=== PATIENT | male | born 1955 | race Caucasian/White ===

== ENCOUNTER → 2016-10-03 | Outpatient (CLI) | payer OTHER ==
[2016-10-03 13:09] LABS: Basophils % (A) 0 %; CH 32.5; CHCM 35.1; Eosinophils # (A) 0.3 k/uL (0-0.7); Eosinophils % (A) 4 %; HCT 48.1 % (39.0-53.0); HDW 2.58; HGB 16.4 gm/dL (13.0-17.5); Luc # (Auto) 0.13; Luc % (Auto) 2; Lymphocytes % (A) 22 %; MCH 31.7 pg (25.0-35.0); MCHC 34.1 g/dL (31.0-37.0); Mean Platelet Volume 9.8; Monocytes # (A) 0.7 k/uL (0-1.0); Monocytes % (A) 7 %; Neutrophils # (A) 5.7 k/uL (1.3-7.7); Neutrophils % (A) 65 %; RBC 5.17 m/uL (4.30-5.90); RDW 13.4 % (11.5-15.5); WBC 8.9 k/uL (3.8-10.6); WBC (Perox) 8.49
[2016-10-03 13:25] LABS: ALT 30 U/L (21-72); AST 27 U/L (17-59); Alkaline Phosphatase 137 U/L (38-126); Anion Gap 11 mmol/L; Bilirubin, Delta 0.5 mg/dL (0.0-0.2); Blood Urea Nitrogen 12 mg/dL (9-20); Calcium 9.6 mg/dL (8.4-10.2); Carbon Dioxide 29 mmol/L (22-30); Chloride 104 mmol/L (98-107); Glucose 98 mg/dL (74-99); Non-African American GFR(MDRD) >60 (>60 ml/min/1.73 sqM); Potassium 4.2 mmol/L (3.5-5.1); Sodium 144 mmol/L (137-145); Total Bilirubin 0.8 mg/dL (0.2-1.3); Total Protein 7.3 g/dL (6.3-8.2)
[2016-10-03 13:26] LABS: INR 1.2 (<1.1); Partial Thromboplastin Time 26.3 sec (22.0-30.0); Prothrombin Time 11.5 sec (9.0-12.0)
== END | disposition home or self-care (01) ==
LOC: LABWHC1 12:20
PROVIDERS: ATTEND Physician Assistant
DX: K70.30 Alcoholic cirrhosis of liver without ascites (principal); I10 Essential (primary) hypertension
CPT/HCPCS: 36415; 80053; 82105; 82248; 85025; 85610; 85730

== ENCOUNTER → 2016-12-29 | Outpatient (CLI) | payer OTHER ==
--- NOTE | 2016-12-29 15:19 | MR ---
MR cervical spine and lumbar spine without contrast HISTORY: Neck pain, back pain Multiplanar multisequence imaging obtained through the cervical and lumbar spine Correlation to cervical spine MRI 29 July 2015, lumbar spine MRI July 2014 Cervical spine MRI: Multilevel facet arthropathy, spondylosis, loss of disc height and signal, endpla te degenerative marrow signal change is again noted as on previous exam. Cervical cord signal, cervic al medullary junction are stable and unremarkable. C3-4 shows some slight interval increase in foraminal encroachment on the right as compared to prior exam. Posterior disc bulge is stable, no significant foraminal encroachment. C4-5: Right posterior paracentral disc herniation is again noted, there is anterolateral mass effect on the thecal sac as on prior exam. There is likely contact the anterior cervical cord. Foraminal enc roachment is present right greater than left. On mild central canal stenosis. C5-6: Bilateral foraminal encroachment is present. Moderate central canal stenosis due to posterior e xtension of endplate disc complex, right posterior paracentral extension of endplate disc complex con tacts the cervical cord anteriorly. C6-7: Posterior extension of endplate disc complex causes anterior mass effect on the thecal sac. Jamie ateral foraminal encroachment as on prior exam. C7-T1, C2-3 are stable and essentially unremarkable. IMPRESSION: Multilevel foraminal encroachment, degenerative disc disease, facet arthropathy. Lumbar spine MRI: Exam shows a similar appearance. Grade 3-4 anterolisthesis L5-S1, there is associat ed loss of disc height and signal, reactive marrow signal change. Bilateral foraminal encroachment pr esent and significant at L5-S1. No significant central canal stenosis. Loss of disc signal at L4-5, L 2-3 is again noted. No sizable disc herniation. T11-12 shows a left posterior paracentral disc protru jeffrey causing minimal anterolateral mass effect on the thecal sac as on prior exam. Lumbar vertebral b odies show stable height and marrow signal. IMPRESSION: Stable exam. Spondylolysis, spondylolisthesis L5-S1, extensive severe foraminal encroachm ent bilaterally at L5-S1. Mild degenerative disc disease is stable.
== END | disposition home or self-care (01) ==
LOC: RADMRIMAIN 10:51
PROVIDERS: ATTEND Physician Assistant
DX: M50.21 Other cervical disc displacement, high cervical region (principal); M50.30 Other cervical disc degeneration, unspecified cervical region; M51.36 Other intervertebral disc degeneration, lumbar region; M43.17 Spondylolisthesis, lumbosacral region; M48.02 Spinal stenosis, cervical region; M46.92 Unspecified inflammatory spondylopathy, cervical region; M47.812 Spondylosis without myelopathy or radiculopathy, cervical region; M47.817 Spondylosis without myelopathy or radiculopathy, lumbosacral region
CPT/HCPCS: 72141; 72148

== ENCOUNTER → 2017-02-27 | Outpatient (CLI) | payer OTHER ==
[2017-02-27 09:29] LABS: Basophils % (A) 1 %; CH 32.8; CHCM 34.9; Eosinophils # (A) 0.4 k/uL (0-0.7); Eosinophils % (A) 6 %; HCT 48.1 % (39.0-53.0); HDW 2.54; HGB 16.3 gm/dL (13.0-17.5); Luc # (Auto) 0.19; Luc % (Auto) 3; Lymphocytes # (A) 2.3 k/uL (1.0-4.8); Lymphocytes % (A) 36 %; MCHC 33.9 g/dL (31.0-37.0); MCV 94.4 fL (80.0-100.0); Mean Platelet Volume 8.9; Monocytes # (A) 0.4 k/uL (0-1.0); Monocytes % (A) 7 %; Neutrophils # (A) 3.1 k/uL (1.3-7.7); Neutrophils % (A) 49 %; RDW 13.9 % (11.5-15.5); WBC 6.4 k/uL (3.8-10.6); WBC (Perox) 6.18
[2017-02-27 09:37] LABS: INR 1.2 (<1.1); Partial Thromboplastin Time 25.7 sec (22.0-30.0); Prothrombin Time 12.4 sec (9.0-12.0)
[2017-02-27 09:54] LABS: ALT 38 U/L (21-72); AST 34 U/L (17-59); Alkaline Phosphatase 95 U/L (38-126); Anion Gap 11 mmol/L; Bilirubin, Delta 0.3 mg/dL (0.0-0.2); Blood Urea Nitrogen 12 mg/dL (9-20); Calcium 9.6 mg/dL (8.4-10.2); Carbon Dioxide 26 mmol/L (22-30); Chloride 108 mmol/L (98-107); Cholesterol 146 mg/dL (<200); Glucose 86 mg/dL (74-99); HDL Cholesterol 55 mg/dL (40-60); Non-African American GFR(MDRD) >60 (>60 ml/min/1.73 sqM); Potassium 3.9 mmol/L (3.5-5.1); Sodium 145 mmol/L (137-145); Total Bilirubin 0.8 mg/dL (0.2-1.3); Total Protein 6.6 g/dL (6.3-8.2); Triglycerides 86 mg/dL (<150)
[2017-02-27 10:21] LABS: Prostate Specific Antigen 3.11 ng/mL (0.00-4.00)
== END | disposition home or self-care (01) ==
LOC: LABWHC1 09:01
PROVIDERS: ATTEND Physician Assistant
DX: Z00.00 Encounter for general adult medical examination without abnormal findings (principal); K70.30 Alcoholic cirrhosis of liver without ascites
CPT/HCPCS: 36415; 80053; 80061; 82105; 82248; 84153; 85025; 85610; 85730

== ENCOUNTER → 2017-05-12 | Outpatient (CLI) | payer OTHER ==
--- NOTE | 2017-05-12 11:08 | US ---
EXAMINATION TYPE: US liver DATE OF EXAM: 05/12/2017 COMPARISON: US 2016 CLINICAL HISTORY: K70.30 Alcoholic Cirrhosis. EXAM MEASUREMENTS: Liver Length: 10.2 cm Gallbladder Wall: 0.2 cm CBD: 0.3 cm Right Kidney: 10.2 x 6.0 x 4.4 cm Pancreas: limitedly seen as obscured by bowel gas Liver: heterogeneous appearance with nodular border to left lobe especially; enlarged main Portal Ve in at 16.3mm (nl = 13.0mm or <) with hepatopetal flow documented. Gallbladder: wnl, fold at fundus Evidence for sonographic Mckeon's sign: No CBD: wnl Right Kidney: No hydronephrosis or masses seen IMPRESSION: 1. Findings of the liver which can be compatible with cirrhosis in the proper clinical setting. 2. Portal vein with normal hepatopetal flow.
== END | disposition home or self-care (01) ==
LOC: RADUSWWP 09:27
DX: K70.30 Alcoholic cirrhosis of liver without ascites (principal)
CPT/HCPCS: 93976

== ENCOUNTER 2017-06-06 15:47 | Emergency (ER) | payer OTHER ==
[2017-06-06 15:59] VITALS: RESP 18
[2017-06-06] MEDS ORDERED: SODIUM CHLORIDE 0.9% 1,000 ML IV ONE (15:59)
[2017-06-06] MEDS ORDERED: SODIUM CHLORIDE 0.9% 1,000 ML IV SCH (16:00)
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
[2017-06-06 16:27] LABS: Aty Lym Flag Slight; Basophils # (A) 0.1 k/uL (0-0.2); Basophils % (A) 1 %; CH 33.7; CHCM 35.2; Eosinophils # (A) 0.5 k/uL (0-0.7); Eosinophils % (A) 7 %; HCT 43.5 % (39.0-53.0); HDW 2.59; HGB 14.7 gm/dL (13.0-17.5); Luc # (Auto) 0.35; Luc % (Auto) 6; Lymphocytes # (A) 2.6 k/uL (1.0-4.8); Lymphocytes % (A) 40 %; MCH 32.5 pg (25.0-35.0); MCHC 33.7 g/dL (31.0-37.0); MCV 96.3 fL (80.0-100.0); Mean Platelet Volume 8.8; Monocytes # (A) 0.5 k/uL (0-1.0); Monocytes % (A) 7 %; Neutrophils # (A) 2.6 k/uL (1.3-7.7); Neutrophils % (A) 40 %; RBC 4.52 m/uL (4.30-5.90); RDW 14.9 % (11.5-15.5); WBC 6.5 k/uL (3.8-10.6); WBC (Perox) 6.64
[2017-06-06 16:34] LABS: INR 1.2 (<1.2); Partial Thromboplastin Time 24.8 sec (22.0-30.0); Prothrombin Time 11.5 sec (9.0-12.0)
--- NOTE | 2017-06-06 16:35 | XR ---
EXAMINATION TYPE: XR chest 1V portable DATE OF EXAM: 06/06/2017 COMPARISON: 10/08/2010 HISTORY: Pain and trauma TECHNIQUE: Single frontal view of the chest is obtained. FINDINGS: Heart and mediastinum are normal. Lungs are clear. Diaphragm is normal. There are chest le ads. There is no sign of a pneumothorax. IMPRESSION: Normal chest. No change.
--- NOTE | 2017-06-06 16:39 | CT ---
EXAMINATION TYPE: CT brain kayleigh jaimes DATE OF EXAM: 06/06/2017 COMPARISON: NONE HISTORY: Pain. Injury. CT DLP: mGycm Automated exposure control for dose reduction was used. TECHNIQUE: CT scan of the head and cervical spine are performed without contrast. FINDINGS: Ventricles and sulci appear normal. There is no mass effect nor midline shift. There is n o sign of intracranial hemorrhage. There is mild white matter hypodensity in the parietal lobes bilat erally. The calvarium is intact. There is straightening of the cervical spine. There is degenerative disc space narrowing at C5-6 C6-7 with moderate spurring of the endplates. There is calcification of the posterior longitudinal ligame nt at C4 C5 C6. Facet joints are intact. The skull base is intact. I see no focal bone destruction. IMPRESSION: There is evidence of chronic small vessel ischemia. No acute intracranial abnormality. Moderate spondylosis in the lower cervical spine. No fracture.
[2017-06-06 16:43] LABS: ALT 36 U/L (21-72); AST 45 U/L (17-59); Alkaline Phosphatase 101 U/L (38-126); Anion Gap 13 mmol/L; Blood Urea Nitrogen 11 mg/dL (9-20); Calcium 9.2 mg/dL (8.4-10.2); Carbon Dioxide 18 mmol/L (22-30); Chloride 116 mmol/L (98-107); Glucose 78 mg/dL (74-99); Non-African American GFR(MDRD) >60 (>60 ml/min/1.73 sqM); Potassium 3.7 mmol/L (3.5-5.1); Sodium 147 mmol/L (137-145); Total Bilirubin 0.8 mg/dL (0.2-1.3); Total Protein 6.1 g/dL (6.3-8.2)
[2017-06-06 16:46] LABS: Creatine Kinase 201 U/L (55-170)
[2017-06-06 16:49] LABS: Alcohol 273 mg/dL
[2017-06-06] MEDS ORDERED: TOPICAL SKIN ADHESIVE 1 EACH AMP TOPICAL ONE (16:55)
[2017-06-06 16:58] LABS: Large Platelets Present; Manual Review Performed; RBC Morphology Normal; Reactive Lymphocytes Present
[2017-06-06 16:59] LABS: Creatine Kinase MB 1.3 ng/mL (0.0-2.4); Troponin I <0.012 ng/mL (0.000-0.034)
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
[2017-06-06 17:54] VITALS: BP 124/73; PULSE 74; TEMP 98
== END 2017-06-06 18:02 | disposition home or self-care (01) ==
LOC: EC 15:47
DX: S09.90XA Unspecified injury of head, initial encounter (principal); S01.81XA Laceration without foreign body of other part of head, initial encounter; S00.211A Abrasion of right eyelid and periocular area, initial encounter; F10.129 Alcohol abuse with intoxication, unspecified; V19.9XXA Pedal cyclist (driver) (passenger) injured in unspecified traffic accident, initial encounter; Y93.55 Activity, bike riding; M19.90 Unspecified osteoarthritis, unspecified site; F32.9 Major depressive disorder, single episode, unspecified; F17.200 Nicotine dependence, unspecified, uncomplicated; Z79.899 Other long term (current) drug therapy
CPT/HCPCS: 12013; 36415; 70450; 71010; 72125; 72170; 80053; 80320; 82550; 82553; 84484; 85025; 85610; 85730; 86850; 86900; 86901; 96360; 96361; 99285

== ENCOUNTER → 2017-07-04 | Outpatient (CLI) | payer OTHER ==
[2017-07-04 13:28] LABS: CH 32.9; CHCM 34.5; HCT 48.5 % (39.0-53.0); HDW 2.51; MCH 31.7 pg (25.0-35.0); MCV 95.9 fL (80.0-100.0); Mean Platelet Volume 8.3; RBC 5.06 m/uL (4.30-5.90); RDW 12.7 % (11.5-15.5); WBC 6.1 k/uL (3.8-10.6)
[2017-07-04 13:36] LABS: INR 1.2 (<1.2); Partial Thromboplastin Time 25.3 sec (22.0-30.0); Prothrombin Time 12.1 sec (9.0-12.0)
[2017-07-04 13:44] LABS: Bilirubin, Delta 0.3 mg/dL (0.0-0.2); Total Bilirubin 0.8 mg/dL (0.2-1.3)
== END | disposition home or self-care (01) ==
LOC: LABWHC1 12:59
PROVIDERS: ATTEND Physician Assistant
DX: K70.30 Alcoholic cirrhosis of liver without ascites (principal)
CPT/HCPCS: 36415; 80076; 82105; 85027; 85610; 85730

== ENCOUNTER → 2018-01-08 | Outpatient (CLI) | payer OTHER ==
[2018-01-08 12:50] LABS: Basophils % (A) 0 %; Eosinophils # (A) 0.2 k/uL (0-0.7); Eosinophils % (A) 3 %; HCT 46.4 % (39.0-53.0); HGB 15.6 gm/dL (13.0-17.5); Lymphocytes % (A) 21 %; MCH 30.4 pg (25.0-35.0); MCHC 33.5 g/dL (31.0-37.0); MCV 90.5 fL (80.0-100.0); Mean Platelet Volume 9.4; Monocytes # (A) 0.7 k/uL (0-1.0); Monocytes % (A) 8 %; Neutrophils # (A) 6.3 k/uL (1.3-7.7); Neutrophils % (A) 67 %; Platelet Count 131 k/uL (150-450); RBC 5.13 m/uL (4.30-5.90); WBC 9.4 k/uL (3.8-10.6)
[2018-01-08 12:52] LABS: INR 1.2 (<1.2); Partial Thromboplastin Time 23.7 sec (22.0-30.0); Prothrombin Time 11.4 sec (9.0-12.0)
[2018-01-08 13:37] LABS: ALT 36 U/L (21-72); AST 34 U/L (17-59); Albumin 3.7 g/dL (3.5-5.0); Alkaline Phosphatase 124 U/L (38-126); Anion Gap 10 mmol/L; Bilirubin, Delta 0.6 mg/dL (0.0-0.2); Bilirubin,Unconjugated 0.2 mg/dL (0.0-1.1); Blood Urea Nitrogen 14 mg/dL (9-20); Calcium 9.8 mg/dL (8.4-10.2); Carbon Dioxide 29 mmol/L (22-30); Chloride 103 mmol/L (98-107); Glucose 94 mg/dL (74-99); Potassium 4.2 mmol/L (3.5-5.1); Sodium 142 mmol/L (137-145); Total Bilirubin 0.8 mg/dL (0.2-1.3); Total Protein 6.2 g/dL (6.3-8.2)
[2018-01-08 18:46] LABS: Alpha Fetoprotein, Tumor Mkr 2.3 ng/mL (0.0-7.9); Vitamin D 25 Hydroxy 31.3 ng/mL (30.0-100.0)
== END | disposition home or self-care (01) ==
LOC: LABWHC1 12:20
PROVIDERS: ATTEND Internal Medicine Gastroenterology
DX: K70.30 Alcoholic cirrhosis of liver without ascites (principal); E78.5 Hyperlipidemia, unspecified
CPT/HCPCS: 36415; 80053; 82105; 82248; 82306; 85025; 85610; 85730

== ENCOUNTER → 2018-01-30 | Outpatient (CLI) | payer OTHER ==
[2018-01-30 12:25] LABS: Basophils % (A) 0 %; Eosinophils # (A) 0.3 k/uL (0-0.7); Eosinophils % (A) 4 %; HCT 43.5 % (39.0-53.0); HGB 15.3 gm/dL (13.0-17.5); Lymphocytes # (A) 1.6 k/uL (1.0-4.8); Lymphocytes % (A) 26 %; MCH 32.8 pg (25.0-35.0); MCHC 35.2 g/dL (31.0-37.0); MCV 93.2 fL (80.0-100.0); Mean Platelet Volume 9.2; Monocytes # (A) 0.4 k/uL (0-1.0); Monocytes % (A) 7 %; Neutrophils # (A) 3.5 k/uL (1.3-7.7); Neutrophils % (A) 60 %; Platelet Count 114 k/uL (150-450); RBC 4.67 m/uL (4.30-5.90); RDW 13.6 % (11.5-15.5); WBC 5.9 k/uL (3.8-10.6)
[2018-01-30 12:41] LABS: ALT 39 U/L (21-72); AST 49 U/L (17-59); Albumin 3.7 g/dL (3.5-5.0); Alkaline Phosphatase 98 U/L (38-126); Anion Gap 10 mmol/L; Blood Urea Nitrogen 11 mg/dL (9-20); Calcium 9.5 mg/dL (8.4-10.2); Carbon Dioxide 28 mmol/L (22-30); Chloride 105 mmol/L (98-107); Cholesterol 155 mg/dL (<200); Glucose 93 mg/dL (74-99); HDL Cholesterol 72 mg/dL (40-60); LDL Cholesterol,Calculated 64 mg/dL (0-99); Potassium 4.2 mmol/L (3.5-5.1); Sodium 143 mmol/L (137-145); Total Bilirubin 1.4 mg/dL (0.2-1.3); Total Protein 6.1 g/dL (6.3-8.2); Triglycerides 93 mg/dL (<150)
[2018-01-30 13:09] LABS: Prostate Specific Antigen 4.37 ng/mL (0.00-4.00)
== END | disposition home or self-care (01) ==
LOC: LABWHC1 11:34
PROVIDERS: ATTEND Family Medicine
DX: Z00.00 Encounter for general adult medical examination without abnormal findings (principal)
CPT/HCPCS: 36415; 80053; 80061; 82306; 84153; 85025

== ENCOUNTER → 2018-02-01 | Outpatient (CLI) | payer OTHER | END | disposition home or self-care (01) | LOC: LABWHC1 09:53 | PROVIDERS: ATTEND Family Medicine | DX: R89.9 Unspecified abnormal finding in specimens from other organs, systems and tissues (principal) | CPT/HCPCS: 36415; 84153; 84154 ==

== ENCOUNTER → 2018-02-06 | Outpatient (CLI) | payer OTHER ==
--- NOTE | 2018-02-06 22:22 | MR ---
EXAMINATION TYPE: MR lumbar spine wo con DATE OF EXAM: 02/06/2018 COMPARISON: MRI lumbar spine December 29, 2016 HISTORY: Back pain 30 years per patient. Lumbago per order. TECHNIQUE: Multiplanar, multisequence imaging of the lumbar spine is performed without IV contrast. FINDINGS: Sagittal images of the lumbar spine redemonstrate significant grade 3 spondylolisthesis or anterolisthesis L5 on S1 without stable. There is mild to moderate height loss involving posterior in ferior L5 vertebra similar to prior. There is redemonstration of disc desiccation L2-L3, L4-L5, and L 5-S1 levels similar to prior. Fairly advanced disc space narrowing L5-S1 level is redemonstrated. No new or large posterior disc herniations and sagittal images are seen. The conus medullaris remains no rmal in position and signal ending superior L1 level. The bone marrow signal intensity remains heter ogeneous with multiple scattered small hemangiomas redemonstrated. Axial images show at T12-L1 and L1-L2 levels remain within normal limits. Axial images at L2-L3 level redemonstrate mild broad disc bulge mildly effacing the anterior thecal s ac, bilateral neural foramina are patent. No significant change from prior. Axial images at L3-L4 level remain within normal limits. Axial images at L4-L5 level shows broad disc bulge with central disc protrusion component. Increased signal posteriorly suggesting annular tear remains present. Spinal canal is preserved. Bilateral neur al foramina are patent. Axial images at L5-S1 level redemonstrated bilateral pars defect and spondylolisthesis with pseudodis c herniation and increased signal posteriorly and anteriorly suggesting annular tear. Spinal canal is preserved. There is advanced bilateral neural foraminal narrowing with suspected encroachment on bot h L5 nerves redemonstrated. No suspicious retroperitoneal findings are seen. IMPRESSION: Multilevel degenerative changes of lumbar spine as detailed above. Stable persistent sign ificant spondylolisthesis L5-S1 level causing advanced bilateral neural foraminal narrowing and likel y encroachment on both L5 nerves.
== END | disposition home or self-care (01) ==
LOC: RADMRIMAIN 13:20
PROVIDERS: ATTEND Psychiatry & Neurology Neurology
DX: M43.17 Spondylolisthesis, lumbosacral region (principal); M47.816 Spondylosis without myelopathy or radiculopathy, lumbar region; M99.73 Connective tissue and disc stenosis of intervertebral foramina of lumbar region
CPT/HCPCS: 72148

== ENCOUNTER 2018-04-06 09:43 | Day surgery (SDC) | payer OTHER ==
[2018-04-03 15:37] VITALS: BMI 23.5
[~2018-04-06 09:43] MED LIST: LACTATED RINGERS 1,000 ML IV SCH; LIDOCAINE 1% 20 ML VIAL (10MG/ML) FOR IV START INTRADERMA PRN; MIDAZOLAM 2 MG/2 ML VIAL IV PRN
[2018-04-06 10:57] VITALS: TEMP 98.6
[2018-04-06] MEDS ORDERED: LIDOCAINE 1% INJ 10MG/ML (20 ML MDV) ONE (11:21)
[2018-04-06] MEDS ORDERED: PROPOFOL 10 MG/ML 20 ML VIAL IV ONE (11:21)
--- NOTE | 2018-04-06 11:46 | P.PCN ---
Date of Procedure: 04/06/18 Procedure(s) Performed: Brief history: Patient is a pleasant 62-year-old white male, scheduled for an elective upper endoscopy as well as colonoscopy as a part of evaluation of long-standing history of GERD and screening for colon cancer. Procedure performed: Esophagogastroduodenoscopy with biopsy Colonoscopy Preoperative diagnosis: Long-standing history of GERD Screening for colon cancer Anesthesia: MAC Procedure: After informed consent was obtained from the patient was brought into the endoscopy unit and IV sedation was administered by anesthesia under continuous monitoring. Initially upper endoscopy was done. The Olympus GF 160 video endoscope was inserted inserted into the mouth and esophagus intubated without any difficulty and was gradually advanced into the stomach and duodenum and carefully examined. The bulb and second part of the duodenum appeared normal. The scope was then withdrawn into the stomach adequately insufflated with air and upon careful examination the antrum had mild gastritis and biopsies were done from this area. The body, cardia and fundus appeared normal. The scope was then withdrawn into the esophagus. The GE junction was located at 40 cm to the incisors. It appeared regular with no erythema erosions or ulcerations. Rest of the esophagus appeared normal. the proximal esophagus at 20 cm from the incisors there was a 5 mm polyp that was removed. Patient tolerated the procedure well. At this time the patient continued to remain sedation. Initial digital rectal examination was normal. Olympus CF 160 video colonoscope was then inserted into the rectum and gradually advanced to the cecum without any difficulty. Careful examination was performed as the scope was gradually being withdrawn. The prep was excellent. The cecum, ascending colon, transverse colon, descending colon, sigmoid colon and rectum appeared normal. Retroflexion was performed in the rectum and no lesions were noted. Patient tolerated the procedure well. Impression: 1. Upper endoscopy revealed 5 mm proximal esophageal polyp status post biopsy and mild gastritis 2. Colonoscopy was within normal limits with no evidence of of colorectal lasia Recommendations: Findings of this examination were discussed with the patient as well as his family. He was advised to follow with the biopsy results. He can have a repeat screening colonoscopy in 10 years. He will continue with Prilosec 20 mg daily and follow up with the biopsy results.
[2018-04-06 11:49] VITALS: RESP 16
[2018-04-06 12:11] VITALS: BP 129/77; PULSE 71
== END 2018-04-06 12:25 | disposition home or self-care (01) ==
LOC: ORWHC2ENDO 09:43
PROVIDERS: ATTEND Internal Medicine Gastroenterology
DX: Z12.11 Encounter for screening for malignant neoplasm of colon (principal); K29.50 Unspecified chronic gastritis without bleeding; D13.0 Benign neoplasm of esophagus; K21.9 Gastro-esophageal reflux disease without esophagitis; F32.9 Major depressive disorder, single episode, unspecified; F41.9 Anxiety disorder, unspecified; Z87.891 Personal history of nicotine dependence; Z79.899 Other long term (current) drug therapy
CPT/HCPCS: 88305; 43239; J2001; J2704; G0121; 45378

== ENCOUNTER → 2018-06-06 | Outpatient (CLI) | payer OTHER ==
[2018-06-06 12:14] LABS: INR 1.3 (<1.2); Partial Thromboplastin Time 25.4 sec (22.0-30.0); Prothrombin Time 12.2 sec (9.0-12.0)
[2018-06-06 12:29] LABS: Albumin 3.5 g/dL (3.5-5.0); Bilirubin, Delta 0.9 mg/dL (0.0-0.2); Total Bilirubin 1.9 mg/dL (0.2-1.3); Total Protein 6.1 g/dL (6.3-8.2)
[2018-06-06 12:35] LABS: HCT 47.3 % (39.0-53.0); HGB 15.7 gm/dL (13.0-17.5); MCH 32.4 pg (25.0-35.0); MCHC 33.2 g/dL (31.0-37.0); MCV 97.6 fL (80.0-100.0); Mean Platelet Volume 9.1; Platelet Count 100 k/uL (150-450); RBC 4.85 m/uL (4.30-5.90); RDW 13.8 % (11.5-15.5)
== END | disposition home or self-care (01) ==
LOC: LABWHC1 11:16
PROVIDERS: ATTEND Physician Assistant
DX: K70.30 Alcoholic cirrhosis of liver without ascites (principal)
CPT/HCPCS: 36415; 80076; 82105; 85027; 85610; 85730

== ENCOUNTER → 2018-07-13 | Outpatient (CLI) | payer OTHER ==
[2018-07-13 11:11] LABS: Basophils % (A) 0 %; Eosinophils # (A) 0.2 k/uL (0-0.7); Eosinophils % (A) 3 %; HCT 47.6 % (39.0-53.0); HGB 15.7 gm/dL (13.0-17.5); Lymphocytes # (A) 1.9 k/uL (1.0-4.8); Lymphocytes % (A) 30 %; MCV 96.8 fL (80.0-100.0); Mean Platelet Volume 9.3; Monocytes # (A) 0.6 k/uL (0-1.0); Monocytes % (A) 9 %; Neutrophils # (A) 3.6 k/uL (1.3-7.7); Neutrophils % (A) 56 %; Platelet Count 107 k/uL (150-450); RBC 4.91 m/uL (4.30-5.90); RDW 13.6 % (11.5-15.5); WBC 6.5 k/uL (3.8-10.6)
[2018-07-13 11:24] LABS: INR 1.2 (<1.2); Prothrombin Time 11.6 sec (9.0-12.0)
[2018-07-13 12:05] LABS: Albumin 3.1 g/dL (3.5-5.0); Anion Gap 6 mmol/L; Bilirubin,Unconjugated 0.6 mg/dL (0.0-1.1); Blood Urea Nitrogen 15 mg/dL (9-20); Calcium 8.9 mg/dL (8.4-10.2); Carbon Dioxide 29 mmol/L (22-30); Chloride 104 mmol/L (98-107); Glucose 81 mg/dL (74-99); Potassium 3.6 mmol/L (3.5-5.1); Sodium 139 mmol/L (137-145); Total Protein 5.9 g/dL (6.3-8.2)
[2018-07-13 12:06] LABS: ALT 47 U/L (21-72); AST 93 U/L (17-59); Alkaline Phosphatase 167 U/L (38-126); Bilirubin, Delta 0.8 mg/dL (0.0-0.2); Total Bilirubin 1.4 mg/dL (0.2-1.3)
--- NOTE | 2018-07-13 16:53 | US ---
EXAMINATION TYPE: US liver DATE OF EXAM: 07/13/2018 COMPARISON: NONE CLINICAL HISTORY: K70.30 Alcoholic cirrhosis of liver w/o ascites. Alcoholic cirrhosis of the liver w ithout ascites EXAM MEASUREMENTS: Liver Length: 11.9 cm Gallbladder Wall: 0.3 cm CBD: 0.3 cm Right Kidney: 9.1 x 4.9 x 5.6 cm Difficult and limited study due to overlying bowel gas Pancreas: obscured by overlying midline bowel gas Liver: heterogeneous with nodular borders, enlarged portal vein at 1.7cm with hepatopedal flow seen Gallbladder: wnl Evidence for sonographic Mckeon's sign: no CBD: visualized portions wnl Right Kidney: wnl IMPRESSION: 1. Findings compatible with cirrhosis. Note is made of hepatopedal flow of the portal vein.
== END | disposition home or self-care (01) ==
LOC: RADUSWWP 09:41
PROVIDERS: ATTEND Internal Medicine Gastroenterology
DX: K70.30 Alcoholic cirrhosis of liver without ascites (principal); E78.5 Hyperlipidemia, unspecified; R97.20 Elevated prostate specific antigen [PSA]
CPT/HCPCS: 36415; 76705; 80053; 82105; 82248; 84153; 84154; 85025; 85610; 85730

== ENCOUNTER → 2019-01-07 | Outpatient (CLI) | payer OTHER ==
[2019-01-07 12:19] LABS: Basophils % (A) 0 %; Eosinophils # (A) 0.1 k/uL (0-0.7); Eosinophils % (A) 2 %; HCT 46.1 % (39.0-53.0); HGB 15.3 gm/dL (13.0-17.5); Lymphocytes # (A) 1.5 k/uL (1.0-4.8); Lymphocytes % (A) 33 %; MCH 32.1 pg (25.0-35.0); MCHC 33.3 g/dL (31.0-37.0); MCV 96.4 fL (80.0-100.0); Mean Platelet Volume 10.3; Monocytes # (A) 0.3 k/uL (0-1.0); Monocytes % (A) 8 %; Neutrophils # (A) 2.5 k/uL (1.3-7.7); Neutrophils % (A) 54 %; RBC 4.78 m/uL (4.30-5.90); RDW 13.8 % (11.5-15.5); WBC 4.6 k/uL (3.8-10.6)
[2019-01-07 12:23] LABS: INR 1.5 (<1.2); Prothrombin Time 14.8 sec (9.0-12.0)
[2019-01-07 12:56] LABS: Large Platelets Present; Platelet Count 76 k/uL (150-450)
[2019-01-07 16:50] LABS: Albumin 3.2 g/dL (3.80-4.90); Albumin/Globulin Ratio 1.68 (1.60-3.17); Bilirubin,Unconjugated 1.1 mg/dL; Calcium 8.6 mg/dL (8.7-10.3); Globulin 1.9 g/dL (1.6-3.3); Potassium 3.9 mmol/L (3.5-5.5); Total Bilirubin 3.1 mg/dL (0.2-1.2); Total Protein 5.1 g/dL (6.2-8.2)
== END | disposition home or self-care (01) ==
LOC: LABWHC1 11:01
PROVIDERS: ATTEND Family Medicine
DX: K70.30 Alcoholic cirrhosis of liver without ascites (principal); E78.5 Hyperlipidemia, unspecified; R97.20 Elevated prostate specific antigen [PSA]
CPT/HCPCS: 36415; 80053; 82105; 82248; 84153; 84154; 85025; 85610

== ENCOUNTER 2019-03-17 16:18 | Inpatient (IN) | payer OTHER ==
[2019-03-17] MEDS ORDERED: VANCOMYCIN IV PER PHARMACY 1 EACH MISC MISCELLANE PRN (16:33)
[2019-03-17] MEDS ORDERED: ACETAMINOPHEN TAB 500 MG TAB PO STA (16:33)
[2019-03-17] MEDS ORDERED: IBUPROFEN 600 MG TAB PO STA (16:33)
[2019-03-17] MEDS ORDERED: VANCOMYCIN 1,500 MG in SODIUM CHLORIDE 0.9% 250 ML IVPB ONE (16:45)
[2019-03-17 17:26] LABS: ALT 42 U/L (21-72); AST 70 U/L (17-59); African American GFR (CKD) >90 (>60 ml/min/1.73 sqM); Albumin 2.6 g/dL (3.5-5.0); Alcohol <10 mg/dL; Alkaline Phosphatase 239 U/L (38-126); Anion Gap 7 mmol/L; Blood Urea Nitrogen 13 mg/dL (9-20); Calcium 8.3 mg/dL (8.4-10.2); Carbon Dioxide 27 mmol/L (22-30); Chloride 102 mmol/L (98-107); Glucose 133 mg/dL (74-99); Lipase 206 U/L (23-300); Magnesium 1.5 mg/dL (1.6-2.3); Phosphorus 2.3 mg/dL (2.5-4.5); Potassium 3.4 mmol/L (3.5-5.1); Sodium 136 mmol/L (137-145); Total Protein 5.2 g/dL (6.3-8.2)
[2019-03-17 17:27] LABS: Anisocytosis Slight; Basophils % (A) 0 %; Eosinophils # (A) 0.1 k/uL (0-0.7); Eosinophils % (A) 1 %; HCT 41.1 % (39.0-53.0); HGB 13.9 gm/dL (13.0-17.5); Lymphocytes # (A) 0.9 k/uL (1.0-4.8); Lymphocytes % (A) 9 %; MCH 33.3 pg (25.0-35.0); MCHC 33.8 g/dL (31.0-37.0); MCV 98.6 fL (80.0-100.0); Macrocytosis Slight; Mean Platelet Volume 10.1; Monocytes # (A) 0.5 k/uL (0-1.0); Monocytes % (A) 5 %; Neutrophils # (A) 8.5 k/uL (1.3-7.7); Neutrophils % (A) 84 %; Platelet Count 63 k/uL (150-450); RBC 4.17 m/uL (4.30-5.90); RDW 16.3 % (11.5-15.5); WBC 10.2 k/uL (3.8-10.6)
[2019-03-17] MEDS ORDERED: LORazepam 2 MG/ML INJ IV PRN ×3 (17:42)
[2019-03-17] MEDS ORDERED: THIAMINE 100 MG/ML 2 ML VIAL IM STA (17:42)
[2019-03-17] MEDS ORDERED: TEMAZEPAM 15 MG CAP PO PRN (17:48)
[2019-03-17] MEDS ORDERED: hydrALAZINE HCL 20 MG/ML 1 ML VIAL IVP PRN (17:48)
[2019-03-17] MEDS ORDERED: cloNIDine HCL 0.1 MG TAB PO PRN (17:48)
[2019-03-17] MEDS ORDERED: HYDROmorphone 0.5 MG/0.5 ML SYRINGE IVP PRN (17:48)
--- NOTE | 2019-03-17 18:16 | XR ---
EXAMINATION TYPE: XR chest 2V DATE OF EXAM: 03/17/2019 COMPARISON: 06/06/2017 HISTORY: Cough. Leg swelling TECHNIQUE: Frontal and lateral views of the chest are obtained. FINDINGS: Heart and mediastinum are normal. Lungs are clear. Diaphragm is normal. Bony thorax appear s normal. There is no heart failure. There are chest leads. IMPRESSION: No active cardiopulmonary disease. Normal heart. No change.
[2019-03-17] MEDS ORDERED: DEXTROSE 5%-0.45% NACL 1,000 ML IV SCH (18:30)
--- NOTE | 2019-03-17 18:34 | ED ---
Extremity Problem HPI - General Chief complaint: Extremity Problem,Nontraumatic Stated complaint: legs swelling and wheeping Time Seen by Provider: 03/17/19 16:33 Source: patient, RN notes reviewed, old records reviewed Mode of arrival: ambulatory Limitations: no limitations - History of Present Illness Initial comments: This is a 63-year-old male the ER for evaluation. This patient resents today for evaluation regards to bilateral Shorty cellulitis and wheezing. Fever. Not feeling well. Patient has history of alcohol is history of lower extremity cellulitis venous stasis and PD. Patient is recent travel history or sick contacts. No other cough congestion nausea vomiting or diarrhea MD Complaint: extremity pain, extremity swelling, joint swelling -: days(s) Location: bilateral lower extremity History of Same: No -: Yes arthralgia Radiation: none Severity scale (1-10): 3 Quality: crushing Consistency: constant Improves with: nothing Worsens with: nothing Associated Symptoms: fever, myalgias, arthralgias - Related Data Home Medications Medication Instructions Recorded Confirmed Folic Acid 1 mg PO DAILY 10/14/15 03/17/19 Omeprazole [PriLOSEC] 20 mg PO BID 10/14/15 03/17/19 Potassium Chloride [Klor-Con 20] 20 meq PO BID 10/14/15 03/17/19 Simvastatin [Zocor] 10 mg PO HS 10/14/15 03/17/19 Spironolactone-Hctz 25-25Mg 1 tab PO DAILY 06/06/17 03/17/19 [Aldactazide 25-25Mg] Pregabalin [Lyrica] 150 mg PO BID 03/17/19 03/17/19 Allergies Allergy/AdvReac Type Severity Reaction Status Date / Time No Known Allergies Allergy Verified 03/17/19 17:13 Review of Systems ROS Statement: Those systems with pertinent positive or pertinent negative responses have been documented in the HPI. ROS Other: All systems not noted in ROS Statement are negative. Past Medical History Past Medical History: Cancer, Hyperlipidemia, Osteoarthritis (OA) Additional Past Medical History / Comment(s): LIVER DISEASE, " in 2004 esophagus was bleeding and ulcers in stomach" receiving steroid injections for back pain. Prostate cancer History of Any Multi-Drug Resistant Organisms: None Reported Additional Past Surgical History / Comment(s): CATARACT SURGERY-BILATERAL, DENTAL Past Anesthesia/Blood Transfusion Reactions: No Reported Reaction Past Psychological History: Depression Smoking Status: Current every day smoker Past Alcohol Use History: None Reported, Daily Past Drug Use History: Marijuana - Past Family History Sister(s) Family Medical History: No Reported History Additional Family Medical History / Comment(s): THROAT Brother(s) Family Medical History: Cancer Additional Family Medical History / Comment(s): throat cancer General Exam Limitations: no limitations General appearance: alert, in no apparent distress Head exam: Present: atraumatic, normocephalic, normal inspection Eye exam: Present: normal appearance, PERRL, EOMI. Absent: scleral icterus, conjunctival injection, periorbital swelling ENT exam: Present: normal exam, mucous membranes moist Neck exam: Present: normal inspection. Absent: tenderness, meningismus, lymphadenopathy Respiratory exam: Present: normal lung sounds bilaterally. Absent: respiratory distress, wheezes, rales, rhonchi, stridor Cardiovascular Exam: Present: normal rhythm, tachycardia, normal heart sounds. Absent: systolic murmur, diastolic murmur, rubs, gallop, clicks GI/Abdominal exam: Present: soft, normal bowel sounds. Absent: distended, tenderness, guarding, rebound, rigid Extremities exam: Present: tenderness, normal capillary refill, other (Bilateral short lower extremity edema and cellulitis significant drainage and right lower extremity swelling, left lower extremity worse than right). Absent: pedal edema, joint swelling, calf tenderness Back exam: Present: normal inspection Neurological exam: Present: alert, oriented X3, CN II-XII intact Psychiatric exam: Present: normal affect, normal mood Skin exam: Present: warm, dry, intact, normal color. Absent: rash Course Vital Signs 03/17/19 16:28 Temperature 102.9 F H Pulse Rate 116 H Respiratory 22 Rate Blood Pressure 138/86 O2 Sat by Pulse 96 Oximetry - Reevaluation(s) Reevaluation #1: 03/17/19 18:32 Medical record is reviewed Reevaluation #2: 03/17/19 18:33 Having left lower extremity pain, fever improved Medical Decision Making - Medical Decision Making 63 male the ER for evaluation, patient will be admitted for bilateral cellulitis worse on the left lower extremity significantly with breathing and fever. Patient placed on IV antibiotics - Lab Data Result diagrams: 03/17/19 16:50 03/17/19 16:50 Lab Results 03/17/19 03/17/19 03/17/19 Range/Units 16:50 16:50 16:50 WBC 10.2 (3.8-10.6) k/uL RBC 4.17 L (4.30-5.90) m/uL Hgb 13.9 (13.0-17.5) gm/dL Hct 41.1 (39.0-53.0) % MCV 98.6 (80.0-100.0) fL MCH 33.3 (25.0-35.0) pg MCHC 33.8 (31.0-37.0) g/dL RDW 16.3 H (11.5-15.5) % Plt Count 63 L (150-450) k/uL Neutrophils % 84 % Lymphocytes % 9 % Monocytes % 5 % Eosinophils % 1 % Basophils % 0 % Neutrophils # 8.5 H (1.3-7.7) k/uL Lymphocytes # 0.9 L (1.0-4.8) k/uL Monocytes # 0.5 (0-1.0) k/uL Eosinophils # 0.1 (0-0.7) k/uL Basophils # 0.0 (0-0.2) k/uL Anisocytosis Slight Macrocytosis Slight Sodium 136 L (137-145) mmol/L Potassium 3.4 L (3.5-5.1) mmol/L Chloride 102 (98-107) mmol/L Carbon Dioxide 27 (22-30) mmol/L Anion Gap 7 mmol/L BUN 13 (9-20) mg/dL Creatinine 0.81 (0.66-1.25) mg/dL Est GFR (CKD-EPI)AfAm >90 (>60 ml/min/1.73 sqM) Est GFR (CKD-EPI)NonAf >90 (>60 ml/min/1.73 sqM) Glucose 133 H (74-99) mg/dL Plasma Lactic Acid Albino 3.3 H* (0.7-2.0) mmol/L Calcium 8.3 L (8.4-10.2) mg/dL Phosphorus 2.3 L (2.5-4.5) mg/dL Magnesium 1.5 L (1.6-2.3) mg/dL Total Bilirubin 4.0 H (0.2-1.3) mg/dL AST 70 H (17-59) U/L ALT 42 (21-72) U/L Alkaline Phosphatase 239 H (38-126) U/L Total Protein 5.2 L (6.3-8.2) g/dL Albumin 2.6 L (3.5-5.0) g/dL Lipase 206 (23-300) U/L Serum Alcohol <10 mg/dL - Radiology Data Radiology results: report reviewed (Chest x-rays negative for acute disease), image reviewed Disposition Clinical Impression: Fever, Sepsis, Cellulitis, Lymphangitis, Venous stasis, Alcohol withdrawal Disposition: ADMITTED IP TO THIS HOSP Condition: Fair Is patient prescribed a controlled substance at d/c from ED?: No Referrals: Vincent Nails MD [Primary Care Provider] - 1-2 days
[2019-03-17 18:50] LABS: Appearance,Urine Clear (Clear); Bilirubin,Urine 1+ (Negative); Blood,Urine Negative (Negative); Color,Urine Dark Yellow; Glucose,Urine (UA) Negative (Negative); Ketones,Urine Negative (Negative); Leukocyte Esterase,Urine Negative (Negative); Nitrite,Urine Negative (Negative); Protein,Urine Trace (Negative)
[2019-03-17] MEDS: SODIUM CHLORIDE 0.9% 1,000 ML IV SCH (19:29)
[2019-03-17] MEDS ORDERED: ACETAMINOPHEN TAB 325 MG TAB PO PRN (20:30)
[2019-03-17] MEDS ORDERED: NON-FORMULARY DRUG (Omeprazole [Prilosec] 20 MG) PO SCH (21:00)
[2019-03-17] MEDS: THIAMINE 100 MG TAB PO SCH ×2 (22:03→23:31)
[2019-03-17] MEDS: HEPARIN SODIUM,PORCINE 5,000 UNIT/ML 1 ML VIAL SQ SCH (22:03)
[2019-03-17] MEDS: POTASSIUM CHLORIDE ER 20 MEQ TAB.ER PO SCH (22:04)
[2019-03-17] MEDS: ATORVASTATIN 10 MG TAB PO SCH (22:04)
[2019-03-17] MEDS: PREGABALIN 75 MG CAP PO SCH (22:04)
--- NOTE | 2019-03-17 22:17 | HP ---
HISTORY AND PHYSICAL CHIEF COMPLAINT: Pain and swelling and erythema of the left leg. HISTORY OF PRESENT ILLNESS: This 63-year-old gentleman with a past medical history of multiple medical problems including hypertension, hyperlipidemia, history of liver disease, history of esophageal varices and bleeding ulcers in 2004, history of depression, history of nicotine dependence being followed by Dr. Nails in the outpatient setting had significant history of EtOH and smoking also. The patient was having significant erythema and swelling of the left leg. The patient came to [facility] and was admitted to the hospital for further evaluation and treatment. Possible acute cellulitis with sepsis suspected at this time. The lactic acid elevated to 3.3. There is no history of fever, rigors or chills. No history of headache, loss of consciousness or seizures. The patient being followed by Dr. Nails in the outpatient setting. PAST MEDICAL HISTORY: Hyperlipidemia, DJD, history of liver disease, history of esophageal ulceration, depression, nicotine dependence. MEDICATIONS: Prior to admission, home medications are: 1. Zocor 10 mg q.h.s. 2. Lyrica 150 mg p.o. b.i.d. 3. Klor-Con 20 mEq p.o. b.i.d. 4. Folic acid 1 mg daily. 5. Aldactazide 25/125 p.o. daily. 6. Prilosec 20 mg p.o. b.i.d. ALLERGIES: None. FAMILY HISTORY: History of throat cancer in the family. SOCIAL HISTORY: Previous history of smoking, history of THC. History of alcohol. REVIEW OF SYSTEMS: ENT: No diminished vision. No diminished hearing. CARDIOVASCULAR: No angina or palpitations. RESPIRATORY: As mentioned earlier. GI no nausea or vomiting. : No dysuria. NERVOUS SYSTEM: No numbness or weakness. ALLERGY/IMMUNOLOGY: No asthma or hayfever. MUSCULOSKELETAL as mentioned earlier. HEMATOLOGY/ONCOLOGY: No history of anemia. ENDOCRINE: No history of diabetes or hypothyroidism. CONSTITUTIONAL: As mentioned earlier. DERMATOLOGY: As mentioned earlier. RHEUMATOLOGY negative. PSYCHIATRY as mentioned. PHYSICAL EXAMINATION: Patient is alert and oriented times three. Pulse 116. Blood pressure 130/80, respirations 22, temperature is 102.9, pulse ox 98% on room air. HEENT: Conjunctivae normal. NECK: No jugular venous distention. CARDIOVASCULAR: S1, S2 muffled. RESPIRATORY: Breath sounds diminished in the bases. Bilateral scattered rhonchi and crackles. ABDOMEN: Soft, nontender. No mass palpable. LEGS: Bilateral leg swelling, left more than the right. Multiple excoriations, redness also present. Left leg is significantly swollen, erythema and tender to touch. Pulses diminished. NERVOUS SYSTEM: Higher functions as mentioned earlier. Moves all 4 limbs. No focal motor or sensory deficits. LYMPHATICS: No lymph nodes palpable in the neck, axillae or groin. SKIN no ulcer, no rashes and no bleeding. JOINTS: No active deforming arthropathy. LABS: WBC 10.2, hemoglobin is 13.9, platelets 63 and potassium 3.4. Otherwise, lactic acid 3.3, phosphorus 8.3, bilirubin is 4, AST 17, alkaline phosphatase 213. ASSESSMENT: 1. Acute severe cellulitis of the left leg with sepsis, possible sepsis present on admission. 2. Acute alcohol intoxication and as well as early delirium tremens. 3. Elevated plasma lactic acid secondary to sepsis. 4. Hyponatremia. 5. Hypokalemia. 6. Hypomagnesemia. 7. History of EtOH. 8. History of nicotine dependence. 9. History of hyperlipidemia. 10.History of degenerative joint disease. 11.History esophageal ulcer, bleeding ulcer. 12.History of prostate cancer. 13.History of depression. 14.History of continued ongoing nicotine dependence. 15.History of THC. RECOMMENDATIONS AND DISCUSSION: In this 63-year-old gentleman who presented with multiple complex medical issues, we will monitor the patient closely, continue the current medications, management and symptomatic. We will initiate broad-spectrum IV antibiotics. Otherwise, I would also recommend the patient is started on Rocephin, vancomycin. Continue to monitor. Otherwise Infectious Disease evaluation. Blood cultures. Guarded prognosis because of multiple complex medical issues. Further recommendations to follow. A copy of this dictation being forwarded to Dr. Nails who is the primary physician. Please see orders for details. MMODL / IJN: [id number] /
[2019-03-17 22:23] VITALS: BMI 25.3
[2019-03-17] MEDS: ALPRAZolam 0.25 MG TAB PO PRN (22:35)
[2019-03-18] MEDS: SODIUM CHLORIDE 0.9% 1,000 ML IV SCH ×2 (05:19→08:41)
[2019-03-18] MEDS: FOLIC ACID 1 MG TAB PO SCH (08:41)
[2019-03-18] MEDS: THIAMINE 100 MG TAB PO SCH ×2 (08:41→15:52)
[2019-03-18] MEDS: NICOTINE 14MG/24HR PATCH TRANSDERM SCH (08:41)
[2019-03-18] MEDS: PREGABALIN 75 MG CAP PO SCH ×2 (08:41→21:11)
[2019-03-18] MEDS: PANTOPRAZOLE 40 MG TABLET PO SCH (08:41)
[2019-03-18] MEDS: HEPARIN SODIUM,PORCINE 5,000 UNIT/ML 1 ML VIAL SQ SCH (08:41)
[2019-03-18] MEDS: POTASSIUM CHLORIDE ER 20 MEQ TAB.ER PO SCH ×2 (08:41→21:11)
[2019-03-18] MEDS ORDERED: ENOXAPARIN 40 MG/0.4 ML SYRINGE SQ SCH (09:00)
[2019-03-18] MEDS ORDERED: VANCOMYCIN 1,250 MG in SODIUM CHLORIDE 0.9% 250 ML IVPB SCH (09:00)
[2019-03-18] MEDS ORDERED: SPIRONOLACTONE-HCTZ 25-25MG 1 EACH TAB PO SCH (09:00)
[2019-03-18] MEDS: HYDROcodone/APAP 5-325MG 1 EACH TAB PO PRN ×2 (09:12→15:52)
[2019-03-18 09:36] LABS: Basophils % (A) 0 %; Eosinophils # (A) 0.2 k/uL (0-0.7); Eosinophils % (A) 2 %; HCT 40.6 % (39.0-53.0); HGB 13.2 gm/dL (13.0-17.5); Lymphocytes # (A) 1.5 k/uL (1.0-4.8); Lymphocytes % (A) 18 %; MCHC 32.6 g/dL (31.0-37.0); MCV 101.4 fL (80.0-100.0); Macrocytosis Slight; Mean Platelet Volume 10.2; Monocytes # (A) 0.4 k/uL (0-1.0); Monocytes % (A) 5 %; Neutrophils # (A) 5.9 k/uL (1.3-7.7); Neutrophils % (A) 73 %; RDW 15.4 % (11.5-15.5); WBC 8.1 k/uL (3.8-10.6)
[2019-03-18 09:37] LABS: ALT 44 U/L (21-72); AST 47 U/L (17-59); African American GFR (CKD) >90 (>60 ml/min/1.73 sqM); Alkaline Phosphatase 148 U/L (38-126); Anion Gap 2 mmol/L; Blood Urea Nitrogen 12 mg/dL (9-20); Calcium 7.7 mg/dL (8.4-10.2); Carbon Dioxide 31 mmol/L (22-30); Chloride 107 mmol/L (98-107); Glucose 73 mg/dL (74-99); Potassium 3.3 mmol/L (3.5-5.1); Sodium 140 mmol/L (137-145); Total Bilirubin 3.6 mg/dL (0.2-1.3); Total Protein 4.5 g/dL (6.3-8.2)
[2019-03-18 09:40] LABS: Platelet Count 63 k/uL (150-450)
[2019-03-18] MEDS ORDERED: Potassium Replacement Protocol 1 EACH MISC MISCELLANE PRN (11:11)
[2019-03-18] MEDS ORDERED: POTASSIUM CHLORIDE ER 20 MEQ TAB.ER PO STA (11:52)
[2019-03-18] MEDS: ceFAZolin IN SWFI 2 GM/20 ML SYRINGE IVP SCH ×2 (15:51→23:35)
[2019-03-18] MEDS ORDERED: ceFAZolin 2 GM in SODIUM CHLORIDE 0.9% 100 ML IVPB SCH (16:00)
--- NOTE | 2019-03-18 16:10 | US ---
EXAMINATION TYPE: US venous doppler duplex LE LT DATE OF EXAM: 03/18/2019 12:51 PM COMPARISON: NONE CLINICAL HISTORY: 63-year-old male rule out DVT . History of cellulitis, no hx of blood cots. Patien t thinks he is on blood thinners. Redness and painful. SIDE PERFORMED: Left TECHNIQUE: The lower extremity deep venous system is examined utilizing real time linear array sonog shona with graded compression, doppler sonography and color-flow sonography. FINDINGS: VESSELS IMAGED: External Iliac Vein (EIV) Common Femoral Vein Deep Femoral Vein Greater Saphenous Vein * Femoral Vein Popliteal Vein Small Saphenous Vein * Proximal Calf Veins (* superficial vessels) Left Leg: Negative for DVT IMPRESSION: No evidence for DVT within the left lower extremity imaged from the groin to the upper calf.
[2019-03-18] MEDS: IPRATROPIUM-ALBUTEROL 3 ML NEB INHALATION SCH ×3 (16:48→21:05)
--- NOTE | 2019-03-18 20:43 | P.PN ---
Progress Note - Text Progress Note Date: 03/18/19 Presenting complaint: Redness of both the legs anteriorly Interval history: This patient history of alcoholism and smoking, with history of hypertension hyperlipidemia liver disease esophageal varices and bleeding ulcers in 2004. Admitted with cellulitis affecting both the lower extremities predominantly anteriorly. 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 Patient also has a cat and a dog at home. Often gets scratched with that. Also swelling of the left lower extremity with some slight oozing of serous liquid. Today-sitting up. Redness of the leg persist. No fever no chills. Some shortness of breath and wheezing. Minimal cough. Appetite is okay. Patient stopped drinking in 2004 Review of systems: Was done for constitutional, cardiovascular, GI, pulmonary. relevant finding as above Current medications are reviewed that include: IV Ancef On examination: VITAL SIGNS: 98.8, 87, 16, 145/74, 94% room air GENERAL APPEARANCE: Average build. Lying in bed, not in distress. , Flushed HEENT: Normal external appearance of nose and ear. Oral cavity normal EYES: Pupils equal. Conjunctiva normal. NECK: JVD not raised. Mass not palpable. RESPIRATORY: Respiratory effort increased, diminished breath sounds prolonged expiration some wheezing. CARDIOVASCULAR: First and second sounds normal. Lower external recent swelling more so on the left leg ABDOMEN: Some distention, Soft. Liver and spleen not palpable. No tenderness. No mass palpable. PSYCHIATRY: Alert and oriented x3. Mood and affect normal. DERMATOLOGICAL: Redness with some scratch fleming predominantly anteriorly in both lower extremity Investigations: White count 8.1, hemoglobin 13.2, platelets 63 Potassium 3.3 creatinine 0.74 albumin 2.0. Assessment: -Bilateral lower extremity cellulitis due to local trauma with plans and possibly nails of his animals -Alcoholic cirrhosis causing Secondary Portal hypertension -Chronic thrombocytopenia secondary to liver disease -COPD in a current smoker -Fluid overload due to alcoholic cirrhosis Plan: We'll order an ultrasound to rule out DVT in the left lower extremity. Start the patient Aldactone 100 mg a day. Start fluid restriction. Continue with IV Ancef. We'll also had Silvadene cream with Kerlix and Yaya wrap. We'll also put the patient on fluid restriction. Care was discussed the patient and . Add bronchodilators. add nicotine patch
[2019-03-18] MEDS: ALPRAZolam 0.25 MG TAB PO PRN (21:11)
[2019-03-18] MEDS: ATORVASTATIN 10 MG TAB PO SCH (21:11)
--- NOTE | 2019-03-18 22:18 | P.CONS ---
History of Present Illness - Reason for Consult Consult date: 03/18/19 Left lower extremity cellulitis Requesting physician: Paco Goodrich - Chief Complaint Left leg swelling and redness 1 week - History of Present Illness Patient is a 63 year male presenting to the ER at [facility] yesterday with chief complaints of left leg swelling and redness the patient has been going on for about a week patient denies any history of any trauma patient did have diffuse swelling and redness to the left leg and did have some dull aching pain to the left leg intensity about 5-6 out of 10 and no radiation patient currently with no open wounds or any blisters and no drainage patient on presentation hospital did have a fever of 102F, patient white count was not elevated patient has been diagnosis cellulitis he was started on Siddhartha ephin and vancomycin and admitted to the hospital infectious disease was consulted for further recommendation regarding antibiotic therapy, patient did have lower extremity Doppler obtain today has been negative for DVT Review of Systems Positive points has been mentioned in HPI rest of the systems negative Past Medical History Past Medical History: Cancer, Hyperlipidemia, Osteoarthritis (OA) Additional Past Medical History / Comment(s): LIVER DISEASE, " in 2004 esophagus was bleeding and ulcers in stomach" receiving steroid injections for back pain. Prostate cancer History of Any Multi-Drug Resistant Organisms: None Reported Additional Past Surgical History / Comment(s): CATARACT SURGERY-BILATERAL, DENTAL Past Anesthesia/Blood Transfusion Reactions: No Reported Reaction Past Psychological History: Depression Smoking Status: Former smoker Past Alcohol Use History: None Reported, Daily Additional Past Alcohol Use History / Comment(s): SMOKES 2 CIGARS A DAY QUIT CIG 2013 STARTED SMOKING AGE 15 PACK A DAY QUIT DRINKING IN 2004 Past Drug Use History: Marijuana Additional Drug Use History / Comment(s): marijuana "once in a while" - Past Family History Sister(s) Family Medical History: Cancer Additional Family Medical History / Comment(s): skin cancer Brother(s) Family Medical History: Cancer Additional Family Medical History / Comment(s): throat cancer Medications and Allergies Home Medications Medication Instructions Recorded Confirmed Type Folic Acid 1 mg PO DAILY 10/14/15 03/17/19 History Omeprazole [PriLOSEC] 20 mg PO BID 10/14/15 03/17/19 History Potassium Chloride [Klor-Con 20] 20 meq PO BID 10/14/15 03/17/19 History Simvastatin [Zocor] 10 mg PO HS 10/14/15 03/17/19 History Spironolactone-Hctz 25-25Mg 1 tab PO DAILY 06/06/17 03/17/19 History [Aldactazide 25-25Mg] Pregabalin [Lyrica] 150 mg PO BID 03/17/19 03/17/19 History Allergies Allergy/AdvReac Type Severity Reaction Status Date / Time No Known Allergies Allergy Verified 03/17/19 17:13 Physical Exam Vitals: Vital Signs Temp Pulse Pulse Resp BP BP Pulse Ox 03/18/19 08:00 17 03/18/19 07:45 98.0 F 68 17 115/77 97 03/18/19 02:08 97.6 F 62 20 112/76 97 03/17/19 19:45 99.1 F 93 20 122/79 97 03/17/19 18:49 100.8 F H 99 16 121/80 97 03/17/19 18:40 100 18 116/80 96 03/17/19 18:00 92 18 116/76 98 03/17/19 16:28 102.9 F H 116 H 22 138/86 96 Intake and Output 03/17/19 03/18/19 03/18/19 22:59 06:59 14:59 Intake Total 1020 100 Balance 1020 100 Intake: Amount of Fluid Infused ( 500 ml) Intake, IV Titration 40 Amount Dextrose 5%-0.45% NaCl 1, 40 000 ml @ 20 mls/hr IV . Q24H [facility] Rx#:[id number] Oral 480 100 Other: Voiding Method Urinal # Voids 1 200 Weight 73.391 kg GENERAL DESCRIPTION: Middle-aged male lying in bed, no distress. No tachypnea or accessory muscle of respiration use. HEENT: Shows Pallor , no scleral icterus. Oral mucous membrane is dry. No pharyngeal erythema or thrush NECK: Trachea central, no thyromegaly. LUNGS: Unlabored breathing. Clear to auscultation anteriorly. No wheeze or crackle. HEART: S1, S2, regular rate and rhythm. No loud murmur ABDOMEN: Soft, no tenderness , guarding or rigidity, no organomegaly EXTREMITIES: Left leg with diffuse swelling redness slightly warm to touch no blister with evidence of athlete's foot to the left foot. SKIN: No rash, no masses palpable. NEUROLOGICAL: The patient is awake, alert, oriented x3, mood and affect normal Results CBC & Chem 7: 03/18/19 08:39 03/18/19 18:56 Labs: Abnormal Lab Results - Last 24 Hours (Table) 03/17/19 03/17/19 03/17/19 Range/Units 16:50 16:50 16:50 RBC 4.17 L (4.30-5.90) m/uL MCV (80.0-100.0) fL RDW 16.3 H (11.5-15.5) % Plt Count 63 L (150-450) k/uL Neutrophils # 8.5 H (1.3-7.7) k/uL Lymphocytes # 0.9 L (1.0-4.8) k/uL Sodium 136 L (137-145) mmol/L Potassium 3.4 L (3.5-5.1) mmol/L Carbon Dioxide (22-30) mmol/L Glucose 133 H (74-99) mg/dL Plasma Lactic Acid Albino 3.3 H* (0.7-2.0) mmol/L Calcium 8.3 L (8.4-10.2) mg/dL Phosphorus 2.3 L (2.5-4.5) mg/dL Magnesium 1.5 L (1.6-2.3) mg/dL Total Bilirubin 4.0 H (0.2-1.3) mg/dL AST 70 H (17-59) U/L Alkaline Phosphatase 239 H (38-126) U/L Total Protein 5.2 L (6.3-8.2) g/dL Albumin 2.6 L (3.5-5.0) g/dL Urine Protein (Negative) Urine Bilirubin (Negative) 03/17/19 03/18/19 03/18/19 Range/Units 18:30 08:39 08:39 RBC 4.00 L (4.30-5.90) m/uL MCV 101.4 H (80.0-100.0) fL RDW (11.5-15.5) % Plt Count 63 L (150-450) k/uL Neutrophils # (1.3-7.7) k/uL Lymphocytes # (1.0-4.8) k/uL Sodium (137-145) mmol/L Potassium 3.3 L (3.5-5.1) mmol/L Carbon Dioxide 31 H (22-30) mmol/L Glucose 73 L (74-99) mg/dL Plasma Lactic Acid Albino (0.7-2.0) mmol/L Calcium 7.7 L (8.4-10.2) mg/dL Phosphorus (2.5-4.5) mg/dL Magnesium (1.6-2.3) mg/dL Total Bilirubin 3.6 H (0.2-1.3) mg/dL AST (17-59) U/L Alkaline Phosphatase 148 H (38-126) U/L Total Protein 4.5 L (6.3-8.2) g/dL Albumin 2.0 L (3.5-5.0) g/dL Urine Protein Trace H (Negative) Urine Bilirubin 1+ H (Negative) Microbiology - Last 24 Hours (Table) 03/17/19 18:30 Urine Culture - Preliminary Urine,Voided Assessment and Plan Assessment: 1-patient admitted hospital with a fever and left leg swelling and redness likely left lower extremity cellulitis with diffuse swelling redness likely streptococcal disease this patient who did have evidence of athlete's foot clinically doubt MRSA or gram-negative infection 2-athlete's foot left side likely responsible for this episode of cellulitis (1) Cellulitis Current Visit: Yes Status: Acute Code(s): L03.90 - CELLULITIS, UNSPECIFIED SNOMED Code(s): 256852350 Plan: 1-discontinue the vancomycin and Rocephin 2-start the patient cefazolin 2 g every 8 hours 3-CHIDI wraps from just above the toe to below the knee 4-nystatin cream in between the toes twice a day we will follow up on clinical condition and cultures to further adjust medication if needed Thank you for this consultation will follow this patient along with you Time with Patient: Greater than 30
[2019-03-18] MEDS: NYSTATIN 100,000UNIT/GM CREAM 30 GM TUBE TOPICAL SCH (23:17)
[2019-03-19] MEDS: ceFAZolin IN SWFI 2 GM/20 ML SYRINGE IVP SCH ×3 (07:22→23:21)
[2019-03-19] MEDS: THIAMINE 100 MG TAB PO SCH ×2 (07:22→16:57)
[2019-03-19] MEDS: PANTOPRAZOLE 40 MG TABLET PO SCH (07:22)
[2019-03-19] MEDS: POTASSIUM CHLORIDE ER 20 MEQ TAB.ER PO SCH ×2 (08:21→21:34)
[2019-03-19] MEDS: FOLIC ACID 1 MG TAB PO SCH (08:21)
[2019-03-19] MEDS: SPIRONOLACTONE 25 MG TAB PO SCH (08:21)
[2019-03-19] MEDS: PREGABALIN 75 MG CAP PO SCH ×2 (08:21→21:34)
[2019-03-19] MEDS: NICOTINE 14MG/24HR PATCH TRANSDERM SCH (08:22)
[2019-03-19] MEDS: NYSTATIN 100,000UNIT/GM CREAM 30 GM TUBE TOPICAL SCH ×2 (08:22→20:59)
[2019-03-19] MEDS: HYDROcodone/APAP 5-325MG 1 EACH TAB PO PRN ×2 (08:27→23:23)
[2019-03-19 09:12] LABS: Anisocytosis Slight; Basophils % (A) 0 %; Eosinophils # (A) 0.2 k/uL (0-0.7); Eosinophils % (A) 2 %; HCT 41.5 % (39.0-53.0); HGB 13.2 gm/dL (13.0-17.5); Lymphocytes # (A) 1.7 k/uL (1.0-4.8); Lymphocytes % (A) 22 %; MCHC 31.7 g/dL (31.0-37.0); Macrocytosis Slight; Mean Platelet Volume 10.5; Monocytes # (A) 0.5 k/uL (0-1.0); Monocytes % (A) 6 %; Neutrophils # (A) 5.2 k/uL (1.3-7.7); Neutrophils % (A) 67 %; RBC 4.11 m/uL (4.30-5.90); RDW 16.2 % (11.5-15.5); WBC 7.7 k/uL (3.8-10.6)
[2019-03-19 09:13] LABS: Platelet Count 69 k/uL (150-450)
[2019-03-19] MEDS: IPRATROPIUM-ALBUTEROL 3 ML NEB INHALATION SCH ×4 (09:16→19:58)
[2019-03-19 09:25] LABS: ALT 34 U/L (21-72); AST 42 U/L (17-59); African American GFR (CKD) >90 (>60 ml/min/1.73 sqM); Albumin 2.2 g/dL (3.5-5.0); Alkaline Phosphatase 224 U/L (38-126); Anion Gap 7 mmol/L; Blood Urea Nitrogen 13 mg/dL (9-20); Calcium 7.8 mg/dL (8.4-10.2); Carbon Dioxide 23 mmol/L (22-30); Chloride 107 mmol/L (98-107); Glucose 90 mg/dL (74-99); Magnesium 1.8 mg/dL (1.6-2.3); Potassium 3.7 mmol/L (3.5-5.1); Sodium 137 mmol/L (137-145); Total Bilirubin 2.7 mg/dL (0.2-1.3); Total Protein 4.8 g/dL (6.3-8.2)
[2019-03-19] MEDS: ALPRAZolam 0.25 MG TAB PO PRN ×2 (15:52→23:23)
[2019-03-19] MEDS: ATORVASTATIN 10 MG TAB PO SCH (21:34)
--- NOTE | 2019-03-19 23:54 | PN ---
PROGRESS NOTE DATE OF SERVICE: 03/19/2019 REASON FOR FOLLOWUP: 1. Left lower extremity cellulitis. 2. Athlete's foot. INTERVAL HISTORY: The patient is currently afebrile. The patient has been breathing comfortably. The left leg swelling persists. Redness has slightly decreased. Denies any worsening pain in the left leg area. No chest pain, shortness of breath or cough. PHYSICAL EXAMINATION: Blood pressure 121/73 with a pulse of 100, temperature 98.9. He is 98% on room air. General description is a middle-aged male lying in bed in no distress. RESPIRATORY SYSTEM: Unlabored breathing. Clear to auscultation anteriorly. HEART: S1, S2. Regular rate and rhythm. ABDOMEN: Soft. No tenderness. Left leg is currently dressed up. Swelling has slightly decreased. No open wound or any drainage. LABS: Hemoglobin is 13.2, white count 7.7. BUN of 13, creatinine 0.80. Blood and urine cultures have been negative so far. DIAGNOSTIC IMPRESSION AND PLAN: 1. Patient with acute left lower extremity cellulitis in this patient who did have underlying diffuse swelling, likely streptococcal disease. Patient is currently covered with cefazolin; to continue for another 24 hours and hopefully finish therapy with oral Keflex. Continue with the Yaya wrap to keep the swelling down. 2. Athlete's foot. Nystatin cream in between the toes twice a day for about a week. MMODL / IJN: [id number] /
--- NOTE | 2019-03-20 01:29 | P.PN ---
Progress Note - Text Progress Note Date: 03/19/19 Presenting complaint: Redness of both the legs anteriorly Interval history: This patient history of alcoholism and smoking, with history of hypertension hyperlipidemia liver disease esophageal varices and bleeding ulcers in 2004. Admitted with cellulitis affecting both the lower extremities predominantly anteriorly. 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 Patient also has a cat and a dog at home. Often gets scratched with that. Also swelling of the left lower extremity with some slight oozing of serous liquid. Today-DVT of the left leg was ruled out. Swelling going down. Redness going down. Feels a bit better. Review of systems: Was done for constitutional, cardiovascular, GI, pulmonary. relevant finding as above Current medications are reviewed that include: IV Ancef, Silvadene cream with Yaya wrap On examination: VITAL SIGNS: 99.1, 112, 14, 124.84, 97% room air GENERAL APPEARANCE: Sitting up in bed, more perky today HEENT: Normal external appearance of nose and ear. Oral cavity normal EYES: Pupils equal. Conjunctiva normal. NECK: JVD not raised. Mass not palpable. RESPIRATORY: Respiratory effort increased, diminished breath sounds prolonged expiration some wheezing. CARDIOVASCULAR: First and second sounds normal. Lower external recent swelling more so on the left leg ABDOMEN: Some distention, Soft. Liver and spleen not palpable. No tenderness. No mass palpable. PSYCHIATRY: Alert and oriented x3. Mood and affect normal. DERMATOLOGICAL: Port lower extremities Investigations: White count 7.7 hemoglobin 13.2 creatinine 0.8 Doppler ultrasound negative for DVT Assessment: -Bilateral lower extremity cellulitis due to local trauma with plans and possibly nails of his animals -Alcoholic cirrhosis causing Secondary Portal hypertension -Chronic thrombocytopenia secondary to liver disease -COPD in a current smoker -Fluid overload due to alcoholic cirrhosis -Hypoalbuminemia secondary to cirrhosis -Hyper bilirubinemia, secondary to cirrhosis Plan: Continue current medication treatment plan. Care was discussed with the patient. Continue with IV antibiotics. Overall feeling better.
[2019-03-20] MEDS: HYDROcodone/APAP 5-325MG 1 EACH TAB PO PRN ×2 (07:25→12:47)
[2019-03-20] MEDS: PREGABALIN 75 MG CAP PO SCH (07:25)
[2019-03-20] MEDS: POTASSIUM CHLORIDE ER 20 MEQ TAB.ER PO SCH (07:26)
[2019-03-20] MEDS: FOLIC ACID 1 MG TAB PO SCH (07:26)
[2019-03-20] MEDS: NICOTINE 14MG/24HR PATCH TRANSDERM SCH (07:26)
[2019-03-20] MEDS: THIAMINE 100 MG TAB PO SCH (07:26)
[2019-03-20] MEDS: PANTOPRAZOLE 40 MG TABLET PO SCH (07:26)
[2019-03-20] MEDS: SPIRONOLACTONE 25 MG TAB PO SCH (07:26)
[2019-03-20] MEDS: NYSTATIN 100,000UNIT/GM CREAM 30 GM TUBE TOPICAL SCH (07:30)
[2019-03-20] MEDS ORDERED: FUROSEMIDE 10 MG/ML 4 ML VIAL IV SCH (09:00)
[2019-03-20] MEDS: IPRATROPIUM-ALBUTEROL 3 ML NEB INHALATION SCH ×3 (09:04→16:29)
[2019-03-20 09:12] LABS: Anisocytosis Slight; Basophils % (A) 1 %; Eosinophils # (A) 0.2 k/uL (0-0.7); Eosinophils % (A) 4 %; HGB 12.3 gm/dL (13.0-17.5); Lymphocytes # (A) 1.6 k/uL (1.0-4.8); Lymphocytes % (A) 28 %; MCH 32.9 pg (25.0-35.0); MCHC 32.5 g/dL (31.0-37.0); MCV 101.2 fL (80.0-100.0); Macrocytosis Slight; Mean Platelet Volume 10.1; Monocytes # (A) 0.4 k/uL (0-1.0); Monocytes % (A) 7 %; Neutrophils # (A) 3.2 k/uL (1.3-7.7); Neutrophils % (A) 58 %; RBC 3.76 m/uL (4.30-5.90); WBC 5.5 k/uL (3.8-10.6)
[2019-03-20 09:16] LABS: Platelet Count 75 k/uL (150-450)
[2019-03-20 09:20] LABS: ALT 26 U/L (21-72); AST 38 U/L (17-59); African American GFR (CKD) >90 (>60 ml/min/1.73 sqM); Alkaline Phosphatase 187 U/L (38-126); Anion Gap 3 mmol/L; Blood Urea Nitrogen 12 mg/dL (9-20); Calcium 7.9 mg/dL (8.4-10.2); Carbon Dioxide 25 mmol/L (22-30); Chloride 109 mmol/L (98-107); Glucose 87 mg/dL (74-99); Potassium 3.9 mmol/L (3.5-5.1); Sodium 137 mmol/L (137-145); Total Bilirubin 2.4 mg/dL (0.2-1.3); Total Protein 4.4 g/dL (6.3-8.2)
[2019-03-20] MEDS: ALPRAZolam 0.25 MG TAB PO PRN (09:45)
[2019-03-20] MEDS: ceFAZolin IN SWFI 2 GM/20 ML SYRINGE IVP SCH (10:56)
[2019-03-20 14:52] VITALS: BP 127/75; PULSE 104; RESP 16; TEMP 98.2
--- NOTE | 2019-03-20 17:47 | PN ---
PROGRESS NOTE DATE OF SERVICE: 03/20/2019. REASON FOR FOLLOWUP: Left lower extremity cellulitis. INTERVAL HISTORY: The patient is currently afebrile. Patient has been breathing comfortably. Denies having any chest pain or any cough, no abdominal pain. Left leg swelling and redness has improved. PHYSICAL EXAMINATION: Blood pressure 127/83 with a pulse of 73, temperature 98.4. He is 98% on room air. General description is a middle-aged male lying in bed in no distress. Respiratory system: Unlabored breathing. Clear to auscultation anteriorly. Heart S1, S2. Regular rate and rhythm. Abdomen soft, no tenderness. Left leg swelling and redness has improved. LABS: Hemoglobin 12.2, white count 5.5, BUN of 12, creatinine 0.75. Blood and urine culture has been negative. DIAGNOSTIC IMPRESSION AND PLAN: Patient with left lower extremity cellulitis. The patient did have diffuse swelling redness. The patient seemed to have shown overall clinical improvement. Plan at this time is to be switched to oral Keflex 500 mg daily for a week with close outpatient followup. MMODL / IJN: [id number] /
--- NOTE | 2019-03-20 23:46 | P.DS ---
Providers Date of admission: 03/17/19 18:30 Expected date of discharge: 03/20/19 Attending physician: Elieser Garza Consults: 03/17/19 17:49 Consult Physician Routine Consulting Provider: Reyes Stafford Consult Reason/Comments: cellulitis Do you want consulting provider notified?: Yes Primary care physician: Vincent Nails Hospital Course: Hospital course: This patient history of alcoholism and smoking, with history of hypertension hyperlipidemia liver disease esophageal varices and bleeding ulcers in 2004. Admitted with cellulitis affecting both the lower extremities predominantly anteriorly. just tell me that patient does work in the [employer] and is always has his legs against the same. Patient also has a cat and a dog at home. Often gets scratched with that. Also swelling of the left lower extremity with some slight oozing of serous liquid. Treated for lower extremity cellulitis. Diuretics increased for fluid overload from cirrhosis. Feeling much better. Redness swelling greatly improved. Also used Kerlix Yaya wrap and Silvadene cream. On examination: VITAL SIGNS: r 98.8, 100, 15, 119/70 99% room air GENERAL APPEARANCE: Sitting of comfortable HEENT: Normal external appearance of nose and ear. Oral cavity normal EYES: Pupils equal. Conjunctiva normal. NECK: JVD not raised. Mass not palpable. RESPIRATORY: Respiratory effort increased, diminished breath sounds prolonged expiration some wheezing. CARDIOVASCULAR: First and second sounds normal. Lower external recent swelling more so on the left leg ABDOMEN: Some distention, Soft. Liver and spleen not palpable. No tenderness. No mass palpable. PSYCHIATRY: Alert and oriented x3. Mood and affect normal. DERMATOLOGICAL: Redness of the lower extremity much improved Investigations: White count 5.5 hemoglobin 12.3 potassium 3.9 creatinine 0.75 Bilirubin 2.4 albumin 2 Doppler ultrasound negative for DVT Assessment: -Bilateral lower extremity acute cellulitis due to local trauma with plans and possibly nails of his animals, improved -Alcoholic cirrhosis causing Secondary Portal hypertension -Chronic thrombocytopenia secondary to liver disease -COPD in a current smoker -Fluid overload due to alcoholic cirrhosis -Hypoalbuminemia secondary to cirrhosis -Hyper bilirubinemia, secondary to cirrhosis Disposition: Home Patient Condition at Discharge: Stable Plan - Discharge Summary Discharge Rx Participant: Yes New Discharge Prescriptions: New Spironolactone [Aldactone] 100 mg PO DAILY #30 tab Ipratropium-Albuterol Nebulize [Duoneb 0.5 mg-3 mg/3 ml Soln] 3 ml INHALATION TID #90 ampul.neb Nicotine 14Mg/24Hr Patch [Habitrol] 1 patch TRANSDERM DAILY #14 patch Cephalexin [Keflex] 500 mg PO Q6HR #20 cap Budesonide [Pulmicort Flexhaler] 2 puff INHALATION BID #1 inhaler SILVER sulfADIAZINE CREAM [Silvadene Cream] 1 applic TOPICAL BID applic Continue Simvastatin [Zocor] 10 mg PO HS Folic Acid 1 mg PO DAILY Omeprazole [PriLOSEC] 20 mg PO BID Pregabalin [Lyrica] 150 mg PO BID Discontinued Potassium Chloride [Klor-Con 20] 20 meq PO BID Spironolactone-Hctz 25-25Mg [Aldactazide 25-25Mg] 1 tab PO DAILY Discharge Medication List Folic Acid 1 mg PO DAILY 10/14/15 [History] Omeprazole [PriLOSEC] 20 mg PO BID 10/14/15 [History] Simvastatin [Zocor] 10 mg PO HS 10/14/15 [History] Pregabalin [Lyrica] 150 mg PO BID 03/17/19 [History] Budesonide [Pulmicort Flexhaler] 2 puff INHALATION BID #1 inhaler 03/20/19 [Rx] Cephalexin [Keflex] 500 mg PO Q6HR #20 cap 03/20/19 [Rx] Ipratropium-Albuterol Nebulize [Duoneb 0.5 mg-3 mg/3 ml Soln] 3 ml INHALATION TID #90 ampul.neb 03/20/19 [Rx] Nicotine 14Mg/24Hr Patch [Habitrol] 1 patch TRANSDERM DAILY #14 patch 03/20/19 [Rx] SILVER sulfADIAZINE CREAM [Silvadene Cream] 1 applic TOPICAL BID applic 03/20/19 [Rx] Spironolactone [Aldactone] 100 mg PO DAILY #30 tab 03/20/19 [Rx] Follow up Appointment(s)/Referral(s): Vincent Nails MD [Primary Care Provider] - 04/04/19 8:20 am Reyes Stafford MD [STAFF PHYSICIAN] - 03/26/19 3:30 pm Patient Instructions/Handouts: Cellulitis (GEN), Fever in Adults (GEN), Sepsis (GEN), Alcohol Intoxication (DC) Activity/Diet/Wound Care/Special Instructions: Take tylenol for pain as needed Discharge Disposition: HOME SELF-CARE
--- NOTE | 2019-03-21 10:59 | CDI ---
Documentation Clarification Form Date: 03/21/2019 10:42:35 AM From: Muna Chavez Phone: If you have a question about this query, please contact Alesha Gaitan [employer]chand[employer] Flow Team Member at [phone] between 8am and 5pm Admit Date: 03/17/2019 6:30:00 PM Patient Name: David Bingham Visit Number: [id number] Discharge Date: 03/20/2019 4:42:00 PM ATTENTION: The Clinical Documentation Specialists (CDI) and [facility] Coding Staff appreciate your assistance in clarifying documentation. Please respond to the clarification below the line at the bottom and electronically sign. The CDI & [facility] Coding staff will review the response and follow-up if needed. Please note: Queries are made part of the Legal Health Record. If you have any questions, please contact the author of this message via ITS. Dr. Elieser Garza The patient presented with the following cellulitis bilateral legs. ER and H and P document sepsis POA and lactic acidosis due to sepsis. Diagnosis not carried through chart please clarify if patient had sepsis or was it ruled out. History/Risk Factors: cellulitis, alcoholic Clinical Indicators: Fever, lactic acidosis, tachycardia with infection process WBC 10.2 Lactic acid: 3.3 Blood cultures: No growth Vitals signs on admission: 102.9 F, 116 bpm, 138/86, 96% Treatment: Broad spectrum antibiot Antibiotics: Rocephin and Vancomycin In your professional opinion, please clarify if these findings signify one of the following conditions, whether the condition is POA, and cause, if known: Condition Sepsis ruled out SIRS, without underlying infectious process Sepsis Severe Sepsis Septic Shock Other, please specify Unable to determine SIRS Criteria (2 or more of the following may indicate SIRS): -Temperature < 96.8F (36C) or > 101.0F (38.3C) -Heart Rate > 90 bpm -Respiratory Rate > 20 breaths/min or PaCO2 < 32 mmHg -White Blood Cell Count > 12,000 or < 4,000 cells/mm3 or > 10% bands -Lactate >2.0 mmol/L (>4.0 is equivalent to septic shock) Acute Bilateral lower extremity cellulitis, causing sepsis, POA MTDD
== END 2019-03-20 16:42 | disposition home or self-care (01) | DRG 872 ==
LOC: EC 16:18 → 4SSUR 18:30
PROVIDERS: ADMIT Hospitalist; ATTEND Hospitalist
DX: A41.9 Sepsis, unspecified organism (principal); L03.115 Cellulitis of right lower limb; E87.1 Hypo-osmolality and hyponatremia; F10.231 Alcohol dependence with withdrawal delirium; K76.6 Portal hypertension; L03.116 Cellulitis of left lower limb; B35.3 Tinea pedis; D69.59 Other secondary thrombocytopenia; E78.5 Hyperlipidemia, unspecified; E83.42 Hypomagnesemia; E87.6 Hypokalemia; E87.70 Fluid overload, unspecified; F17.210 Nicotine dependence, cigarettes, uncomplicated; I10 Essential (primary) hypertension; I87.8 Other specified disorders of veins; J44.9 Chronic obstructive pulmonary disease, unspecified; K70.30 Alcoholic cirrhosis of liver without ascites; Z79.899 Other long term (current) drug therapy; Z80.8 Family history of malignant neoplasm of other organs or systems; Z85.46 Personal history of malignant neoplasm of prostate; Z87.11 Personal history of peptic ulcer disease; M19.90 Unspecified osteoarthritis, unspecified site; S80.812S Abrasion, left lower leg, sequela; S80.811S Abrasion, right lower leg, sequela; W26.8XXS Contact with other sharp object(s), not elsewhere classified, sequela
CPT/HCPCS: 36415; 71046; 80053; 80320; 81003; 83605; 83690; 83735; 84100; 84132; 85025; 87040; 87086; 93005; 94640; 96365; 96366; 96368; 99285

== ENCOUNTER 2019-04-21 12:30 | Emergency (ER) | payer OTHER ==
--- NOTE | 2019-04-21 13:12 | ED ---
General Adult HPI - General Stated complaint: Urogenital Time Seen by Provider: 04/21/19 12:35 Source: patient, RN notes reviewed Mode of arrival: ambulatory Limitations: no limitations - History of Present Illness Initial comments: 63-year-old male presents emergency Department chief complaint of Hanna catheter complication. Patient states that he ate had prostate surgery on Monday by Dr. Balderas in which she had a prostatectomy. Patient states his Hanna catheter came out Monday and states that he urinated twice. Patient states that he had a lot of pressure today and he did have some leakage. Patient denies any complaints at this time other has mild soreness of his abdomen which has been ongoing since surgery no fevers or chills. Patient states follow-up appointment as on Monday he did not contact his urologist. - Related Data Home Medications Medication Instructions Recorded Confirmed Folic Acid 1 mg PO DAILY 10/14/15 03/17/19 Omeprazole [PriLOSEC] 20 mg PO BID 10/14/15 03/17/19 Simvastatin [Zocor] 10 mg PO HS 10/14/15 03/17/19 Pregabalin [Lyrica] 150 mg PO BID 03/17/19 03/17/19 Previous Rx's Medication Instructions Recorded Budesonide [Pulmicort Flexhaler] 2 puff INHALATION BID #1 inhaler 03/20/19 Cephalexin [Keflex] 500 mg PO Q6HR #20 cap 03/20/19 Ipratropium-Albuterol Nebulize 3 ml INHALATION TID #90 ampul.neb 03/20/19 [Duoneb 0.5 mg-3 mg/3 ml Soln] Nicotine 14Mg/24Hr Patch [Habitrol] 1 patch TRANSDERM DAILY #14 patch 03/20/19 SILVER sulfADIAZINE CREAM 1 applic TOPICAL BID applic 03/20/19 [Silvadene Cream] Spironolactone [Aldactone] 100 mg PO DAILY #30 tab 03/20/19 Allergies Allergy/AdvReac Type Severity Reaction Status Date / Time No Known Allergies Allergy Verified 04/21/19 12:36 Review of Systems ROS Statement: Those systems with pertinent positive or pertinent negative responses have been documented in the HPI. ROS Other: All systems not noted in ROS Statement are negative. Past Medical History Past Medical History: Cancer, Hyperlipidemia, Osteoarthritis (OA) Additional Past Medical History / Comment(s): LIVER DISEASE, " in 2004 esophagus was bleeding and ulcers in stomach" Prostate cancer, alcoholism History of Any Multi-Drug Resistant Organisms: None Reported Past Surgical History: Prostate Surgery Additional Past Surgical History / Comment(s): CATARACT SURGERY-BILATERAL, DENTAL, prostatectomy Past Anesthesia/Blood Transfusion Reactions: No Reported Reaction Past Psychological History: Depression Smoking Status: Former smoker Past Alcohol Use History: None Reported Past Drug Use History: Marijuana - Past Family History Sister(s) Family Medical History: Cancer Additional Family Medical History / Comment(s): skin cancer Brother(s) Family Medical History: Cancer Additional Family Medical History / Comment(s): throat cancer General Exam Limitations: no limitations General appearance: alert, in no apparent distress Head exam: Present: atraumatic, normocephalic, normal inspection Neck exam: Present: normal inspection, full ROM. Absent: tenderness, meningismus, lymphadenopathy Respiratory exam: Present: normal lung sounds bilaterally. Absent: respiratory distress, wheezes, rales, rhonchi, stridor Cardiovascular Exam: Present: regular rate, normal rhythm, normal heart sounds. Absent: systolic murmur, diastolic murmur, rubs, gallop, clicks GI/Abdominal exam: Present: soft, tenderness (Mild lower abdominal tenderness), normal bowel sounds, other (Patient's abdomen is diffusely ecchymotic). Absent: distended, guarding, rebound, rigid Back exam: Absent: CVA tenderness (R), CVA tenderness (L) Skin exam: Present: warm, dry, intact, normal color. Absent: rash Course Vital Signs 04/21/19 04/21/19 12:32 13:27 Temperature 98.8 F Pulse Rate 106 H 80 Respiratory 18 13 Rate Blood Pressure 119/76 O2 Sat by Pulse 98 98 Oximetry Medical Decision Making - Medical Decision Making 63-year-old male presented for 40 2, patient. Patient's catheter fell out yesterday. Patients urologist was Dr. Balderas. I did contact on-call urology for that group which was Dr. Betancur who recommended the patient have a catheter placed with guidewire scope. I did contact our urologist who does not feel comfortable doing this on another surgeon's patient. Patient will be transferred to [place] [id number] [address] Disposition Clinical Impression: Complication of Hanna catheter, S/P prostatectomy Disposition: OTHER INSTITUTION NOT DEFINED Condition: Stable Referrals: Vincent Nails MD [Primary Care Provider] - 1-2 days - Out of Hospital Transfer - Req. Specs Out of Hospital Transfer - Requested Specifics: Other Emergency Center ([facility]
[2019-04-21 13:28] VITALS: RESP 13
[2019-04-21 14:20] VITALS: BP 136/89; PULSE 74; TEMP 98.4
== END 2019-04-21 14:35 | disposition other institution (70) ==
LOC: EC 12:30
DX: T83.028A Displacement of other urinary catheter, initial encounter (principal); T83.038A Leakage of other urinary catheter, initial encounter; E78.5 Hyperlipidemia, unspecified; Z79.899 Other long term (current) drug therapy; Z87.891 Personal history of nicotine dependence; Z98.41 Cataract extraction status, right eye; Z98.42 Cataract extraction status, left eye; Z87.11 Personal history of peptic ulcer disease; Z90.79 Acquired absence of other genital organ(s); Z85.46 Personal history of malignant neoplasm of prostate
CPT/HCPCS: 51798; 99284

== ENCOUNTER → 2019-06-21 | Outpatient (CLI) | payer OTHER ==
[2019-06-21 13:27] LABS: INR 1.1 (<1.2); Prothrombin Time 11.6 sec (9.0-12.0)
[2019-06-21 13:28] LABS: Basophils # (A) 0.1 k/uL (0-0.2); Basophils % (A) 1 %; Eosinophils # (A) 0.2 k/uL (0-0.7); Eosinophils % (A) 3 %; HCT 42.7 % (39.0-53.0); Lymphocytes # (A) 1.8 k/uL (1.0-4.8); Lymphocytes % (A) 31 %; MCH 30.2 pg (25.0-35.0); MCHC 32.7 g/dL (31.0-37.0); MCV 92.2 fL (80.0-100.0); Mean Platelet Volume 8.9; Monocytes # (A) 0.5 k/uL (0-1.0); Monocytes % (A) 9 %; Neutrophils # (A) 3.2 k/uL (1.3-7.7); Neutrophils % (A) 55 %; Platelet Count 129 k/uL (150-450); RBC 4.63 m/uL (4.30-5.90); RDW 13.7 % (11.5-15.5); WBC 5.8 k/uL (3.8-10.6)
[2019-06-21 21:15] LABS: African American GFR (CKD) 111.7 (60.0-200.0); Albumin 3.9 g/dL (3.80-4.90); Albumin/Globulin Ratio 1.86 (1.60-3.17); Anion Gap 7.2 mmol/L (4.00-12.00); BUN/Creat Ratio 22.5 Ratio (12.00-20.00); Bilirubin, Conjugated 0.4 mg/dL (0.20-0.40); Bilirubin,Unconjugated 0.4 mg/dL; Calcium 9.2 mg/dL (8.7-10.3); Carbon Dioxide 25.8 mmol/L (21.6-31.8); Globulin 2.1 g/dL (1.6-3.3); Potassium 4.5 mmol/L (3.5-5.5); Total Bilirubin 0.8 mg/dL (0.3-1.2)
== END ==
LOC: LABWHC1 12:28
PROVIDERS: ATTEND Family Medicine
DX: K70.30 Alcoholic cirrhosis of liver without ascites (principal); B18.2 Chronic viral hepatitis C
CPT/HCPCS: 36415; 80053; 82105; 82248; 85025; 85610

== ENCOUNTER → 2019-07-25 | Outpatient (CLI) | payer OTHER ==
[2019-07-25 13:57] LABS: HCT 40.7 % (39.0-53.0); HGB 13.6 gm/dL (13.0-17.5); MCH 29.1 pg (25.0-35.0); MCHC 33.3 g/dL (31.0-37.0); MCV 87.3 fL (80.0-100.0); Mean Platelet Volume 8.4; Platelet Count 134 k/uL (150-450); RBC 4.66 m/uL (4.30-5.90); RDW 14.4 % (11.5-15.5); WBC 6.8 k/uL (3.8-10.6)
[2019-07-25 14:11] LABS: Prothrombin Time 11.1 sec (9.0-12.0)
[2019-07-25 20:14] LABS: Albumin/Globulin Ratio 1.9 (1.60-3.17); Bilirubin, Conjugated 0.2 mg/dL (0.20-0.40); Bilirubin,Unconjugated 0.4 mg/dL; Globulin 2.1 g/dL (1.6-3.3); Total Bilirubin 0.6 mg/dL (0.3-1.2); Total Protein 6.1 g/dL (6.2-8.2)
== END | disposition home or self-care (01) ==
LOC: LABWHC1 11:35
PROVIDERS: ATTEND Urology
DX: C61 Malignant neoplasm of prostate (principal); K70.30 Alcoholic cirrhosis of liver without ascites
CPT/HCPCS: 36415; 80076; 82105; 84153; 85027; 85610

== ENCOUNTER → 2019-08-12 | Outpatient (CLI) | payer OTHER ==
--- NOTE | 2019-08-12 11:26 | US ---
EXAMINATION TYPE: US abdomen limited DATE OF EXAM: 08/12/2019 COMPARISON: Ultrasound liver July 13, 2018 CLINICAL HISTORY: K70.30 Alcoholic cirrhosis of liver w/o ascites. EXAM MEASUREMENTS: Liver Length: 11.8 cm Gallbladder Wall: 0.2 cm CBD: 0.4 cm Right Kidney: 9.8 x 4.3 x 5.5 cm Pancreas: mostly obscured by bowel gas Liver: course echotexture, hepatopedal flow Gallbladder: wnl Evidence for sonographic Mckeon's sign: no CBD: wnl Right Kidney: wnl Suboptimal evaluation of pancreas on images saved. Visualized liver remains heterogeneously hyperecho ic without intrahepatic ductal dilatation. Satisfactory monophasic blood flow is hepatopedal in main portal vein. Phasic hepatopedal blood flow in hepatic arteries is present. Evaluation for focal darcy s suboptimal due to the heterogeneity. Common bile duct, gallbladder, and right kidney appear within normal limits. IMPRESSION: Persistent heterogeneous hyperechoic appearance of liver felt on basis of underlying hepa tocellular disease. No new ascites or significant change from most recent study.
== END | disposition home or self-care (01) ==
LOC: RADUSWWP 08:57
PROVIDERS: ATTEND Internal Medicine Gastroenterology
DX: K70.30 Alcoholic cirrhosis of liver without ascites (principal)
CPT/HCPCS: 76705

== ENCOUNTER → 2019-09-24 | Outpatient (CLI) | payer OTHER ==
[2019-09-24 11:13] LABS: Basophils # (A) 0.1 k/uL (0-0.2); Basophils % (A) 2 %; Eosinophils # (A) 0.1 k/uL (0-0.7); Eosinophils % (A) 2 %; HCT 41.4 % (39.0-53.0); Lymphocytes % (A) 21 %; MCHC 31.3 g/dL (31.0-37.0); MCV 86.1 fL (80.0-100.0); Mean Platelet Volume 9.4; Monocytes # (A) 0.4 k/uL (0-1.0); Monocytes % (A) 9 %; Neutrophils # (A) 2.9 k/uL (1.3-7.7); Neutrophils % (A) 63 %; Platelet Count 110 k/uL (150-450); RBC 4.81 m/uL (4.30-5.90); RDW 15.9 % (11.5-15.5); WBC 4.7 k/uL (3.8-10.6)
[2019-09-24 15:48] LABS: Albumin 4.3 g/dL (3.80-4.90); Albumin/Globulin Ratio 2.15 (1.60-3.17); Anion Gap 9.5 mmol/L (4.00-12.00); BUN/Creat Ratio 17.5 Ratio (12.00-20.00); Calcium 9.1 mg/dL (8.7-10.3); Carbon Dioxide 25.5 mmol/L (21.6-31.8); Chol/HDL Ratio 2.32; LDL Cholesterol,Calculated 83.4 mg/dL (0.0-131.0); Non-African American GFR(CKD) 95.7 (60.0-200.0); Potassium 4.2 mmol/L (3.5-5.5); Total Bilirubin 0.9 mg/dL (0.2-1.2); Total Protein 6.3 g/dL (6.2-8.2); VLDL Calculation 10.6 mg/dL (5.00-40.00)
== END | disposition home or self-care (01) ==
LOC: LABWHC1 10:36
PROVIDERS: ATTEND Family Medicine
DX: J44.9 Chronic obstructive pulmonary disease, unspecified (principal)
CPT/HCPCS: 36415; 80053; 80061; 82306; 85025

== ENCOUNTER 2020-05-04 08:20 | Day surgery (SDC) | payer OTHER ==
[2020-04-30 10:27] VITALS: BMI 24.7
[2020-05-04 08:45] VITALS: TEMP 97.1
[2020-05-04] MEDS ORDERED: LACTATED RINGERS 1,000 ML IV ONE (08:48)
[2020-05-04] MEDS ORDERED: PROPOFOL 10 MG/ML 20 ML VIAL IV ONE (09:31)
--- NOTE | 2020-05-04 09:47 | P.PCN ---
Date of Procedure: 05/04/20 Description of Procedure: BRIEF HISTORY: Patient is a 64-year-old female presenting for outpatient EGD for evaluation of esophageal varices. The patient has a history of cirrhosis secondary to hepatitis C virus and alcoholic, he is been abstinent from alcohol since 2004 and was treated with interferon and ribavirin therapy in 2007 with positive SVR. PROCEDURE PERFORMED: Esophagogastroduodenoscopy with biopsy. PREOPERATIVE DIAGNOSIS: Cirrhosis, esophageal varices. ESTIMATED BLOOD LOSS: Minimal. IV sedation per anesthesia. PROCEDURE: After informed consent was obtained, the patient was brought into the endoscopy unit. IV sedation was administered by Anesthesia under continuous monitoring. Initially the Olympus GIF-190 video endoscope was inserted into the mouth. Esophagus intubated without any difficulty. It was gradually advanced into the stomach and duodenum and carefully examined. The bulb and the second part of the duodenum appeared normal, with biopsies taken. The scope at this time was withdrawn to the stomach, adequately insufflated with air, and upon careful exam ination, mucosa of the antrum, body, cardia and the fundus appeared normal, except for some mild scattered erythema suggestive of mild gastritis with biopsies of the antrum and body taken. The scope was then withdrawn into the esophagus. The GE junction was located at 39 cm from the incisors. The esophagus appeared normal. There were no erosions or ulcerations seen and the patient tolerated the procedure well. IMPRESSION: 1. Mild gastritis, antrum body biopsy. 2. Biopsies of the duodenum. 3. No esophageal varices noted on EGD. RECOMMENDATIONS: The findings of this examination were discussed with the patient. Would recommend restarting medications and diet today. Await pathology from biopsies. Follow up in gastroenterology clinic as scheduled. Recommendation is for repeat EGD in 2 years for variceal screening.
[2020-05-04 10:04] VITALS: BP 117/78; PULSE 65; RESP 20
== END 2020-05-04 10:15 | disposition home or self-care (01) ==
LOC: ORWHC2ENDO 08:20
PROVIDERS: ATTEND Internal Medicine
DX: K29.50 Unspecified chronic gastritis without bleeding (principal); K74.60 Unspecified cirrhosis of liver; Z86.19 Personal history of other infectious and parasitic diseases; I10 Essential (primary) hypertension; E78.5 Hyperlipidemia, unspecified; F32.9 Major depressive disorder, single episode, unspecified; K21.9 Gastro-esophageal reflux disease without esophagitis; F17.210 Nicotine dependence, cigarettes, uncomplicated; Z79.899 Other long term (current) drug therapy; Z85.46 Personal history of malignant neoplasm of prostate; Z98.890 Other specified postprocedural states; Z90.79 Acquired absence of other genital organ(s)
CPT/HCPCS: 88305; 43239; J2704

== ENCOUNTER → 2020-05-20 | Outpatient (CLI) | payer OTHER ==
[2020-05-20 11:36] LABS: Anisocytosis Slight; HCT 43.5 % (39.0-53.0); HGB 14.2 gm/dL (13.0-17.5); MCH 29.1 pg (25.0-35.0); MCHC 32.5 g/dL (31.0-37.0); MCV 89.4 fL (80.0-100.0); Mean Platelet Volume 10.1; Platelet Count 129 k/uL (150-450); RBC 4.87 m/uL (4.30-5.90); WBC 7.6 k/uL (3.8-10.6)
[2020-05-20 17:09] LABS: Prothrombin Time 10.7 sec (9.9-11.9)
[2020-05-20 18:03] LABS: ALT 25 U/L (10-49); AST 28 U/L (14-35); Albumin/Globulin Ratio 1.91 (1.60-3.17); Alkaline Phosphatase 119 U/L (41-126); Globulin 2.2 g/dL (1.6-3.3); Total Bilirubin 0.7 mg/dL (0.3-1.2); Total Protein 6.4 g/dL (6.2-8.2)
[2020-05-20 18:53] LABS: Prostate Specific Antigen <0.1 ng/mL (0.0-4.5)
== END | disposition home or self-care (01) ==
LOC: LABWHC1 10:06
PROVIDERS: ATTEND Physician Assistant
DX: K70.30 Alcoholic cirrhosis of liver without ascites (principal); C61 Malignant neoplasm of prostate
CPT/HCPCS: 36415; 80076; 82105; 84153; 85027; 85610

== ENCOUNTER 2020-06-18 09:25 | Inpatient (IN) | payer OTHER ==
[2020-06-18] MEDS ORDERED: SODIUM CHLORIDE 0.9% 1,000 ML IV ONE (10:04)
[2020-06-18] MEDS ORDERED: LORazepam 2 MG/ML INJ IV STA (10:05)
[2020-06-18] MEDS ORDERED: HYDROmorphone 0.5 MG/0.5 ML SYRINGE IVP STA (10:05)
--- NOTE | 2020-06-18 10:07 | ED ---
General Adult HPI - General Chief complaint: Fall Stated complaint: Fall Time Seen by Provider: 06/18/20 09:30 Source: patient, family, RN notes reviewed, old records reviewed Mode of arrival: wheelchair Limitations: physical limitation - History of Present Illness Initial comments: This is a 64-year-old male who presents emergency Department complaining of falling yesterday. Patient states she stepped on a step lost his balance and fell onto a table. Patient states left upper abdomen and left lower chest is extremely painful. Patient states he was no colic but he only now drinks occasionally. Patient denies any head injury patient denies any neck pain. Patient denies any extremity injury. Patient denies any back pain. Patient's only complaint is left upper abdomen and left lower chest. Patient denies being short of breath patient states the pain is excruciating when he tries to move in any direction or takes a deep breath. - Related Data Home Medications Medication Instructions Recorded Confirmed Omeprazole [PriLOSEC] 20 mg PO BID 10/14/15 06/18/20 Simvastatin [Zocor] 10 mg PO HS 10/14/15 06/18/20 Pregabalin [Lyrica] 150 mg PO BID 03/17/19 06/18/20 Lisinopril [Prinivil] 10 mg PO DAILY 04/30/20 06/18/20 Multivit-Min/FA/Lycopen/Lutein 1 tab PO DAILY 04/30/20 06/18/20 [Centrum Silver Men Tablet] Nicotine 21Mg/24Hr Patch [Habitrol] 1 patch TRANSDERM DAILY 04/30/20 06/18/20 Potassium Chloride [Klor-Con 20] 20 meq PO BID 04/30/20 06/18/20 Spironolactone 100 mg PO DAILY 06/18/20 06/18/20 Allergies Allergy/AdvReac Type Severity Reaction Status Date / Time No Known Allergies Allergy Verified 06/18/20 11:04 Review of Systems ROS Statement: Those systems with pertinent positive or pertinent negative responses have been documented in the HPI. ROS Other: All systems not noted in ROS Statement are negative. Past Medical History Past Medical History: Cancer, COPD, GERD/Reflux, Hyperlipidemia, Hypertension, Osteoarthritis (OA) Additional Past Medical History / Comment(s): LIVER DISEASE, " in 2004 esophagus was bleeding and ulcers in stomach" Prostate cancer, alcoholism History of Any Multi-Drug Resistant Organisms: None Reported Past Surgical History: Prostate Surgery Additional Past Surgical History / Comment(s): CATARACT SURGERY-BILATERAL, DENTAL, prostatectomy, COLONOSCOPY/EGD, BACK INJECTIONS Past Anesthesia/Blood Transfusion Reactions: No Reported Reaction Past Psychological History: Depression Smoking Status: Current every day smoker Past Alcohol Use History: None Reported Past Drug Use History: None Reported - Past Family History Sister(s) Family Medical History: Cancer Additional Family Medical History / Comment(s): skin cancer Brother(s) Family Medical History: Cancer Additional Family Medical History / Comment(s): throat cancer General Exam - General Exam Comments Initial Comments: GENERAL: Patient is well-developed and well-nourished. Patient is nontoxic and well-hydr ated and is in moderate distress. ENT: Neck is soft and supple. No significant lymphadenopathy is noted. Oropharynx is clear. Moist mucous membranes. Neck has full range of motion without eliciting any pain. EYES: The sclera were anicteric and conjunctiva were pink and moist. Extraocular mov ements were intact and pupils were equal round and reactive to light. Eyelids were unremarkable. PULMONARY: Unlabored respirations. Good breath sounds bilaterally. No audible rales rhonchi or wheezing was noted. CARDIOVASCULAR: Patient's left lateral rib cage is tender to palpation ABDOMEN: Patient has significant left upper quadrant tenderness SKIN: Skin is clear with no lesions or rashes and otherwise unremarkable. NEUROLOGIC: Patient is alert and oriented x3. Cranial nerves II through XII are grossly intact. Motor and sensory are also intact. Normal speech, volume and content. Symmetrical smile. Patient is very tremulous consistent with withdrawal MUSCULOSKELETAL: Normal extremities with adequate strength and full range of motion. LYMPHATICS: No significant lymphadenopathy is noted PSYCHIATRIC: Normal psychiatric evaluation. Limitations: physical limitation Course Vital Signs 06/18/20 09:27 Temperature 98.3 F Pulse Rate 114 H Respiratory 26 H Rate Blood Pressure 163/89 O2 Sat by Pulse 95 Oximetry Medical Decision Making - Medical Decision Making EKG shows sinus tachycardia at 101 bpm [place] interval is 132 QRS is 80 QT interval 336 QTC is 435. Patient's EKG shows no ST segment elevation or depression. CT of the chest abdomen pelvis shows 10-15% pneumothorax on the left with 3 ribs fractured 910 and 11. Patient is still expressing quite a bit of pain. I spoke with Dr. Crisostomo she agrees to admit the patient I spoke with Marilee the nurse practitioner for cardiothoracic surgery and she recommended to put the patient on the floor and she they will monitor and determine if they needed for a Thoravent or chest tube or if the patient could be sent home at a later date. - Lab Data Result diagrams: 06/18/20 10:23 06/18/20 10:23 Lab Results 06/18/20 06/18/20 06/18/20 Range/Units 10: 10: 10: WBC 7.8 (3.8-10.6) k/uL RBC 4.47 (4.30-5.90) m/uL Hgb 14.1 (13.0-17.5) gm/dL Hct 41.2 (39.0-53.0) % MCV 92.2 (80.0-100.0) fL MCH 31.5 (25.0-35.0) pg MCHC 34.2 (31.0-37.0) g/dL RDW 17.2 H (11.5-15.5) % Plt Count 132 L (150-450) k/uL Neutrophils % 70 % Lymphocytes % 17 % Monocytes % 9 % Eosinophils % 1 % Basophils % 1 % Neutrophils # 5.4 (1.3-7.7) k/uL Lymphocytes # 1.3 (1.0-4.8) k/uL Monocytes # 0.7 (0-1.0) k/uL Eosinophils # 0.1 (0-0.7) k/uL Basophils # 0.1 (0-0.2) k/uL Anisocytosis Slight PT 10.7 (9.0-12.0) sec INR 1.0 (<1.2) APTT 24.0 (22.0-30.0) sec Sodium 139 (137-145) mmol/L Potassium 4.2 (3.5-5.1) mmol/L Chloride 108 H (98-107) mmol/L Carbon Dioxide 19 L (22-30) mmol/L Anion Gap 12 mmol/L BUN 19 (9-20) mg/dL Creatinine 1.21 (0.66-1.25) mg/dL Est GFR (CKD-EPI)AfAm 74 (>60 ml/min/1.73 sqM) Est GFR (CKD-EPI)NonAf 64 (>60 ml/min/1.73 sqM) Glucose 106 H (74-99) mg/dL Calcium 9.8 (8.4-10.2) mg/dL Magnesium 1.5 L (1.6-2.3) mg/dL Total Bilirubin 1.1 (0.2-1.3) mg/dL AST 40 (17-59) U/L ALT 23 (4-49) U/L Alkaline Phosphatase 130 H (38-126) U/L Total Protein 7.1 (6.3-8.2) g/dL Albumin 4.2 (3.5-5.0) g/dL Serum Alcohol 34 mg/dL Critical Care Time Critical Care Time: Yes Total Critical Care Time: 35 Disposition Clinical Impression: Alcohol abuse, Rib fractures, Pneumothorax Disposition: ADMITTED IP TO THIS HOSP Referrals: None,Stated [REFERRING] - 1-2 days Time of Disposition: 11:44
[2020-06-18 10:31] LABS: Anisocytosis Slight; Basophils # (A) 0.1 k/uL (0-0.2); Basophils % (A) 1 %; Eosinophils # (A) 0.1 k/uL (0-0.7); Eosinophils % (A) 1 %; HCT 41.2 % (39.0-53.0); HGB 14.1 gm/dL (13.0-17.5); Lymphocytes # (A) 1.3 k/uL (1.0-4.8); Lymphocytes % (A) 17 %; MCH 31.5 pg (25.0-35.0); MCHC 34.2 g/dL (31.0-37.0); MCV 92.2 fL (80.0-100.0); Mean Platelet Volume 8.4; Monocytes # (A) 0.7 k/uL (0-1.0); Monocytes % (A) 9 %; Neutrophils # (A) 5.4 k/uL (1.3-7.7); Neutrophils % (A) 70 %; Platelet Count 132 k/uL (150-450); RBC 4.47 m/uL (4.30-5.90); RDW 17.2 % (11.5-15.5); WBC 7.8 k/uL (3.8-10.6)
[2020-06-18 10:43] LABS: Albumin 4.2 g/dL (3.5-5.0); Calcium 9.8 mg/dL (8.4-10.2); Magnesium 1.5 mg/dL (1.6-2.3); Potassium 4.2 mmol/L (3.5-5.1); Total Bilirubin 1.1 mg/dL (0.2-1.3); Total Protein 7.1 g/dL (6.3-8.2)
[2020-06-18 10:46] LABS: Prothrombin Time 10.7 sec (9.0-12.0)
--- NOTE | 2020-06-18 11:27 | CT ---
EXAMINATION TYPE: CT ChestAbdPelvis w con DATE OF EXAM: 06/18/2020 COMPARISON: CT chest abdomen and pelvis June 18, 2012 HISTORY: Fall yesterday with left sided pain CT DLP: 884.7 mGycm. Automated Exposure Control for Dose Reduction was Utilized. CONTRAST: CT scan of the thorax, abdomen and pelvis is performed with IV Contrast, patient injected with 100 mL of Isovue 300. FINDINGS: LUNGS: Small left-sided pneumothorax anteriorly estimated 10-15%. No mediastinal shift. Dependent atelectasi s. No suspicious focal consolidation. MEDIASTINUM: There are no greater than 1 cm hilar or mediastinal lymph nodes. No cardiomegaly or pe ricardial effusion is seen. Coronary artery calcification is present. OTHER: Bilateral gynecomastia is redemonstrated. LIVER/GB: Underlying cirrhosis with small heterogeneous hypodense liver that has lobulated peripheral nodular contour. PANCREAS: No significant abnormality is seen. SPLEEN: Multiple large calcifications throughout the spleen. Finding consistent with old granulomatou s disease. ADRENALS: No significant abnormality is seen. KIDNEYS: Symmetric cortical medullary uptake and excretion without hydronephrosis bilaterally. Mild d istended bladder extending anterior right pelvis. BOWEL: Normal-appearing appendix is incidentally seen ascending from cecum. No suspicious small or la rge bowel dilatation. GENITAL ORGANS: No gross abnormality seen. LYMPH NODES: No greater than 1cm abdominal or pelvic lymph nodes are appreciated. OSSEOUS STRUCTURES: Underlying scoliotic curvature and/or positioning. Bilateral pars defects with gr chin 2 anterolisthesis L5 on S1. Severe disc space narrowing at this level. Acute minimally displaced fracture posterior left 11th rib axial image 60, 10th rib posterolateral le vani axial image 53, and ninth lateral rib axial image 55. OTHER: Moderate mixed plaque distal abdominal aorta extends into the iliac branch vessels. IMPRESSION: 1. Small left-sided pneumothorax estimated 10-15%. Acute minimally displaced fractures involving left ninth through 11th ribs. 2. No acute posttraumatic finding in the abdomen or pelvis. 3. Underlying cirrhosis noted. Critical results of pneumothorax communicated to ordering ER physician via telephone at time of dicta tion.
[2020-06-18] MEDS ORDERED: MAGNESIUM SULFATE-D5W PMX 1 GM in DEXTROSE/WATER 1 100ML.BAG IVPB ONE (11:31)
--- NOTE | 2020-06-18 11:40 | P.PN ---
Progress Note - Text Progress Note Date: 06/18/20 Notified byr ER regarding patient status post fall with multiple left-sided rib fractures and alcohol intoxication. Requested to evaluate CT chest. Findings consistent with anterior pneumothorax present on my assessment of CT chest. Recommend admission. Also recommend thoracic consultation for evaluation for thoravent.
[2020-06-18] MEDS ORDERED: LORazepam 2 MG/ML INJ IV PRN (11:44)
[2020-06-18] MEDS ORDERED: THIAMINE 100 MG/ML 2 ML VIAL IM STA (11:44)
[2020-06-18] MEDS ORDERED: NALOXONE 0.4 MG/ML 1 ML VIAL IV PRN (11:50)
[2020-06-18] MEDS: HYDROmorphone 0.5 MG/0.5 ML SYRINGE IVP PRN ×3 (12:38→22:27)
[2020-06-18] MEDS: LORazepam 2 MG/ML INJ IV PRN ×3 (12:40→20:42)
--- NOTE | 2020-06-18 13:55 | P.GSCN ---
History of Present Illness Consult date: 06/18/20 Reason for Consult: Small left-sided traumatic pneumothorax Requesting physician: Yusuf Verdin History of present illness: This is a 64-year-old gentleman who follows in an outpatient basis with Dr. Nails. He has a previous medical history of hypertension, hyperlipidemia, liver disease with esophageal and stomach ulcers, prostate cancer status post resection, COPD, previous cigarette dependence although he states he quit 3 years ago but does smoke 3 cigars daily, daily EtOH use, and occasional marijuana use. Apparently while drinking yesterday he had lost his balance and had fallen striking his left chest. He chose not to seek medical attention at that time, however during the night his pain and shortness of breath continued to worsen and he presented to [facility] emergency room today for kenia luation. CT of the chest, abdomen, and pelvis was completed demonstrating small left-sided anterior pneumothorax estimated at about 10-15% along with minimally displaced ninth through 11th rib fractures, no acute trauma in the abdomen or pelvis, and underlying cirrhosis. WBC 7.8, hemoglobin 14.1, creatinine 1.21, magnesium 1.5, serum alcohol 34. EKG demonstrated sinus tachycardia with rate 101 bpm. Vital signs stable, oxygenating in the mid 90s on room air. The case was discussed with trauma surgery who recommended consultation to Dr. Horner for possible chest tube placement. Review of Systems Review of systems was completed and was negative except as noted - Cardiovascular Reports as per HPI, Reports chest pain - Respiratory Reports as per HPI, Reports dyspnea, Reports pain Past Medical History Past Medical History: Cancer, COPD, GERD/Reflux, Hyperlipidemia, Hypertension, Osteoarthritis (OA), Prostate Disorder Additional Past Medical History / Comment(s): LIVER DISEASE, " in 2004 esophagus was bleeding and ulcers in stomach" Prostate cancer, alcoholism History of Any Multi-Drug Resistant Organisms: None Reported Past Surgical History: Prostate Surgery Additional Past Surgical History / Comment(s): CATARACT SURGERY-BILATERAL, DENTAL, prostatectomy, COLONOSCOPY/EGD, BACK INJECTIONS Past Anesthesia/Blood Transfusion Reactions: No Reported Reaction Past Psychological History: Depression Smoking Status: Current every day smoker Past Alcohol Use History: Daily Additional Past Alcohol Use History / Comment(s): Patient reportedly purchases half a pint every other day, drinks daily Past Drug Use History: Marijuana - Past Family History Sister(s) Family Medical History: Cancer Additional Family Medical History / Comment(s): skin cancer Brother(s) Family Medical History: Cancer Additional Family Medical History / Comment(s): throat cancer Mother Family Medical History: COPD Additional Family Medical History / Comment(s): of COPD Father Additional Family Medical History / Comment(s): of alcoholism Medications and Allergies Home Medications Medication Instructions Recorded Confirmed Type Omeprazole [PriLOSEC] 20 mg PO BID 10/14/15 06/18/20 History Simvastatin [Zocor] 10 mg PO HS 10/14/15 06/18/20 History Pregabalin [Lyrica] 150 mg PO BID 03/17/19 06/18/20 History Lisinopril [Prinivil] 10 mg PO DAILY 04/30/20 06/18/20 History Multivit-Min/FA/Lycopen/Lutein 1 tab PO DAILY 04/30/20 06/18/20 History [Centrum Silver Men Tablet] Nicotine 21Mg/24Hr Patch [Habitrol] 1 patch TRANSDERM DAILY 04/30/20 06/18/20 History Potassium Chloride [Klor-Con 20] 20 meq PO BID 04/30/20 06/18/20 History Spironolactone 100 mg PO DAILY 06/18/20 06/18/20 History Allergies Allergy/AdvReac Type Severity Reaction Status Date / Time No Known Allergies Allergy Verified 06/18/20 11:04 Surgical - Exam Vital Signs Temp Pulse Resp BP Pulse Ox 98.3 F 114 H 26 H 163/89 95 06/18/20 09:27 06/18/20 09:27 06/18/20 09:27 06/18/20 09:27 06/18/20 09:27 - General well developed, well nourished, moderate distress, moderate pain - Eyes normal ocular movement - ENT no hearing loss - Neck no masses, no bruits, trachea midline - Respiratory Lungs sounds diminished bilaterally. Respirations even, nonlabored. Currently on room air with oxygen saturation 96%. No clubbing or cyanosis present. - Cardiovascular S1, S2 present. Regular rate and rhythm, sinus rhythm on telemetry. Palpable peripheral pulses bilaterally. No edema present. No calf pain or tenderness noted. - Abdomen Abdomen: soft, non tender, bowel sounds - Genitourinary Deferred - Rectum Deferred - Integumentary no rash, no growths - Neurologic Patient is a bit shaky normal sensation - Musculoskeletal normal posture - Psychiatric oriented to time, oriented to person, oriented to place Results - Labs 06/18/20 10:23 06/18/20 10: Abnormal Lab Results - Last 24 Hours (Table) 06/18/20 06/18/20 Range/Units 10: 10: RDW 17.2 H (11.5-15.5) % Plt Count 132 L (150-450) k/uL Chloride 108 H (98-107) mmol/L Carbon Dioxide 19 L (22-30) mmol/L Glucose 106 H (74-99) mg/dL Magnesium 1.5 L (1.6-2.3) mg/dL Alkaline Phosphatase 130 H (38-126) U/L Diabetes panel 06/18/20 Range/Units 10: Sodium 139 (137-145) mmol/L Potassium 4.2 (3.5-5.1) mmol/L Chloride 108 H (98-107) mmol/L Carbon Dioxide 19 L (22-30) mmol/L BUN 19 (9-20) mg/dL Creatinine 1.21 (0.66-1.25) mg/dL Glucose 106 H (74-99) mg/dL Calcium 9.8 (8.4-10.2) mg/dL AST 40 (17-59) U/L ALT 23 (4-49) U/L Alkaline Phosphatase 130 H (38-126) U/L Total Protein 7.1 (6.3-8.2) g/dL Albumin 4.2 (3.5-5.0) g/dL Calcium panel 06/18/20 Range/Units 10:23 Calcium 9.8 (8.4-10.2) mg/dL Albumin 4.2 (3.5-5.0) g/dL Pituitary panel 06/18/20 Range/Units 10:23 Sodium 139 (137-145) mmol/L Potassium 4.2 (3.5-5.1) mmol/L Chloride 108 H (98-107) mmol/L Carbon Dioxide 19 L (22-30) mmol/L BUN 19 (9-20) mg/dL Creatinine 1.21 (0.66-1.25) mg/dL Glucose 106 H (74-99) mg/dL Calcium 9.8 (8.4-10.2) mg/dL Adrenal panel 06/18/20 Range/Units 10:23 Sodium 139 (137-145) mmol/L Potassium 4.2 (3.5-5.1) mmol/L Chloride 108 H (98-107) mmol/L Carbon Dioxide 19 L (22-30) mmol/L BUN 19 (9-20) mg/dL Creatinine 1.21 (0.66-1.25) mg/dL Glucose 106 H (74-99) mg/dL Calcium 9.8 (8.4-10.2) mg/dL Total Bilirubin 1.1 (0.2-1.3) mg/dL AST 40 (17-59) U/L ALT 23 (4-49) U/L Alkaline Phosphatase 130 H (38-126) U/L Total Protein 7.1 (6.3-8.2) g/dL Albumin 4.2 (3.5-5.0) g/dL - Imaging CT scan - abdomen: report reviewed, image reviewed CT scan - chest: report reviewed, image reviewed CT scan - pelvis: report reviewed, image reviewed EKG: image reviewed Assessment and Plan Assessment: 1. Left-sided small traumatic pneumothorax 2. Left-sided rib fractures, status post fall from standing 3. Hypertension 4. Hyperlipidemia 5. Liver disease with esophageal and stomach ulcers 6. History of prostate cancer status post resection 7. COPD 8. Previous cigarette dependence, current cigar use 9. Daily EtOH use 10. Occasional marijuana use Plan: The patient was seen and examined in the emergency room. Chart/diagnostics were reviewed with Dr. Horner. The patient is in no respiratory distress, he is oxygenating well on room air, there is no mediastinal shift and no tracheal deviation. Our recommendation is for close monitoring, no chest tube necessary at this time. We will review chest x-ray in the morning. If patient develops significant respiratory distress or pneumothorax becomes significantly worse we'll consider thoravent versus thoracostomy tube placement. Smoking and alcohol cessation encouraged. Pain control per current medication regimen. Increase activity, ambulate as tolerated. Medical management of other comorbidities per primary care service. More recommendations to follow based on patient's progress Thank you for this consult. We look forward to working with you in the care of your patient. Time with Patient: Greater than 30
[2020-06-18] MEDS: SODIUM CHLORIDE 0.9% 1,000 ML IV SCH ×2 (13:58→17:53)
--- NOTE | 2020-06-18 15:13 | P.CNPUL ---
History of Present Illness Consult date: 06/18/20 Reason for consult: pneumothorax History of present illness: 64-year-old female patient known history of COPD, daily alcohol drinker with possibly a component of alcoholism and occasional marijuana user. The patient was drinking alcohol and he fell while drinking and he landed on his left chest and he sustained a 10-15% pneumothorax on the left with a minimally displaced ninth 10th and 11th rib. No acute abnormalities within the abdomen and pelvis. White cell count is at 7.8 with hemoglobin of 14.1. The patient was still alcohol toxic and his Zocor level was 34 at time of his admission. He was admitted for observation. His pulse ox remains above 92% on room air oxygen. He was provided incentive spirometer. No immediate intervention was done based on the small size of this pneumothorax. He has chronic liver disease secondary alcoholism and addition to history of peptic ulcer disease, prostate cancer, COPD, hypertension and hyperlipidemia. No signs of any delirium tremens. Review of Systems Constitutional: Denies chills, Denies fever Eyes: denies as per HPI, denies blurred vision, denies bulging eye, denies decreased vision, denies diplopia, denies discharge, denies dry eye, denies irritation, denies itching, denies pain, denies photophobia, denies loss of peripheral vision, denies loss of vision, denies tunnel vision/blind spots Ears: deny: decreased hearing, ear discharge, earache, tinnitus Ears, nose, mouth and throat: Denies headache, Denies sore throat Cardiovascular: Reports chest pain, Reports dyspnea on exertion Respiratory: Reports dyspnea Gastrointestinal: Reports as per HPI Genitourinary: Reports as per HPI Musculoskeletal: Reports as per HPI Musculoskeletal: absent: ankle pain, ankle stiffness, ankle swelling Integumentary: Reports as per HPI Neurological: Reports as per HPI Psychiatric: Reports as per HPI Endocrine: Reports as per HPI Hematologic/Lymphatic: Reports as per HPI Allergic/Immunologic: Reports as per HPI Past Medical History Past Medical History: Cancer, COPD, GERD/Reflux, Hyperlipidemia, Hypertension, Osteoarthritis (OA), Prostate Disorder Additional Past Medical History / Comment(s): LIVER DISEASE, " in 2004 esophagus was bleeding and ulcers in stomach" Prostate cancer, alcoholism History of Any Multi-Drug Resistant Organisms: None Reported Past Surgical History: Prostate Surgery Additional Past Surgical History / Comment(s): CATARACT SURGERY-BILATERAL, DENTAL, prostatectomy, COLONOSCOPY/EGD, BACK INJECTIONS Past Anesthesia/Blood Transfusion Reactions: No Reported Reaction Past Psychological History: Depression Smoking Status: Current every day smoker Past Alcohol Use History: Daily Additional Past Alcohol Use History / Comment(s): Patient reportedly purchases half a pint every other day, drinks daily Past Drug Use History: Marijuana - Past Family History Sister(s) Family Medical History: Cancer Additional Family Medical History / Comment(s): skin cancer Brother(s) Family Medical History: Cancer Additional Family Medical History / Comment(s): throat cancer Mother Family Medical History: COPD Additional Family Medical History / Comment(s): of COPD Father Additional Family Medical History / Comment(s): of alcoholism Medications and Allergies Home Medications Medication Instructions Recorded Confirmed Type Omeprazole [PriLOSEC] 20 mg PO BID 10/14/15 06/18/20 History Simvastatin [Zocor] 10 mg PO HS 10/14/15 06/18/20 History Pregabalin [Lyrica] 150 mg PO BID 03/17/19 06/18/20 History Lisinopril [Prinivil] 10 mg PO DAILY 04/30/20 06/18/20 History Multivit-Min/FA/Lycopen/Lutein 1 tab PO DAILY 04/30/20 06/18/20 History [Centrum Silver Men Tablet] Nicotine 21Mg/24Hr Patch [Habitrol] 1 patch TRANSDERM DAILY 04/30/20 06/18/20 History Potassium Chloride [Klor-Con 20] 20 meq PO BID 04/30/20 06/18/20 History Spironolactone 100 mg PO DAILY 06/18/20 06/18/20 History Allergies Allergy/AdvReac Type Severity Reaction Status Date / Time No Known Allergies Allergy Verified 06/18/20 11:04 Physical Exam Vitals: Vital Signs Temp Pulse Resp BP Pulse Ox 06/18/20 13:23 95 18 152/99 92 L 06/18/20 09:27 98.3 F 114 H 26 H 163/89 95 Intake and Output 06/18/20 06/18/20 06/18/20 06:59 14:59 22:59 Other: Weight 72.575 kg - General well developed, well nourished, moderate distress, moderate pain - Eyes normal ocular movement - ENT no hearing loss - Neck no masses, no bruits, trachea midline - Respiratory Lungs sounds diminished bilaterally. Respirations even, nonlabored. Currently on room air with oxygen saturation 96%. No clubbing or cyanosis present. - Cardiovascular S1, S2 present. Regular rate and rhythm, sinus rhythm on telemetry. Palpable peripheral pulses bilaterally. No edema present. No calf pain or tenderness noted. - Abdomen Abdomen: soft, non tender, bowel sounds - Genitourinary Deferred - Rectum Deferred - Integumentary no rash, no growths - Neurologic Patient is a bit shaky normal sensation - Musculoskeletal normal posture Results - Laboratory Findings CBC and BMP: 06/18/20 10:23 06/18/20 10:23 PT/INR, D-dimer PT 10.7 sec (9.0-12.0) 06/18/20 10: INR 1.0 (<1.2) 06/18/20 10:23 Abnormal lab findings: Abnormal Labs 06/18/20 06/18/20 10:23 10:23 RDW 17.2 H Plt Count 132 L Chloride 108 H Carbon Dioxide 19 L Glucose 106 H Magnesium 1.5 L Alkaline Phosphatase 130 H - Diagnostic Findings CT scan - chest: image reviewed Assessment and Plan Plan: 1 acute traumatic left-sided pneumothorax in the order of 10-15% 2 left-sided chest wall pain secondary to nondisplaced fractures of the night 10th and 11th ribs, traumatic in nature 3 shortness of breath secondary to above 4 alcoholism 5 acute alcohol intoxication 5 history of chronic liver disease, likely alcoholic 6 COPD 7 prostate cancer with a previous 8 hypertension 9 hyperlipidemia 10 occasional marijuana use Plan Obtain a baseline chest x-ray and repeat a chest x-ray tomorrow for comparison. We'll consider a thoracentesis insertion for any change in her condition, being his symptoms or any worsening in the left-sided pneumothorax. For now the patient is stable. No evidence of any tension. Supplement the patient with oxygen. Provide adequate pain control. Provide the patient incentive spirometer. Watch for any signs of delirium tremens. We'll continue to follow. Case was discussed with thoracic surgery.
--- NOTE | 2020-06-18 16:39 | XR ---
EXAMINATION TYPE: XR chest 1V portable DATE OF EXAM: 06/18/2020 CLINICAL HISTORY: Difficulty breathing and pneumothorax progress study. TECHNIQUE: Single AP portable upright view of the chest is obtained. COMPARISON: Chest x-ray from March 17, 2019. CT thorax earlier today. FINDINGS: Low lung volumes redemonstrated. Small anterior left-sided pneumothorax on CT less well-se en on x-ray, question if this is truly upright. Worsening left basilar atelectasis. Cardiac silhouett e size now mildly enlarged. Background chronic parenchymal change. Multiple calcifications left upper quadrant and the spleen redemonstrated. Persistent displaced left lateral ninth and 10th rib fractur es. IMPRESSION: Small left-sided pneumothorax on CT less well seen on plain films. Background chronic par enchymal change in low lung volumes with worsening left basilar acute atelectasis. Acute displaced la teral fractures left ninth and 10th ribs redemonstrated.
[2020-06-18] MEDS: THIAMINE 100 MG TAB PO SCH (17:30)
[2020-06-18] MEDS: diazePAM 5 MG TAB PO SCH (20:27)
[2020-06-18] MEDS: ENOXAPARIN 40 MG/0.4 ML SYRINGE SQ SCH (20:27)
[2020-06-18] MEDS: MAGNESIUM OXIDE 400 MG TAB PO SCH (20:28)
[2020-06-18] MEDS: guaiFENesin 600 MG TABLET.ER PO SCH (20:28)
[2020-06-18] MEDS: ATORVASTATIN 10 MG TAB PO SCH (20:28)
[2020-06-18] MEDS: POTASSIUM CHLORIDE ER 20 MEQ TAB.ER PO SCH (20:40)
[2020-06-18] MEDS: PREGABALIN 75 MG CAP PO SCH (20:41)
[2020-06-18] MEDS: NICOTINE 21MG/24HR PATCH TRANSDERM SCH (20:41)
[2020-06-18] MEDS: IPRATROPIUM-ALBUTEROL 3 ML NEB INHALATION SCH (21:12)
[2020-06-18] MEDS ORDERED: lisinopriL 10 MG TAB PO STA (22:19)
--- NOTE | 2020-06-18 22:37 | P.CONS ---
History of Present Illness - Reason for Consult Consult date: 06/18/20 medical management Requesting physician: Vianca Meyers - Chief Complaint fall - History of Present Illness Consultation: This is a 64-year-old patient of . Patient was chronic stable medical conditions include GERD, hypertension, hyperlipidemia, osteoarthritis, peptic ulcer disease, prostate cancer. Patient long-standing smoker and drinks at least a quart of snaps every day. 2 days ago patient took a fall hitting the left rib cage against a table. After he missed a step. He's been hurting. Some shortness of breath. Never passed out. Did not have any head injury. Patient is also short of breath and wheezing. Chronic cough. Patient also got tremors. Anxious Review of systems: GEN.: Tired EYES: None HEENT: None NECK: None RESPIRATORY: Wheezing and cough CARDIOVASCULAR: None GASTROINTESTINAL: None GENITOURINARY: None MUSCULOSKELETAL: Left chest wall pain] LYMPHATICS: None HEMATOLOGICAL: None PSYCHIATRY: Anxious NEUROLOGICAL: Tremors Past medical history to include: COPD, GERD, hypertension, hyperlipidemia, osteoarthritis, peptic ulcer disease, prostate cancer alcoholism Social history: Lives alone. Takes at least a quart of snaps every day. Smokes a pack of cigarette a day for many years. Does have a cane and a wheelchair. Smokes about 2 joints of marijuana daily. Physical examination: VITAL SIGNS: 98.3, 114, 26, 153/89, 95% room air GENERAL: BMI 25.1, laying in bed anxious. Spider nevi, dupuytrens contracture, pulmonary edema EYES: Pupils equal. Conjunctiva normal. HEENT: External appearance of nose and ears normal, oral cavity grossly normal. NECK: JVD not raised; masses not palpable. HEART: First and second heart sounds are normal; no edema. LUNGS: Respiratory rate increased, decreased breath sounds wheezing. ABDOMEN: Soft, nontender, liver spleen not palpable, no masses palpable. CHEST wall: Left lateral chest wall tenderness, bilateral gynecomastia PSYCH: Alert and oriented x3; mood and affect anxiousl. NEUROLOGICAL: Cranial nerves grossly intact; no facial asymmetry, power and sensation grossly intact. tremors present LYMPHATICS: No lymph nodes palpable in the axilla and neck INVESTIGATIONS, reviewed in the clinical context: White count 7.8 hemoglobin 14.1 platelets 132 potassium 4.2 creatinine 1.21 AST 40 ALT 23 albumin 4.2 Serum alcohol 34 Computed tomography scan of the chest abdomen pelvis with contrast-small left- sided pneumothorax 10-15%, cirrhosis multiple large calcification throughout the spleen, fracture of the left 11th, 10th and ninth rib EKG tracing personally reviewed by me-normal sinus rhythm Chest x-ray film personally reviewed by me-portable, hyperinflation, left small pneumothorax reported Assessment: -Mechanical fall after the patient missed her last stair leading to him falling on the left chest wall. -Left 10th, ninth, 11th rib fracture -Small left-sided pneumothorax 10-15% with no mediastinal shift. -Acute COPD exacerbation in a current smoker -Alcohol-induced cirrhosis -Granulomatous spleen -Alcohol withdrawal syndrome -Chronic nicotine dependence cigarette smoker -GERD -Hyperlipidemia -Essential hypertension -Primary osteoarthritis -Peptic ulcer disease Plan: Patient is put on DuoNeb, in his steroids. Nicotine patch. Home medications be reviewed. Add Valium for the alcohol withdrawal syndrome. Patient also the CIWA scale. Care was discussed with the patient questions answered. Fall precautions. Thank you Dr. Holm Past Medical History Past Medical History: Cancer, COPD, GERD/Reflux, Hyperlipidemia, Hypertension, Osteoarthritis (OA), Prostate Disorder Additional Past Medical History / Comment(s): LIVER DISEASE, " in 2004 esophagus was bleeding and ulcers in stomach" Prostate cancer, alcoholism History of Any Multi-Drug Resistant Organisms: None Reported Past Surgical History: Prostate Surgery Additional Past Surgical History / Comment(s): CATARACT SURGERY-BILATERAL, DENTA L, prostatectomy, COLONOSCOPY/EGD, BACK INJECTIONS Past Anesthesia/Blood Transfusion Reactions: No Reported Reaction Past Psychological History: Depression Smoking Status: Current every day smoker Past Alcohol Use History: Daily Additional Past Alcohol Use History / Comment(s): Patient reportedly purchases half a pint every other day, drinks daily Past Drug Use History: Marijuana - Past Family History Sister(s) Family Medical History: Cancer Additional Family Medical History / Comment(s): skin cancer Brother(s) Family Medical History: Cancer Additional Family Medical History / Comment(s): throat cancer Mother Family Medical History: COPD Additional Family Medical History / Comment(s): of COPD Father Additional Family Medical History / Comment(s): of alcoholism Medications and Allergies Home Medications Medication Instructions Recorded Confirmed Type Omeprazole [PriLOSEC] 20 mg PO BID 10/14/15 06/18/20 History Simvastatin [Zocor] 10 mg PO HS 10/14/15 06/18/20 History Pregabalin [Lyrica] 150 mg PO BID 03/17/19 06/18/20 History Lisinopril [Prinivil] 10 mg PO DAILY 04/30/20 06/18/20 History Multivit-Min/FA/Lycopen/Lutein 1 tab PO DAILY 04/30/20 06/18/20 History [Centrum Silver Men Tablet] Nicotine 21Mg/24Hr Patch [Habitrol] 1 patch TRANSDERM DAILY 04/30/20 06/18/20 History Potassium Chloride [Klor-Con 20] 20 meq PO BID 04/30/20 06/18/20 History Spironolactone 100 mg PO DAILY 06/18/20 06/18/20 History Allergies Allergy/AdvReac Type Severity Reaction Status Date / Time No Known Allergies Allergy Verified 06/18/20 11:04 Physical Exam Vitals: Vital Signs Temp Pulse Pulse Resp BP BP Pulse Ox 06/18/20 21:23 88 06/18/20 21:13 90 95 06/18/20 19:58 98.7 F 94 20 181/106 94 L 06/18/20 16:00 98.6 F 92 16 159/92 96 06/18/20 14:25 98.7 F 90 20 142/91 92 L 06/18/20 13:23 95 18 152/99 92 L 06/18/20 09:27 98.3 F 114 H 26 H 163/89 95 Intake and Output 06/18/20 06/18/20 06/18/20 06:59 14:59 22:59 Intake Total 0 Balance 0 Intake: Oral 0 Other: Voiding Method Incontinent Weight 72.575 kg Results CBC & Chem 7: 06/18/20 10:23 06/18/20 10:23 Labs: Abnormal Lab Results - Last 24 Hours (Table) 06/18/20 06/18/20 Range/Units 10:23 10:23 RDW 17.2 H (11.5-15.5) % Plt Count 132 L (150-450) k/uL Chloride 108 H (98-107) mmol/L Carbon Dioxide 19 L (22-30) mmol/L Glucose 106 H (74-99) mg/dL Magnesium 1.5 L (1.6-2.3) mg/dL Alkaline Phosphatase 130 H (38-126) U/L
[2020-06-19] MEDS: LORazepam 2 MG/ML INJ IV PRN ×5 (01:33→22:54)
[2020-06-19] MEDS: HYDROmorphone 0.5 MG/0.5 ML SYRINGE IVP PRN ×2 (03:52→10:07)
[2020-06-19] MEDS: guaiFENesin 600 MG TABLET.ER PO SCH ×3 (05:12→20:00)
[2020-06-19] MEDS: diazePAM 5 MG TAB PO SCH ×4 (05:12→21:51)
[2020-06-19] MEDS: THIAMINE 100 MG TAB PO SCH ×2 (06:42→16:21)
[2020-06-19] MEDS: PANTOPRAZOLE 40 MG TABLET PO SCH (06:42)
--- NOTE | 2020-06-19 07:20 | XR ---
EXAMINATION TYPE: XR chest 2V DATE OF EXAM: 06/19/2020 COMPARISON: Chest x-ray and CT from yesterday. HISTORY: Pneumothorax. TECHNIQUE: Frontal and lateral views of the chest are obtained. FINDINGS: There is small left apical pneumothorax on current chest x-ray estimated 10% similar in si ze to recent CT was not well seen on most recent x-ray. Worsening left basilar opacity noted. Right l kevin remains clear. The cardiac silhouette size is upper limits of normal. Lower lateral left acute r ib fractures less well seen on current study. IMPRESSION: Better visualization of small left apical pneumothorax estimated 10%. Worsening left bas ilar acute infiltrate and/or atelectasis noted.
[2020-06-19 07:40] LABS: Anisocytosis Slight; Basophils % (A) 1 %; Eosinophils # (A) 0.1 k/uL (0-0.7); Eosinophils % (A) 1 %; HGB 13.6 gm/dL (13.0-17.5); Lymphocytes # (A) 1.7 k/uL (1.0-4.8); Lymphocytes % (A) 22 %; MCH 30.8 pg (25.0-35.0); MCHC 33.2 g/dL (31.0-37.0); MCV 92.7 fL (80.0-100.0); Mean Platelet Volume 8.7; Monocytes # (A) 0.6 k/uL (0-1.0); Monocytes % (A) 7 %; Neutrophils % (A) 66 %; RBC 4.42 m/uL (4.30-5.90); RDW 16.8 % (11.5-15.5); WBC 7.6 k/uL (3.8-10.6)
[2020-06-19 07:52] LABS: Platelet Count 94 k/uL (150-450)
[2020-06-19] MEDS: IPRATROPIUM-ALBUTEROL 3 ML NEB INHALATION SCH ×4 (08:10→19:27)
--- NOTE | 2020-06-19 08:22 | P.GSHP ---
History of Present Illness H&P Date: 06/18/20 Patient seen and evaluated. Patient developed multiple left-sided rib fractures. He reports pain is tolerable. Patient has pneumothorax pain monitored by cardiothoracic. He denies any shortness of breath. Hospitalization for pneumothorax including alcoholism advised. Medicine consultation obtained for alcoholism protocol. Hypertension medications resumed. Tobacco patch held including multivitamins. Past Medical History Past Medical History: Cancer, COPD, GERD/Reflux, Hyperlipidemia, Hypertension, Osteoarthritis (OA), Prostate Disorder Additional Past Medical History / Comment(s): LIVER DISEASE, " in 2004 esophagus was bleeding and ulcers in stomach" Prostate cancer, alcoholism History of Any Multi-Drug Resistant Organisms: None Reported Past Surgical History: Prostate Surgery Additional Past Surgical History / Comment(s): CATARACT SURGERY-BILATERAL, DENTAL, prostatectomy, COLONOSCOPY/EGD, BACK INJECTIONS Past Anesthesia/Blood Transfusion Reactions: No Reported Reaction Past Psychological History: Depression Smoking Status: Current every day smoker Past Alcohol Use History: Daily Additional Past Alcohol Use History / Comment(s): Patient reportedly purchases half a pint every other day, drinks daily Past Drug Use History: Marijuana - Past Family History Sister(s) Family Medical History: Cancer Additional Family Medical History / Comment(s): skin cancer Brother(s) Family Medical History: Cancer Additional Family Medical History / Comment(s): throat cancer Mother Family Medical History: COPD Additional Family Medical History / Comment(s): of COPD Father Additional Family Medical History / Comment(s): of alcoholism Medications and Allergies Home Medications Medication Instructions Recorded Confirmed Type Omeprazole [PriLOSEC] 20 mg PO BID 10/14/15 06/18/20 History Simvastatin [Zocor] 10 mg PO HS 10/14/15 06/18/20 History Pregabalin [Lyrica] 150 mg PO BID 03/17/19 06/18/20 History Lisinopril [Prinivil] 10 mg PO DAILY 04/30/20 06/18/20 History Multivit-Min/FA/Lycopen/Lutein 1 tab PO DAILY 04/30/20 06/18/20 History [Centrum Silver Men Tablet] Nicotine 21Mg/24Hr Patch [Habitrol] 1 patch TRANSDERM DAILY 04/30/20 06/18/20 History Potassium Chloride [Klor-Con 20] 20 meq PO BID 04/30/20 06/18/20 History Spironolactone 100 mg PO DAILY 06/18/20 06/18/20 History Allergies Allergy/AdvReac Type Severity Reaction Status Date / Time No Known Allergies Allergy Verified 06/18/20 11:04 Surgical - Exam Vital Signs Temp Pulse Resp BP Pulse Ox 98.3 F 114 H 26 H 163/89 95 06/18/20 09:27 06/18/20 09:27 06/18/20 09:27 06/18/20 09:27 06/18/20 09:27 Results - Labs 06/19/20 07:20 06/18/20 10:23 Abnormal Lab Results - Last 24 Hours (Table) 06/18/20 06/18/20 06/19/20 Range/Units 10: 10: 07: RDW 17.2 H 16.8 H (11.5-15.5) % Plt Count 132 L 94 L (150-450) k/uL Chloride 108 H (98-107) mmol/L Carbon Dioxide 19 L (22-30) mmol/L Glucose 106 H (74-99) mg/dL Magnesium 1.5 L (1.6-2.3) mg/dL Alkaline Phosphatase 130 H (38-126) U/L Diabetes panel 06/18/20 Range/Units 10:23 Sodium 139 (137-145) mmol/L Potassium 4.2 (3.5-5.1) mmol/L Chloride 108 H (98-107) mmol/L Carbon Dioxide 19 L (22-30) mmol/L BUN 19 (9-20) mg/dL Creatinine 1.21 (0.66-1.25) mg/dL Glucose 106 H (74-99) mg/dL Calcium 9.8 (8.4-10.2) mg/dL AST 40 (17-59) U/L ALT 23 (4-49) U/L Alkaline Phosphatase 130 H (38-126) U/L Total Protein 7.1 (6.3-8.2) g/dL Albumin 4.2 (3.5-5.0) g/dL Calcium panel 06/18/20 Range/Units 10:23 Calcium 9.8 (8.4-10.2) mg/dL Albumin 4.2 (3.5-5.0) g/dL Pituitary panel 06/18/20 Range/Units 10:23 Sodium 139 (137-145) mmol/L Potassium 4.2 (3.5-5.1) mmol/L Chloride 108 H (98-107) mmol/L Carbon Dioxide 19 L (22-30) mmol/L BUN 19 (9-20) mg/dL Creatinine 1.21 (0.66-1.25) mg/dL Glucose 106 H (74-99) mg/dL Calcium 9.8 (8.4-10.2) mg/dL Adrenal panel 06/18/20 Range/Units 10:23 Sodium 139 (137-145) mmol/L Potassium 4.2 (3.5-5.1) mmol/L Chloride 108 H (98-107) mmol/L Carbon Dioxide 19 L (22-30) mmol/L BUN 19 (9-20) mg/dL Creatinine 1.21 (0.66-1.25) mg/dL Glucose 106 H (74-99) mg/dL Calcium 9.8 (8.4-10.2) mg/dL Total Bilirubin 1.1 (0.2-1.3) mg/dL AST 40 (17-59) U/L ALT 23 (4-49) U/L Alkaline Phosphatase 130 H (38-126) U/L Total Protein 7.1 (6.3-8.2) g/dL Albumin 4.2 (3.5-5.0) g/dL
--- NOTE | 2020-06-19 09:58 | P.PN ---
Subjective Progress Note Date: 06/19/20 Principal diagnosis: Acute traumatic left-sided pneumothorax, 10-15%, status post fall from standing. Past medical history significant for hypertension, hyperlipidemia, liver dise ase with esophageal and stomach ulcers, prostate cancer status post resection, COPD, previous cigarette dependence although he states he quit 3 years ago but does smoke 3 cigars daily, daily EtOH use, and occasional marijuana use. The patient was seen in follow-up today 06/19/2020 at his bedside on the cardiac stepdown unit. Currently he is laying in bed eating his breakfast, he is awake, alert and oriented 3 and is in no acute distress. He denies any complaints of shortness of breath although is complaining of some pain to his left chest with taking a deep breath and using his incentive spirometry. Oxygen saturations are 95% on 2 L nasal cannula and he is achieving 1000 mL on his incentive spirometry. A repeat chest x-ray was completed this morning which demonstrates a small left apical pneumothorax estimated around 10%, with no evidence of tension. Objective - Vital Signs Vital signs: Vital Signs Temp 98.4 F 06/19/20 07:57 Pulse 92 06/19/20 08:19 Resp 18 06/19/20 07:57 BP 135/90 06/19/20 07:57 Pulse Ox 95 06/19/20 07:57 Intake & Output 06/18/20 06/19/20 06/19/20 18:59 06:59 18:59 Intake Total 0 900 300 Balance 0 900 300 Weight 72.575 kg 74.5 kg Intake: Oral 0 900 300 Other: Voiding Method Incontinent Incontinent # Voids 1 - Constitutional General appearance: Present: average body habitus, cooperative, no acute distress - EENT Eyes: Present: PERRLA, normal appearance. Absent: scleral icterus - Neck Details: Neck is supple, no JVD, no lymphadenopathy. - Respiratory Details: Lung sounds essentially clear to his bilateral upper lobes, diminished to his bilateral bases left greater than right. Respirations are symmetrical and nonlabored. Oxygen saturation is 95% on 2 L nasal cannula. Achieving 1000 mL on his incentive spirometry. - Cardiovascular Details: Regular rhythm and rate. S1 and S2 present, negative for S3, gallop or murmur. No edema present. - Gastrointestinal Gastrointestinal Comment(s): Abdomen is soft, nontender and nondistended. Active bowel sounds present in all 4 abdominal quadrants. No guarding or rigidity. Tolerating oral intake. - Genitourinary Genitourinary Comment(s): Continues to void. - Integumentary Integumentary Comment(s): Skin is warm and dry. No clubbing or cyanosis is present. No rash or abnormal pigmentation is present. - Neurologic Neurologic: Present: CNII-XII intact - Musculoskeletal Musculoskeletal: Present: strength equal bilaterally - Psychiatric Psychiatric: Present: A&O x's 3, appropriate affect, intact judgment & insight - Allied health notes Allied health notes reviewed: nursing - Labs CBC & Chem 7: 06/19/20 07:20 06/18/20 10:23 Labs: Abnormal Lab Results - Last 24 Hours (Table) 06/18/20 06/18/20 06/19/20 Range/Units 10:23 10: 07:20 RDW 17.2 H 16.8 H (11.5-15.5) % Plt Count 132 L 94 L (150-450) k/uL Chloride 108 H (98-107) mmol/L Carbon Dioxide 19 L (22-30) mmol/L Glucose 106 H (74-99) mg/dL Magnesium 1.5 L (1.6-2.3) mg/dL Alkaline Phosphatase 130 H (38-126) U/L - Imaging and Cardiology Chest x-ray: report reviewed, image reviewed Assessment and Plan Assessment: 1. Left-sided small traumatic pneumothorax 2. Left-sided rib fractures, status post fall from standing 3. Hypertension 4. Hyperlipidemia 5. Liver disease with esophageal and stomach ulcers 6. History of prostate cancer status post resection 7. COPD 8. Previous cigarette dependence, current cigar use 9. Daily EtOH use 10. Occasional marijuana use Plan: 1. Continue to monitor daily chest x-rays. If the patient develops significant respiratory distress or pneumothorax becomes significantly worse a Thoravent placement would be considered versus thoracostomy tube placement. 2. Continue to encourage use of his incentive spirometry 10 times every hour while awake. 3. Pain control per current when necessary orders. 4. Medical management and other comorbidities per primary care service. 5. GI and DVT prophylaxis. 6. More recommendations to follow based on patient's clinical course. Time with Patient: Greater than 30
[2020-06-19] MEDS: PREGABALIN 75 MG CAP PO SCH ×2 (10:05→20:00)
[2020-06-19] MEDS: SPIRONOLACTONE 25 MG TAB PO SCH (10:05)
[2020-06-19] MEDS: POTASSIUM CHLORIDE ER 20 MEQ TAB.ER PO SCH ×2 (10:05→20:00)
[2020-06-19] MEDS: MAGNESIUM OXIDE 400 MG TAB PO SCH ×2 (10:05→20:00)
[2020-06-19] MEDS: NICOTINE 21MG/24HR PATCH TRANSDERM SCH (10:06)
[2020-06-19] MEDS: lisinopriL 10 MG TAB PO SCH (10:07)
[2020-06-19] MEDS ORDERED: ONDANSETRON 4 MG/2 ML VIAL IVP PRN (10:23)
[2020-06-19] MEDS ORDERED: MULTIVITAMINS, THERA 1 EACH TAB PO SCH (10:30)
--- NOTE | 2020-06-19 11:28 | P.PN ---
Subjective Progress Note Date: 06/19/20 CHIEF COMPLAINT: Acute traumatic left-sided pneumothorax HISTORY OF PRESENT ILLNESS: Patient is status post fall with an acute left-sided pneumothorax with left rib fractures. Patient evaluated by cardiovascular surgery and no chest to recommended at this time. There continue to monitoring patient daily. Chest x-ray from today shows small left apical pneumothorax 10% and worsening left basilar acute infiltrate and/or atelectasis noted. Patient is complaining of left rib cage pain. He reports the Dilaudid is not lasting long enough. Upon my examination patient is reporting his pain 10 out of 10. health aide had just finished cleaning him up. But further discussion with nursing staff they are reporting patient's pain is not controlled. Consult has been placed for anesthesia service for pain management and possible block. Patient is afebrile. White count 7.6. He is on 2 L nasal cannula satting at 95%. PHYSICAL EXAM: VITAL SIGNS: Reviewed GENERAL: Well-developed in no acute distress. HEENT: No sclera icterus. Extraocular movements grossly intact. Moist buccal mucosa. Head is atraumatic, normocephalic. Hears conversational speech. No nasal drainage. NECK: Supple without lymphadenopathy. CHEST: Non-labored respirations and equal bilateral excursions. CARDIOVASCULAR: Palpable 2+ radial pulses. ABDOMEN: Soft. Nondistended. Nontender. MUSCULOSKELETAL: No clubbing or cyanosis. NEUROLOGIC: No focal or lateralizing signs. Cranial nerves II through XII grossly intact. Patient does have some tremors noted in both hands bilaterally PSYCH: Appropriate affect. Alert and oriented to person, place and time. SKIN: Well perfused. Good skin turgor. ASSESSMENT: 1. Fall with left-sided rib fractures 2. Left-sided small traumatic pneumothorax 3. Alcohol abuse and withdrawal 4. Hypertension 5. Alcohol induced liver cirrhosis 6. History of peptic ulcer disease 7. History of COPD PLAN: -We will consult anesthesia for possible block and pain management -Continue [facility] protocol for alcohol withdrawal -Encouraged patient to use incentive spirometer -Cardiothoracic team following patient's pneumothorax and appreciate their recommendations -Medicine recommendations noted and appreciated Physician Hospital Laboratory Technician note has been reviewed by physician. Signing provider agrees with the documented findings, assessment, and plan of care. Objective - Vital Signs Vital signs: Vital Signs Temp 98.4 F 06/19/20 07:57 Pulse 96 06/19/20 09:15 Resp 18 06/19/20 09:15 BP 135/90 06/19/20 07:57 Pulse Ox 95 06/19/20 07:57 Intake & Output 06/18/20 06/19/20 06/19/20 18:59 06:59 18:59 Intake Total 0 900 300 Balance 0 900 300 Weight 72.575 kg 74.5 kg Intake: Oral 0 900 300 Other: Voiding Method Incontinent Incontinent Incontinent # Voids 1 - Labs CBC & Chem 7: 06/19/20 07:20 06/18/20 10:23 Labs: Abnormal Lab Results - Last 24 Hours (Table) 06/19/20 Range/Units 07:20 RDW 16.8 H (11.5-15.5) % Plt Count 94 L (150-450) k/uL
--- NOTE | 2020-06-19 12:21 | P.PN ---
Subjective Progress Note Date: 06/19/20 Principal diagnosis: Acute traumatic left-sided pneumothorax, left-sided chest wall pain 64-year-old female patient known history of COPD, daily alcohol drinker with possibly a component of alcoholism and occasional marijuana user. The patient was drinking alcohol and he fell while drinking and he landed on his left chest and he sustained a 10-15% pneumothorax on the left with a minimally displaced ninth 10th and 11th rib. No acute abnormalities within the abdomen and pelvis. White cell count is at 7.8 with hemoglobin of 14.1. The patient was still alcohol toxic and his Zocor level was 34 at time of his admission. He was admitted for observation. His pulse ox remains above 92% on room air oxygen. He was provided incentive spirometer. No immediate intervention was done based on the small size of this pneumothorax. He has chronic liver disease secondary alcoholism and addition to history of peptic ulcer disease, prostate cancer, COPD, hypertension and hyperlipidemia. Mild tremors noted On 06/19/2020 patient seen in follow-up on selective care unit, he is resting comfortably in bed, his chest x-ray today shows stable left-sided pneumothorax, no worsening dyspnea, patient is on 2 L of oxygen with pulse ox of 93%, afebrile, hemodynamically stable, his incentive spirometer effort is 500 mL today, no tremors noted today, patient is on Valium, he continues on CIWA protocol. Breathing is nonlabored. Vital signs have been stable overnight Objective - Vital Signs Vital signs: Vital Signs Temp 98.9 F 06/19/20 12:05 Pulse 107 H 06/19/20 12:05 Resp 20 06/19/20 12:05 BP 146/90 06/19/20 12:05 Pulse Ox 93 L 06/19/20 12:05 Intake & Output 06/18/20 06/19/20 06/19/20 18:59 06:59 18:59 Intake Total 0 900 950 Balance 0 900 950 Weight 72.575 kg 74.5 kg Intake: Intake, IV Titration 650 Amount Sodium Chloride 0.9% 1, 650 000 ml @ 130 mls/hr IV . Q7H42M [facility] Rx#:[id number] Oral 0 900 300 Other: Voiding Method Incontinent Incontinent Incontinent # Voids 1 1 - Exam GENERAL EXAM: Alert, very pleasant, 64-year-old white male on 2 L of oxygen with pulse ox of 93% comfortable in no apparent distress. HEAD: Normocephalic/atraumatic. EYES: Normal reaction of pupils, equal size. Conjunctiva pink, sclera white. NOSE: Clear with pink turbinates. THROAT: No erythema or exudates. NECK: No masses, no JVD, no thyroid enlargement, no adenopathy. CHEST: No chest wall deformity. Symmetrical expansion. LUNGS: Equal air entry with no crackles, wheeze, rhonchi or dullness. CVS: Regular rate and rhythm, normal S1 and S2, no gallops, no murmurs, no rubs ABDOMEN: Soft, nontender. No hepatosplenomegaly, normal bowel sounds, no guarding or rigidity. EXTREMITIES: No clubbing, no edema, no cyanosis, 2+ pulses and upper and lower extremities. MUSCULOSKELETAL: Muscle strength and tone normal. SPINE: No scoliosis or deformity SKIN: No rashes CENTRAL NERVOUS SYSTEM: Alert and oriented -3. No focal deficits, tone is normal in all 4 extremities. PSYCHIATRIC: Alert and oriented -3. Appropriate affect. Intact judgment and insight. - Labs CBC & Chem 7: 06/19/20 07:20 06/18/20 10:23 Labs: Abnormal Lab Results - Last 24 Hours (Table) 06/19/20 Range/Units 07:20 RDW 16.8 H (11.5-15.5) % Plt Count 94 L (150-450) k/uL Assessment and Plan Plan: Assessment: 1 acute traumatic left-sided pneumothorax in the order of 10-15% 2 left-sided chest wall pain secondary to nondisplaced fractures of the night 10th and 11th ribs, traumatic in nature 3 shortness of breath secondary to above 4 alcoholism 5 acute alcohol intoxication 5 history of chronic liver disease, likely alcoholic 6 COPD 7 prostate cancer with a previous 8 hypertension 9 hyperlipidemia 10 occasional marijuana use 11 mild delirium tremens, on CIWA scale Plan: Today's chest x-ray has been reviewed, shows a stable left-sided pneumothorax, no worsening dyspnea, encourage deep breathing and coughing, continue monitoring for acute alcohol withdrawal symptoms, and is comfortable, maintain adequate pain control. We'll continue to follow I performed a history & physical examination of the patient and discussed their management with my nurse practitioner, Jennifer Durham. I reviewed the nurse practitioner's note and agree with the documented findings and plan of care. Lung sounds are positive for diffuse wheezes throughout the lung blackman. The findings and the impression was discussed with the patient. I attest to the documentation by the nurse practitioner. And the statement Time with Patient: Less than 30
[2020-06-19 12:33] LABS: African American GFR (CKD) >90 (>60 ml/min/1.73 sqM); Anion Gap 8 mmol/L; Blood Urea Nitrogen 20 mg/dL (9-20); Calcium 9.2 mg/dL (8.4-10.2); Carbon Dioxide 24 mmol/L (22-30); Chloride 105 mmol/L (98-107); Glucose 86 mg/dL (74-99); Magnesium 1.8 mg/dL (1.6-2.3); Non-African American GFR(CKD) 89 (>60 ml/min/1.73 sqM); Potassium 4.2 mmol/L (3.5-5.1); Sodium 137 mmol/L (137-145)
[2020-06-19] MEDS: HYDROcodone/APAP 5-325MG 1 EACH TAB PO PRN ×3 (13:31→22:54)
--- NOTE | 2020-06-19 17:51 | P.PN ---
Progress Note - Text Progress Note Date: 06/19/20 - Chief Complaint fall Consultation: This is a 64-year-old patient of . Patient was chronic stable medical conditions include GERD, hypertension, hyperlipidemia, osteoarthritis, peptic ulcer disease, prostate cancer. Patient long-standing smoker and drinks at least a quart of snaps every day. 2 days ago patient took a fall hitting the left rib cage against a table. After he missed a step. He's been hurting. Some shortness of breath. Never passed out. Did not have any head injury. Patient is also short of breath and wheezing. Chronic cough. Patient also got tremors. Anxious Admitted with fracture to the left 10th ninth and 11th rib fracture, 10-15 left- sided pneumothorax, acute COPD exacerbation, alcohol withdrawal syndrome-patient started on bronchodilators, Valium for withdrawal, CIWA scale. Today-sitting up in bed. More calm down. Oral intake improving. Review of systems: Was done for constitutional, cardiovascular, GI, pulmonary. relevant finding as above Active Medications Hydrocodone Bitart/Acetaminophen (Hydrocodone/Apap 5-325mg 1 Each Tab) 1 each PO Q4HR PRN PRN Reason: Pain Last Admin: 06/19/20 17:26 Dose: 1 each Documented by: Albuterol/Ipratropium (Ipratropium-Albuterol 3 Ml Neb) 3 ml INHALATION RT-QID [facility] Last Admin: 06/19/20 15:49 Dose: 3 ml Documented by: Atorvastatin Calcium (Atorvastatin 10 Mg Tab) 10 mg PO [facility] Last Admin: 06/18/20 20:28 Dose: 10 mg Documented by: Diazepam (Diazepam 5 Mg Tab) 2.5 mg PO TID [facility] Last Admin: 06/19/20 16:21 Dose: 2.5 mg Documented by: Enoxaparin Sodium (Enoxaparin 40 Mg/0.4 Ml Syringe) 40 mg SQ [facility] Last Admin: 06/18/20 20:27 Dose: 40 mg Documented by: Guaifenesin (Guaifenesin 600 Mg Tablet.Er) 600 mg PO Q8H [facility] Last Admin: 06/19/20 12:02 Dose: 600 mg Documented by: Hydromorphone HCl (Hydromorphone 0.5 Mg/0.5 Ml Syringe) 0.5 mg IVP Q4HR PRN PRN Reason: Pain Last Admin: 06/19/20 10:07 Dose: 0.5 mg Documented by: Lisinopril (Lisinopril 10 Mg Tab) 10 mg PO DAILY [facility] Last Admin: 06/19/20 10:07 Dose: 10 mg Documented by: Lorazepam (Lorazepam 2 Mg/Ml Inj) 1 mg IV Q2HR PRN PRN Reason: CIWA 8 or 9 Last Admin: 06/19/20 17:27 Dose: 1 mg Documented by: Lorazepam (Lorazepam 2 Mg/Ml Inj) 1 mg IV Q1HR PRN PRN Reason: CIWA 10 to 15 Lorazepam (Lorazepam 2 Mg/Ml Inj) 2 mg IV Q10M PRN PRN Reason: CIWA 16 or higher Stop: 06/20/20 11:44 Magnesium Oxide (Magnesium Oxide 400 Mg Tab) 400 mg PO BID [facility] Last Admin: 06/19/20 10:05 Dose: 400 mg Documented by: Naloxone HCl (Naloxone 0.4 Mg/Ml 1 Ml Vial) 0.2 mg IV Q2M PRN PRN Reason: Opioid Reversal Nicotine (Nicotine 21mg/24hr Patch) 1 patch TRANSDERM DAILY [facility] Last Admin: 06/19/20 10:06 Dose: 1 patch Documented by: Ondansetron HCl (Ondansetron 4 Mg/2 Ml Vial) 4 mg IVP Q6HR PRN PRN Reason: Nausea And Vomiting Pantoprazole Sodium (Pantoprazole 40 Mg Tablet) 40 mg PO AC-BRKFST [facility] Last Admin: 06/19/20 06:42 Dose: 40 mg Documented by: Potassium Chloride (Potassium Chloride Er 20 Meq Tab.Er) 20 meq PO BID [facility] Last Admin: 06/19/20 10:05 Dose: 20 meq Documented by: Pregabalin (Pregabalin 75 Mg Cap) 150 mg PO BID [facility] Last Admin: 06/19/20 10:05 Dose: 150 mg Documented by: Spironolactone (Spironolactone 25 Mg Tab) 100 mg PO DAILY [facility] Last Admin: 06/19/20 10:05 Dose: 100 mg Documented by: Thiamine HCl (Thiamine 100 Mg Tab) 100 mg PO BID-W/MEALS [facility] Last Admin: 06/19/20 16:21 Dose: 100 mg Documented by: Physical examination: VITAL SIGNS: 98.9, 107, 20, 146/90, 93% on 2 L GENERAL: Sitting up in bed, more comfortable today tired (Spider nevi, dupuytrens contracture,webster erythema) EYES: Pupils equal. Conjunctiva normal. NECK: JVD not raised; masses not palpable. HEART: First and second heart sounds are normal; no edema. LUNGS: Respiratory rate increased, decreased breath sounds decreased wheezing. ABDOMEN: Soft, nontender, liver spleen not palpable, no masses palpable. CHEST wall: Left lateral chest wall tenderness, bilateral gynecomastia PSYCH: Alert and oriented x3; mood and affect less anxious. NEUROLOGICAL: Much improved tremors INVESTIGATIONS, reviewed in the clinical context: White count 7.6 hemoglobin 13.6 platelets 94 potassium 4.2 creatinine 0.9 to Admission testing White count 7.8 hemoglobin 14.1 platelets 132 potassium 4.2 creatinine 1.21 AST 40 ALT 23 albumin 4.2 Serum alcohol 34 Computed tomography scan of the chest abdomen pelvis with contrast-small left-si ded pneumothorax 10-15%, cirrhosis multiple large calcification throughout the spleen, fracture of the left 11th, 10th and ninth rib EKG tracing personally reviewed by me-normal sinus rhythm Chest x-ray film personally reviewed by me-portable, hyperinflation, left small pneumothorax reported Assessment: -Mechanical fall after the patient missed her last stair leading to him falling on the left chest wall. -Left 10th, ninth, 11th rib fracture -Small left-sided pneumothorax 10-15% with no mediastinal shift. -Acute COPD exacerbation in a current smoker -Alcohol-induced cirrhosis -Granulomatous spleen -Alcohol withdrawal syndrome-improving on Valium and CIWA scale -Chronic nicotine dependence cigarette smoker -GERD -Hyperlipidemia -Essential hypertension -Primary osteoarthritis -Peptic ulcer disease Plan: Continue DuoNeb, inhaled steroids. Nicotine patch.-Decrease Valium to 2.5 mg every 8 for the alcohol withdrawal syndrome. Continue CIWA scale. Thank you Dr. Holm
[2020-06-19] MEDS: BUDESONIDE 1 MG/2 ML NEBU INHALATION SCH (19:27)
[2020-06-19] MEDS: ATORVASTATIN 10 MG TAB PO SCH (20:00)
[2020-06-19] MEDS: ENOXAPARIN 40 MG/0.4 ML SYRINGE SQ SCH (20:00)
[2020-06-20] MEDS: LORazepam 2 MG/ML INJ IV PRN ×5 (00:09→21:06)
[2020-06-20] MEDS: guaiFENesin 600 MG TABLET.ER PO SCH ×3 (06:22→20:43)
[2020-06-20] MEDS: HYDROcodone/APAP 5-325MG 1 EACH TAB PO PRN (06:54)
[2020-06-20] MEDS: PANTOPRAZOLE 40 MG TABLET PO SCH (06:54)
[2020-06-20] MEDS: THIAMINE 100 MG TAB PO SCH ×2 (06:54→16:56)
--- NOTE | 2020-06-20 07:52 | XR ---
EXAMINATION TYPE: XR chest 1V portable DATE OF EXAM: 06/20/2020 COMPARISON: 06/19/2012 HISTORY: Pneumothorax TECHNIQUE: Single frontal view of the chest is obtained. FINDINGS: There is left lower lobe infiltrate and small effusion. Left-sided pneumothorax as well as well-seen on today's exam but felt to be present medially along the left upper lobe. Limited inspira tion. Heart size prominent but stable. Coarsened interstitium. IMPRESSION: 1. Stable left lower lobe infiltrate and small effusion. Apical pneumothorax on the left is less well -seen on today's exam but believed to be present and reduced in size. 2. Coarsened interstitium stable may be related to reduced inspiration rather than interstitial pneum onitis or venous congestion, correlate clinically
[2020-06-20] MEDS: IPRATROPIUM-ALBUTEROL 3 ML NEB INHALATION SCH ×4 (08:02→19:35)
[2020-06-20] MEDS: BUDESONIDE 1 MG/2 ML NEBU INHALATION SCH ×2 (08:02→19:35)
[2020-06-20] MEDS: NICOTINE 21MG/24HR PATCH TRANSDERM SCH (09:39)
[2020-06-20] MEDS: lisinopriL 10 MG TAB PO SCH (09:39)
[2020-06-20] MEDS: POTASSIUM CHLORIDE ER 20 MEQ TAB.ER PO SCH ×2 (09:39→20:43)
[2020-06-20] MEDS: MAGNESIUM OXIDE 400 MG TAB PO SCH ×2 (09:39→20:43)
[2020-06-20] MEDS: SPIRONOLACTONE 25 MG TAB PO SCH (09:39)
[2020-06-20] MEDS: PREGABALIN 75 MG CAP PO SCH ×2 (09:39→20:43)
[2020-06-20] MEDS: diazePAM 5 MG TAB PO SCH ×3 (09:39→21:05)
--- NOTE | 2020-06-20 10:49 | P.PN ---
Subjective Progress Note Date: 06/20/20 Principal diagnosis: Acute traumatic left-sided pneumothorax, 10-15%, status post fall from standing. Past medical history significant for hypertension, hyperlipidemia, liver dise ase with esophageal and stomach ulcers, prostate cancer status post resection, COPD, previous cigarette dependence although he states he quit 3 years ago but does smoke 3 cigars daily, daily EtOH use, and occasional marijuana use. The patient was seen in follow-up today 06/20/2020 at his bedside on the cardiac stepdown unit. Currently he is laying in bed, he is awake, restless with episodes of agitation. The patient's bedside nurse reports that he has had episodes of confusion throughout the night. He remains on the CIWA protocol. Oxygen saturation are 96% on room air and he is unable to follow instructions on his incentive spirometry at this time. A repeat chest x-ray was completed this morning, with no sizable pneumothorax demonstrated. Objective - Vital Signs Vital signs: Vital Signs Temp 97.9 F 06/20/20 04:00 Pulse 94 06/20/20 08:15 Resp 16 06/20/20 04:00 BP 147/82 06/20/20 04:00 Pulse Ox 96 06/20/20 04:00 Intake & Output 06/19/20 06/20/20 06/20/20 18:59 06:59 18:59 Intake Total 1190 444 0 Output Total 350 Balance 1190 94 0 Weight 74 kg Intake: Intake, IV Titration 650 Amount Sodium Chloride 0.9% 1, 650 000 ml @ 130 mls/hr IV . Q7H42M [facility] Rx#:[id number] Oral 540 444 0 Output: Urine 350 Other: Voiding Method Incontinent Incontinent # Voids 1 2 - Constitutional Constitutional Comment(s): Restless and agitated with episodes of confusion. General appearance: Present: disheveled, no acute distress - EENT Eyes: Present: normal appearance. Absent: scleral icterus - Neck Details: Neck is supple, no JVD, no lymphadenopathy. - Respiratory Details: Lung sounds essentially clear throughout, diminished to his bilateral bases. Respirations are symmetrical and nonlabored. Oxygen saturation are 96% on room air. - Cardiovascular Details: Regular rhythm and rate. S1 and S2 present, negative for S3, gallop or murmur. No edema present. Remote telemetry showing normal sinus rhythm heart rate 79. - Gastrointestinal Gastrointestinal Comment(s): Abdomen is soft, nontender and nondistended. Active bowel sounds present in all 4 abdominal quadrants. No guarding or rigidity. No organomegaly appreciated. - Genitourinary Genitourinary Comment(s): Incontinent of urine. - Integumentary Integumentary Comment(s): Skin is warm and dry. No clubbing or cyanosis is present. - Neurologic Neurologic: Present: CNII-XII intact - Musculoskeletal Musculoskeletal Comment(s): Patient is a bit shaky. Musculoskeletal: Present: generalized weakness, strength equal bilaterally - Psychiatric Psychiatric Comment(s): Episodes of confusion. Impulsive. - Allied health notes Allied health notes reviewed: nursing - Labs CBC & Chem 7: 06/19/20 07:20 06/19/20 12:08 - Imaging and Cardiology Chest x-ray: report reviewed, image reviewed Assessment and Plan Assessment: 1. Left-sided small traumatic pneumothorax 2. Left-sided rib fractures, status post fall from standing 3. Hypertension 4. Hyperlipidemia 5. Liver disease with esophageal and stomach ulcers 6. History of prostate cancer status post resection 7. COPD 8. Previous cigarette dependence, current cigar use 9. Daily EtOH use, with acute alcohol intoxication 10. Mild delirium tremors, on CIWA protocol 11. Occasional marijuana use Plan: 1. Continue to encourage use of his incentive spirometry 10 times every hour while awake. 3. Pain control per current when necessary orders. 4. Medical management and other comorbidities per primary care service. 5. GI and DVT prophylaxis. 6. No evidence of sizable pneumothorax on today's chest x-ray, we will continue to follow the patient on an as-needed basis. Please call cardiothoracic surgery if any further questions. Time with Patient: Greater than 30
--- NOTE | 2020-06-20 12:37 | P.PN ---
Subjective Progress Note Date: 06/20/20 On 06/20/2020, the patient is doing well from the pulmonary standpoint. Chest x-ray shows no evidence of any pneumothorax. He does have some volume loss on the left and the patient needs to work on his incentive spirometer. Note that he has a nondisplaced ninth and 10th and 11th rib fracture on the left side and the patient was having skeletal chest wall pain. Noted he is an alcoholic and the patient was being also treated for delirium tremens based on the [facility] protocol. The patient is receiving Valium for now. Overnight he was admitted restless and anxious and he was given Ativan and Valium. This morning he seems to be less jittery yet sleepy and is able to follow commands and answer some questions. No hallucinations. He apparently had his breakfast this morning. In terms of his blood work, the patient has normal electrolytes. White cell count has not been repeated today. No fever. No aspiration. No falls. Objective - Vital Signs Vital signs: Vital Signs Temp 97.8 F 06/20/20 08:00 Pulse 97 06/20/20 11:02 Resp 14 06/20/20 08:00 BP 136/90 06/20/20 08:00 Pulse Ox 90 L 06/20/20 08:00 Intake & Output 06/19/20 06/20/20 06/20/20 18:59 06:59 18:59 Intake Total 1190 444 0 Output Total 350 Balance 1190 94 0 Weight 74 kg Intake: Intake, IV Titration 650 Amount Sodium Chloride 0.9% 1, 650 000 ml @ 130 mls/hr IV . Q7H42M [facility] Rx#:[id number] Oral 540 444 0 Output: Urine 350 Other: Voiding Method Incontinent Incontinent Incontinent # Voids 1 2 - Exam GENERAL EXAM: Alert, very pleasant, 64-year-old white male on 2 L of oxygen with pulse ox of 93% comfortable in no apparent distress. HEAD: Normocephalic/atraumatic. EYES: Normal reaction of pupils, equal size. Conjunctiva pink, sclera white. NOSE: Clear with pink turbinates. THROAT: No erythema or exudates. NECK: No masses, no JVD, no thyroid enlargement, no adenopathy. CHEST: No chest wall deformity. Symmetrical expansion. LUNGS: Equal air entry with no crackles, wheeze, rhonchi or dullness. CVS: Regular rate and rhythm, normal S1 and S2, no gallops, no murmurs, no rubs ABDOMEN: Soft, nontender. No hepatosplenomegaly, normal bowel sounds, no guarding or rigidity. EXTREMITIES: No clubbing, no edema, no cyanosis, 2+ pulses and upper and lower extremities. MUSCULOSKELETAL: Muscle strength and tone normal. SPINE: No scoliosis or deformity SKIN: No rashes CENTRAL NERVOUS SYSTEM: Alert and oriented -3. No focal deficits, tone is normal in all 4 extremities. PSYCHIATRIC: Alert and oriented -3. Appropriate affect. Intact judgment and insight. - Labs CBC & Chem 7: 06/19/20 07:20 06/19/20 12:08 Assessment and Plan Plan: 1 acute traumatic left-sided pneumothorax in the order of 10-15%, repeat chest x-ray from today shows no clear indication for any residual pneumothorax on the left. The patient is somewhat rotated and the patient has volume loss in the left lung base. 2 left-sided chest wall pain secondary to nondisplaced fractures of the night 10th and 11th ribs, traumatic in nature 3 shortness of breath secondary to above 4 alcoholism 5 acute alcohol intoxication 5 history of chronic liver disease, likely alcoholic 6 COPD 7 prostate cancer with a previous 8 hypertension 9 hyperlipidemia 10 occasional marijuana use 11 mild delirium tremens, on CIWA scale Plan Respiratory status is stable Encouraged use of incentive spirometer Chest x-ray from today was noted The active issue for now is his delirium tremens and the patient is receiving benzodiazepines per CIWA protocol continue bronchodilators electrolytes are within normal limits we'll continue to follow
--- NOTE | 2020-06-20 15:13 | P.PN ---
Subjective Progress Note Date: 06/20/20 CHIEF COMPLAINT: Status post fall with pneumothorax HISTORY OF PRESENT ILLNESS: The patient is a 64-year-old male admitted following a fall resulting in multiple left-sided rib fractures. Patient blood alcohol levels were consistent with recent alcohol use. Patient is undergoing withdrawals. No reports of dyspnea on exertion. Patient is in bed. He has been lethargic. Discussion with nursing also confirms patient's been sleeping throughout the day. No reports of increased chest pain. Cardiothoracic input appreciated where no plans for chest tube needed. ROS: No reports of nausea and vomiting. No fevers or chills. No new chest pain. No productive sputum PHYSICAL EXAM: VITAL SIGNS: Reviewed CONSTITUTIONAL: Well developed and in no acute distress. EYES: Conjuctivae without sclera icterus. Extraocular movements grossly intact. HEAD, EARS, NOSE, THROAT: Moist buccal mucosa. Head is atraumatic, normocephalic. Hears conversational speech. No nasal drainage. NECK: Supple. No thyroidomegaly. RESPIRATORY: Non-labored respirations and equal bilateral excursions. CARDIOVASCULAR: Palpable 2+ radial pulses. Regular rate. Regular rhythm. ABDOMEN: Soft. No peritonitis. MUSCULOSKELETAL: No gross deformity of the lower extremities noted. No clubbing. No cyanosis. SKIN: Good skin turgor. Well perfused. NEUROLOGIC: Cranial nerves II through XII grossly intact. No focal or lateralizing signs. PSYCH: Appropriate affect. Alert and oriented to person, place and time. CLINICAL LABS: White blood cell count normal, 7.6. Platelets less than 100. Coags within normal limits. ASSESSMENT: 1. Status post fall 2. Left pneumothorax 3. Multiple left-sided rib fractures 4. Alcoholism in active alcohol withdrawal PLAN: 1. Awaiting final recommendations from pulmonary team. 2. Once cleared by consultants, discharge with follow up with primary care provider advised. 3. Incentive spirometry education 4. Physical therapy evaluation Objective - Vital Signs Vital signs: Vital Signs Temp 97.8 F 06/20/20 08:00 Pulse 97 06/20/20 12:00 Resp 12 06/20/20 12:00 BP 121/71 06/20/20 12:00 Pulse Ox 93 L 06/20/20 12:00 Intake & Output 06/19/20 06/20/20 06/20/20 18:59 06:59 18:59 Intake Total 1190 444 120 Output Total 350 Balance 1190 94 120 Weight 74 kg Intake: Intake, IV Titration 650 Amount Sodium Chloride 0.9% 1, 650 000 ml @ 130 mls/hr IV . Q7H42M [facility] Rx#:[id number] Oral 540 444 120 Output: Urine 350 Other: Voiding Method Incontinent Incontinent Incontinent # Voids 1 2 1 - Labs CBC & Chem 7: 06/19/20 07:20 06/19/20 12:08 Assessment and Plan (1) Traumatic fracture of ribs of left side with pneumothorax Current Visit: Yes Status: Acute Code(s): S22.42XA - MULTIPLE FRACTURES OF RIBS, LEFT SIDE, INIT FOR CLOS FX; S27.0XXA - TRAUMATIC PNEUMOTHORAX, INITIAL ENCOUNTER SNOMED Code(s): 2068097 (2) Alcohol abuse Current Visit: Yes Status: Acute Code(s): F10.10 - ALCOHOL ABUSE, UNCOMPLICATED SNOMED Code(s): 20444383 (3) Pneumothorax Current Visit: Yes Status: Acute Code(s): J93.9 - PNEUMOTHORAX, UNSPECIFIED SNOMED Code(s): 65826462
--- NOTE | 2020-06-20 15:30 | P.PN ---
Subjective history of present complaint, from records This is a 64-year-old patient of . Patient was chronic stable medical conditions include GERD, hypertension, hyperlipidemia, osteoarthritis, peptic ulcer disease, prostate cancer. Patient long-standing smoker and drinks at least a quart of snaps every day. 2 days ago patient took a fall hitting the left rib cage against a table. After he missed a step. He's been hurting. Some shortness of breath. Never passed out. Did not have any head injury. Patient is also short of breath and wheezing. Chronic cough. Patient also got tremors. Anxious Admitted with fracture to the left 10th ninth and 11th rib fracture, 10-15 left- sided pneumothorax, acute COPD exacerbation, alcohol withdrawal syndrome-patient started on bronchodilators, Valium for withdrawal, CIWA scale. Today-sitting up in bed. More calm down. Oral intake improving. 06/20/20 Patient is awake and alert, he was lying comfortable in bed, is slightly anxious and still have a tremor. Is a little tachypneic and with some little chest pain, he still have left lower chest wall tenderness His saturation 90s on room air. Surgery team recommended nerve block for the patient Patient also with liver cirrhosis and he is aware. Vitals are stable. Labs are stable. Chest x-ray shows stable left lower lobe infiltrate and small effusion, less apical pneumothorax. patient is followed closely by several consultants including pulmonary, cardiothoracic surgery and Gen. surgery. his CIWA score is 5-14 today and distal on Ativan as needed Objective - Vital Signs Vital signs: Vital Signs Temp 97.8 F 06/20/20 08:00 Pulse 92 06/20/20 15:19 Resp 12 06/20/20 12:00 BP 121/71 06/20/20 12:00 Pulse Ox 93 L 06/20/20 12:00 Intake & Output 06/19/20 06/20/20 06/20/20 18:59 06:59 18:59 Intake Total 1190 444 120 Output Total 350 Balance 1190 94 120 Weight 74 kg Intake: Intake, IV Titration 650 Amount Sodium Chloride 0.9% 1, 650 000 ml @ 130 mls/hr IV . Q7H42M [facility] Rx#:[id number] Oral 540 444 120 Output: Urine 350 Other: Voiding Method Incontinent Incontinent Incontinent # Voids 1 2 1 - Exam -GENERAL: The patient is alert and oriented x3, little anxious with little tremor. Well developed, well nourished. HEENT: Pupils are round and equally reacting to light. EOMI. No scleral icterus. No conjunctival pallor. Normocephalic, atraumatic. No pharyngeal erythema. No thyromegaly. CARDIOVASCULAR: S1 and S2 present. No murmurs, rubs, or gallops. PULMONARY: Chest is clear to auscultation, no wheezing or crackles. ABDOMEN: Soft, nontender, nondistended, normoactive bowel sounds. No palpable organomegaly. MUSCULOSKELETAL: No joint swelling or deformity. EXTREMITIES: No cyanosis, clubbing, or pedal edema. NEUROLOGICAL: Gross neurological examination did not reveal any focal deficits. SKIN: No rashes. no petechiae. - Labs CBC & Chem 7: 06/19/20 07:20 06/19/20 12:08 Assessment and Plan Assessment: -Mechanical fall after the patient missed her last stair leading to him falling on the left chest wall. -Left 10th, ninth, 11th rib fracture -Small left-sided pneumothorax 10-15% with no mediastinal shift. -Acute COPD exacerbation in a current smoker -Alcohol-induced cirrhosis -Granulomatous spleen -Alcohol withdrawal syndrome-improving on Valium and CIWA scale -Chronic nicotine dependence cigarette smoker -GERD -Hyperlipidemia -Essential hypertension -Primary osteoarthritis -Peptic ulcer disease Plan: continue with pain management which is looks well controlled, continue with Ativan as part of his CIWA protocol, continue with same Patient is aware about his diagnosis of cirrhosis and instructed to follow up as an outpatient, also he was counseled to quit drinking alcohol Follow-up recommendation by several consult is occluding pulmonary, cardiothoracic surgery and Gen. surgery Labs and medication were reviewed.. Continue same treatment. Continue with symptomatic treatment. Resume home medication. Monitor lytes and vitals. DVT and GI prophylaxis. Further recommendationsas per clinical course of the patient DVT prophylaxis: Subcutaneous Lovenox GI Prophylaxis: Pepcid PT/OT: Pending
[2020-06-20] MEDS: ATORVASTATIN 10 MG TAB PO SCH (20:43)
[2020-06-20] MEDS: ENOXAPARIN 40 MG/0.4 ML SYRINGE SQ SCH (20:43)
[2020-06-21] MEDS: LORazepam 2 MG/ML INJ IV PRN (00:34)
[2020-06-21] MEDS: HYDROcodone/APAP 5-325MG 1 EACH TAB PO PRN ×5 (05:42→20:56)
[2020-06-21] MEDS: guaiFENesin 600 MG TABLET.ER PO SCH ×3 (05:43→20:57)
[2020-06-21] MEDS: PANTOPRAZOLE 40 MG TABLET PO SCH (06:43)
[2020-06-21] MEDS: THIAMINE 100 MG TAB PO SCH ×2 (06:43→17:08)
[2020-06-21 07:03] LABS: Anisocytosis Slight; Basophils % (A) 0 %; Eosinophils # (A) 0.1 k/uL (0-0.7); Eosinophils % (A) 2 %; HCT 39.1 % (39.0-53.0); HGB 13.4 gm/dL (13.0-17.5); Lymphocytes # (A) 1.9 k/uL (1.0-4.8); Lymphocytes % (A) 31 %; MCH 31.6 pg (25.0-35.0); MCHC 34.4 g/dL (31.0-37.0); MCV 91.9 fL (80.0-100.0); Mean Platelet Volume 8.6; Monocytes # (A) 0.5 k/uL (0-1.0); Monocytes % (A) 9 %; Neutrophils # (A) 3.3 k/uL (1.3-7.7); Neutrophils % (A) 54 %; Platelet Count 101 k/uL (150-450); RBC 4.26 m/uL (4.30-5.90); RDW 16.7 % (11.5-15.5)
--- NOTE | 2020-06-21 07:14 | XR ---
EXAMINATION TYPE: XR chest 1V portable DATE OF EXAM: 06/21/2020 HISTORY: Follow-up pneumothorax COMPARISON: 06/20/2020 TECHNIQUE: Single view of the chest is submitted. FINDINGS: Demonstrated are scattered senescent parenchymal change. Persistent but improving left lower lobe infiltrate and/or atelectasis. Previously described tiny lef t apical pneumothorax is not redemonstrated on today's study. The heart is stable. Hilar and mediastinal structures are within normal limits. Degenerative changes are seen of the dorsal spine. IMPRESSION: 1. Persistent but improving left lower lobe infiltrate and/or atelectasis. Previously described tiny left apical pneumothorax is not redemonstrated on today's study.
[2020-06-21 07:16] LABS: African American GFR (CKD) >90 (>60 ml/min/1.73 sqM); Anion Gap 6 mmol/L; Blood Urea Nitrogen 9 mg/dL (9-20); Carbon Dioxide 25 mmol/L (22-30); Chloride 103 mmol/L (98-107); Glucose 93 mg/dL (74-99); Magnesium 1.9 mg/dL (1.6-2.3); Non-African American GFR(CKD) >90 (>60 ml/min/1.73 sqM); Potassium 4.3 mmol/L (3.5-5.1); Sodium 134 mmol/L (137-145)
[2020-06-21] MEDS: IPRATROPIUM-ALBUTEROL 3 ML NEB INHALATION SCH ×4 (07:58→20:27)
[2020-06-21] MEDS: BUDESONIDE 1 MG/2 ML NEBU INHALATION SCH ×2 (07:58→20:27)
[2020-06-21] MEDS: diazePAM 5 MG TAB PO SCH ×3 (08:56→20:57)
[2020-06-21] MEDS: lisinopriL 10 MG TAB PO SCH (08:56)
[2020-06-21] MEDS: SPIRONOLACTONE 25 MG TAB PO SCH (08:57)
[2020-06-21] MEDS: MAGNESIUM OXIDE 400 MG TAB PO SCH ×2 (08:57→20:57)
[2020-06-21] MEDS: PREGABALIN 75 MG CAP PO SCH ×2 (08:57→20:57)
[2020-06-21] MEDS: POTASSIUM CHLORIDE ER 20 MEQ TAB.ER PO SCH ×2 (08:58→20:56)
[2020-06-21] MEDS: NICOTINE 21MG/24HR PATCH TRANSDERM SCH (08:58)
--- NOTE | 2020-06-21 12:01 | P.PN ---
Subjective Progress Note Date: 06/21/20 06/21/2020, the patient's active issue remains the delirium tremens. This morning is calm and comfortable. No agitation. No respiratory distress. Chest wall was sore because of his previous trauma and fracture of the left-sided ribs. Meanwhile, the chest x-ray shows no evidence of any pneumothorax. He has no fever. No chills. No aspiration. He is using incentive spirometer. Is calm and comfortable on today's evaluation. As for the pain control, the patient receiving [place] 5 mg addition to Dilaudid 0.5 mg every 4 hours on a when necessary basis. Blood work shows a white cell count of 6 and the rest of the blood work and electrolytes are all within normal limits. Objective - Vital Signs Vital signs: Vital Signs Temp 97.9 F 06/21/20 08:00 Pulse 95 06/21/20 10:56 Resp 19 06/21/20 08:00 BP 144/87 06/21/20 08:00 Pulse Ox 95 06/21/20 08:00 Intake & Output 06/20/20 06/21/20 06/21/20 18:59 06:59 18:59 Intake Total 120 120 Output Total 280 Balance 120 -280 120 Weight 74.6 kg Intake: Oral 120 120 Output: Urine 280 Other: Voiding Method Incontinent Incontinent Incontinent # Voids 1 2 1 # Bowel Movements 0 - Exam GENERAL EXAM: Alert, very pleasant, 64-year-old white male on 2 L of oxygen with pulse ox of 93% comfortable in no apparent distress. HEAD: Normocephalic/atraumatic. EYES: Normal reaction of pupils, equal size. Conjunctiva pink, sclera white. NOSE: Clear with pink turbinates. THROAT: No erythema or exudates. NECK: No masses, no JVD, no thyroid enlargement, no adenopathy. CHEST: No chest wall deformity. Symmetrical expansion. LUNGS: Equal air entry with no crackles, wheeze, rhonchi or dullness. CVS: Regular rate and rhythm, normal S1 and S2, no gallops, no murmurs, no rubs ABDOMEN: Soft, nontender. No hepatosplenomegaly, normal bowel sounds, no gua rding or rigidity. EXTREMITIES: No clubbing, no edema, no cyanosis, 2+ pulses and upper and lower extremities. MUSCULOSKELETAL: Muscle strength and tone normal. SPINE: No scoliosis or deformity SKIN: No rashes CENTRAL NERVOUS SYSTEM: Alert and oriented -3. No focal deficits, tone is normal in all 4 extremities. PSYCHIATRIC: Alert and oriented -3. Appropriate affect. Intact judgment and insight. - Labs CBC & Chem 7: 06/21/20 06:27 06/21/20 06:27 Labs: Abnormal Lab Results - Last 24 Hours (Table) 06/21/20 06/21/20 Range/Units 06:27 06:27 RBC 4.26 L (4.30-5.90) m/uL RDW 16.7 H (11.5-15.5) % Plt Count 101 L (150-450) k/uL Sodium 134 L (137-145) mmol/L Assessment and Plan Plan: 1 acute traumatic left-sided pneumothorax in the order of 10-15%, repeat chest x-ray from today shows no clear indication for any residual pneumothorax on the left. The patient continues to have some soreness and his chest related to the previous nondisplaced rib fractures. 2 left-sided chest wall pain secondary to nondisplaced fractures of the night 10th and 11th ribs, traumatic in nature 3 shortness of breath secondary to above, recovered 4 alcoholism, with delirium tremens 5 acute alcohol intoxication 5 history of chronic liver disease, likely alcoholic 6 COPD 7 prostate cancer with a previous 8 hypertension 9 hyperlipidemia 10 occasional marijuana use 11 mild delirium tremens, on CIWA scale, improving Plan Respiratory status is stable Encouraged use of incentive spirometer Chest x-ray from today was noted and there is no evidence of any pneumothorax. The patient is currently on room air oxygen. The active issue for now is his delirium tremens and the patient is receiving benzodiazepines per CIWA protocol continue bronchodilators electrolytes are within normal limits we'll continue to follow
--- NOTE | 2020-06-21 12:12 | P.PN ---
Subjective history of present complaint, from records This is a 64-year-old patient of . Patient was chronic stable medical conditions include GERD, hypertension, hyperlipidemia, osteoarthritis, peptic ulcer disease, prostate cancer. Patient long-standing smoker and drinks at least a quart of snaps every day. 2 days ago patient took a fall hitting the left rib cage against a table. After he missed a step. He's been hurting. Some shortness of breath. Never passed out. Did not have any head injury. Patient is also short of breath and wheezing. Chronic cough. Patient also got tremors. Anxious Admitted with fracture to the left 10th ninth and 11th rib fracture, 10-15 left- sided pneumothorax, acute COPD exacerbation, alcohol withdrawal syndrome-patient started on bronchodilators, Valium for withdrawal, CIWA scale. Today-sitting up in bed. More calm down. Oral intake improving. 06/20/20 Patient is awake and alert, he was lying comfortable in bed, is slightly anxious and still have a tremor. Is a little tachypneic and with some little chest pain, he still have left lower chest wall tenderness His saturation 90s on room air. Surgery team recommended nerve block for the patient Patient also with liver cirrhosis and he is aware. Vitals are stable. Labs are stable. Chest x-ray shows stable left lower lobe infiltrate and small effusion, less apical pneumothorax. patient is followed closely by several consultants including pulmonary, cardiothoracic surgery and Gen. surgery. his CIWA score is 5-14 today and distal on Ativan as needed 06/21/2020 Patient is awake and alert, his with no confusion and he is oriented to time place and person, he denies hallucination or delusions. He has some tremor and looks anxious a little bit, however her looks better compared to yesterday. His CIWA score this morning is 5 which looks improving. Still complaining of from chest pain from his repair fracture which is expected, his pain mainly on the left lower chest anteriorly and laterally and posteriorlyprevious surgery team recommended nerve block but this could not be done. We will order lidocaine patch x 2. Patient fell yesterday but no new complaint. vitals and labs are stable. Chest x-ray showed persistent but improving left lower lobe infiltrate. No more left apical pneumothorax Objective - Vital Signs Vital signs: Vital Signs Temp 97.9 F 06/21/20 08:00 Pulse 95 06/21/20 10:56 Resp 19 06/21/20 08:00 BP 144/87 06/21/20 08:00 Pulse Ox 95 06/21/20 08:00 Intake & Output 06/20/20 06/21/20 06/21/20 18:59 06:59 18:59 Intake Total 120 120 Output Total 280 Balance 120 -280 120 Weight 74.6 kg Intake: Oral 120 120 Output: Urine 280 Other: Voiding Method Incontinent Incontinent Incontinent # Voids 1 2 1 # Bowel Movements 0 - Exam -GENERAL: The patient is alert and oriented x3, little anxious with little tremor. Well developed, well nourished. HEENT: Pupils are round and equally reacting to light. EOMI. No scleral icterus. No conjunctival pallor. Normocephalic, atraumatic. No pharyngeal erythema. No thyromegaly. CARDIOVASCULAR: S1 and S2 present. No murmurs, rubs, or gallops. PULMONARY: Chest is clear to auscultation, no wheezing or crackles. ABDOMEN: Soft, nontender, nondistended, normoactive bowel sounds. No palpable organomegaly. MUSCULOSKELETAL: No joint swelling or deformity. EXTREMITIES: No cyanosis, clubbing, or pedal edema. NEUROLOGICAL: Gross neurological examination did not reveal any focal deficits. SKIN: No rashes. no petechiae. - Labs CBC & Chem 7: 06/21/20 06:27 06/21/20 06:27 Labs: Abnormal Lab Results - Last 24 Hours (Table) 06/21/20 06/21/20 Range/Units 06:27 06:27 RBC 4.26 L (4.30-5.90) m/uL RDW 16.7 H (11.5-15.5) % Plt Count 101 L (150-450) k/uL Sodium 134 L (137-145) mmol/L Assessment and Plan Assessment: -Mechanical fall after the patient missed her last stair leading to him falling on the left chest wall. -Left 10th, ninth, 11th rib fracture -Small left-sided pneumothorax 10-15% with no mediastinal shift. -Acute COPD exacerbation in a current smoker -Alcohol-induced cirrhosis -Granulomatous spleen -Alcohol withdrawal syndrome-improving on Valium and CIWA scale -Chronic nicotine dependence cigarette smoker -GERD -Hyperlipidemia -Essential hypertension -Primary osteoarthritis -Peptic ulcer disease Plan: continue with pain management which is looks well controlled, continue with Ativan as part of his CIWA protocol, continue with same Patient is aware about his diagnosis of cirrhosis and instructed to follow up as an outpatient, also he was counseled to quit drinking alcohol Follow-up recommendation by several consult is occluding pulmonary, cardiothoracic surgery and Gen. surgery Labs and medication were reviewed.. Continue same treatment. Continue with symptomatic treatment. Resume home medication. Monitor lytes and vitals. DVT and GI prophylaxis. Further recommendationsas per clinical course of the patient DVT prophylaxis: Subcutaneous Lovenox GI Prophylaxis: Pepcid PT/OT: Pending
[2020-06-21] MEDS: LIDOCAINE 5% PATCH TOPICAL SCH (13:16)
--- NOTE | 2020-06-21 17:29 | P.PN ---
Subjective Progress Note Date: 06/21/20 CHIEF COMPLAINT: Status post fall with pneumothorax HISTORY OF PRESENT ILLNESS: The patient is a 64-year-old male admitted following a fall resulting in multiple left-sided rib fractures and pneumothorax. Since admission, patient has delirium tremens from alcohol abuse disorder. Today, he is alert. He is awake. He is sitting up in a chair. He is using his incentive spirometer. Per description of his nurse, patient had fallen yesterday. Patient does live with family member. Per request of family, rehab evaluation is being sought. His pain is controlled otherwise. He denies any dyspnea. ROS: No reports of nausea and vomiting. No fevers or chills. PHYSICAL EXAM: VITAL SIGNS: Reviewed CONSTITUTIONAL: Well developed and in no acute distress. EYES: Conjuctivae without sclera icterus. Extraocular movements grossly intact. HEAD, EARS, NOSE, THROAT: Moist buccal mucosa. Head is atraumatic, normocephalic. Hears conversational speech. No nasal drainage. NECK: Supple. No thyroidomegaly. RESPIRATORY: Non-labored respirations and equal bilateral excursions. CARDIOVASCULAR: Palpable 2+ radial pulses. ABDOMEN: Soft. No peritonitis. MUSCULOSKELETAL: No gross deformity of the lower extremities noted. No clubbing. No cyanosis. SKIN: Good skin turgor. Well perfused. NEUROLOGIC: Cranial nerves II through XII grossly intact. No focal or lateralizing signs. PSYCH: Appropriate affect. Alert and oriented to person, place and time. CLINICAL LABS: White blood cell count normal, 6.0. Platelets up from 94 to 101. STUDIES: Chest x-ray report demonstrates resolving left pneumothorax ASSESSMENT: 1. Status post fall 2. Left pneumothorax 3. Multiple left-sided rib fractures 4. Alcoholism in active alcohol withdrawal PLAN: 1. Continue with incentive spirometer 2. Per review of cardiothoracic and pulmonary team, no need for thoracostomy tube. Pneumothorax resolving 3. Evaluation for rehab Objective - Vital Signs Vital signs: Vital Signs Temp 98.2 F 06/21/20 16:00 Pulse 96 06/21/20 16:22 Resp 24 06/21/20 16:00 BP 155/100 06/21/20 16:00 Pulse Ox 99 06/21/20 16:00 Intake & Output 06/20/20 06/21/20 06/21/20 18:59 06:59 18:59 Intake Total 120 240 Output Total 280 100 Balance 120 -280 140 Weight 74.6 kg Intake: Oral 120 240 Output: Urine 280 100 Other: Voiding Method Incontinent Incontinent Toilet Urinal # Voids 1 2 1 # Bowel Movements 0 1 - Labs CBC & Chem 7: 06/21/20 06:27 06/21/20 06:27 Labs: Abnormal Lab Results - Last 24 Hours (Table) 06/21/20 06/21/20 Range/Units 06:27 06:27 RBC 4.26 L (4.30-5.90) m/uL RDW 16.7 H (11.5-15.5) % Plt Count 101 L (150-450) k/uL Sodium 134 L (137-145) mmol/L Assessment and Plan (1) Traumatic fracture of ribs of left side with pneumothorax Current Visit: Yes Status: Acute Code(s): S22.42XA - MULTIPLE FRACTURES OF RIBS, LEFT SIDE, INIT FOR CLOS FX; S27.0XXA - TRAUMATIC PNEUMOTHORAX, INITIAL ENCOUNTER SNOMED Code(s): 6889505 (2) Alcohol abuse Current Visit: Yes Status: Acute Code(s): F10.10 - ALCOHOL ABUSE, UNCO MPLICATED SNOMED Code(s): 21237710 (3) Pneumothorax Current Visit: Yes Status: Acute Code(s): J93.9 - PNEUMOTHORAX, UNSPECIFIED SNOMED Code(s): 61854995 (4) Delirium tremens Current Visit: Yes Status: Acute Code(s): F10.231 - ALCOHOL DEPENDENCE WITH WITHDRAWAL DELIRIUM SNOMED Code(s): 3205663
[2020-06-21] MEDS: ATORVASTATIN 10 MG TAB PO SCH (20:56)
[2020-06-21] MEDS: ENOXAPARIN 40 MG/0.4 ML SYRINGE SQ SCH (20:56)
--- NOTE | 2020-06-21 22:34 | P.ANPRN ---
Procedure Note - Anesthesia - Nerve Block Performed Left Other (see comment) Single Date of Procedure: 06/21/20 Procedure Start Time: 20:00 Procedure Stop Time: 20:15 Indication: Analgesia Specifically requested for management of pain by : Vianca Meyers Sedation Type: Awake Preparation: Sterile Prep Position: Right Lateral Needle Gauge: Other (see comment) Ultrasound used to visualize needle placement: No Ultrasound used to observe medication spread: No Injectate: Other (see comment) (Left 9th, 10th, 11th Intercostal nerve blocks performed for control of pain from rib fractures. Aseptic, atraumatic technique utilized. Injections performed with 25g, 1" needle used. Injectate volume was 6cc at each level, 3cc 2% lidocaine & 3cc 0.5% bupivicaine.) Blood Aspirated: No Pain Paresthesia on Injection Noted: No Resistance on Injection: Normal Image Stored and Saved: No Events: Uneventful and Well Tolerated
[2020-06-22] MEDS: HYDROmorphone 0.5 MG/0.5 ML SYRINGE IVP PRN (05:54)
[2020-06-22] MEDS: THIAMINE 100 MG TAB PO SCH ×2 (05:54→17:57)
[2020-06-22] MEDS: guaiFENesin 600 MG TABLET.ER PO SCH ×3 (05:54→22:26)
[2020-06-22] MEDS: PANTOPRAZOLE 40 MG TABLET PO SCH (05:54)
[2020-06-22] MEDS: diazePAM 5 MG TAB PO SCH (08:29)
[2020-06-22] MEDS: SPIRONOLACTONE 25 MG TAB PO SCH (08:29)
[2020-06-22] MEDS: MAGNESIUM OXIDE 400 MG TAB PO SCH ×2 (08:29→22:26)
[2020-06-22] MEDS: POTASSIUM CHLORIDE ER 20 MEQ TAB.ER PO SCH ×2 (08:30→22:26)
[2020-06-22] MEDS: HYDROcodone/APAP 5-325MG 1 EACH TAB PO PRN ×3 (08:30→17:57)
[2020-06-22] MEDS: lisinopriL 10 MG TAB PO SCH (08:30)
[2020-06-22] MEDS: NICOTINE 21MG/24HR PATCH TRANSDERM SCH (08:31)
[2020-06-22] MEDS: PREGABALIN 75 MG CAP PO SCH ×2 (08:31→22:25)
[2020-06-22] MEDS: BUDESONIDE 1 MG/2 ML NEBU INHALATION SCH ×2 (09:24→19:58)
[2020-06-22] MEDS: IPRATROPIUM-ALBUTEROL 3 ML NEB INHALATION SCH ×4 (09:24→19:58)
[2020-06-22] MEDS: LIDOCAINE 5% PATCH TOPICAL SCH (09:32)
--- NOTE | 2020-06-22 11:24 | P.DS ---
<Sanaz Domingo - Last Filed: 06/22/20 11:22> Providers Expected date of discharge: 06/22/20 Hospital Course: Discharge diagnosis 1. Status post fall 2. Left pneumothorax 3. Multiple left-sided rib fractures 4. Alcoholism in active alcohol withdrawal Hospital course The patient is a 64-year-old male admitted following a fall resulting in multiple left-sided rib fractures and pneumothorax. Since admission, patient has delirium tremens from alcohol abuse disorder. Patient has had repeat chest x-rays showing resolved pneumothorax. Patient did not require chest tube placement. He's been seen by anesthesia service and has had nerve block for his rib fractures. Pain is controlled. He is tolerating diet. He's been up and ambulating with physical therapy. Physical therapy is recommending patient be discharged to a rehab facility. Patient has been cleared by consulting physic ians for discharge. Patient is stable for discharge. Physician Screener And Blender note has been reviewed by physician. Signing provider agrees with the documented findings, assessment, and plan of care. Patient Condition at Discharge: Stable Plan - Discharge Summary Discharge Rx Participant: No New Discharge Prescriptions: New Hydrocodone/Acetaminophen [[place] 5-325] 1 tab PO Q4HR PRN 3 Days #18 tab PRN Reason: Pain Thiamine [Vitamin B-1] 100 mg PO BID-W/MEALS tab Ipratropium-Albuterol Nebulize [Duoneb 0.5 mg-3 mg/3 ml Soln] 3 ml INHALATION RT-QID ml Lidocaine 5% Patch [Lidoderm 5% Patch] 2 patch TOPICAL DAILY PRN patch PRN Reason: Pain guaiFENesin [Mucinex] 600 mg PO Q8H PRN tablet.er PRN Reason: Cough diazePAM [Valium] 1 mg PO DIRECTED 5 Days #5 tab Continue Simvastatin [Zocor] 10 mg PO HS Omeprazole [PriLOSEC] 20 mg PO BID Pregabalin [Lyrica] 150 mg PO BID Potassium Chloride [Klor-Con 20] 20 meq PO BID Nicotine 21Mg/24Hr Patch [Habitrol] 1 patch TRANSDERM DAILY Multivit-Min/FA/Lycopen/Lutein [Centrum Silver Men Tablet] 1 tab PO DAILY Lisinopril [Prinivil] 10 mg PO DAILY Spironolactone 100 mg PO DAILY Discharge Medication List Omeprazole [PriLOSEC] 20 mg PO BID 10/14/15 [History] Simvastatin [Zocor] 10 mg PO HS 10/14/15 [History] Pregabalin [Lyrica] 150 mg PO BID 03/17/19 [History] Lisinopril [Prinivil] 10 mg PO DAILY 04/30/20 [History] Multivit-Min/FA/Lycopen/Lutein [Centrum Silver Men Tablet] 1 tab PO DAILY 04/30/20 [History] Nicotine 21Mg/24Hr Patch [Habitrol] 1 patch TRANSDERM DAILY 04/30/20 [History] Potassium Chloride [Klor-Con 20] 20 meq PO BID 04/30/20 [History] Spironolactone 100 mg PO DAILY 06/18/20 [History] Hydrocodone/Acetaminophen [[place] 5-325] 1 tab PO Q4HR PRN 3 Days #18 tab 06/22/20 [Rx] Ipratropium-Albuterol Nebulize [Duoneb 0.5 mg-3 mg/3 ml Soln] 3 ml INHALATION RT-QID ml 06/22/20 [Rx] Lidocaine 5% Patch [Lidoderm 5% Patch] 2 patch TOPICAL DAILY PRN patch 06/22/20 [Rx] Thiamine [Vitamin B-1] 100 mg PO BID-W/MEALS tab 06/22/20 [Rx] diazePAM [Valium] 1 mg PO DIRECTED 5 Days #5 tab 06/22/20 [Rx] guaiFENesin [Mucinex] 600 mg PO Q8H PRN tablet.er 06/22/20 [Rx] Follow up Appointment(s)/Referral(s): Vincent Nails MD [Primary Care Provider] - 1 Week Jacqueline Uriostegui MD [STAFF PHYSICIAN] - 07/08/20 1:15 pm (Electronics Inspector, for your liver cirrhosis. With [employer].) Holly Starkey MD [STAFF PHYSICIAN] - 2 Weeks Patient Instructions/Handouts: Traumatic Pneumothorax (DC), Rib Fracture (DC), Abuse of Alcohol (DC) Activity/Diet/Wound Care/Special Instructions: Medicine to address med rec for discharge Diet: Regular Activity: as tolerated Discharge Disposition: TRANSFER TO SNF/ECF <Vianca Meyers - Last Filed: 06/22/20 19:10> Providers Date of admission: 06/18/20 11:46 Attending physician: Vianca Meyers Consults: 06/18/20 11:46 Consult Physician Urgent Consulting Provider: Holly Starkey Consult Reason/Comments: Rib fractures Do you want consulting provider notified?: Yes Consult Physician Urgent Consulting Provider: Mekhi Faulkner Consult Reason/Comments: Pneumothorax Do you want consulting provider notified?: Already Contacted 06/18/20 19:07 Consult Physician Routine Consulting Provider: Elieser Garza Consult Reason/Comments: medical management Do you want consulting provider notified?: Yes 06/19/20 10:55 Consult Physician Routine Consulting Provider: Anesthesia,Services Consult Reason/Comments: rib block for pain control Do you want consulting provider notified?: Yes Primary care physician: Vincent Nails - Discharge Diagnosis(es) (1) Traumatic fracture of ribs of left side with pneumothorax Current Visit: Yes Status: Acute (2) Alcohol abuse Current Visit: Yes Status: Acute (3) Pneumothorax Current Visit: Yes Status: Acute (4) Delirium tremens Current Visit: Yes Status: Acute Hospital Course: Patient seen and evaluated with above. Agreeable with discharge to rehab. Continue with incentive spirometer for pulmonary toilet. Alcohol abstinence advised.
--- NOTE | 2020-06-22 13:06 | P.PN ---
Subjective history of present complaint, from records This is a 64-year-old patient of . Patient was chronic stable medical conditions include GERD, hypertension, hyperlipidemia, osteoarthritis, peptic ulcer disease, prostate cancer. Patient long-standing smoker and drinks at least a quart of snaps every day. 2 days ago patient took a fall hitting the left rib cage against a table. After he missed a step. He's been hurting. Some shortness of breath. Never passed out. Did not have any head injury. Patient is also short of breath and wheezing. Chronic cough. Patient also got tremors. Anxious Admitted with fracture to the left 10th ninth and 11th rib fracture, 10-15 left- sided pneumothorax, acute COPD exacerbation, alcohol withdrawal syndrome-patient started on bronchodilators, Valium for withdrawal, CIWA scale. Today-sitting up in bed. More calm down. Oral intake improving. 06/20/20 Patient is awake and alert, he was lying comfortable in bed, is slightly anxious and still have a tremor. Is a little tachypneic and with some little chest pain, he still have left lower chest wall tenderness His saturation 90s on room air. Surgery team recommended nerve block for the patient Patient also with liver cirrhosis and he is aware. Vitals are stable. Labs are stable. Chest x-ray shows stable left lower lobe infiltrate and small effusion, less apical pneumothorax. patient is followed closely by several consultants including pulmonary, cardiothoracic surgery and Gen. surgery. his CIWA score is 5-14 today and distal on Ativan as needed 06/21/2020 Patient is awake and alert, his with no confusion and he is oriented to time place and person, he denies hallucination or delusions. He has some tremor and looks anxious a little bit, however her looks better compared to yesterday. His CIWA score this morning is 5 which looks improving. Still complaining of from chest pain from his repair fracture which is expected, his pain mainly on the left lower chest anteriorly and laterally and posteriorlyprevious surgery team recommended nerve block but this could not be done. We will order lidocaine patch x 2. Patient fell yesterday but no new complaint. vitals and labs are stable. Chest x-ray showed persistent but improving left lower lobe infiltrate. No more left apical pneumothorax 06/22/2020 Patient is awake and alert today, his chest pain and tenderness is controlled today, he status post never block yesterday by the anesthesia team. Also he states lidocaine patch help a little bit. His CIWA score is low at 4-5, he got Ativan once daily the last 2 days. We will lower his volume 1 mg 4 times a day and can be tapered off upon discharge Continue with bowel regimen as needed. Labs and vitals are reviewed and looks stable. He is currently on aspirin and Plavix DVT prophylaxis and pain management as per surgery primary team Surgical team are planning for discharge the patient today. Patient is to clean stable for discharge once his been cleared by all consultants and primary team Objective - Vital Signs Vital signs: Vital Signs Temp 99.0 F 06/22/20 08:15 Pulse 95 06/22/20 09:35 Resp 22 06/22/20 08:15 BP 140/83 06/22/20 08:15 Pulse Ox 93 L 06/22/20 08:15 Intake & Output 06/21/20 06/22/20 06/22/20 18:59 06:59 18:59 Intake Total 360 240 Output Total 100 480 Balance 260 -480 240 Weight 71.8 kg Intake: Oral 360 240 Output: Urine 100 480 Other: Voiding Method Toilet Toilet Urinal Urinal # Voids 1 2 # Bowel Movements 1 - Exam -GENERAL: The patient is alert and oriented x3, little anxious with little tremor. Well developed, well nourished. HEENT: Pupils are round and equally reacting to light. EOMI. No scleral icterus. No conjunctival pallor. Normocephalic, atraumatic. No pharyngeal erythema. No thyromegaly. CARDIOVASCULAR: S1 and S2 present. No murmurs, rubs, or gallops. PULMONARY: Chest is clear to auscultation, no wheezing or crackles. ABDOMEN: Soft, nontender, nondistended, normoactive bowel sounds. No palpable organomegaly. MUSCULOSKELETAL: No joint swelling or deformity. EXTREMITIES: No cyanosis, clubbing, or pedal edema. NEUROLOGICAL: Gross neurological examination did not reveal any focal deficits. SKIN: No rashes. no petechiae. - Labs CBC & Chem 7: 06/21/20 06:27 06/21/20 06:27 Assessment and Plan Assessment: -Mechanical fall after the patient missed her last stair leading to him falling on the left chest wall. -Left 10th, ninth, 11th rib fracture -Alcohol withdrawal and DVT, improving significantly upon discharge. Continue with benzodiazepine taper upon discharge -Small left-sided pneumothorax 10-15% with no mediastinal shift. Improved -Acute COPD exacerbation in a current smoker. Improved -Alcohol-induced cirrhosis -Granulomatous spleen -Alcohol withdrawal syndrome-improving on Valium and CIWA scale -Chronic nicotine dependence cigarette smoker -GERD -Hyperlipidemia -Essential hypertension -Primary osteoarthritis -Peptic ulcer disease Plan: continue with pain management which is looks well controlled, continue with Ativan as part of his CIWA protocol, continue with same Patient is aware about his diagnosis of cirrhosis and instructed to follow up as an outpatient, also he was counseled to quit drinking alcohol Follow-up recommendation by several consult is occluding pulmonary, cardiothoracic surgery and Gen. surgery Labs and medication were reviewed.. Continue same treatment. Continue with symptomatic treatment. Resume home medication. Monitor lytes and vitals. DVT and GI prophylaxis. Further recommendationsas per clinical course of the patient DVT prophylaxis: Subcutaneous Lovenox GI Prophylaxis: Pepcid PT/OT: Rehab Patient is medically clear for discharge once he got cleared for discharge by all other consultants thank you for consulting us
--- NOTE | 2020-06-22 14:29 | P.PN ---
Subjective Progress Note Date: 06/22/20 Principal diagnosis: Acute traumatic left-sided pneumothorax, left-sided chest wall pain 64-year-old female patient known history of COPD, daily alcohol drinker with possibly a component of alcoholism and occasional marijuana user. The patient was drinking alcohol and he fell while drinking and he landed on his left chest and he sustained a 10-15% pneumothorax on the left with a minimally displaced ninth 10th and 11th rib. No acute abnormalities within the abdomen and pelvis. White cell count is at 7.8 with hemoglobin of 14.1. The patient was still alcohol toxic and his Zocor level was 34 at time of his admission. He was admitted for observation. His pulse ox remains above 92% on room air oxygen. He was provided incentive spirometer. No immediate intervention was done based on the small size of this pneumothorax. He has chronic liver disease secondary alcoholism and addition to history of peptic ulcer disease, prostate cancer, COPD, hypertension and hyperlipidemia. Mild tremors noted On 06/19/2020 patient seen in follow-up on selective care unit, he is resting comfortably in bed, his chest x-ray today shows stable left-sided pneumothorax, no worsening dyspnea, patient is on 2 L of oxygen with pulse ox of 93%, afebrile, hemodynamically stable, his incentive spirometer effort is 500 mL today, no tremors noted today, patient is on Valium, he continues on CIWA protocol. Breathing is nonlabored. Vital signs have been stable overnight On 06/22/2020 patient seen in follow-up on selective care unit, he is awake and alert, sitting up in bed, in no acute distress, he still has left sided chest discomfort with moving and deep breathing. Room air pulse ox is 93%, hemodynamically stable, no fever or chills. Lung sounds are clear without dementia at the bases, no rhonchi or wheezing, he remains on IV steroids, he is on CIWA protocol, he is on Dilaudid for pain control, she was seen by anesthesia services and was given intercostal nerve block. He is working on incentive spirometer, yesterday chest x-ray shows improving left lower lobe infiltrate and/or atelectasis, and previously described tiny left apical pneumothorax was not seen on yesterday's chest x-ray. Objective - Vital Signs Vital signs: Vital Signs Temp 99.0 F 06/22/20 08:15 Pulse 95 06/22/20 09:35 Resp 22 06/22/20 08:15 BP 140/83 06/22/20 08:15 Pulse Ox 93 L 06/22/20 08:15 Intake & Output 06/21/20 06/22/20 06/22/20 18:59 06:59 18:59 Intake Total 360 480 Output Total 100 480 300 Balance 260 -480 180 Weight 71.8 kg Intake: Oral 360 480 Output: Urine 100 480 300 Other: Voiding Method Toilet Toilet Urinal Urinal # Voids 1 2 # Bowel Movements 1 - Exam GENERAL EXAM: Alert, very pleasant, 64-year-old white male on room air with a ox of 93% comfortable in no apparent distress. HEAD: Normocephalic/atraumatic. EYES: Normal reaction of pupils, equal size. Conjunctiva pink, sclera white. NOSE: Clear with pink turbinates. THROAT: No erythema or exudates. NECK: No masses, no JVD, no thyroid enlargement, no adenopathy. CHEST: No chest wall deformity. Symmetrical expansion. LUNGS: Equal air entry with no crackles, wheeze, rhonchi or dullness. CVS: Regular rate and rhythm, normal S1 and S2, no gallops, no murmurs, no rubs ABDOMEN: Soft, nontender. No hepatosplenomegaly, normal bowel sounds, no guarding or rigidity. EXTREMITIES: No clubbing, no edema, no cyanosis, 2+ pulses and upper and lower extremities. MUSCULOSKELETAL: Muscle strength and tone normal. SPINE: No scoliosis or deformity SKIN: No rashes CENTRAL NERVOUS SYSTEM: Alert and oriented -3. No focal deficits, tone is normal in all 4 extremities. PSYCHIATRIC: Alert and oriented -3. Appropriate affect. Intact judgment and insight. - Labs CBC & Chem 7: 06/21/20 06:27 06/21/20 06:27 Assessment and Plan Plan: Assessment: 1 acute traumatic left-sided pneumothorax in the order of 10-15% 2 left-sided chest wall pain secondary to nondisplaced fractures of the night 10th and 11th ribs, traumatic in nature 3 shortness of breath secondary to above 4 alcoholism 5 acute alcohol intoxication 5 history of chronic liver disease, likely alcoholic 6 COPD 7 prostate cancer with a previous 8 hypertension 9 hyperlipidemia 10 occasional marijuana use 11 mild delirium tremens, on CIWA scale Plan: Patient is doing well, clinically stable, no signs of active delirium tremens. Pain is reasonably controlled, continue encouraging deep breathing and coughing, no persistent left-sided pneumothorax on the last chest x-ray from yesterday, maintaining stable O2 saturations on room air, from pulmonary perspective he could be considered for discharge home I performed a history & physical examination of the patient and discussed their management with my nurse practitioner, Jennifer Durham. I reviewed the nurse pra ctitioner's note and agree with the documented findings and plan of care. Lung sounds are positive for diminished breath sounds at the bases. The findings and the impression was discussed with the patient. I attest to the documentation by the nurse practitioner. And the statement Time with Patient: Less than 30
[2020-06-22] MEDS ORDERED: diazePAM 2 MG TAB PO SCH (16:00)
[2020-06-22] MEDS: diazePAM 2 MG TAB PO SCH ×2 (17:55→22:25)
--- NOTE | 2020-06-22 19:09 | P.PN ---
Subjective Progress Note Date: 06/22/20 CHIEF COMPLAINT: Status post fall with pneumothorax HISTORY OF PRESENT ILLNESS: The patient is a 64-year-old male admitted following a fall resulting in multiple left-sided rib fractures and pneumothorax. He has history of alcohol withdrawal symptoms and has been treated as such. Pulmonary team including cardiothoracic team has been following the patient for his pneumothorax including rib fractures. He is wide awake and alert. He is currently working with physical therapy. His tremors has improved. He is tolerating diet. ROS: No reports of nausea and vomiting. No fevers or chills. PHYSICAL EXAM: VITAL SIGNS: Reviewed CONSTITUTIONAL: Well developed and in no acute distress. EYES: Conjuctivae without sclera icterus. Extraocular movements grossly intact. HEAD, EARS, NOSE, THROAT: Moist buccal mucosa. Head is atraumatic, normocephalic. Hears conversational speech. No nasal drainage. NECK: Supple. No thyroidomegaly. RESPIRATORY: Non-labored respirations and equal bilateral excursions. CARDIOVASCULAR: Palpable 2+ radial pulses. ABDOMEN: Soft. No peritonitis. MUSCULOSKELETAL: No gross deformity of the lower extremities noted. No clubbing. No cyanosis. SKIN: Good skin turgor. Well perfused. NEUROLOGIC: Cranial nerves II through XII grossly intact. No focal or later alizing signs. Tremors has improved. PSYCH: Appropriate affect. Alert and oriented to person, place and time. CLINICAL LABS: No new labs. STUDIES: No new studies. ASSESSMENT: 1. Status post fall 2. Left pneumothorax 3. Multiple left-sided rib fractures 4. Alcoholism with alcohol withdrawal PLAN: 1. Patient is clear by cardiothoracic without any further need for intervention for pneumothorax that has resolved. 2. Patient was clear from a pulmonary standpoint for potential discharge. 3. Patient stable for discharge once rehab transfer is obtained Objective - Vital Signs Vital signs: Vital Signs Temp 98.3 F 06/22/20 16:15 Pulse 96 06/22/20 16:23 Resp 20 06/22/20 16:15 BP 141/89 06/22/20 16:15 Pulse Ox 94 L 06/22/20 16:15 Intake & Output 06/22/20 06/22/20 06/23/20 06:59 18:59 06:59 Intake Total 720 Output Total 480 300 Balance -480 420 Weight 71.8 kg Intake: Oral 720 Output: Urine 480 300 Other: Voiding Method Toilet Urinal # Voids 2 - Labs CBC & Chem 7: 06/21/20 06:27 06/21/20 06:27 Assessment and Plan (1) Traumatic fracture of ribs of left side with pneumothorax Current Visit: Yes Status: Acute Code(s): S22.42XA - MULTIPLE FRACTURES OF RIBS, LEFT SIDE, INIT FOR CLOS FX; S27.0XXA - TRAUMATIC PNEUMOTHORAX, INITIAL ENCOUNTER SNOMED Code(s): 8916868 (2) Alcohol abuse Current Visit: Yes Status: Acute Code(s): F10.10 - ALCOHOL ABUSE, UNCOMPLICATED SNOMED Code(s): 12916213 (3) Pneumothorax Current Visit: Yes Status: Acute Code(s): J93.9 - PNEUMOTHORAX, UNSPECIFIED SNOMED Code(s): 29086895 (4) Delirium tremens Current Visit: Yes Status: Acute Code(s): F10.231 - ALCOHOL DEPENDENCE WITH WITHDRAWAL DELIRIUM SNOMED Code(s): 9719486
[2020-06-22] MEDS: ATORVASTATIN 10 MG TAB PO SCH (22:26)
[2020-06-22] MEDS: ENOXAPARIN 40 MG/0.4 ML SYRINGE SQ SCH (22:26)
[2020-06-23] MEDS: guaiFENesin 600 MG TABLET.ER PO SCH ×2 (05:57→13:18)
[2020-06-23] MEDS: PANTOPRAZOLE 40 MG TABLET PO SCH (05:57)
[2020-06-23] MEDS: THIAMINE 100 MG TAB PO SCH (05:57)
[2020-06-23] MEDS: BUDESONIDE 1 MG/2 ML NEBU INHALATION SCH (08:52)
[2020-06-23] MEDS: IPRATROPIUM-ALBUTEROL 3 ML NEB INHALATION SCH ×3 (08:52→15:02)
[2020-06-23 09:18] VITALS: BP 147/93; RESP 22; TEMP 97.9
[2020-06-23] MEDS: SPIRONOLACTONE 25 MG TAB PO SCH (09:34)
[2020-06-23] MEDS: lisinopriL 10 MG TAB PO SCH (09:34)
[2020-06-23] MEDS: PREGABALIN 75 MG CAP PO SCH (09:34)
[2020-06-23] MEDS: diazePAM 2 MG TAB PO SCH ×2 (09:35→13:18)
[2020-06-23] MEDS: HYDROcodone/APAP 5-325MG 1 EACH TAB PO PRN ×2 (09:35→13:18)
[2020-06-23] MEDS: MAGNESIUM OXIDE 400 MG TAB PO SCH (09:35)
[2020-06-23] MEDS: POTASSIUM CHLORIDE ER 20 MEQ TAB.ER PO SCH (09:35)
[2020-06-23] MEDS: NICOTINE 21MG/24HR PATCH TRANSDERM SCH (09:35)
[2020-06-23] MEDS: LIDOCAINE 5% PATCH TOPICAL SCH (09:38)
--- NOTE | 2020-06-23 12:57 | P.PN ---
<Sanaz Domingo - Last Filed: 06/23/20 12:55> Subjective Progress Note Date: 06/23/20 CHIEF COMPLAINT: Acute traumatic left-sided pneumothorax HISTORY OF PRESENT ILLNESS: Patient is status post fall with an acute left-sided pneumothorax with left rib fractures. Patient's pneumothorax has resolved. He did not require chest tube. Patient was stable for discharge yesterday. We are awaiting insurance authorization before patient can be discharged to [facility]. PHYSICAL EXAM: VITAL SIGNS: Reviewed GENERAL: Well-developed in no acute distress. HEENT: No sclera icterus. Extraocular movements grossly intact. Moist buccal mucosa. Head is atraumatic, normocephalic. Hears conversational speech. No nasal drainage. NECK: Supple without lymphadenopathy. CHEST: Non-labored respirations and equal bilateral excursions. CARDIOVASCULAR: Palpable 2+ radial pulses. ABDOMEN: Soft. Nondistended. Nontender. MUSCULOSKELETAL: No clubbing or cyanosis. NEUROLOGIC: No focal or lateralizing signs. Cranial nerves II through XII grossly intact. Patient does have some tremors noted in both hands bilaterally PSYCH: Appropriate affect. Alert and oriented to person, place and time. SKIN: Well perfused. Good skin turgor. ASSESSMENT: 1. Fall with left-sided rib fractures 2. Left-sided small traumatic pneumothorax 3. Alcohol abuse and withdrawal 4. Hypertension 5. Alcohol induced liver cirrhosis 6. History of peptic ulcer disease 7. History of COPD PLAN: -Awaiting insurance authorization for placement at [facility] -Continue [facility] protocol for alcohol withdrawal -Encouraged patient to use incentive spirometer Physician Belly Roller note has been reviewed by physician. Signing provider agrees with the documented findings, assessment, and plan of care. Objective - Vital Signs Vital signs: Vital Signs Temp 97.9 F 06/23/20 08:00 Pulse 98 06/23/20 12:09 Resp 22 06/23/20 08:00 BP 147/93 06/23/20 08:00 Pulse Ox 97 06/23/20 08:00 Intake & Output 06/22/20 06/23/20 06/23/20 18:59 06:59 18:59 Intake Total 720 200 Output Total 300 680 600 Balance 420 -680 -400 Weight 71.9 kg Intake: Oral 720 200 Output: Urine 300 680 600 Other: Voiding Method Toilet Toilet Urinal Urinal # Voids 2 - Labs CBC & Chem 7: 06/21/20 06:27 06/21/20 06:27 <Luigi,Karen N - Last Filed: 06/23/20 18:27> Subjective As above. Please see additional documentation. CHIEF COMPLAINT: Status post fall with pneumothorax HISTORY OF PRESENT ILLNESS: The patient is a 64-year-old male admitted following a fall resulting in multiple left-sided rib fractures and pneumothorax. ROS: No reports of nausea and vomiting. No fevers or chills. PHYSICAL EXAM: VITAL SIGNS: Reviewed CONSTITUTIONAL: Well developed and in no acute distress. EYES: Conjuctivae without sclera icterus. Extraocular movements grossly intact. HEAD, EARS, NOSE, THROAT: Moist buccal mucosa. Head is atraumatic, normocephalic. Hears conversational speech. No nasal drainage. NECK: Supple. No thyroidomegaly. RESPIRATORY: Non-labored respirations and equal bilateral excursions. CARDIOVASCULAR: Palpable 2+ radial pulses. ABDOMEN: Soft. No peritonitis. MUSCULOSKELETAL: No gross deformity of the lower extremities noted. No clubbing. No cyanosis. SKIN: Good skin turgor. Well perfused. NEUROLOGIC: Cranial nerves II through XII grossly intact. No focal or lateralizing signs. Tremors has improved. PSYCH: Appropriate affect. Alert and oriented to person, place and time. CLINICAL LABS: No new labs. STUDIES: No new studies. ASSESSMENT: 1. Status post fall 2. Left pneumothorax 3. Multiple left-sided rib fractures 4. Alcoholism with alcohol withdrawal PLAN: 1. Patient's alcohol withdrawal has improved and now stable for discharge. Objective - Vital Signs Vital signs: Vital Signs Temp 97.9 F 06/23/20 08:00 Pulse 98 06/23/20 15:14 Resp 22 06/23/20 08:00 BP 147/93 06/23/20 08:00 Pulse Ox 97 06/23/20 08:00 Intake & Output 06/22/20 06/23/20 06/23/20 18:59 06:59 18:59 Intake Total 720 440 Output Total 300 680 800 Balance 644 -782 -529 Weight 71.9 kg Intake: Oral 720 440 Output: Urine 300 680 800 Other: Voiding Method Toilet Toilet Urinal Urinal # Voids 2 - Labs CBC & Chem 7: 06/21/20 06:27 06/21/20 06:27 Assessment and Plan (1) Traumatic fracture of ribs of left side with pneumothorax Status: Acute Code(s): S22.42XA - MULTIPLE FRACTURES OF RIBS, LEFT SIDE, INIT FOR CLOS FX; S27.0XXA - TRAUMATIC PNEUMOTHORAX, INITIAL ENCOUNTER SNOMED Code(s): 4627459 (2) Alcohol abuse Status: Acute Code(s): F10.10 - ALCOHOL ABUSE, UNCOMPLICATED SNOMED Code(s): 11848256 (3) Pneumothorax Status: Acute Code(s): J93.9 - PNEUMOTHORAX, UNSPECIFIED SNOMED Code(s): 60155136 (4) Delirium tremens Status: Acute Code(s): F10.231 - ALCOHOL DEPENDENCE WITH WITHDRAWAL DELIRIUM SNOMED Code(s): 7026273
[2020-06-23 15:20] VITALS: PULSE 98
== END 2020-06-23 16:35 | DRG 200 ==
LOC: EC 09:25 → 3SCARD 11:46
PROVIDERS: ADMIT Surgery Plastic and Reconstructive Surgery; ATTEND Surgery Plastic and Reconstructive Surgery
DX: S27.0XXA Traumatic pneumothorax, initial encounter (principal); S22.42XA Multiple fractures of ribs, left side, initial encounter for closed fracture; F10.231 Alcohol dependence with withdrawal delirium; K22.10 Ulcer of esophagus without bleeding; J44.1 Chronic obstructive pulmonary disease with (acute) exacerbation; W01.198A Fall on same level from slipping, tripping and stumbling with subsequent striking against other object, initial encounter; I10 Essential (primary) hypertension; K21.9 Gastro-esophageal reflux disease without esophagitis; F32.9 Major depressive disorder, single episode, unspecified; F17.210 Nicotine dependence, cigarettes, uncomplicated; F12.90 Cannabis use, unspecified, uncomplicated; K25.9 Gastric ulcer, unspecified as acute or chronic, without hemorrhage or perforation; K70.30 Alcoholic cirrhosis of liver without ascites; M19.91 Primary osteoarthritis, unspecified site; E78.5 Hyperlipidemia, unspecified; Z98.42 Cataract extraction status, left eye; Z79.899 Other long term (current) drug therapy; Z98.41 Cataract extraction status, right eye; Z98.890 Other specified postprocedural states; Z80.8 Family history of malignant neoplasm of other organs or systems; Z82.5 Family history of asthma and other chronic lower respiratory diseases; Z85.46 Personal history of malignant neoplasm of prostate; Z87.11 Personal history of peptic ulcer disease
CPT/HCPCS: 36415; 71045; 71046; 71260; 74177; 80048; 80053; 80320; 83605; 83735; 85025; 85610; 85730; 93005; 94640; 96361; 96365; 96372; 96375; 99291

== ENCOUNTER → 2020-10-26 | Outpatient (CLI) | payer OTHER ==
--- NOTE | 2020-10-26 16:05 | CT ---
EXAMINATION TYPE: CT cervical spine wo con DATE OF EXAM: 10/26/2020 COMPARISON: 06/06/2017 HISTORY: Neck pain and headaches x10 years. CT DLP: 358.6 mGycm CONTRAST: Normal CT of the cervical spine is performed in the axial plane at 2 mm thick sections. Reconstructed image s in the coronal, and sagittal plane are reviewed on the computer. No acute fractures are evident. Vertebral body alignment is normal. Previous subtle kyphosis has resolved. Disc space narrowing is present posteriorly. There is some diffuse disc space narrowing present C4-5 C5-6 C6-7. Anterior vertebral body spurring is present C4-C7. Vertebral body heights are preserved. No spinal canal stenosis is evident There is some right foraminal narrowing due to facet hypertrophy and uncovertebral joint hypertrophy at C3-4. Right uncovertebral joint hypertrophy is seen at C4 has moderate foraminal narrowing. Some p osterior longitudinal ligament calcification is present at this level. Endplate changes and uncoverte bral joint hypertrophy has mild anterior thecal sac flattening and moderate bilateral foraminal narro wing at the C5-6 level. Some endplate changes are also noted at C6-7. Milder uncovertebral joint hype rtrophy is present with moderate foraminal narrowing bilaterally. IMPRESSIONS: 1. Degenerative disc changes predominantly C5-6 C6-7. 2. Uncovertebral joint hypertrophy contributing to foraminal narrowing appears greatest at C5-6 and o n the right at C4
--- NOTE | 2020-10-26 16:11 | CT ---
EXAMINATION TYPE: CT lumbar spine wo con DATE OF EXAM: 10/26/2020 COMPARISON: None HISTORY: Chronic low back pain radiating down bilateral legs. CT DLP: 522.1 mGycm CONTRAST: None TECHNIQUE: CT of the lumbar spine is performed on a spiral scan at 3 mm thick sections. Reconstructed images are performed in the coronal and sagittal planes. FINDINGS: T10-T11: No focal disc herniation or significant disc bulge is evident. No spinal canal stenosis or n eural foraminal stenosis is present. T11-T12: There is mild disc bulging with anterior thecal sac flattening. No spinal canal stenosis or neural foraminal stenosis is present. T12-L1: No focal disc herniation or significant disc bulge is evident. No spinal canal stenosis or neural foraminal stenosis is present. L1-L2: Mild disc bulge has mild anterior thecal sac compression. No AP spinal canal stenosis or neura l foraminal stenosis is present. L2-L3: Mild disc bulging is anterior thecal sac flattening. No AP spinal canal stenosis is present. M ild bilateral foraminal narrowing is present L3-L4: No focal disc herniation or significant disc bulge is evident. No spinal canal stenosis or n eural foraminal stenosis is present L4-L5: There is a central broad-based disc bulge which has some epidural space impression. No spinal canal stenosis or significant thecal sac compression is evident. L5-S1: Spondylolysis is present with a grade 2 spondylolisthesis. There is loss of disc height at the L5-S1 level. Residual disc and calcification is present. No AP spinal canal stenosis is present. Vertebral alignment otherwise appears normal. IMPRESSION: 1. Grade 2 spondylolisthesis of L5 anterior on S1. Spondylolysis of L5 is present. 2. Disc bulging which appears greatest at L2-3 has mild anterior thecal sac flattening. Additional di sc bulges are without significant thecal sac compression.
== END | disposition home or self-care (01) ==
LOC: RADCTMAIN 15:28
PROVIDERS: ATTEND Orthopaedic Surgery
DX: M48.02 Spinal stenosis, cervical region (principal); M51.26 Other intervertebral disc displacement, lumbar region; M43.16 Spondylolisthesis, lumbar region; M47.812 Spondylosis without myelopathy or radiculopathy, cervical region; M47.816 Spondylosis without myelopathy or radiculopathy, lumbar region; G95.29 Other cord compression
CPT/HCPCS: 72125; 72131

== ENCOUNTER → 2020-11-17 | Outpatient (CLI) | payer OTHER ==
[2020-11-17 10:01] LABS: INR 1.1 (<1.2); Prothrombin Time 11.7 sec (9.0-12.0)
[2020-11-17 10:16] LABS: ALT 14 U/L (4-49); AST 26 U/L (17-59); African American GFR (CKD) >90 (>60 ml/min/1.73 sqM); Albumin 3.9 g/dL (3.5-5.0); Alkaline Phosphatase 73 U/L (38-126); Anion Gap 7 mmol/L; Basophils % (A) 0 %; Blood Urea Nitrogen 17 mg/dL (9-20); Calcium 9.6 mg/dL (8.4-10.2); Carbon Dioxide 26 mmol/L (22-30); Chloride 106 mmol/L (98-107); Cholesterol 144 mg/dL (<200); Eosinophils # (A) 0.2 k/uL (0-0.7); Eosinophils % (A) 5 %; Glucose 92 mg/dL (74-99); HCT 41.8 % (39.0-53.0); HDL Cholesterol 43 mg/dL (40-60); HGB 14.2 gm/dL (13.0-17.5); LDL Cholesterol,Calculated 80 mg/dL (0-99); Lymphocytes # (A) 1.3 k/uL (1.0-4.8); Lymphocytes % (A) 30 %; MCH 30.1 pg (25.0-35.0); MCHC 33.9 g/dL (31.0-37.0); MCV 88.9 fL (80.0-100.0); Mean Platelet Volume 10.2; Monocytes # (A) 0.4 k/uL (0-1.0); Monocytes % (A) 9 %; Neutrophils # (A) 2.4 k/uL (1.3-7.7); Neutrophils % (A) 53 %; Non-African American GFR(CKD) 78 (>60 ml/min/1.73 sqM); Platelet Count 104 k/uL (150-450); Potassium 4.6 mmol/L (3.5-5.1); RDW 13.9 % (11.5-15.5); Sodium 139 mmol/L (137-145); Total Bilirubin 0.8 mg/dL (0.2-1.3); Total Protein 6.4 g/dL (6.3-8.2); Triglycerides 103 mg/dL (<150); WBC 4.4 k/uL (3.8-10.6)
[2020-11-17 15:26] LABS: Prostate Specific Antigen <0.1 ng/mL (0.0-4.5)
== END ==
LOC: LABT 09:05
PROVIDERS: ATTEND Physician Assistant
DX: K70.30 Alcoholic cirrhosis of liver without ascites (principal)
CPT/HCPCS: 80053; 80061; 82105; 82306; 84153; 85025; 85610

== ENCOUNTER → 2021-01-27 | Outpatient (CLI) | payer OTHER ==
--- NOTE | 2021-01-27 16:02 | CT ---
EXAMINATION TYPE: CT angio head neck DATE OF EXAM: 01/27/2021 COMPARISON: None HISTORY: 65-year-old male with neck pain and headache. TECHNIQUE: Contiguous axial scanning of the head and neck performed with IV Contrast, patient injecte d with 65ml mL of Isovue 370. Coronal/sagittal MIP reconstructions performed. 3-D reconstructions gen erated on a dedicated independent workstation. CT DLP: 410 mGycm Automated exposure control for dose reduction was used. FINDINGS: NECK: Some dependent atelectasis in the visualized lower lungs. Conventional arch vessel branching anatomy. The vertebral arteries are codominant and patent throughout the course. The right common and internal carotid arteries are widely patent. Tortuous mid right ICA. Mild to mod erate atherosclerotic calcifications proximal right ECA. Left common and internal carotid arteries are widely patent. Tortuous upper left ICA. Assessment was performed using NASCET criteria. Moderate spondylotic change mid to lower cervical spine. Degenerative grade 1 anterolisthesis C3-C4 a nd C4-C5. Reversal of the normal cervical lordosis. HEAD: Smooth narrowing of the distal V4 segment right vertebral artery. The basilar artery and remainder of the posterior circulation are patent. Internal carotid arteries and remainder of the anterior circulation is patent. Suggestion of a 3 mm saccular aneurysm at the A2/A3 junction, referred to sagittal series 13 image 12 and axial image 20, projecting anteriorly. Otherwise, no other aneurysmal change is seen. Dural venous sinuses are patent. IMPRESSION: 1. NECK: WIDELY PATENT COMMON CAROTID, INTERNAL CAROTID, AND VERTEBRAL ARTERIES OF THE NECK. 2. 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 SUGGESTION OF A 3 MM SACCULAR ANEURYSM AT THE A2/A3 JUNCTION OF THE ANTERIOR CEREB RAL ARTERY. CONSIDER MRA CON[employer]ERATED SALISH OF YIN TO CONFIRM.
== END | disposition home or self-care (01) ==
LOC: RADCTMAIN 13:48
PROVIDERS: ATTEND Orthopaedic Surgery
DX: M54.2 Cervicalgia (principal); R51.9 Headache, unspecified
CPT/HCPCS: 70496; 70498; Q9967

== ENCOUNTER → 2021-02-03 | Outpatient (CLI) | payer OTHER ==
[2021-02-03 10:02] LABS: HCT 39.6 % (39.0-53.0); HGB 13.5 gm/dL (13.0-17.5); MCH 30.7 pg (25.0-35.0); MCHC 34.1 g/dL (31.0-37.0); Platelet Count 101 k/uL (150-450); RDW 14.5 % (11.5-15.5)
--- NOTE | 2021-02-03 10:06 | US ---
EXAMINATION TYPE: US liver DATE OF EXAM: 02/03/2021 COMPARISON: 08/12/2019 CT chest abdomen and pelvis 06/18/2020 CLINICAL HISTORY: K70.30 Alcoholic cirrhosis of the liver. Not symptomatic, known cirrhosis EXAM MEASUREMENTS: Liver Length: 14.8 cm Gallbladder Wall: 0.1 cm CBD: 0.4 cm Right Kidney: 9.7 x 4.2 x 5.2 cm Pancreas: wnl Liver: slightly nodular contour seen . This could be further evaluated with a CT or MRI using liver protocol IV contrast. No discrete hepatic masses seen on the sonographic study. Gallbladder: wnl Evidence for sonographic Mckeon's sign: no CBD: wnl Right Kidney: wnl IMPRESSION: 1. The contour surface of the liver appears slightly nodular. This could be further evaluated with a CT or MRI using liver protocol (multiphase including arterial) with IV contrast. Underlying mass is n ot seen however a small underlying mass is not excluded on the sonographic study. 2. No gallstones.
[2021-02-03 10:16] LABS: Albumin 4.1 g/dL (3.5-5.0); Bilirubin,Unconjugated 0.7 mg/dL (0.0-1.1); Total Bilirubin 0.7 mg/dL (0.2-1.3); Total Protein 6.5 g/dL (6.3-8.2)
[2021-02-03 10:42] LABS: INR 1.1 (<1.2); Prothrombin Time 11.9 sec (9.0-12.0)
== END | disposition home or self-care (01) ==
LOC: RADUSWWP 08:59
PROVIDERS: ATTEND Internal Medicine Gastroenterology
DX: K70.30 Alcoholic cirrhosis of liver without ascites (principal)
CPT/HCPCS: 76705; 80076; 82105; 85027; 85610

== ENCOUNTER → 2021-03-05 | Outpatient (CLI) | payer OTHER | END | disposition home or self-care (01) | LOC: LABPAT 10:35 | PROVIDERS: ATTEND Orthopaedic Surgery | DX: Z01.812 Encounter for preprocedural laboratory examination (principal); M48.02 Spinal stenosis, cervical region; M47.812 Spondylosis without myelopathy or radiculopathy, cervical region | CPT/HCPCS: 86850; 86900; 86901; 87070 ==

== ENCOUNTER → 2021-03-10 | Outpatient (CLI) | payer OTHER ==
[2021-03-10 14:22] LABS: Basophils % (A) 1 %; Eosinophils # (A) 0.3 k/uL (0-0.7); Eosinophils % (A) 4 %; HCT 41.6 % (39.0-53.0); HGB 14.3 gm/dL (13.0-17.5); Lymphocytes # (A) 2.5 k/uL (1.0-4.8); Lymphocytes % (A) 43 %; MCH 30.5 pg (25.0-35.0); MCHC 34.5 g/dL (31.0-37.0); MCV 88.4 fL (80.0-100.0); Mean Platelet Volume 9.6; Monocytes # (A) 0.5 k/uL (0-1.0); Monocytes % (A) 9 %; Neutrophils # (A) 2.3 k/uL (1.3-7.7); Neutrophils % (A) 39 %; Platelet Count 116 k/uL (150-450); RBC 4.71 m/uL (4.30-5.90); RDW 14.5 % (11.5-15.5); WBC 5.8 k/uL (3.8-10.6)
[2021-03-10 14:33] LABS: Calcium 10.1 mg/dL (8.4-10.2); INR 1.1 (<1.2); Potassium 4.5 mmol/L (3.5-5.1); Prothrombin Time 11.2 sec (9.0-12.0)
== END | disposition home or self-care (01) ==
LOC: LABPAT 13:44
PROVIDERS: ATTEND Orthopaedic Surgery
DX: Z01.812 Encounter for preprocedural laboratory examination (principal); M48.02 Spinal stenosis, cervical region; M47.812 Spondylosis without myelopathy or radiculopathy, cervical region
CPT/HCPCS: 36415; 80048; 85025; 85610

== ENCOUNTER → 2021-08-18 | Outpatient (CLI) | payer OTHER ==
[2021-08-18 13:15] LABS: INR 1.1 (<1.2); Partial Thromboplastin Time 25.8 sec (22.0-30.0); Prothrombin Time 11.5 sec (9.0-12.0)
[2021-08-18 18:46] LABS: Basophils # (A) 0.06 X 10*3/uL (0.00-0.10); Basophils % (A) 0.9 %; Eosinophils # (A) 0.16 X 10*3/uL (0.04-0.35); Eosinophils % (A) 2.5 %; HCT 36.2 % (39.6-50.0); HGB 12.1 g/dL (13.0-17.0); Lymphocytes # (A) 2.34 X 10*3/uL (0.90-5.00); MCH 32.3 pg (27.0-32.0); MCHC 33.4 g/dL (32.0-37.0); MCV 96.5 fL (80.0-97.0); Monocytes # (A) 0.77 X 10*3/uL (0.20-1.00); Monocytes % (A) 12.2 %; Neutrophils # (A) 2.97 X 10*3/uL (1.80-7.70); Neutrophils % (A) 47.1 %; Platelet Count 134 X 10*3/uL (140-440); RBC 3.75 X 10*6/uL (4.40-5.60); RDW 12.7 % (11.5-14.5); WBC 6.32 X 10*3/uL (4.50-10.00)
[2021-08-18 20:24] LABS: African American GFR (CKD) 48.7 (60.0-200.0); Albumin/Globulin Ratio 1.82 (1.60-3.17); Anion Gap 12.7 mmol/L (10.00-18.00); BUN/Creat Ratio 14.47 Ratio (12.00-20.00); Blood Urea Nitrogen 24.6 mg/dL (9.0-27.0); Calcium 9.2 mg/dL (8.7-10.3); Carbon Dioxide 22.3 mmol/L (20.0-27.5); Globulin 2.2 g/dL (1.6-3.3); Potassium 4.5 mmol/L (3.5-5.5); Total Bilirubin 0.5 mg/dL (0.30-1.20); Total Protein 6.2 g/dL (6.2-8.2)
== END | disposition home or self-care (01) ==
LOC: LABWHC1 11:43
PROVIDERS: ATTEND Family Medicine
DX: E78.5 Hyperlipidemia, unspecified (principal)
CPT/HCPCS: 36415; 80053; 85025; 85610; 85730

== ENCOUNTER → 2021-08-23 | Outpatient (CLI) | payer OTHER ==
[2021-08-24 06:04] LABS: African American GFR (CKD) 35.6 (60.0-200.0); Albumin 4.2 g/dL (3.8-4.9); Albumin/Globulin Ratio 1.91 (1.60-3.17); Anion Gap 18.2 mmol/L (10.00-18.00); BUN/Creat Ratio 10.45 Ratio (12.00-20.00); Calcium 9.7 mg/dL (8.7-10.3); Carbon Dioxide 17.8 mmol/L (20.0-27.5); Globulin 2.2 g/dL (1.6-3.3); Non-African American GFR(CKD) 30.7 (60.0-200.0); Potassium 4.9 mmol/L (3.5-5.5); Total Bilirubin 0.4 mg/dL (0.30-1.20); Total Protein 6.4 g/dL (6.2-8.2)
== END | disposition home or self-care (01) ==
LOC: LABWHC1 11:51
PROVIDERS: ATTEND Family Medicine
DX: R94.4 Abnormal results of kidney function studies (principal)
CPT/HCPCS: 36415; 80053

== ENCOUNTER 2021-08-24 17:53 | Emergency (ER) | payer OTHER ==
[2021-08-24 20:03] VITALS: RESP 18; TEMP 98
[2021-08-24 20:57] LABS: Basophils % (A) 1 %; Eosinophils # (A) 0.4 k/uL (0-0.7); Eosinophils % (A) 7 %; HCT 37.7 % (39.0-53.0); HGB 12.6 gm/dL (13.0-17.5); Lymphocytes # (A) 2.4 k/uL (1.0-4.8); Lymphocytes % (A) 40 %; MCH 33.2 pg (25.0-35.0); MCHC 33.4 g/dL (31.0-37.0); MCV 99.4 fL (80.0-100.0); Mean Platelet Volume 9.6; Monocytes # (A) 0.5 k/uL (0-1.0); Monocytes % (A) 7 %; Neutrophils # (A) 2.6 k/uL (1.3-7.7); Neutrophils % (A) 42 %; Platelet Count 122 k/uL (150-450); RDW 13.3 % (11.5-15.5); WBC 6.1 k/uL (3.8-10.6)
[2021-08-24 21:05] LABS: Calcium 9.4 mg/dL (8.4-10.2); Magnesium 2.1 mg/dL (1.6-2.3); Potassium 4.6 mmol/L (3.5-5.1); Total Bilirubin 0.5 mg/dL (0.2-1.3); Total Protein 6.8 g/dL (6.3-8.2)
--- NOTE | 2021-08-24 21:09 | ED ---
General Adult HPI - General Source: patient Mode of arrival: ambulatory Limitations: no limitations <Sukhdeep Yost - Last Filed: 08/24/21 22:10> <Annamarie Mims - Last Filed: 08/25/21 16:42> - General Chief complaint: Recheck/Abnormal Lab/Rx Stated complaint: Abnormal labs-Sent by Dr. Nails Time Seen by Provider: 08/24/21 20:29 - History of Present Illness Initial comments: 65-year-old male presents to the emergency room for a chief complaint of abnormal labs. Patient thinks it is his kidney function. Patient states that he got his labs drawn for surgery in the next week or so and his kidney function was diminished. States that they had his labs are repeated and then he got a call from his doctor's to your symptoms that is the problem. Patient is unsure of why his kidney function is low. He states he does not drink water, only arti devyn and hasn't been eating as much lately. He denies any abdominal pain.Patient has no other complaints at this time including shortness of breath, chest pain, abdominal pain, nausea or vomiting, headache, or visual changes. (Sukhdeep Yost) - Related Data Home Medications Medication Instructions Recorded Confirmed Omeprazole [PriLOSEC] 20 mg PO BID 10/14/15 03/10/21 Simvastatin [Zocor] 10 mg PO HS 10/14/15 03/10/21 Pregabalin [Lyrica] 150 mg PO BID 03/17/19 03/10/21 Lisinopril [Prinivil] 10 mg PO DAILY 04/30/20 03/10/21 Multivit-Min/FA/Lycopen/Lutein 1 tab PO DAILY 04/30/20 03/10/21 [Centrum Silver Men Tablet] Potassium Chloride [Klor-Con 20] 20 meq PO BID 04/30/20 03/10/21 Spironolactone 100 mg PO DAILY 06/18/20 03/10/21 Acetaminophen/Diphenhydramine 1 tab PO HS PRN 03/10/21 03/10/21 [Tylenol PM 500-25mg] Albuterol Sulfate [Proventil Hfa] 1 puff INHALATION Q4-6H PRN 03/10/21 03/10/21 HYDROcodone/APAP 5-325MG [[place] 1 tab PO BID PRN 03/10/21 03/10/21 5-325] Ipratropium-Albuterol Nebulize 3 ml INHALATION RT-QID PRN 03/10/21 03/10/21 [Duoneb 0.5 mg-3 mg/3 ml Soln] Allergies Allergy/AdvReac Type Severity Reaction Status Date / Time No Known Allergies Allergy Verified 08/24/21 20:03 Review of Systems ROS Other: All systems not noted in ROS Statement are negative. <Sukhdeep Yost P - Last Filed: 08/24/21 22:10> ROS Other: All systems not noted in ROS Statement are negative. <Annamarie Mims - Last Filed: 08/25/21 16:42> ROS Statement: Those systems with pertinent positive or pertinent negative responses have been documented in the HPI. Past Medical History Past Medical History: Cancer, COPD, GERD/Reflux, GI Bleed, Hyperlipidemia, Hypertension, Liver Disease, Osteoarthritis (OA), Prostate Disorder Additional Past Medical History / Comment(s): " in 2004 esophagus was bleeding and ulcers in stomach", Prostate cancer, cirrhosis, History of Any Multi-Drug Resistant Organisms: None Reported Past Surgical History: Prostate Surgery Additional Past Surgical History / Comment(s): CATARACT SURGERY-BILATERAL, prostatectomy, COLONOSCOPY/EGD, BACK INJECTIONS, laser eye surgery for glaucoma Past Anesthesia/Blood Transfusion Reactions: No Reported Reaction Past Psychological History: No Psychological Hx Reported Smoking Status: Former smoker Past Alcohol Use History: Occasional Past Drug Use History: Marijuana - Past Family History Sister(s) Family Medical History: Cancer Brother(s) Family Medical History: Cancer Additional Family Medical History / Comment(s): throat cancer Mother Family Medical History: COPD Additional Family Medical History / Comment(s): of COPD Father Additional Family Medical History / Comment(s): of alcoholism <Sukhdeep Yost P - Last Filed: 08/24/21 22:10> General Exam Limitations: no limitations General appearance: alert, in no apparent distress Head exam: Present: atraumatic Eye exam: Present: normal appearance, PERRL, EOMI. Absent: scleral icterus, conjunctival injection ENT exam: Present: mucous membranes dry Neck exam: Present: normal inspection, full ROM. Absent: tenderness Respiratory exam: Present: normal lung sounds bilaterally. Absent: respiratory distress, wheezes Cardiovascular Exam: Present: regular rate, normal rhythm, normal heart sounds GI/Abdominal exam: Present: soft, normal bowel sounds. Absent: distended, tenderness Neurological exam: Present: alert <Sukhdeep Yost - Last Filed: 08/24/21 22:10> Course Vital Signs 08/24/21 08/24/21 19:58 21:50 Temperature 98.0 F Pulse Rate 68 72 Respiratory 18 18 Rate Blood Pressure 106/70 110/82 O2 Sat by Pulse 95 97 Oximetry Medical Decision Making - Lab Data Result diagrams: 08/24/21 20:50 08/24/21 20:50 <Sukhdeep Yost - Last Filed: 08/24/21 22:10> - Lab Data Result diagrams: 08/24/21 20:50 08/24/21 20:50 <Annamarie Mims - Last Filed: 08/25/21 16:42> - Medical Decision Making vitals stable. CBC is unremarkable. CMP actually shows improvement in renal function with a creatinine of 1.55. Urinalysis is negative. Ultrasound of the kidneys and bladder showed no evidence of obstructive uropathy at this time given improvement in renal function. I suspect patients EKG I was related to dehydration. States he only drinks soda and does appear very dry clinically on physical exam. Patient was given a liter of fluids. patient can actually be discharged home to follow up with primary care. He has an appointment tomorrow. He will return here for any worsening symptoms. (Sukhdeep Yost) I was available for consultation in the emergency department. The history and physical exam were done by the midlevel provider. I was consulted for this patients care. I reviewed the case with the midlevel provider and based on their presentation of the patient, I agree with the assessment, medical decision making and plan of care as documented. Chart was dictated using LIFT12 dictation software. Attempts were made to correct any dictation errors however some typographical errors may persist. (Annamarie Mims) - Lab Data Lab Results 08/24/21 08/24/21 08/24/21 Range/Units 20:50 20:50 21:14 WBC 6.1 (3.8-10.6) k/uL RBC 3.80 L (4.30-5.90) m/uL Hgb 12.6 L (13.0-17.5) gm/dL Hct 37.7 L (39.0-53.0) % MCV 99.4 (80.0-100.0) fL MCH 33.2 (25.0-35.0) pg MCHC 33.4 (31.0-37.0) g/dL RDW 13.3 (11.5-15.5) % Plt Count 122 L (150-450) k/uL MPV 9.6 Neutrophils % 42 % Lymphocytes % 40 % Monocytes % 7 % Eosinophils % 7 % Basophils % 1 % Neutrophils # 2.6 (1.3-7.7) k/uL Lymphocytes # 2.4 (1.0-4.8) k/uL Monocytes # 0.5 (0-1.0) k/uL Eosinophils # 0.4 (0-0.7) k/uL Basophils # 0.0 (0-0.2) k/uL Sodium 138 (137-145) mmol/L Potassium 4.6 (3.5-5.1) mmol/L Chloride 109 H (98-107) mmol/L Carbon Dioxide 18 L (22-30) mmol/L Anion Gap 11 mmol/L BUN 21 H (9-20) mg/dL Creatinine 1.55 H (0.66-1.25) mg/dL Est GFR (CKD-EPI)AfAm 54 (>60 ml/min/1.73 sqM) Est GFR (CKD-EPI)NonAf 47 (>60 ml/min/1.73 sqM) Glucose 82 (74-99) mg/dL Calcium 9.4 (8.4-10.2) mg/dL Magnesium 2.1 (1.6-2.3) mg/dL Total Bilirubin 0.5 (0.2-1.3) mg/dL AST 30 (17-59) U/L ALT 11 (4-49) U/L Alkaline Phosphatase 74 (38-126) U/L Total Protein 6.8 (6.3-8.2) g/dL Albumin 4.0 (3.5-5.0) g/dL Urine Color Yellow Urine Appearance Clear (Clear) Urine pH 5.5 (5.0-8.0) Ur Specific [place] 1.014 (1.001-1.035) Urine Protein Negative (Negative) Urine Glucose (UA) Negative (Negative) Urine Ketones Negative (Negative) Urine Blood Negative (Negative) Urine Nitrite Negative (Negative) Urine Bilirubin Negative (Negative) Urine Urobilinogen <2.0 (<2.0) mg/dL Ur Leukocyte Esterase Negative (Negative) Urine Osmolality (50-1400) mosm/kg Ur Random Sodium (40-220) mmol/L 08/24/21 08/24/21 Range/Units 21:14 21:14 WBC (3.8-10.6) k/uL RBC (4.30-5.90) m/uL Hgb (13.0-17.5) gm/dL Hct (39.0-53.0) % MCV (80.0-100.0) fL MCH (25.0-35.0) pg MCHC (31.0-37.0) g/dL RDW (11.5-15.5) % Plt Count (150-450) k/uL MPV Neutrophils % % Lymphocytes % % Monocytes % % Eosinophils % % Basophils % % Neutrophils # (1.3-7.7) k/uL Lymphocytes # (1.0-4.8) k/uL Monocytes # (0-1.0) k/uL Eosinophils # (0-0.7) k/uL Basophils # (0-0.2) k/uL Sodium (137-145) mmol/L Potassium (3.5-5.1) mmol/L Chloride (98-107) mmol/L Carbon Dioxide (22-30) mmol/L Anion Gap mmol/L BUN (9-20) mg/dL Creatinine (0.66-1.25) mg/dL Est GFR (CKD-EPI)AfAm (>60 ml/min/1.73 sqM) Est GFR (CKD-EPI)NonAf (>60 ml/min/1.73 sqM) Glucose (74-99) mg/dL Calcium (8.4-10.2) mg/dL Magnesium (1.6-2.3) mg/dL Total Bilirubin (0.2-1.3) mg/dL AST (17-59) U/L ALT (4-49) U/L Alkaline Phosphatase (38-126) U/L Total Protein (6.3-8.2) g/dL Albumin (3.5-5.0) g/dL Urine Color Urine Appearance (Clear) Urine pH (5.0-8.0) Ur Specific [place] (1.001-1.035) Urine Protein (Negative) Urine Glucose (UA) (Negative) Urine Ketones (Negative) Urine Blood (Negative) Urine Nitrite (Negative) Urine Bilirubin (Negative) Urine Urobilinogen (<2.0) mg/dL Ur Leukocyte Esterase (Negative) Urine Osmolality 563 (50-1400) mosm/kg Ur Random Sodium 142 (40-220) mmol/L Disposition Is patient prescribed a controlled substance at d/c from ED?: No Time of Disposition: 22:10 <Sukhdeep Yost - Last Filed: 08/24/21 22:10> <Annamarie Mims - Last Filed: 08/25/21 16:42> Clinical Impression: GERALD (acute kidney injury) Disposition: HOME SELF-CARE Condition: Good Instructions (If sedation given, give patient instructions): Dehydration (ED) Additional Instructions: Please drink plenty of fluids. Follow-up with your primary care doctor tomorrow. Return to the emergency room for any worsening symptoms. Referrals: Vincent Nails MD [Primary Care Provider] - 1-2 days
[2021-08-24 21:19] LABS: Appearance,Urine Clear (Clear); Bilirubin,Urine Negative (Negative); Blood,Urine Negative (Negative); Color,Urine Yellow; Glucose,Urine (UA) Negative (Negative); Ketones,Urine Negative (Negative); Leukocyte Esterase,Urine Negative (Negative); Nitrite,Urine Negative (Negative); PH, Urine 5.5 (5.0-8.0); Protein,Urine Negative (Negative); Specific Gravity,Urine 1.014 (1.001-1.035); Urobilinogen,Urine <2.0 mg/dL (<2.0)
[2021-08-24] MEDS ORDERED: SODIUM CHLORIDE 0.9% 1,000 ML IV STA (21:41)
[2021-08-24 21:51] VITALS: BP 110/82; PULSE 72
--- NOTE | 2021-08-24 21:51 | US ---
EXAMINATION TYPE: US kidneys/renal and bladder DATE OF EXAM: 08/24/2021 COMPARISON: CT 06/18/2020 CLINICAL HISTORY: ARF multi renal failure EXAM MEASUREMENTS: Right Kidney: 10.1 x 5.2 x 4.7 cm Left Kidney: 9.6 x 4.7 x 5.0 cm Right Kidney: No hydronephrosis or masses seen Left Kidney: No hydronephrosis or masses seen Bladder: Not fully distended, unable to properly evaluate. Bilateral Jets seen: No *Incidental finding: Multiple hyperechoic areas with posterior shadowing seen within the spleen, larg est appears to measure 0.4 x 0.9 x 0.5 cm, consistent with calcified granulomas. IMPRESSION: No evidence of obstructive uropathy.
== END 2021-08-24 22:39 | disposition home or self-care (01) ==
LOC: EC 17:53
DX: N17.9 Acute kidney failure, unspecified (principal); J44.9 Chronic obstructive pulmonary disease, unspecified; K21.9 Gastro-esophageal reflux disease without esophagitis; E78.5 Hyperlipidemia, unspecified; I10 Essential (primary) hypertension; M19.90 Unspecified osteoarthritis, unspecified site; Z87.891 Personal history of nicotine dependence; Z79.899 Other long term (current) drug therapy
CPT/HCPCS: 36415; 76770; 80053; 81003; 83735; 83935; 84300; 85025; 99284

== ENCOUNTER → 2021-08-30 | Outpatient (CLI) | payer OTHER ==
[2021-08-30 16:12] LABS: HCT 38.7 % (39.0-53.0); HGB 12.9 gm/dL (13.0-17.5); MCH 33.1 pg (25.0-35.0); MCHC 33.4 g/dL (31.0-37.0); MCV 98.9 fL (80.0-100.0); Mean Platelet Volume 10.1; RBC 3.91 m/uL (4.30-5.90); RDW 12.6 % (11.5-15.5); WBC 6.4 k/uL (3.8-10.6)
[2021-08-30 16:13] LABS: Appearance,Urine Clear (Clear); Bilirubin,Urine Negative (Negative); Blood,Urine Negative (Negative); Color,Urine Light Yellow; Glucose,Urine (UA) Negative (Negative); Ketones,Urine Negative (Negative); Leukocyte Esterase,Urine Negative (Negative); Nitrite,Urine Negative (Negative); PH, Urine 5.5 (5.0-8.0); Protein,Urine Negative (Negative); Specific Gravity,Urine 1.003 (1.001-1.035); Urobilinogen,Urine <2.0 mg/dL (<2.0)
[2021-08-30 16:27] LABS: Platelet Count 96 k/uL (150-450)
[2021-08-30 16:31] LABS: Creatinine,Urine Random 39.7 mg/dL; Protein/Creatinine Ratio,Urine 0.277
[2021-08-30 17:05] LABS: Potassium 4.7 mmol/L (3.5-5.1)
[2021-08-30 17:06] LABS: Albumin 4.1 g/dL (3.5-5.0); Calcium 9.7 mg/dL (8.4-10.2); Total Bilirubin 0.7 mg/dL (0.2-1.3)
--- NOTE | 2021-08-30 19:19 | US ---
EXAMINATION TYPE: US kidneys/renal and bladder DATE OF EXAM: 08/30/2021 COMPARISON: US dated 08/24/2021 CLINICAL HISTORY: R79.89 ABN FINDINGS OF BLOOD CHEMISTRY. Abnormal renal labs EXAM MEASUREMENTS: Right Kidney: 9.4 x 5.2 x 5.4 cm Left Kidney: 10.2 x 4.5 x 4.1 cm Right Kidney: Appeared wnl Left Kidney: No evidence of hydro, no evident mass bilaterally Bladder: wnl Bilateral Jets seen: No There is no evidence for hydronephrosis at this point in time. No nephrolithiasis is seen. No darcy s are identified. Kidneys show normal cortical medullary differentiation. The urinary bladder is anec hoic. IMPRESSION: No interval change compared to prior exam.
== END | disposition home or self-care (01) ==
LOC: RADUSWWP 15:35
PROVIDERS: ATTEND Family Medicine
DX: R79.89 Other specified abnormal findings of blood chemistry (principal)
CPT/HCPCS: 36415; 76770; 80053; 81003; 82570; 84100; 84156; 85027

== ENCOUNTER → 2021-09-06 | Outpatient (CLI) | payer OTHER | END | disposition home or self-care (01) | LOC: LABPAT 13:29 | PROVIDERS: ATTEND Orthopaedic Surgery | DX: Z01.812 Encounter for preprocedural laboratory examination (principal); Z22.322 Carrier or suspected carrier of Methicillin resistant Staphylococcus aureus; M48.02 Spinal stenosis, cervical region | CPT/HCPCS: 87070 ==

== ENCOUNTER 2021-09-14 05:46 | Inpatient (IN) | payer OTHER ==
--- NOTE | 2021-09-13 15:06 | P.HPOR ---
History of Present Illness H&P Date: 09/08/21 Chief Complaint: Neck pain, UE radiculopathy Date of :[birth year] Age: 65 year Height: 5'7" Weight: 159 lbs BP:130/85 BMI: 24.90 kg/m2 Occupation: Retired VAS: 8 CHIEF COMPLAINT: Cervical pain HISTORY: Xrays no new xrays reviewed today Trauma or injury No Work-Related No Pain description aching, sharp. Location diffuse Activity Modification yes , patient notes that he is unable to complete most of his daily activities including chores and yardwork due to the severity of his symptoms. Hand Dominance right DOI: Acute on chronic, no injury or trauma. DOS: None TREATMENTS COMPLETED: 6 weeks of PT completed? Yes How many sessions? 12 Did it help? No Physician directed home exercise completed? yes , without improvement. Medications yes List: Aleve, Tylenol, Lyrica without improvement. Alternative interventions Chiropractic?: No Brace: No Injections Yes Did they help? No SUBJECTIVE: Today the patient presents for his pre-operative appointment regarding his cervical spine. Since the time of the last appointment he notes that his symptoms have continued to persist with no improvements with conservative treatments. Overall he notes that he is ready to proceed with the scheduled procedure. All questions and concerns were addressed. Patient continues to deny any bladder or bowel issues, no perineal numbness/tingling, and ambulates without the use of any aides. HPI: Mr. Bingham last presented to the office on 07/01/2021 for a follow up evaluation of his neck pain. Since the time of the last appointment he notes that his symptoms have not improved significantly. Regarding his symptoms, he describes it as at the midline of the neck that radiates into the bilateral upper extremities. The patient was previously scheduled for a surgery but was not cleared for it. As for treatments, he notes that he has been doing home exercises but this has not improved his symptoms. Otherwise he has failed all other conservative treatments tried in the past. Patient is currently taking Lyrica without any improvements to his symptoms. Otherwise the patient presents to the office without the use of any ambulatory aides. David did note that he did quit smoking 1 week ago. Mr. Bingham was last seen on 03/10/2021 regarding sudden onset of neck pain. At that time, he was scheduled for surgery but was not cleared. Additionally, at that time he noted that his symptoms had not improved from his prior visit on 02/01/2021. These symptoms included pain with walking and difficulty laying flat, numbness that radiated down his bilateral lower extremities, radicular pain down the lateral side of the right arm and occasionally his left upper extremity, and difficulty with fine motor skills/myelopathic gait. Patient had tried Lyrica and Tylenol without improvements to his symptoms. Patient did present to the office without the use of any ambulatory aides. The patients' past social, medical, family, surgical history, as well as review of systems, have been reviewed. Please refer to the Neurosurgery History and Physical form that has been scanned in to our electronic medical record system. 14 points review of systems completed and as stated in HPI, all other systems reviewed are negative. Review of Systems All systems: negative Constitutional: Reports as per HPI Past Medical History Past Medical History: Cancer, COPD, GERD/Reflux, GI Bleed, Hyperlipidemia, Hypertension, Liver Disease, Osteoarthritis (OA), Prostate Disorder Additional Past Medical History / Comment(s): RESTLESS LEG. " in 2004 esophagus was bleeding and ulcers in stomach", Prostate cancer, cirrhosis, History of Any Multi-Drug Resistant Organisms: None Reported Past Surgical History: Prostate Surgery Additional Past Surgical History / Comment(s): CATARACT SURGERY-BILATERAL, prostatectomy, COLONOSCOPY/EGD, BACK INJECTIONS, laser eye surgery for glaucoma Past Anesthesia/Blood Transfusion Reactions: No Reported Reaction Past Psychological History: No Psychological Hx Reported Additional Psychological History / Comment(s): denies Smoking Status: Former smoker Past Alcohol Use History: None Reported Additional Past Alcohol Use History / Comment(s): quit smoking cigars 4 months ago, quit smoking cigarettes 5 yrs ago, started smoking age 15, Patient reportedly stopped drinking 3 weeks ago, states hx of alcoholism Past Drug Use History: Marijuana Additional Drug Use History / Comment(s): marijuana - Past Family History Sister(s) Family Medical History: Cancer Brother(s) Family Medical History: Cancer Additional Family Medical History / Comment(s): throat cancer Mother Family Medical History: COPD Additional Family Medical History / Comment(s): of COPD Father Additional Family Medical History / Comment(s): of alcoholism Medications and Allergies Home Medications Medication Instructions Recorded Confirmed Type Omeprazole [PriLOSEC] 20 mg PO BID 10/14/15 09/09/21 History Simvastatin [Zocor] 10 mg PO HS 10/14/15 09/09/21 History Pregabalin [Lyrica] 150 mg PO BID 03/17/19 09/09/21 History Lisinopril [Prinivil] 10 mg PO QAM 04/30/20 09/09/21 History Multivit-Min/FA/Lycopen/Lutein 1 tab PO DAILY 04/30/20 09/09/21 History [Centrum Silver Men Tablet] Potassium Chloride [Klor-Con 20] 20 meq PO BID 04/30/20 09/09/21 History Spironolactone 100 mg PO QAM 06/18/20 09/09/21 History Acetaminophen/Diphenhydramine 1 tab PO HS PRN 03/10/21 09/09/21 History [Tylenol PM 500-25mg] Albuterol Sulfate [Proventil Hfa] 1 puff INHALATION Q4-6H PRN 03/10/21 09/09/21 History Ipratropium-Albuterol Nebulize 3 ml INHALATION RT-QID PRN 03/10/21 09/09/21 History [Duoneb 0.5 mg-3 mg/3 ml Soln] Naproxen Sodium [Aleve] 220 - 440 mg PO Q6H PRN 09/09/21 09/09/21 History oxyCODONE HCL/ACETAMINOPHEN 1 tab PO Q6H PRN 09/09/21 09/09/21 History [oxyCODONE HCL/ACETAMINOPHEN 5-325] Allergies Allergy/AdvReac Type Severity Reaction Status Date / Time No Known Allergies Allergy Verified 09/09/21 09:26 Physical Examination Osteopathic Statement: *. No significant issues noted on an osteopathic structural exam other than those noted in the History and Physical/Consult. PHYSICAL EXAMINATION: General: Awake, alert, appropriate for age, in no acute distress. HEENT: No unusual neck masses around region of lateral neck triangle, thyroid, supraclavicular groove Heart: Regular rate and rhythm, normal S1, S2 and no murmur/gallop. Lungs: Clear to auscultation bilaterally with no use of accessory muscles. Extremities: Skin warm and dry without acute lesions, coloration, temperature, skin intact, no tenderness or erythema Integument: Hairy patches: Absent Dorsal skin dimples: Absent Cafe au lait spots: Absent Surgical incisions: No Palpation: Please see Pain drawing on Intake sheet for further detail. Midline spinal tenderness: No E6 Paralumbar tenderness: No E6 Parathoracic tenderness: No E6 Buttocks tenderness: No E6 Special findings: Mild Cervical ttp posterior midline and ct junction POSTURAL and MUSCULO-SKELETAL EVALUATION: Coronal Balance: NEUTRAL Recumbent testing: Patient is able to lay flat on back Sagittal Balance: Pos Shoulder Profile: LEVEL Pelvic Girdle: LEVEL Neck ROM: RESTRICTED secondary to pain Lumbar ROM: UNRESTRICTED Shoulder ROM: Symmetrical Hip ROM: Symmetrical Knee ROM: Symmetrical Hands: Normal appearance, symmetrical Feet: Normal appearance, Symmetrical VASCULAR STATUS : LEFT RIGHT Wrist Pulses INTACT INTACT Pedal Pulses (Dors. pedis & post.tibialis) INTACT INTACT Color NORMAL NORMAL Edema Absent Absent NEUROLOGIC EXAMINATION: Mental Status:Awake and alert, fully oriented, with normal attention, concentration and memory, and fluent, appropriate speech. Cranial Nerves: I: Olfactory not tested. II: Visual acuity normal, no visual field deficit noted with confrontation. III,IV: Normal pupillary reflexes & intact extraocular movements without nystagmus. V,: Intact symmetrical facial sensation. VII: Intact symmetrical facial motor movement VIII: Hearing intact. IX,X: Intact gag, swallow, & normal voice. XI: Sternocleidomastoid, trapezius function intact. XII: Tongue midline with normal movements. L'hermitte's Sign: Negative / absent Spurling'Sign: Absent bilaterally. Cubital percussion test: Absent bilaterally. Sofi-Tinel sign - Carpal region: Absent bilaterally. Straight Leg Raising: Absent bilaterally. Crossed straight leg raise: negative O8 MOTOR EXAM (0-5/5, N/T) STRENGTH RIGHT LEFT Shoulder Abd (not part of the CLIFF score) 4 5 Elbow Flexors 4 5 Elbow Extensor 5 5 Wrist Dorsiflexors 5 5 Finger Abductor 5 5 [employer] 4 4 Hip Flexor (Not part of CLIFF Motor score) 5 5 Knee Flexor 5 5 Knee Extensor 5 5 Ankle dorsiflexor 4 4 Ankle plantarflexion 4 5 Extensor hallucis 5 5 REFLEXES(0-4/2, NT) RIGHT LEFT Upper Extremities 1 3 Lower Extremities 2 2 Pathological Reflexes RIGHT LEFT Leroy's Present Absent Clonus Absent Absent Babinski Absent Absent # Indicates mechanical impairment Muscle appearance: Symmetrical, without signs of atrophy or dystrophy. Sensory system (0-4, N/T) Test type RU CLAUDIA RL LL Joint-Position 2 2 2 2 Vibration 2 2 2 2 Pain & LT sense 2 2 2 2 Dermatomal Deficit: C4-5 C4-6 None None Gait and Functional Evaluation: Ambulatory aids: Independent Romberg's test: Intact bilaterally Toe heel walk / heel-toe walk intact while maintaining satisfactory balance? No Squatting/straightening w/o assistance to a min of 60 degree knee flexion? No Single leg stance: Unable to stand on one leg due to his myelopathic symptoms. Trendelenburg sign negative bilaterally Hand and finger dexterity intact bilaterally? No Disdiadochokinesis examination negative bilaterally? yes Results RADIOGRAPHIC STUDIES: x-rays and MRI of the cervical spine are obtained and reviewed. Cervical spine x-rays demonstrate straight spondylosis from C4 to C7. Most severe at C4 5 5 6 and C6 7. He does have a mild grade 1 spondylolisthesis of C4 and C5 although this is likely stable. There are no fractures or dislocations occipital cervical and C1 2 joints appear stable. AP lateral flexion extension films of the lumbar spine are obtained and reviewed in the office today. This demonstrates a grade 3 spondylolisthesis spondylolysis of the L5-S1 region. This accentuates on flexion films and reduces on extension films however it only reduces to a grade 2-1/2. There is elongation of the pars in this area. There is spondylolysis bilaterally which is noted. There is facet arthrosis and stenosis noted. The remainder the spine appears to be in good alignment with good disc height and vertebral heights with no fractures or dislocations otherwise. AP pelvis demonstrates congruent femoral last having joints level pelvis and no fractures or dislocations CTA of the head and neck reviewed: See report for brain findings. Ct of C spine shows: large dilation of vertebral artery at C3-4 region on the right. There is some erosion into the uncovertebral joint but no evidence of erosion into the disc space. There is still kyphosis at C3-6 with spondylosis and stenosis that is moderate to severe. There is ankylosis of C6-7 noted. No fracture or dislocation. C1-2 and C01- appear WRL. C spine shows C4-7 spondylosis with starting of OPLL at these levels as well. I suspect stenosis at these levels. Pt has a tortuours and large VA b/l with large bony erosions secondary to this. There are no fractures or dislocations noted. This reflects the previous MRI imaging noted. No other fractures or dislocations noted. MRI of the lumbar spine is reviewed and demonstrates again the grade 3 spondylolisthesis spondylolysis of the L5-S1 region. There is severe central and foraminal stenosis secondary to this with L5 nerve root encroachment bilaterally. L4 5 disc desiccation is noted with an annular tear at L4 5 and mild stenosis noted. There are no other fractures or dislocations noted. There are no lesions. Assessment and Plan Assessment: 1. Severe cervical spondylosis C3-7 2. Cervical stenosis C3-7 3. C3-4 Grade 1 spondylolisthesis 4. C4-5 Grade I spondylolisthesis 5. Cervical spondylotic myelopathy Plan: 1. I explained to the patient that as his condition progresses it could cause progressive symptoms progressive deformity . At this time, based on the patients imaging and physical exam, I recommend surgery in the form or a: C3 to C6 ACDF with posterior C2 to T2 decompression fusion. I discussed the risk and benefits of this procedure at length with Mr. Bingham. The patient agreed to consider pursuing the procedure mentioned above. Spine Surgery Risk Review David Bingham is a 66 y/o white male presenting for evaluation of cervical pain with bilateral upper extremity radiculopathy with weakness. It was my pleasure to have seen and examined David Bingham. In our visit today we have had a chance to go over subjective complaints, physical examination findings and treatments including the natural course history without intervention and various interventional options. The patients imaging demonstrates MRI: grade 3 spondylolisthesis spondylolysis of the L5-S1 region. There is severe central and foraminal stenosis secondary to this with L5 nerve root encroachment bilaterally. L4 5 disc desiccation is noted with an annular tear at L4 5 and mild stenosis noted. There are no other fractures or dislocations noted. There are no lesions. CT scan: large dilation of vertebral artery at C3-4 region on the right. There is some erosion into the uncovertebral joint but no evidence of erosion into the disc space. There is still kyphosis at C3-6 with spondylosis and stenosis that is moderate to severe. There is ankylosis of C6-7 noted. No fracture or dislocation. C1-2 and C01- appear WRL.C spine shows C4-7 spondylosis with starting of OPLL at these levels as well. I suspect stenosis at these levels. Pt has a tortuours and large VA b/l with large bony erosions secondary to this. There are no fractures or dislocations noted. This reflects the previous MRI imaging noted. No other fractures or dislocations noted.Xrays: Cervical spine x-rays demonstrate straight spondylosis from C4 to C7. Most severe at C4 5 5 6 and C6 7. He does have a mild grade 1 spondylolisthesis of C4 and C5 although this is likely stable. There are no fractures or dislocations occipital cervical and C1 2 joints appear stable. On physical exam, David Bingham demonstrates bilateral upper extremity weakness and radiculopathy . I have explained to the patient that as their condition progresses it will cause further neurological deficits and eventual paralysis. Based on the patients imaging, physical exam, and the rapid progression and disabling nature of their symptoms, at this time I recommend surgery in the form or a: C3 to C6 ACDF with posterior C2 to T2 decompression fusion. I discussed the risk and benefits of this procedure at length with David Bingham. The patient and his agreed to considered pursuing the procedure abovementioned. Prior to surgery, she should follow up with her PCP (Cardio, ID, IM etc) for clearance. Questions were invited and answered, and the patient wishes to proceed as outlined below. Currently, I am recommendin.C3 to C6 ACDF with posterior C2 to T2 decompression fusion 2.Follow up with PCP for surgical clearance 3.Review of surgical risks and benefits as well as an educational packet on the proposed surgical procedure. Risks: All surgical procedures come with inherent risks, including those related to positioning, anesthesia, intraoperative findings, and postoperative complications. It is important to understand that surgery does not come with any guarantee of a successful outcome as complications and adverse events are always possible. The patient was given a handout in office today discussing the surgical procedure and risks associated with the intervention, both of which were discussed with the patient. These risks include but are not limited to the following: * Experiencing same, different or even worse symptoms in back, neck, arms, or legs compared to before surgery. Requiring further surgery or other forms of treatment presently or at some time in the future at same or other levels of the intended spine surgery. On an extreme but fortunately relatively rare basis severe complication such as blindness, stroke, heart attack, temporary and/or permanent nerve injury, paralysis, coma, or may occur, sometimes without known explanation. Surgical complications may include but are not limited to risk of infect ion, fluid accumulation in the surgical dissection site, including a seroma or hematoma, that requires additional surgery, wound drainage, bleeding, new numbness or weakness, vision changes/loss, spinal fluid leakage, non-healing and/or infected incision, headaches, difficulty or inability to swallow, hoarseness, hemopneumothorax, pneumothorax, impotence, retrograde ejaculation, vaginal dryness; injury to nerves, spinal cord, blood vessels, lymphatics or other vital organs (i.e., bowel injury, injury to the great vessels); heterotopic bone formation; complications related to the hardware such as screws, rods, cages including misplaced hardware, device failure, instrumentation at the wrong spine level, hardware fracture/breakage, or hardware loosening; vertebral failure of the spinal column above or below the newly placed hardware; retained surgical instrumentations or devices and the need for further surgery. * Medical risks of the planned spine surgery include but are not limited to generalized Infections to the whole body or local areas outside of the surgical site (sepsis), heart attack, bleeding, anaphylaxis, meningitis, seizure, epilepsy, hearing loss, burn fleming, laceration of the head or other areas of the body, bruising, hypersensitivity of the skin, bladder over distension; allergic reaction; shoulder injury related to positioning; fat, blood and air clots to other areas of the body like heart, lungs, brain; failure of internal organs such as lungs, kidneys, liver and excessive bleeding. If blood transfusions are necessary, note that transfusions may cause intolerance reactions such as anaphylaxis or other complex reactions. Despite best efforts, the results of spine surgery might not heal in terms of bone, soft tissues such as skin, fascia, ligaments, and joints. Additionally, in order to achieve best possible results, spine surgery may be carried out beyond the initially planned levels and involve decompression, fusion including insertion of hardware at levels other than the original intended area of surgical interest change some portions of the procedure in order to ensure the best possible outcomes. With spine surgery and spinal fusion, there are different off label uses of instrumentation (devices, implants and hardware) as well as biological substances (bone morphogenic proteins, demineralized bone matrix) as well as using extra bone from allograft sources (i.e. cadaver bone) or autograft (iliac crest bone, ribs, or the spine itself). The patient has been given information about these practices and their inherent risks and benefits. [facility] is an educational center that serves as a training facility for neurosurgical and orthopedic spine residents and fellows. Residents are physicians who are completing their surgical intensive training following medical school. They assist in the operating room with direct supervision of the attending surgeons. [place] are surgeons who have completed their training and eligible for board certification. They have opted for an elective year of more specialized training in their field. They assist in the operating room under the supervision of the attending surgeons. Physician assistants are medically trained surgical providers who function in the outpatient, inpatient, and operating room setting under the direct supervision of the attending surgeon. [facility] has multiple operating rooms with single and overlapping rooms running daily. They currently function under the required guidelines as produced by the [facility] Finance Committee with regards to the overlapping rooms and will continue to comply with changes to this policy as they occur. The requirements include and are complied with as follows: (1) the critical portions of the overlapping rooms will not occur at the same time, (2) the attending physician will be physically present during the critical portions of the procedure and immediately available during the entire case, and (3) a back-up attending is designated should the primary attending not be immediately available. The patient has had a chance to review all the listed information, has been given print outs detailing this information, and has had all his/her questions answered to their satisfaction. It was my pleasure to have seen and examined David Bingham. In our visit today we have had a chance to go over my understanding of our patient's current condition, the natural course history without intervention and various interventional options. Questions were invited and answered, and the patient wishes to proceed as outlined above. I have seen and examined the patient for 25 minutes and we have spent more than 50% of the time in repeat and detailed counseling about the patient's condition, its natural course history with out and as much as can be predicted with surgery and re-review of various surgical treatment options. In conclusion, David Bingham and his spouse requested we proceed with the above suggested surgery and are willing to accept risks and limitations of the suggested surgery as nature of the disease process and our best attempts at treatment for the condition. Thank you again for allowing us to be part of your patient's care. Please don't hesitate to contact me if you have any further questions. Signed and authenticated by: Doug Boykin [facility] [address] [place] [address]
[~2021-09-14 05:46] MED LIST changes: +ACETAMINOPHEN TAB 500 MG TAB PO PRN; +GABAPENTIN 300 MG CAP PO PRN; -LACTATED RINGERS 1,000 ML IV SCH; -LIDOCAINE 1% 20 ML VIAL (10MG/ML) FOR IV START INTRADERMA PRN; -MIDAZOLAM 2 MG/2 ML VIAL IV PRN; +ONDANSETRON 4 MG/2 ML VIAL IVP PRN
[2021-09-14] MEDS ORDERED: DEXAMETHASONE SOD PHOSPHATE 4 MG/ML 1 ML VIAL IV ONE (05:52)
[2021-09-14] MEDS ORDERED: ONDANSETRON 4 MG/2 ML VIAL IVP ONE (05:52)
[2021-09-14] MEDS: LACTATED RINGERS 1,000 ML IV SCH ×2 (06:42→07:35)
[2021-09-14] MEDS ORDERED: LIDOCAINE 1% (10MG/ML) FOR IV START INTRADERMA ONE (06:42)
[2021-09-14] MEDS ORDERED: TRANEXAMIC ACID 1,000 MG in SODIUM CHLORIDE 0.9% 100 ML IVPB ONE ×5 (06:50→06:57)
[2021-09-14] MEDS ORDERED: ROCURONIUM 10 MG/ML (5 ML VIAL) IV ONE (07:15)
[2021-09-14] MEDS ORDERED: MIDAZOLAM 2 MG/2 ML VIAL ONE (07:15)
[2021-09-14] MEDS ORDERED: NEOSTIGMINE 1 MG/ML 10 ML VIAL ONE (07:15)
[2021-09-14] MEDS ORDERED: KETAMINE 10 MG/ML 20 ML VIAL ONE (07:15)
[2021-09-14] MEDS ORDERED: fentaNYL (PF) 50 MCG/ML 2 ML AMP ONE (07:15)
[2021-09-14] MEDS ORDERED: TRANEXAMIC ACID 1,000 MG/10 ML VIAL ONE (07:15)
[2021-09-14] MEDS ORDERED: diphenhydrAMINE 50 MG/ML 1 ML VIAL ONE (07:15)
[2021-09-14] MEDS ORDERED: DEXAMETHASONE SOD PHOSPHATE 10 MG/ML 1 ML VIAL ONE (07:15)
[2021-09-14] MEDS ORDERED: GLYCOPYRROLATE 0.2 MG/ML 2 ML VIAL ONE (07:15)
[2021-09-14] MEDS ORDERED: ceFAZolin 1,000 MG VIAL ONE (07:15)
[2021-09-14] MEDS ORDERED: SUCCINYLCHOLINE CHLORIDE 100 MG/5 ML SYR IV ONE (07:15)
[2021-09-14] MEDS ORDERED: PROPOFOL 10 MG/ML 20 ML VIAL IV ONE (07:15)
[2021-09-14] MEDS ORDERED: ONDANSETRON 4 MG/2 ML VIAL ONE (07:15)
[2021-09-14] MEDS ORDERED: PHENYLEPHRINE-0.9% NACL SYG 1,000 MCG/10 ML SYRINGE ONE (07:15)
[2021-09-14] MEDS ORDERED: SODIUM CHLORIDE 0.9% 100 ML BAG ONE ×2 (07:15)
[2021-09-14] MEDS ORDERED: MIDAZOLAM 2 MG/2 ML VIAL IV ONE ×2 (07:17→15:50)
[2021-09-14] MEDS ORDERED: fentaNYL (PF) 50 MCG/ML 2 ML AMP IV ONE (07:17)
[2021-09-14] MEDS ORDERED: LIDOCAINE 2%-EPI 1:100,000 20 ML VIAL SQ ONE ×2 (07:35→08:29)
[2021-09-14] MEDS ORDERED: THROMBIN (BOVINE) 5,000 UNIT VIAL TOPICAL ONE ×2 (07:35→08:29)
[2021-09-14] MEDS ORDERED: GELATIN SPONGE,ABSORB (LARGE) 1 EACH SPONGE TOPICAL ONE ×2 (07:35→08:29)
[2021-09-14] MEDS ORDERED: LACTATED RINGERS 1,000 ML IV ONE ×2 (07:40→11:05)
--- NOTE | 2021-09-14 10:14 | P.ANPRN ---
Procedure Note - Anesthesia - Invasive Line Left Central Line Time Out Performed: Yes (717) Date of Procedure: 09/14/21 (718) Time of Procedure: 07:18 Location of Patient: PreOp Preparation: Sterile Prep, Sterile Dressing Arterial Line Location: Radial (l) Ultrasound Used: Yes Purpose - Visualization and Identification of Vasculature: Yes Needle Guage: 18g angiocath Image Stored and Saved: Yes Narrative: Central line placement per sterile protocol utilized. Sterile protocol. +local +CVP +angio +jwire +uneventful introduction left IJ double lumen catheter. Both lumens bled and flushed. Non-pulsitle.
[2021-09-14] MEDS ORDERED: VANCOMYCIN 1,000 MG VIAL MISCELLANE ONE (13:53)
--- NOTE | 2021-09-14 14:28 | FL ---
Fluoroscopy INDICATION: Pain FINDINGS: Fluoroscopy time: 1 minute 42 seconds. Images obtained: 12. Intraoperative fluoroscopy documenting cervical fusion. IMPRESSIONS: 1. Documentation of fluoroscopy.
--- NOTE | 2021-09-14 14:39 | XR ---
Limited cervical spine HISTORY: Cervical spondylosis 11 intraoperative images document the procedure. See dictated report from orthopedic surgery.
[2021-09-14] MEDS ORDERED: ONDANSETRON 4 MG/2 ML VIAL IVP PRN (14:48)
[2021-09-14] MEDS ORDERED: SENNOSIDES-DOCUSATE SODIUM 1 EACH TAB PO PRN (14:48)
[2021-09-14] MEDS ORDERED: bisacodyL 10 MG SUPP RECTAL PRN (14:48)
[2021-09-14 15:08] LABS: Glucose,Whole Blood 137 mg/dL (75-99)
[2021-09-14] MEDS: HYDROmorphone 0.5 MG/0.5 ML SYRINGE IVP PRN ×5 (15:40→23:33)
[2021-09-14] MEDS ORDERED: ALBUTEROL NEBULIZED 2.5 MG/3 ML INHALATION PRN (19:15)
[2021-09-14] MEDS: ACETAMINOPHEN TAB 500 MG TAB PO SCH ×2 (19:47→23:15)
[2021-09-14] MEDS: IPRATROPIUM-ALBUTEROL 3 ML NEB INHALATION SCH (19:50)
--- NOTE | 2021-09-14 21:13 | CONS ---
CONSULTATION REASON FOR CONSULTATION: Advice regarding COPD and other medical issues requested by Dr. Early. HISTORY OF PRESENT ILLNESS: This 66-year-old gentleman with past medical history of COPD, GERD, GI bleed, hypertension, hyperlipidemia, liver disease being followed by Dr. Nails in the outpatient setting, underwent decompression fusion C2-T2 by Dr. Early for severe cervical spondylosis and cervical stenosis C3-C7. There is no history of fever or rigors. No history of headache, loss of consciousness. The patient is slightly drowsy postoperatively at this time. The pulse ox is not available. PAST MEDICAL HISTORY: History of COPD, GERD, GI bleed, hypertension, hyperlipidemia, history of liver disease. MEDICATIONS: Home medications prior to admission include oxycodone, Aldactone, Zocor, Lyrica, Klor- Con, Prilosec, Aleve, Centrum Silver. Doses and other medication also reviewed. ALLERGIES: None. FAMILY HISTORY: History of throat cancer in the family. SOCIAL HISTORY: Previous history of smoking. No history of alcohol intake. REVIEW OF SYSTEMS: Could not be taken, the patient is slightly drowsy after surgery. PHYSICAL EXAMINATION: Pulse is 71. Blood pressure 123/70, respirations 16, temperature 98.2, pulse ox 99% on 2 L. HEENT: Conjunctivae normal. NECK: No JVD. CARDIOVASCULAR: S1, S2 muffled. RESPIRATION: Breath sounds diminished in the bases. A few scattered rhonchi heard. No crackles. ABDOMEN: Soft, nontender. No mass palpable. LEGS: No edema. No swelling. NERVOUS SYSTEM: Higher functions as mentioned earlier. Moves all four extremities. LYMPHATICS: No lymph nodes palpable in the neck, axillae or groin. SKIN: No ulcer, no rash and no bleeding. JOINTS: No active deforming arthropathy. Examination of the neck is status post surgery. LABS: Glucose is 137. The preop labs are hematology: Hemoglobin is 12.9, platelets are 96. Chemistry was sodium 135, creatinine is 1.49. ASSESSMENT: 1. Status post C2-T2 decompression fusion for previous cervical spondylosis and cervical stenosis. 2. Chronic obstructive pulmonary disease. 3. Thrombocytopenia. 4. Hyponatremia. 5. Increased creatinine with possibly chronic kidney disease stage 2. 6. History of chronic obstructive pulmonary disease. 7. History of gastroesophageal reflux disease. 8. History of gastrointestinal bleed. 9. Hypertension. 10.Hyperlipidemia. 11.History of chronic liver disease. 12.History of degenerative joint disease. 13.History of prostate disorder. 14.History of esophageal ulcer apparently. 15.History of prostate cancer. 16.History of cirrhosis of the liver. 17.History of cataracts. 18.History of nicotine dependence. 19.Remote history of nicotine dependence. 20.History of THC. 21.FULL CODE. RECOMMENDATIONS AND DISCUSSION: This 66-year-old gentleman who presented after surgery, at this time, I recommend to continue the current medications, management and symptomatic treatment. Resume the home medications. Recommend CBC, CMP, monitor closely. Ensure oxygenation. Otherwise, we will follow the patient closely with you. The patient may be asked to follow up with Dr. Nails closely after discharge. Thank you Dr. Early for letting us participate in the care of this patient. MICHELLEL / CHRISN: [id number] /
[2021-09-14] MEDS: ATORVASTATIN 10 MG TAB PO SCH (21:40)
[2021-09-14] MEDS: PANTOPRAZOLE 40 MG TABLET PO SCH (21:40)
[2021-09-14] MEDS: PREGABALIN 75 MG CAP PO SCH (21:40)
[2021-09-14] MEDS: POTASSIUM CHLORIDE ER 20 MEQ TAB.ER PO SCH (21:40)
[2021-09-14] MEDS: 0.9% NACL WITH KCL 20 MEQ/L 1,000 ML IV SCH (21:40)
--- NOTE | 2021-09-14 21:51 | CT ---
EXAMINATION TYPE: CT cervical spine wo con DATE OF EXAM: 09/14/2021 COMPARISON: 10/26/2020 HISTORY: c2-t1 fusion CT DLP: 466.4 mGycm Automated exposure control for dose reduction was used. Images are obtained from the level of the sella turcica to the T3 vertebral body without contrast. Normal alignment. There is multilevel posterior fusion surgery from C2 to T1 vertebra. There is some degenerative disc space narrowing at C6-7. There is anterior fusion surgery in the lower and mid cerv ical spine. There are posterior skin jairon. There is some soft tissue air related to the recent peter jose enrique. Prevertebral soft tissues are intact. Trachea is intact. There is posterior drainage catheter a t the C4 level. IMPRESSION: Multilevel fusion surgery. Extensive soft tissue air. No focal bone destruction. No pathologic fluid collection seen.
[2021-09-14] MEDS: CYCLOBENZAPRINE 10 MG TAB PO PRN (23:15)
[2021-09-15] MEDS: HYDROmorphone 0.5 MG/0.5 ML SYRINGE IVP PRN ×5 (02:45→20:55)
[2021-09-15] MEDS: ACETAMINOPHEN TAB 500 MG TAB PO SCH ×4 (05:11→23:22)
[2021-09-15] MEDS: LACTATED RINGERS 1,000 ML IV SCH (05:16)
[2021-09-15 06:53] LABS: Basophils % (A) 0 %; Eosinophils % (A) 0 %; HGB 12.1 gm/dL (13.0-17.5); Lymphocytes # (A) 0.7 k/uL (1.0-4.8); Lymphocytes % (A) 6 %; MCHC 34.5 g/dL (31.0-37.0); MCV 95.9 fL (80.0-100.0); Mean Platelet Volume 10.8; Monocytes # (A) 1.1 k/uL (0-1.0); Monocytes % (A) 9 %; Neutrophils % (A) 83 %; RBC 3.65 m/uL (4.30-5.90); RDW 12.1 % (11.5-15.5); WBC 12.1 k/uL (3.8-10.6)
[2021-09-15] MEDS: 0.9% NACL WITH KCL 20 MEQ/L 1,000 ML IV SCH ×2 (07:39→19:39)
[2021-09-15] MEDS: IPRATROPIUM-ALBUTEROL 3 ML NEB INHALATION SCH ×4 (07:45→19:57)
[2021-09-15 08:39] LABS: Platelet Count 91 k/uL (150-450)
[2021-09-15] MEDS: PANTOPRAZOLE 40 MG TABLET PO SCH ×2 (09:18→20:25)
[2021-09-15] MEDS: POTASSIUM CHLORIDE ER 20 MEQ TAB.ER PO SCH ×2 (09:18→20:25)
[2021-09-15] MEDS: SPIRONOLACTONE 25 MG TAB PO SCH (09:19)
[2021-09-15] MEDS: lisinopriL 10 MG TAB PO SCH (09:19)
[2021-09-15] MEDS: PREGABALIN 75 MG CAP PO SCH ×2 (09:19→20:25)
[2021-09-15 09:21] LABS: African American GFR (CKD) 61.1 (60.0-200.0); Albumin/Globulin Ratio 2.11 (1.60-3.17); Anion Gap 10.8 mmol/L (10.00-18.00); BUN/Creat Ratio 15.07 Ratio (12.00-20.00); Blood Urea Nitrogen 21.1 mg/dL (9.0-27.0); Calcium 9.4 mg/dL (8.7-10.3); Carbon Dioxide 19.2 mmol/L (20.0-27.5); Globulin 1.9 g/dL (1.6-3.3); Magnesium 1.8 mg/dL (1.5-2.4); Non-African American GFR(CKD) 52.7 (60.0-200.0); Potassium 4.7 mmol/L (3.5-5.5); Total Bilirubin 0.4 mg/dL (0.30-1.20); Total Protein 5.9 g/dL (6.2-8.2)
[2021-09-15] MEDS: CYCLOBENZAPRINE 10 MG TAB PO PRN (13:08)
--- NOTE | 2021-09-15 13:11 | P.PN ---
Subjective Progress Note Date: 09/15/21 Pt s/e doing well sitting up in bed. C/o pain in his neck. No pain or difficulty with swallowing. No new numbness/tingling, weakness in his arms or legs. States no other issues. HAs not been up with PT yet. Objective - Vital Signs Vital signs: Vital Signs Temp 97.8 F 09/15/21 11:13 Pulse 84 09/15/21 11:39 Resp 20 09/15/21 11:13 BP 150/87 09/15/21 11:13 Pulse Ox 95 09/15/21 11:13 Intake & Output 09/14/21 09/15/21 09/15/21 18:59 06:59 18:59 Intake Total 2450 100 Output Total 850 2630 30 Balance 1600 -2530 -30 Weight 72 kg Intake: IV 2450 Oral 100 Output: Drainage 30 30 Anterior Neck 15 30 Posterior Neck 15 Urine 600 2600 Coude 1600 Estimated Blood Loss 250 Other: Voiding Method Indwelling Catheter Indwelling Catheter - Exam Patient is alert and oriented 3 appears well-nourished well-hydrated is in no acute distress. They does not appear septic. On exam the patient has minimal tenderness to palpation of his C spine There is no edema or ballottement sign. Lower extremities with 5 out of 5 strength in all major muscle groups Upper extremities show 5/5 strength in all major muscle groups. There is FROM that is painless of the b/l UE and LE in all major joints. They are intact to light touch sensation in L2 to S1 nerve distribution as well as C5-T1 Patient has palpable dorsalis pedis was posterior tibial pulses. Compartments are soft and compressible. Patient shows a negative Homans, Leroy's, negative Babinski's negative clonus bilaterally. negative straight leg raise bilaterally. No tensioning signs. Cranial nerves II through XII are grossly intact. Overall alignment is well-maintained in the sagittal coronal planes. Incisions CDI. Drains put out 20-4 overnight. Will keep today. - EENT Eyes: Present: PERRLA - Labs CBC & Chem 7: 09/15/21 06:31 09/15/21 06:31 Labs: Abnormal Lab Results - Last 24 Hours (Table) 09/14/21 09/15/21 09/15/21 Range/Units 15:05 06:31 06:31 WBC 12.1 H (3.8-10.6) k/uL RBC 3.65 L (4.30-5.90) m/uL Hgb 12.1 L (13.0-17.5) gm/dL Hct 35.0 L (39.0-53.0) % Plt Count 91 L (150-450) k/uL Neutrophils # 10.0 H (1.3-7.7) k/uL Lymphocytes # 0.7 L (1.0-4.8) k/uL Monocytes # 1.1 H (0-1.0) k/uL Carbon Dioxide 19.2 L (20.0-27.5) mmol/L Est GFR (CKD-EPI)NonAf 52.7 L (60.0-200.0) Glucose 136 H (70-110) mg/dL POC Glucose (mg/dL) 137 H (75-99) mg/dL AST 61 H (14-35) U/L Total Protein 5.9 L (6.2-8.2) g/dL Assessment and Plan Assessment: POD1 360 cervicothoracic decompression fusion 1. Severe cervical spondylosis C3-7 2. Cervical stenosis C3-7 3. C3-4 Grade 1 spondylolisthesis 4. C4-5 Grade I spondylolisthesis 5. Cervical spondylotic myelopathy Plan: -Appreciate residential solar sales consultant and team management. -Activity: Ambulate QID, OOB all meals, up and about, limit lifting bending twisting to less than 5 lbs. Use walker or cane if needed for stability. -Daily PT/OT, increase ambulation strength and balance. -Hard cervical collar at all times okay to take breaks when in bed -Pain control: Adequate at this time -Meds: reviewed continue antibiotics -GI ppx: senna, Miralax -DC ramos when up and about, bedside commode if needed -DVT PPX: OK to restart Heparin tonight -Hygiene: Shower today. Maintain dressing clean and dry. Meticulous cleaning after BMs away from incision site -Drains: Maintain for now. Record output -Encourage IS 10x/hr -Dispo: Pending
--- NOTE | 2021-09-15 16:40 | PN ---
PROGRESS NOTE DATE OF SERVICE: 09/15/2021 This 66-year-old gentleman who was admitted with COPD and other multiple medical issues, had surgery by Dr. Early. The patient monitored closely. Patient complains of some pain. No chest pain. No palpitations. No fever. PHYSICAL EXAMINATION: Alert and oriented times three. Pulse 84, blood pressure 150/80, respiration 20, temperature 97.2, pulse ox 94% on 2 L. HEENT is conjunctivae normal. Neck: No JVD. Cardiovascular: S1, S2 muffled. Respirations: Breath sounds diminished in the bases. Abdomen: Soft. Nervous system: No focal deficits. Examination of cervical area status post surgery. LAB STUDIES: WBC 12.1, hemoglobin 12.1, sodium 130, potassium 4.7. ASSESSMENT: 1. Status post C2-T2 decompression fusion with previous cervical spondylosis and cervical stenosis. 2. Chronic obstructive pulmonary disease. 3. Thrombocytopenia. 4. hyponatremia. 5. Increased creatinine with possible chronic kidney disease stage 2. 6. History of chronic obstructive pulmonary disease. 7. Gastroesophageal reflux disease. 8. History of gastrointestinal bleed. 9. Hypertension. 10.Hyperlipidemia. 11.History of chronic liver disease. 12.History of degenerative joint disease. 13.History of prostate disorder. 14.History of esophageal ulcer, apparently. 15.History of prostate cancer. 16.History of cirrhosis of the liver. 17.History of cataracts. 18.History of nicotine dependence. 19.Remote history of nicotine dependence. 20.History of THC. 21.FULL CODE. RECOMMENDATIONS AND DISCUSSION: Recommend to continue current medications, continue to monitor, continue symptomatic treatment. Otherwise, at this time, I recommend incentive spirometry. DVT prophylaxis. Closely follow with Orthopedic surgery. Further recommendations to follow. MMODL / IJN: [id number] / VIC
[2021-09-15] MEDS: ATORVASTATIN 10 MG TAB PO SCH (20:25)
[2021-09-16] MEDS: HYDROmorphone 0.5 MG/0.5 ML SYRINGE IVP PRN ×5 (00:41→23:43)
[2021-09-16] MEDS: CYCLOBENZAPRINE 10 MG TAB PO PRN ×3 (04:01→23:03)
[2021-09-16] MEDS: 0.9% NACL WITH KCL 20 MEQ/L 1,000 ML IV SCH ×2 (04:02→21:11)
[2021-09-16] MEDS: ACETAMINOPHEN TAB 500 MG TAB PO SCH ×2 (05:23→12:38)
[2021-09-16] MEDS: LACTATED RINGERS 1,000 ML IV SCH (05:47)
[2021-09-16] MEDS: IPRATROPIUM-ALBUTEROL 3 ML NEB INHALATION SCH ×4 (08:41→21:04)
[2021-09-16] MEDS: PREGABALIN 75 MG CAP PO SCH ×2 (09:11→21:00)
[2021-09-16] MEDS: POTASSIUM CHLORIDE ER 20 MEQ TAB.ER PO SCH ×2 (09:11→21:01)
[2021-09-16] MEDS: PANTOPRAZOLE 40 MG TABLET PO SCH ×2 (09:12→21:00)
[2021-09-16] MEDS: lisinopriL 10 MG TAB PO SCH (09:12)
[2021-09-16] MEDS: SPIRONOLACTONE 25 MG TAB PO SCH (09:12)
--- NOTE | 2021-09-16 13:52 | P.PN ---
Subjective Progress Note Date: 09/16/21 Principal diagnosis: 1. Severe cervical spondylosis C3-7 2. Cervical stenosis C3-7 3. C3-4 Grade 1 spondylolisthesis 4. C4-5 Grade I spondylolisthesis 5. Cervical spondylotic myelopathy patient was seen at bedside this morning resting comfortably lying semirecumbent in bed with hard c-collar in place. Anterior cervical and posterior cervical dressings still in place with drains. Patient says he is still doing a lot of pain. He says he did get up yesterday once sat in the chair. He says he also did walk around the room a little bit. However, patient still says he is in a lot of pain. Patient says he has not had bowel movement yet, however, patient is passing gas. Patient denies chest pain, fever, stress breath, nausea, vom iting, change in vision, loss of bowel/bladder control. Objective - Vital Signs Vital signs: Vital Signs Temp 98.3 F 09/16/21 11:30 Pulse 92 09/16/21 11:54 Resp 20 09/16/21 11:30 BP 122/80 09/16/21 11:30 Pulse Ox 97 09/16/21 11:30 Intake & Output 09/15/21 09/16/21 09/16/21 18:59 06:59 18:59 Intake Total 1350 300 Output Total 1240 260 9820 Balance -380 -310 -1500 Intake: Intake, IV Titration 1350 Amount 0.9% NaCl with KCl 20 Meq 1350 /l 1,000 ml @ 75 mls/hr IV .[id number] [facility] Rx#: [id number] Oral 300 Output: Drainage 30 10 Anterior Neck 30 0 Posterior Neck 10 Urine 0373 691 0231 Coude 1100 Other: Voiding Method Indwelling Catheter Indwelling Catheter Indwelling Catheter # Voids 1 1 - Exam anterior cervical and posterior cervical drains were removed with minimal serous drainage. Anterior cervical dressing was changed and replaced with 4 x 4's and Tegaderms. Anterior cervical incision is clean, dry, intact. Negative for any fluctuance/purulence. Posterior cervical dressing was changed. Incision is clean, dry, intact. Higbee are well aligned. Negative for any fluctuance/purulence. Patient is alert and oriented 3 appears well-nourished well-hydrated is in no acute distress. They does not appear septic. On exam the patient has minimal tenderness to palpation of his C spine There is no edema or ballottement sign. Lower extremities with 5 out of 5 strength in all major muscle groups Upper extremities show 5/5 strength in all major muscle groups. There is FROM that is painless of the b/l UE and LE in all major joints. They are intact to light touch sensation in L2 to S1 nerve distribution as well as C5-T1 Patient has palpable dorsalis pedis was posterior tibial pulses. Compartments are soft and compressible. Patient shows a negative Homans, Leroy's, negative Babinski's negative clonus bilaterally. negative straight leg raise bilaterally. - Labs CBC & Chem 7: 09/15/21 06:31 09/15/21 06:31 Assessment and Plan Assessment: POD2 360 cervicothoracic decompression fusion 1. Severe cervical spondylosis C3-7 2. Cervical stenosis C3-7 3. C3-4 Grade 1 spondylolisthesis 4. C4-5 Grade I spondylolisthesis 5. Cervical spondylotic myelopathy Plan: 1. Severe cervical spondylosis C3-7; Cervical stenosis C3-7; C3-4 Grade 1 spondylolisthesis; C4-5 Grade I spondylolisthesis; Cervical spondylotic myelopathy - surgery was performed 09/14/2021 - cervicothoracic decompression/fusion. Patient stable at bedside this morning. anterior and posterior cervical drains removed. dressings changed. Plan discharge home tomorrow vs Monday with health services. 2. Appreciate medical management 3. Pain management - Discontinue tylenol 1,000 mg and OxyIR. Percocet 7.5mg/325 mg ordered 4. DVT prophylaxis - mechanical 5. GI ppx - protonix; senna 6. PT/OT - WBAT w/hard cervical collar on at all times 7. Encourage incentive spirometer use 8. Discharge planning - discharge home tomorrow vs Monday with health services. Time with Patient: Less than 30
[2021-09-16] MEDS: oxyCODONE-APAP 7.5-325MG 1 EACH TAB PO PRN ×2 (16:07→23:03)
--- NOTE | 2021-09-16 17:39 | PN ---
PROGRESS NOTE DATE OF SERVICE: 09/16/2021 This 66-year-old gentleman who was admitted after cervical surgery is being closely monitored. The patient still has some neck pain. No chest pain. No palpitations. No fever. PHYSICAL EXAMINATION: Alert and oriented x3. Pulse 83, blood pressure 126/82, temperature 98.2, pulse ox 98% on room air. HEENT: Conjunctivae normal. Oral mucosa moist. NECK: No jugular venous distention. No lymph node enlargement. CARDIOVASCULAR: S1, S2, muffled. No S3, no S4, RESPIRATORY: Diminished breath sounds at the bases. A few scattered rhonchi. No crackles. ABDOMEN: Soft, nontender. LEGS: No edema, no swelling. NERVOUS SYSTEM: No focal deficits. LABS: WBC 12.1. Other labs are noted. ASSESSMENT: 1. Status post C2-T2 decompression fusion for cervical spondylosis and cervical stenosis. 2. COPD. 3. Thrombocytopenia. 4. Hyponatremia. 5. Increased creatinine with possible chronic kidney disease, stage 2. 6. History of chronic obstructive pulmonary disease. 7. Gastroesophageal reflux disease. 8. History of gastrointestinal bleed. 9. Hypertension. 10.Hyperlipidemia. 11.History of chronic liver disease. 12.History of DJD. 13.History of prostate disorder. 14.History of esophageal ulcer apparently. 15.History of prostate cancer. 16.History of cirrhosis of the liver. 17.History of cataracts. 18.Remote history of nicotine dependence. 19.History of THC. 20.FULL CODE. RECOMMENDATIONS: Recommend to continue current management, symptomatic treatment and pain management. DVT prophylaxis. Closely follow with Orthopedic Surgery. Further recommendations to follow. MMODL / IJN: [id number] /
[2021-09-16] MEDS: ATORVASTATIN 10 MG TAB PO SCH (21:00)
[2021-09-17] MEDS: HYDROmorphone 0.5 MG/0.5 ML SYRINGE IVP PRN ×2 (06:00→12:35)
[2021-09-17] MEDS: LACTATED RINGERS 1,000 ML IV SCH (06:08)
[2021-09-17] MEDS: IPRATROPIUM-ALBUTEROL 3 ML NEB INHALATION SCH ×2 (07:59→11:24)
--- NOTE | 2021-09-17 08:10 | P.OP ---
Date of Procedure: 09/14/21 Preoperative Diagnosis: 1. Severe cervical spondylosis C3-7 2. Cervical stenosis C3-7 3. C3-4 Grade 1 spondylolisthesis 4. C4-5 Grade I spondylolisthesis 5. Cervical spondylotic myelopathy Postoperative Diagnosis: 1. Severe cervical spondylosis C3-7 2. Cervical stenosis C3-7 3. C3-4 Grade 1 spondylolisthesis 4. C4-5 Grade I spondylolisthesis 5. Cervical spondylotic myelopathy Procedure(s) Performed: Part I: 1. Anterior Right sided Cabrera-Seth approach 2. C3-4 interbody fusion 3. C4-5 interbody fusion 4. C5-6 interbody fusion 5. C3-4 application of bioechanical device 6. C4-5 application of biomechanical device 7. C5-6 application of biomechanical device 8. C5 partial corpectomy 9. Use of intraoperative microscope 10. Use of intraoperative neuromonitoring 11. Interpretation of inraoperative flouroscopy <1 hr Part II: 1. Posteriorlateral instrumented fusion C2-T1 2. Segmental instrumentation C2-T1 3. Decompressive laminectomy C2-T1 4. Use of intraoperative neuromonitoring 5. Interpretation of intraoperative flouroscopy <1 hr Implants: Clarkson secure C Elana posterior cervical Autograph bio 4 Anesthesia: GETA Surgeon: Doug Early (HA Ta was present and necessary due to the complexity of the case) Estimated Blood Loss (ml): 250 IV fluids (ml): 3,200 Urine output (ml): 330 Pathology: none sent Condition: stable Indications for Procedure: 66 yo male who has been followed by the [facility] [place] for some time now presented with c/o neck pain, difficulty with fine motor skills, b/l UE radiculopathy. He has gone through multiple different conservative measures including PT, HEP, Rx meds, OTC meds, Chiropractics, massage, injections and nothing has alleviated his sx thus far. We discussed all different options for treatment operative and non operative. At this time since nothing has helped him thus far, he has elected for operative fixation. We discussed different operative interventions and ultimately we decided on cervical fusion. He agreed. We discussed risks and benefits as outlined in the risk review. He was willing to proceed. Description of Procedure: Part I: The patient was seen and examined in the preoperative area. All preoperative protocols were followed. Informed consent was obtained risks and benefits of the procedure were discussed at length. Risks including bleeding infection damage to the surrounding tissue and risk of reoperation were discussed with the patient. Risk of anesthesia up to and including was a discussed with the patient. These are outlined in the risk review. They were willing to accept these risks and all of the risks of surgery. The patient was given a weight- based dose of antibiotics in the form of Ancef 2 g redosed every 4 hrs. The patient was seen and evaluated by the anesthesia team who deemed them fit for surgery. The site was marked, the patient was willing to proceed with the procedure. The patient was transferred to the operative suite by the Department of anesthesia. They were then drifted off to sleep by the department anesthesia and GETA was performed. The patient tolerated this well. Hanna catheter was placed by nursing staff, atraumatically. Once confirmation of lines and ventilation the patient was transferred to a flat top cliff table. SHoulder rolls were placed and the head placed on a jelly doughnut. All bony prominences including wrists, elbows, axilla, chest, hips, and thighs, and feet were padded very well. Special attention was paid to the genitalia and these were padded accordingly. SCDs were placed on bilateral lower extremities and were connected. Arms were well padded and placed tucked at the side well padded. Shoulders were gently taped down for stability and visualization. Once in position, again we confirmed good ventilation capabilities and that lines were running appropriately. The patient's Anterior cervical spine was then exposed. 1010s were placed outlining the incision site. Standard alcohol was used to clean the incision site and allowed to dry. C-arm was used to biomark the patient and confirm level for incision which was marked with a skin marker. Operative briefing was performed with all teams and everyone in agreement to proceed. The patient was then prepped and draped in a normal sterile fashion. Timeout was then performed and all parties were in agreement with the procedure to be performed. Transverse skin incision was made over the previously biomarked area and a standard Cabrera-Adams approach to the right side of the anterior cervical spine was performed. Once at the anterior cervical spine we confirmed levels with a lateral image and well placed blunt probe. We then proceeded to release longissimus muscles b/l subperiosteally to create space for our retractors at are indicated levels.. We then gently placed our retractors. We started at C3- 4 disc as this was the most difficult to access. [place] pins were placed into C3 and C4 using lateral flouro. ONce in place, gentle distraction was preformed. We then performed anterior discecectomy using curettes, rongures and kerrison rongures. We cleaned uncus to uncus any disc, cartilage and performed carful and minimal burring of the endplates. We then removed posterior osteophyte of C3 inferior endplate. Using curette we released the PLL carefully and then use 2-0 and 3-0 kerrison rongures to remove PLL as well as perform b/l foraminotomies. Once there was good decompression and release we performed hemostasis. We then sized and selected an interbody graft. Once this was sized it was impacted into place under lateral fluoroscopy. Once in good position on the AP and lateral we then placed an awl through the screw holes superior and inferior and the C3 and C4 vertebral bodies. We then placed screws superior and inferior to lock this into position. The graft was then stable. We irrigated the wound and placed close in the gutters followed by extra autograft which was collected. We then turned our attention to the C4-C5 disc space [place] pin was removed from C3 and bone wax placed and its avoid aspirin and was then placed in C5 under lateral fluoroscopy. Careful distraction was applied. We then performed anterior discectomy removing disks as well as cartilage using curettes rongure and minimal endplate burring. We cleaned out uncovertebral joint to uncovertebral joint. We then removed the posterior osteophyte of the inferior endplate of C4 revealing the PLL. We then release the PLL using curettes and removed using 20 and 30 Kerrisons. We performed bilateral foraminotomies at this level as well using Kerrison rongeurs. Meticulous hemostasis was performed. We then sized and placed a graft into this area impacting it into place under lateral fluoroscopy. Once the graft was in good position we placed screws through it to hold it in the position superior and inferior. These were placed under lateral fluoroscopy and were in good position. We thoroughly irrigated the wound packed the lateral aspects The uncovertebral joints with autograft for further fusion. Then turned our attention to C5-C6. [place] pin was removed from C4 and bone wax placed in its avoid. [place] pin was then placed in C6 under lateral fluoroscopy and gentle distraction was applied. Then performed a complete discectomy as well as partial corpectomy of C5 due to the need for more decompression at this level and ankylosis. We cleaned out uncovertebral joint to uncovertebral joint using Kerrison rongeurs curettes as well as a high-speed bur. Once we encountered the PLL was released with a curet. We then use rongeurs to perform removal of the PLL as well as bilateral foraminotomies. We performed meticulous hemostasis a graft was then sized and placed. It was impacted under lateral fluoroscopy and was in good position. Then placed screws to this graft to hold it in position and they were in good position under lateral fluoroscopy. We then thoroughly irrigated the wound with normal sterile saline. Surgicel was placed deep as well as a deep drain. 3-0 Vicryl was used in the platysma layer followed by 3-0 Vicryl in the subcu tissue. Fluoroscopy strata fix was used in the subcuticular tissue and the skin was then cleaned and dressed with ex-glue. Once this dried we placed a bandage. The patient was transferred back to their hospital bed atraumatically while the bed was exchanged. Drain continued to hold suction and were in good position. Part 2: Cerulean head clamp was then placed on the patient optimal position. Patient was then carefully positioned from his hospital bed onto the [facility] spine table with the Cerulean. The head was then positioned neutral in the Cerulean locked into position. The patient's arms were tucked at his side and well-padded thumbs down which paid special attention to the patient's bony prominences including wrists elbows axilla chest hips that is feet and genitalia. These were all padded very well. We then gently taped the patient's shoulders down for stability as well as visualization. Confirmed with anesthesia that they could ventilate and that lines were following. The patient's posterior cervical thoracic spine was then exposed we shaved the patient's head up to the inion placed 1010s outlining the incision site. Standard alcohol was used to clean the incision site and allowed to dry. C-arm was used to by Jarrett the patient and confirm levels for incision which was marked with a skin marker. A second operative briefing was performed with all teams and everyone in agreement to proceed. The patient was then prepped and draped in the normal sterile fashion. Timeout was then performed again and all parties in agreement with the procedure to be performed. Midline skin incision was made over the previously by marked area dissection taken down to the spinous process of C2 through T2 which were identified. Subperiosteal dissection was then taken out for the lateral masses and facet joints of C2 through T2. The transverse process of T1 was exposed. Once exposure was complete we irrigated the wound thoroughly. Meticulous hemostasis was performed. We then turned our attention to placement of C2 screws. C2 screw on the left-hand side was placed first under lateral fluoroscopic guidance. A [place] 4 was used to palpate the medial wall of the pedicle. High-speed bur was used to make a heating systems installer hole followed by a drill. Sequential drilling of 2 mm was then performed until the desired depth. We then used a ball-tipped feeler once we confirmed we were in good position the screw was then placed. We then repeated this on the right-hand side. Lateral and AP fluoroscopy confirmed good placement of C2 screws. There is no excessive bleeding slips or other issues. Then turned our attention to the placement of T1 screws bilaterally was done using lateral fluoroscopy as well. High-speed bur was used to make a heating systems installer hole followed by a pedicle finder and feeler we then tapped and placed screws bilaterally at T1. We then confirmed good position on AP fluoroscopy. Then turned our attention to lateral mass screws high-speed bur was used to make heating systems installer holes to the lateral masses after decortication of the facet joints. We then drilled to 10 mm and placed 12 mm screws in the lateral masses bilaterally. These were confirming good position under AP and lateral fluoroscopy. We then selected a jennifer measured cut and bent this jennifer. The jennifer was then placed and reduction was performed. The jennifer was then secured using set screws which were then final tightened and the position bilaterally. Lateral fluoroscopy confirmed good reduction and good placement and good alignment. Once this was completed we performed a laminectomy we undercut C2 slightly to allow for visualization of C3 lamina and then performed bilateral laminectomy from C3 through C7 and T1. This was then removed we performed bilateral foraminotomies at C5-C6 using Kerrison rongeurs. Meticulous hemostasis was performed. We then sized and selected cross-links and placed these and final tightened them. The wound was then copiously irrigated with 6 L of saline 3 L of antibiotic solution and 3 L of normal sterile saline. We then placed in the posterior lateral gutters a mixture of autograft allograft and bio 4. We then placed Surgicel over the dura and performed again meticulous hemosta sis. A deep drain was then placed and sewed into position. We then performed layered closure first in the muscular layer with #1 Vicryl followed by the fascial layers with #1 Vicryl deep subcu tissues closed with 0 Vicryl and superficial subcu tissue closed with 2-0 Vicryl. Skin was then closed with skin jairon the wound edges approximated very well. The wound was then cleaned and dressed sterilely with a sterile op T foam dressing drain sponge and Tegaderm. The patient was transferred back to their hospital bed atraumatically. Hard cervical collar was placed. The field was removed and there were no bleeding sites. Drain continued to hold suction and were in good position. The patient was then exited about department of anesthesia having tolerated the procedure very well he was then transferred to the postoperative care unit in stable condition.
[2021-09-17] MEDS: oxyCODONE-APAP 7.5-325MG 1 EACH TAB PO PRN ×2 (08:35→15:23)
[2021-09-17] MEDS: CYCLOBENZAPRINE 10 MG TAB PO PRN ×2 (08:35→15:23)
[2021-09-17] MEDS: PREGABALIN 75 MG CAP PO SCH (08:36)
[2021-09-17] MEDS: SPIRONOLACTONE 25 MG TAB PO SCH (08:36)
[2021-09-17] MEDS: PANTOPRAZOLE 40 MG TABLET PO SCH (08:36)
[2021-09-17] MEDS: lisinopriL 10 MG TAB PO SCH (08:36)
[2021-09-17] MEDS: POTASSIUM CHLORIDE ER 20 MEQ TAB.ER PO SCH (08:37)
[2021-09-17] MEDS: 0.9% NACL WITH KCL 20 MEQ/L 1,000 ML IV SCH (12:35)
[2021-09-17 13:04] VITALS: BP 141/85; PULSE 89; RESP 18; TEMP 98.2
--- NOTE | 2021-09-17 13:09 | P.DS ---
Providers Date of admission: 09/14/21 05:46 Expected date of discharge: 09/17/21 Attending physician: Doug Early DO Consults: 09/14/21 14:48 Consult Physician Routine Consulting Provider: Paco Goodrich Consult Reason/Comments: medical management Do you want consulting provider notified?: Yes Primary care physician: Vincent Watkinsqvi [facility] Course: Date of admission: 09/14/2021 Date of discharge: 09/17/2021 Admission diagnosis: 1. Severe cervical spondylosis C3-7 2. Cervical stenosis C3-7 3. C3-4 Grade 1 spondylolisthesis 4. C4-5 Grade I spondylolisthesis 5. Cervical spondylotic myelopathy Discharge diagnosis: Same Attending physician: Dr. Early Surgical procedures: Part I: 1. Anterior Right sided Cabrera-Seth approach 2. C3-4 interbody fusion 3. C4-5 interbody fusion 4. C5-6 interbody fusion 5. C3-4 application of bioechanical device 6. C4-5 application of biomechanical device 7. C5-6 application of biomechanical device 8. C5 partial corpectomy 9. Use of intraoperative microscope 10. Use of intraoperative neuromonitoring 11. Interpretation of inraoperative flouroscopy <1 hr Part II: 1. Posteriorlateral instrumented fusion C2-T1 2. Segmental instrumentation C2-T1 3. Decompressive laminectomy C2-T1 4. Use of intraoperative neuromonitoring 5. Interpretation of intraoperative flouroscopy <1 hr Brief history: Patient is a 66-year-old male with a history of severe cervical spondylosis C3-7; cervical stenosis C3-7; C3-4. 1 spondylolisthesis; C4-5 grade 1 spondylosis; cervical spondylotic myelopathy. At this point patient has failed conservative treatment measures and has opted to proceed with a elective procedure as noted above in surgical procedure section. Hospital course: Details of patient's surgery can be found in operative report. Patient tolerated the procedure well and was subsequently transported to orthopedic floor. Patient's orthopeidc and medical care was provided daily. Patient had daily laboratory tests performed for evaluation of overall blood counts. Patient had daily physical therapy to include strengthening range of motion as well as education with walker ambulation. Patient was noted to have a relatively uneventful postoperative course. Patient reported satisfactory pain control with oral pain medications by postoperative day 3. Patient showed satisfactory progress with physical therapy. Patient moved steadily through the program and had no difficulty meeting the goals by postoperative day 3. Given patient's otherwise satisfactory course and having met physical therapy goals, plan is to discharge patient home on postoperative day 3. Discharge condition/disposition: Patient will be discharged home in stable condition. Discharge medications: Instructions are given on resumption of patient's normal daily medications per primary care recommendation, in addition patient will be prescribed Percocet 7.5 mg/325 mg; gabapentin; Flexeril; senna; Duricef. Spine Discharge and Recovery Instructions Date of Surgery: 09/17/2021 Diagnosis: 1. Severe cervical spondylosis C3-7 2. Cervical stenosis C3-7 3. C3-4 Grade 1 spondylolisthesis 4. C4-5 Grade I spondylolisthesis 5. Cervical spondylotic myelopathy Procedure: Part I: 1. Anterior Right sided Cabrera-Seth approach 2. C3-4 interbody fusion 3. C4-5 interbody fusion 4. C5-6 interbody fusion 5. C3-4 application of bioechanical device 6. C4-5 application of biomechanical device 7. C5-6 application of biomechanical device 8. C5 partial corpectomy 9. Use of intraoperative microscope 10. Use of intraoperative neuromonitoring 11. Interpretation of inraoperative flouroscopy <1 hr Part II: 1. Posteriorlateral instrumented fusion C2-T1 2. Segmental instrumentation C2-T1 3. Decompressive laminectomy C2-T1 4. Use of intraoperative neuromonitoring 5. Interpretation of intraoperative flouroscopy <1 hr Medications: See medication list All medication refills should be obtained through your primary care doctor or your clinic spine surgeon. Please discuss prescription refills at your follow up appointment. Do not call the hospital for medication refills. Dressing: Leave your dressing in place for a total of 5 days post operatively. Then you may remove your dressing and leave open to air. Keep the area clean and if not able to keep area clean, then cover with sterile gauze and tape. Showering: You may shower 3 days after your procedure allowing soap and water to run over incision. Do not scrub. Do not soak. Blot dry. Follow up: Please confirm a follow up appointment with your surgeon 3 weeks post operatively. Please make an appointment to follow up with your PCP in 1-2 weeks after surgery for evaluation 3 phase, 3-week plan POST OP WEEKS 1-3 1. Lifting/carrying/pushing/pulling limited to less than 5 pounds. 2. Do not sit for longer than 15 minutes at one time. Get up and walk around. Prolonged sitting is NOT advised. If you lay down, see if you can tolerate laying down on you front (belly side) 3. Walk for periods of 15 minutes = 1 mile but no longer; do it multiple times times each day. 4. Ice your low back after activity. POST OP WEEKS 3-6 1. Lifting limited to less than 20 pounds. 2. Do not sit for longer than 30 minutes at a time. Frequently change positions. Use a sit-to stand workstation or take frequent breaks from sitting if you have returned to work. 3. Walk for 30 minutes each day. If possible, do these three or more times a day POST OP WEEKS 6+ At your 6-week appointment we will give you a physical therapy referral to focus on a core stabilization and strengthening program. You should also work on leg & buttock strengthening, hamstring & quadriceps stretching, and continue a low impact aerobic activity program such as swimming, walking, or riding a stationary bicycle. During the initial 6 weeks after your surgery, you are at the highest risk of re-injuring your spine. You should generally avoid BLTs (bending, lifting and twisting combination motions) and follow the above guidelines to reduce the chance of reinjury. You can anticipate post op appointments in our office at approximately 3 weeks and 6 weeks after your surgery. INCISION CARE: If your incision is not draining you do NOT need to cover it with a dressing. Keep your incision clean, dry and intact. In most cases, we apply skin glue, jairon or sutures to the incision at the time of surgery. This will be like a crust or have the appearance of a scab and will fall off in time on its own. The stitches or jairon need to be removed at 3 weeks post op appointment. You may begin to shower 3 days after surgery (this allows the glue to yates well). However, please avoid scrubbing the incision site or peeling off any of the skin glue. This will ensure optimal healing of your incision. Also, during this time avoid soaking the incision area in water - this includes swimming pools, hot tubs or baths. No ointments, lotions or oils on the incision until your surgeon allows. Leave jairon, sutures or glue in place. Neurological dysfunction that comes on suddenly can also be a sign of a stroke. Below some common symptoms of a stroke are listed: B - balance difficulty such as sudden onset walking or leaning to one side - NEW E - eye problem such as sudden double vision or trouble seeing on one side - NEW F - Facial weakness or numbness on one side - NEW A - Arm or leg weakness or numbness on one side - NEW S - Slurred speech or difficulty with word finding - NEW T - Time is BRAIN! Call 911 as soon as you recognize these symptoms Diet: Consume a regular diet rich in vegetables and lean protein such as chicken or fish. You should consume in a ratio of approximately 20% fats|40% carbohydrates|40%protein. Vegetables, sweet potatoes, brown rice or quinoa are examples of good carbohydrates. Chips, white bread, cookies and sweets/sugar are examples of bad carbohydrates. Limit your bad carbs, go wild with good carbs. "Life's Simple 7" Guidelines as per [place] [employer] These will help you reclaim your life after surgery and trim setter helper in your recovery, keeping in mind your restrictions. (1) Get Active. Physical activity can help people lose weight, control high blood pressure and cholesterol, feel emotionally better, and sleep better. (2) Control Cholesterol. Avoid a diet high in saturated fat, trans fat, & cholesterol. Limit whole milk & cream, ice cream, butter, egg yolks, processed meats (like sausage and hot dogs), and fatty meats. Choose healthy foods that are low in saturated fat, trans fat and cholesterol which include: Fruits and vegetables, fiber rich grain products (like whole grain pasta and brown rice), lean meat such as chicken, fish, nuts, seeds, and legumes. (3) Eat Better. Eat small portions. Shop at the grocery with a list and do not stray from it. Tips for a healthy diet include: Limit sodium intake to less than 1500mg daily, avoid prepackaged, processed, and fast foods, choose a diet rich in fruits, vegetables, and whole grain, high fiber foods, and limit saturated & cholesterol in your diet. (4) Manage Blood Pressure. If you have high blood pressure, you should have a cuff at home so that you can check your blood pressure regularly. Be sure you have a good cuff. An arm one is generally better than a wrist one. Bring the cuff to a doctor's appointment to validate that the measurements that your cuff are taking are accurate. Take your blood pressure twice daily when you are sitting down and relaxing. Record the numbers in a log and bring this log with you to your doctors' appointments. (5) Lose Weight if your BMI is above 25. A healthy BMI is between 19-25. To calculate Your BMI, you may use a Standard BMI Calculator on the NIH BMI website: <www.nhlbi.nih.gov/guidelines/obesity/BMI/bmicalc.htm>. Weigh oneself daily. If you are overweight, set a goal to lose weight. A pound a week loss if needed is a good target. (6) Reduce Blood Sugar. Limit foods and liquids with "added sugars." (Added sugars include sucrose, fructose, glucose, maltose, dextrose, high fructose corn syrup, corn syrup, concentrated fruit juice and honey). (7) Stop Smoking. If you smoke, quitting smoking is one of the best things that you can do for your health. Smoking increases your risk of heart attack, stroke, and peripheral vascular disease, which is a build-up of plaque in your arteries. Please discard all the cigarettes and lighters in your house. Have a plan for what you will do when you have the urge to smoke. Direct and second- hand smoke shortens your life as well as the lives of your family, friends and others around you. For your health and the health of those around you, please consider quitting! Proper Bending Body Mechanics: Maintain a wide stance with one foot slightly in front of the other. Keep your back straight. Bend utilizing the strength in your hips and knees. Do not bend at the waist. Maintain the lifted object at your waist-level close to your body. Avoid lifting weight that causes immediately pain or pain anywhere in the body afterwards. Smoking/Nicotine If there was ever one thing that you could do to increase your overall health, decrease your risk of cardiovascular problems by about 39% the second you make the choice, it is to STOP SMOKING. Your body's most instant gratification is the second you stop smoking. We have all heard the studies, read the articles but it is true, smoking is extremely bad for your overall health, and moreover it is detrimental to your bone health. Nicotine, IN ANY FORM, kills bone cells, prevents your body from healing fractures, and significantly prolongs healing after surgery. In spine surgery specifically, it increases your risk of not healing your bones to create a fusion and increases your risk of having a revision surgery due to this up to 60%. I know it is hard. I know it feels impossible. But there are ways. Take contr ol of your life. We are here to help you through it. And when you are ready, ask us and we can direct you to help if you desire. Use the START Plan to Quit Smoking (please visit the Helpguide.org website listed below for more information): S = Set a quit date. Choose a date within the next 2 weeks, so you have enough time to prepare without losing your motivation to quit. If you mainly smoke at work, quit on the weekend, so you have a few days to adjust to the change. T = Tell family, friends, and co-workers that you plan to quit. Let your friends and family in on your plan to quit smoking and tell them you need their support and encouragement to stop. Look for a quit warren who wants to stop smoking as well. You can help each other get through the rough times. A = Anticipate and plan for the challenges you'll face while quitting. Most people who begin smoking again do so within the first 3 months. You can help yourself make it through by preparing ahead for common challenges, such as nicotine withdrawal and cigarette cravings. R = Remove cigarettes and other tobacco products from your home, car, and work. Throw away all your cigarettes (no emergency pack!), lighters, ashtrays, and matches. Wash your clothes and freshen up anything that smells like smoke. Shampoo your car, clean your drapes and carpet, and steam your furniture. T = Talk to your doctor about getting help to quit. Your doctor can prescribe medication to help with withdrawal and suggest other alternatives. If you can't see a doctor, you can get many products over the co unter at your local pharmacy or grocery store, including the nicotine patch, nicotine lozenges, and nicotine gum. Resources for Quitting Smoking: <https://www.[place].gov/documents/[facility]/Quit_T obacco_Resources_for_patients_313480_7.pdf> Supplementation: Take recommended dosages of Vitamin D and Calcium to help fortify your bones and help them to heal. See your health maintenance packet for dosages and recommended levels. DVT/VTE prophylaxis: You will be given compression stockings from the hospital. Wear these daily for the first two weeks after surgery. You may take them off at night. You may be prescribed a medication to help thin your blood. Take this as directed. If you are not prescribed this medication, early and frequent ambulation has been shown to be the best prophylaxis to deep vein thrombosis and sequelae related to this event. Assessment: 1. Severe cervical spondylosis C3-7 2. Cervical stenosis C3-7 3. C3-4 Grade 1 spondylolisthesis 4. C4-5 Grade I spondylolisthesis 5. Cervical spondylotic myelopathy Procedures: Part I: 1. Anterior Right sided Cabrera-Seth approach 2. C3-4 interbody fusion 3. C4-5 interbody fusion 4. C5-6 interbody fusion 5. C3-4 application of bioechanical device 6. C4-5 application of biomechanical device 7. C5-6 application of biomechanical device 8. C5 partial corpectomy 9. Use of intraoperative microscope 10. Use of intraoperative neuromonitoring 11. Interpretation of inraoperative flouroscopy <1 hr Part II: 1. Posteriorlateral instrumented fusion C2-T1 2. Segmental instrumentation C2-T1 3. Decompressive laminectomy C2-T1 4. Use of intraoperative neuromonitoring 5. Interpretation of intraoperative flouroscopy <1 hr Patient Condition at Discharge: Good Plan - Discharge Summary Discharge Rx Participant: No New Discharge Prescriptions: New cefaDROXiL [Duricef] 500 mg PO Q12HR 5 Days #10 cap Cyclobenzaprine [Flexeril] 10 mg PO HS #20 tab Sennosides [Senna] 8.6 mg PO DAILY #20 tablet Gabapentin 300 mg PO BID #28 cap oxyCODONE HCL/ACETAMINOPHEN [Percocet 7.5-325 mg] 1 tab PO Q6HR PRN #28 tab PRN Reason: Pain No Action Simvastatin [Zocor] 10 mg PO HS Omeprazole [PriLOSEC] 20 mg PO BID Pregabalin [Lyrica] 150 mg PO BID Potassium Chloride [Klor-Con 20] 20 meq PO BID Multivit-Min/FA/Lycopen/Lutein [Centrum Silver Men Tablet] 1 tab PO DAILY Lisinopril [Prinivil] 10 mg PO QAM Spironolactone 100 mg PO QAM Acetaminophen/Diphenhydramine [Tylenol PM 500-25mg] 1 tab PO HS PRN PRN Reason: sleep Ipratropium-Albuterol Nebulize [Duoneb 0.5 mg-3 mg/3 ml Soln] 3 ml INHALATION RT-QID PRN PRN Reason: sob Naproxen Sodium [Aleve] 220 - 440 mg PO Q6H PRN PRN Reason: Pain Albuterol Sulfate [Proventil Hfa] 1 puff INHALATION Q4-6H PRN PRN Reason: Wheezing oxyCODONE HCL/ACETAMINOPHEN [oxyCODONE HCL/ACETAMINOPHEN 5-325] 1 tab PO Q6H PRN PRN Reason: Pain Discharge Medication List Omeprazole [PriLOSEC] 20 mg PO BID 10/14/15 [History] Simvastatin [Zocor] 10 mg PO HS 10/14/15 [History] Pregabalin [Lyrica] 150 mg PO BID 03/17/19 [History] Lisinopril [Prinivil] 10 mg PO QAM 04/30/20 [History] Multivit-Min/FA/Lycopen/Lutein [Centrum Silver Men Tablet] 1 tab PO DAILY 04/30/20 [History] Potassium Chloride [Klor-Con 20] 20 meq PO BID 04/30/20 [History] Spironolactone 100 mg PO QAM 06/18/20 [History] Acetaminophen/Diphenhydramine [Tylenol PM 500-25mg] 1 tab PO HS PRN 03/10/21 [History] Albuterol Sulfate [Proventil Hfa] 1 puff INHALATION Q4-6H PRN 03/10/21 [History] Ipratropium-Albuterol Nebulize [Duoneb 0.5 mg-3 mg/3 ml Soln] 3 ml INHALATION RT-QID PRN 03/10/21 [History] Naproxen Sodium [Aleve] 220 - 440 mg PO Q6H PRN 09/09/21 [History] oxyCODONE HCL/ACETAMINOPHEN [oxyCODONE HCL/ACETAMINOPHEN 5-325] 1 tab PO Q6H PRN 09/09/21 [History] Cyclobenzaprine [Flexeril] 10 mg PO HS #20 tab 09/17/21 [Rx] Gabapentin 300 mg PO BID #28 cap 09/17/21 [Rx] Sennosides [Senna] 8.6 mg PO DAILY #20 tablet 09/17/21 [Rx] cefaDROXiL [Duricef] 500 mg PO Q12HR 5 Days #10 cap 09/17/21 [Rx] oxyCODONE HCL/ACETAMINOPHEN [Percocet 7.5-325 mg] 1 tab PO Q6HR PRN #28 tab 09/17/21 [Rx] Follow up Appointment(s)/Referral(s): Vincent Nails MD [Primary Care Provider] - 1 Week Doug Early DO [Doctor of Osteopathic Medicine] - 2 Weeks Activity/Diet/Wound Care/Special Instructions: Spine Discharge and Recovery Instructions Date of Surgery: 09/14/2021 Diagnosis: Cervical spondylotic myelopathy Procedure: Anterior C3 to C6 discectomy and fusion with posterior C2 to T1 decompression fusion Medications: See list All medication refills should be obtained through your primary care doctor or your clinic spine surgeon. Please discuss prescription refills at your follow up appointment. Do not call the hospital for medication refills. Dressing: Leave your dressing in place for a total of 3 days post operatively. Then you may remove your dressing and leave open to air. Keep the area clean and if not able to keep area clean, then cover with sterile gauze and tape. Showering: You may shower 3 days after your procedure allowing soap and water to run over incision. Do not scrub. Do not soak. Blot dry. Brace: Where your hard cervical collar at all times when up and about do not wear and shower Follow up: Please confirm a follow up appointment with your surgeon 2 weeks post operatively. Please make an appointment to follow up with your PCP in 1-2 weeks after surgery for evaluation 3 phase, 3-week plan POST OP WEEKS 1-3 1. Lifting/carrying/pushing/pulling limited to less than 5 pounds. 2. Do not sit for longer than 15 minutes at one time. Get up and walk around. Prolonged sitting is NOT advised. If you lay down, see if you can tolerate laying down on you front (belly side) 3. Walk for periods of 15 minutes = 1 mile but no longer; do it multiple times times each day. 4.Ice your low back after activity. POST OP WEEKS 3-6 1. Lifting limited to less than 20 pounds. 2. Do not sit for longer than 30 minutes at a time. Frequently change positions. Use a sit-to stand workstation or take frequent breaks from sitting if you have returned to work. 3. Walk for 30 minutes each day. If possible, do these three or more times a day POST OP WEEKS 6+ At your 6-week appointment we will give you a physical therapy referral to focus on a core stabilization and strengthening program. You should also work on leg & buttock strengthening, hamstring & quadriceps stretching, and continue a low impact aerobic activity program such as swimming, walking, or riding a stationary bicycle. During the initial 6 weeks after your surgery, you are at the highest risk of re-injuring your spine. You should generally avoid BLTs (bending, lifting and twisting combination motions) and follow the above guidelines to reduce the chance of reinjury. You can anticipate post op appointments in our office at approximately 3 weeks and 6 weeks after your surgery. INCISION CARE: If your incision is not draining you do NOT need to cover it with a dressing. Keep your incision clean, dry and intact. In most cases, we apply skin glue, jairon or sutures to the incision at the time of surgery. This will be like a crust or have the appearance of a scab and will fall off in time on its own. The stitches or jairon need to be removed at 3 weeks post op appointment. You may begin to shower 3 days after surgery (this allows the glue to yates well). However, please avoid scrubbing the incision site or peeling off any of the skin glue. This will ensure optimal healing of your incision. Also, during this time avoid soaking the incision area in water - this includes swimming pools, hot tubs or baths. No ointments, lotions or oils on the incision until your surgeon allows. Leave jairon, sutures or glue in place. Neurological dysfunction that comes on suddenly can also be a sign of a stroke. Below some common symptoms of a stroke are listed: B - balance difficulty such as sudden onset walking or leaning to one side - NEW E - eye problem such as sudden double vision or trouble seeing on one side - NEW F - Facial weakness or numbness on one side - NEW A - Arm or leg weakness or numbness on one side - NEW S - Slurred speech or difficulty with word finding - NEW T - Time is BRAIN! Call 911 as soon as you recognize these symptoms Diet: Consume a regular diet rich in vegetables and lean protein such as chicken or fish. You should consume in a ratio of approximately 20% fats|40% carbohydrates|40%protein. Vegetables, sweet potatoes, brown rice or quinoa are examples of good carbohydrates. Chips, white bread, cookies and sweets/sugar are examples of bad carbohydrates. Limit your bad carbs, go wild with good carbs. "Life's Simple 7" Guidelines as per [place] [employer] These will help you reclaim your life after surgery and trim setter helper in your recovery, keeping in mind your restrictions. (1) Get Active. Physical activity can help people lose weight, control high blood pressure and cholesterol, feel emotionally better, and sleep better. (2) Control Cholesterol. Avoid a diet high in saturated fat, trans fat, & cholesterol. Limit whole milk & cream, ice cream, butter, egg yolks, processed meats (like sausage and hot dogs), and fatty meats. Choose healthy foods that are low in saturated fat, trans fat and cholesterol which include: Fruits and vegetables, fiber rich grain products (like whole grain pasta and brown rice), lean meat such as chicken, fish, nuts, seeds, and legumes. (3) Eat Better. Eat small portions. Shop at the grocery with a list and do not stray from it. Tips for a healthy diet include: Limit sodium intake to less than 1500mg daily, avoid prepackaged, processed, and fast foods, choose a diet rich in fruits, vegetables, and whole grain, high fiber foods, and limit saturated & cholesterol in your diet. (4) Manage Blood Pressure. If you have high blood pressure, you should have a cuff at home so that you can check your blood pressure regularly. Be sure you have a good cuff. An arm one is generally better than a wrist one. Bring the cuff to a doctor's appointment to validate that the measurements that your cuff are taking are accurate. Take your blood pressure twice daily when you are sitting down and relaxing. Record the numbers in a log and bring this log with you to your doctors' appointments. (5) Lose Weight if your BMI is above 25. A healthy BMI is between 19-25. To calculate Your BMI, you may use a Standard BMI Calculator on the NIH BMI website: <www.nhlbi.nih.gov/guidelines/obesity/BMI/bmicalc.htm>. Weigh oneself daily. If you are overweight, set a goal to lose weight. A pound a week loss if needed is a good target. (6) Reduce Blood Sugar. Limit foods and liquids with "added sugars." (Added sugars include sucrose, fructose, glucose, maltose, dextrose, high fructose corn syrup, corn syrup, concentrated fruit juice and honey). (7) Stop Smoking. If you smoke, quitting smoking is one of the best things that you can do for your health. Smoking increases your risk of heart attack, stroke, and peripheral vascular disease, which is a build-up of plaque in your arteries. Please discard all the cigarettes and lighters in your house. Have a plan for what you will do when you have the urge to smoke. Direct and second- hand smoke shortens your life as well as the lives of your family, friends and others around you. For your health and the health of those around you, please consider quitting! Proper Bending Body Mechanics: Maintain a wide stance with one foot slightly in front of the other. Keep your back straight. Bend utilizing the strength in your hips and knees. Do not bend at the waist. Maintain the lifted object at your waist-level close to your body. Avoid lifting weight that causes immediately pain or pain anywhere in the body afterwards. Smoking/Nicotine If there was ever one thing that you could do to increase your overall health, decrease your risk of cardiovascular problems by about 39% the second you make the choice, it is to STOP SMOKING. Your body's most instant gratification is the second you stop smoking. We have all heard the studies, read the articles but it is true, smoking is extremely bad for your overall health, and moreover it is detrimental to your bone health. Nicotine, IN ANY FORM, kills bone cells, prevents your body from healing fractures, and significantly prolongs healing after surgery. In spine surgery specifically, it increases your risk of not healing your bones to create a fusion and increases your risk of having a revision surgery due to this up to 60%. I know it is hard. I know it feels impossible. But there are ways. Take control of your life. We are here to help you through it. And when you are re dixie, ask us and we can direct you to help if you desire. Use the START Plan to Quit Smoking (please visit the Helpguide.org website listed below for more information): S = Set a quit date. Choose a date within the next 2 weeks, so you have enough time to prepare without losing your motivation to quit. If you mainly smoke at work, quit on the weekend, so you have a few days to adjust to the change. T = Tell family, friends, and co-workers that you plan to quit. Let your friends and family in on your plan to quit smoking and tell them you need their support and encouragement to stop. Look for a quit warren who wants to stop smoking as well. You can help each other get through the rough times. A = Anticipate and plan for the challenges you'll face while quitting. Most people who begin smoking again do so within the first 3 months. You can help yourself make it through by preparing ahead for common challenges, such as nicotine withdrawal and cigarette cravings. R = Remove cigarettes and other tobacco products from your home, car, and work. Throw away all your cigarettes (no emergency pack!), lighters, ashtrays, and matches. Wash your clothes and freshen up anything that smells like smoke. Shampoo your car, clean your drapes and carpet, and steam your furniture. T = Talk to your doctor about getting help to quit. Your doctor can prescribe medication to help with withdrawal and suggest other alternatives. If you can't see a doctor, you can get many products over the counter at your local pharmacy or grocery store, including the nicotine patch, nicotine lozenges, and nicotine gum. Resources for Quitting Smoking: <https://www.[place].gov/documents/[facility]/Quit_Tobacco_Resources_for_patients_313 480_7.pdf> Supplementation: Take recommended dosages of Vitamin D and Calcium to help fortify your bones and help them to heal. See your health maintenance packet for dosages and recommended levels. DVT/VTE prophylaxis: You will be given compression stockings from the hospital. Wear these daily for the first two weeks after surgery. You may take them off at night. You may be prescribed a medication to help thin your blood. Take this as directed. If you are not prescribed this medication, early and frequent ambulation has been shown to be the best prophylaxis to deep vein thrombosis and sequelae related to this event. Discharge Disposition: HOME WITH HOME HEALTH SERVICES
--- NOTE | 2021-09-17 15:43 | PN ---
PROGRESS NOTE DATE OF SERVICE: 09/17/2021 This 66-year-old gentleman admitted after cervical surgery has significant pain. The patient improved significantly and Orthopedics is planning discharge at this time. No chest pain, no palpitations, no fever. PHYSICAL EXAMINATION: Alert and oriented x3. Pulse 89, blood pressure 141/84, respiration 18, temperature 98.2, pulse ox 97% on room air. HEENT: Conjunctivae normal. NECK: No jugular venous distention. CARDIOVASCULAR: S1, S2 muffled. RESPIRATION: Breath sounds diminished at the bases. No rhonchi. No crackles. ABDOMEN: Soft. NERVOUS SYSTEM: No focal deficit. EXAMINATION OF NECK: Status post surgery. LABS: WBC 12.2, hemoglobin 12.1. ASSESSMENT: 1. Status post C4 T2 decompression and fusion, cervical spondylosis, cervical stenosis. 2. Chronic obstructive pulmonary disease. 3. Thrombocytopenia. 4. Hyponatremia. 5. Increased creatinine with possible chronic kidney disease, stage 2. 6. History of chronic obstructive pulmonary disease. 7. Gastroesophageal reflux disease. 8. History of gastrointestinal bleed. 9. Hypertension. 10.Hyperlipidemia. 11.History of chronic liver disease. 12.History of degenerative joint disease. 13.History of prostate disorder. 14.History of esophageal ulcer repair. 15.History of prostate cancer. 16.History of cirrhosis of the liver. 17.History of cataracts. 18.Remote history of nicotine dependence. 19.History of THC. 20.FULL CODE. RECOMMENDATIONS AND DISCUSSION: I recommend to continue current medications, continue with the monitoring, symptomatic treatment. Otherwise, resume the home medications. Closely follow with primary physician in the outpatient setting. Incentive spirometry. The rest of the recommendations per Orthopedic Surgery. Further recommendations to follow. MMODL / IJN: [id number] /
== END 2021-09-17 15:40 | disposition home or self-care (01) | DRG 455 ==
LOC: 2ORMAIN 05:46 → 5NMEDONC 16:25
PROVIDERS: ADMIT Orthopaedic Surgery; ATTEND Orthopaedic Surgery
PROC: 01N10ZZ Release Cervical Nerve, Open Approach (ICD-10-PCS; principal; 2021-09-17)
PROC: 0RG20K1 Fusion of 2 or more Cervical Vertebral Joints with Nonautologous Tissue Substitute, Posterior Approach, Posterior Column, Open Approach (ICD-10-PCS; principal; 2021-09-17)
PROC: 0RG20A0 Fusion of 2 or more Cervical Vertebral Joints with Interbody Fusion Device, Anterior Approach, Anterior Column, Open Approach (ICD-10-PCS; principal; 2021-09-17)
PROC: 4A11X4G Monitoring of Peripheral Nervous Electrical Activity, Intraoperative, External Approach (ICD-10-PCS; principal; 2021-09-17)
PROC: 0RT30ZZ Resection of Cervical Vertebral Disc, Open Approach (ICD-10-PCS; principal; 2021-09-17)
DX: M47.12 Other spondylosis with myelopathy, cervical region (principal); D69.6 Thrombocytopenia, unspecified; K70.30 Alcoholic cirrhosis of liver without ascites; J44.9 Chronic obstructive pulmonary disease, unspecified; F10.21 Alcohol dependence, in remission; M47.22 Other spondylosis with radiculopathy, cervical region; M43.12 Spondylolisthesis, cervical region; M48.02 Spinal stenosis, cervical region; Z20.822 Contact with and (suspected) exposure to COVID-19; I12.9 Hypertensive chronic kidney disease with stage 1 through stage 4 chronic kidney disease, or unspecified chronic kidney disease; N18.2 Chronic kidney disease, stage 2 (mild); M43.22 Fusion of spine, cervical region; M48.061 Spinal stenosis, lumbar region without neurogenic claudication; K76.9 Liver disease, unspecified; G25.81 Restless legs syndrome; E78.2 Mixed hyperlipidemia; G60.9 Hereditary and idiopathic neuropathy, unspecified; I08.1 Rheumatic disorders of both mitral and tricuspid valves; K21.9 Gastro-esophageal reflux disease without esophagitis; H40.9 Unspecified glaucoma; M19.90 Unspecified osteoarthritis, unspecified site; Z71.6 Tobacco abuse counseling; Z79.899 Other long term (current) drug therapy; Z87.891 Personal history of nicotine dependence; Z85.46 Personal history of malignant neoplasm of prostate; Z87.11 Personal history of peptic ulcer disease; Z87.19 Personal history of other diseases of the digestive system; Z90.79 Acquired absence of other genital organ(s); Z98.42 Cataract extraction status, left eye; Z98.41 Cataract extraction status, right eye; Z98.890 Other specified postprocedural states; Z80.8 Family history of malignant neoplasm of other organs or systems; Z82.5 Family history of asthma and other chronic lower respiratory diseases; Z81.1 Family history of alcohol abuse and dependence
CPT/HCPCS: 36415; 72040; 72125; 80053; 83735; 85025; 86850; 86900; 86901; 87635; 94640

== ENCOUNTER → 2021-12-20 | Outpatient (CLI) | payer OTHER ==
--- NOTE | 2021-12-20 09:41 | US ---
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 cirrhosis EXAM MEASUREMENTS: Liver Length: 12.4 cm Gallbladder Wall: 0.2 cm CBD: 0.4 cm Right Kidney: 9.7 x 4.6 x 4.9 cm technical limitations due to large amount of overlying bowel content Pancreas: Obscured by bowel gas Liver: limited evaluation, nodular and heterogeneous Gallbladder: no evidence of stones Evidence for sonographic Mckeon's sign: no CBD: limited evaluation Right Kidney: no evidence of hydronephrosis IMPRESSION: The liver demonstrates a nodular and heterogenous appearance. Correlate with thyroid function testing .
[2021-12-20 14:44] LABS: HCT 38.7 % (39.6-50.0); HGB 12.4 g/dL (13.0-17.0); MCH 30.2 pg (27.0-32.0); MCV 94.4 fL (80.0-97.0); Mean Platelet Volume 12.6 fL (9.5-12.2); NRBC Per 100 WBC 0 /100 WBCS (0.0-0.0); Platelet Count 124 X 10*3/uL (140-440); RDW 13.8 % (11.5-14.5); WBC 9.16 X 10*3/uL (4.50-10.00)
[2021-12-20 14:52] LABS: Albumin 4.4 g/dL (3.8-4.9); Albumin/Globulin Ratio 1.86 (1.60-3.17); Bilirubin, Conjugated 0.21 mg/dL (0.20-0.40); Bilirubin,Unconjugated 0.27 mg/dL (0.20-1.00); Globulin 2.3 g/dL (1.6-3.3); Total Bilirubin 0.5 mg/dL (0.30-1.20); Total Protein 6.7 g/dL (6.2-8.2)
== END | disposition home or self-care (01) ==
LOC: RADUSWWP 08:54
PROVIDERS: ATTEND Internal Medicine Gastroenterology
DX: K76.89 Other specified diseases of liver (principal)
CPT/HCPCS: 36415; 76705; 80076; 82105; 85027

== ENCOUNTER → 2021-12-23 | Outpatient (CLI) | payer OTHER ==
[2021-12-23 17:37] LABS: Basophils # (A) 0.03 X 10*3/uL (0.00-0.10); Basophils % (A) 0.4 %; Eosinophils # (A) 0.17 X 10*3/uL (0.04-0.35); Eosinophils % (A) 2.4 %; HCT 36.6 % (39.6-50.0); Immature Grans, Automated 0.1 %; Lymphocytes # (A) 2.03 X 10*3/uL (0.90-5.00); MCH 30.7 pg (27.0-32.0); MCHC 32.8 g/dL (32.0-37.0); MCV 93.6 fL (80.0-97.0); Mean Platelet Volume 12.2 fL (9.5-12.2); Monocytes # (A) 0.86 X 10*3/uL (0.20-1.00); Monocytes % (A) 12.3 %; NRBC Per 100 WBC 0 /100 WBCS (0.0-0.0); Neutrophils # (A) 3.91 X 10*3/uL (1.80-7.70); Neutrophils % (A) 55.8 %; Platelet Count 129 X 10*3/uL (140-440); RBC 3.91 X 10*6/uL (4.40-5.60); RDW 14.1 % (11.5-14.5); WBC 7.01 X 10*3/uL (4.50-10.00)
[2021-12-23 18:12] LABS: African American GFR (CKD) 48.3 (60.0-200.0); Anion Gap 12.3 mmol/L (10.00-18.00); BUN/Creat Ratio 14.53 Ratio (12.00-20.00); Blood Urea Nitrogen 24.7 mg/dL (9.0-27.0); Calcium 9.9 mg/dL (8.7-10.3); Carbon Dioxide 19.7 mmol/L (20.0-27.5); Non-African American GFR(CKD) 41.7 (60.0-200.0); Potassium 4.9 mmol/L (3.5-5.5)
[2021-12-23 18:37] LABS: INR 1.03 (0.90-1.11); Prothrombin Time 11.6 sec (9.9-11.9)
== END | disposition home or self-care (01) ==
LOC: LABPAT 11:22
PROVIDERS: ATTEND Orthopaedic Surgery
DX: Z01.812 Encounter for preprocedural laboratory examination (principal); T81.31XA Disruption of external operation (surgical) wound, not elsewhere classified, initial encounter; Y79.2 Prosthetic and other implants, materials and accessory orthopedic devices associated with adverse incidents
CPT/HCPCS: 36415; 80048; 85025; 85610; 86850; 86900; 86901

== ENCOUNTER 2021-12-30 05:56 | Inpatient (IN) | payer OTHER ==
[2021-12-28 14:09] VITALS: BMI 24.3
[~2021-12-30 05:56] MED LIST changes: +TRANEXAMIC ACID IN NACL,ISO-OS 1,000 MG in SALINE 1 100ML.BAG IVPB PRN
[2021-12-30] MEDS ORDERED: DEXAMETHASONE SOD PHOSPHATE 4 MG/ML 1 ML VIAL IV ONE (06:09)
[2021-12-30] MEDS ORDERED: LIDOCAINE 1% (10MG/ML) FOR IV START INTRADERMA ONE (06:42)
[2021-12-30] MEDS: LACTATED RINGERS 1,000 ML IV SCH (06:42)
[2021-12-30] MEDS: ONDANSETRON 4 MG/2 ML VIAL IVP ONE ×2 (06:44→09:44)
--- NOTE | 2021-12-30 06:54 | P.HPOR ---
History of Present Illness H&P Date: 12/23/21 Chief Complaint: Facial dehiscence, sinus tract ate of :57 Age: 66 year Height: 5'7" Weight: 156 lbs BP:130/85 BMI: 25.06 kg/m2 Occupation: Retired VAS: 9 CHIEF COMPLAINT: S/P C3 to C6 ACDF with posterior C2 to T1 decompression fusion DOI:Chronic prior to surgery. DOS:09/14/21 Post Op Week: 3 months SUBJECTIVE: Patient returns to the office for a recheck of his cervical spine. Since the time of the last appointment the patient reports that he has had an increase in pain about the neck as well as an opening in the wound with drainage for the last 2 weeks. Patient denies any exact known mechanism of onset for the opening of the wound, denying any trauma or injury. With this the patient denies any fevers or chills. Additionally he denies any headaches, migraines or sleep disturbances due to his symptoms. he has been having increased difficulty completing daily tasks due to pain. Otherwise he reports that he has continued to take Oxycodone for his pain with moderate relief. Patient denies any bladder or bowel retention/incontinence, no perineal numbness/tingling, and ambulates independently. HPI: Patient last presented to the office on 12/15/2021 for a recheck of his cervical spine. Since the time of the last appointment the patient has been doing okay. The patient reports that 2 weeks ago he did sustain a fall, hitting his head on the corner of a stove. He did suffer lacerations to the face and left pinky toe but denies any injury to the cervical region. He reports some intermittent aching about the posterior cervical region but denies any other issues at this time. Overall he is happy with the progress he has made and has no complaints at this time. Patient presents to the office wearing his hard cervical collar and ambulating independently. Patient last presented on 10/01/2021 for a post-operative appointment following theirC3 to C6 ACDF with posterior C2 to T2 decompression fusion on 09/14/21. Since the time of the surgery the patient notes that he has been doing okay. Patient notes tenderness and pain about the surgical site with twisting motions. He is taking Oxycodone and Aleve with good effect on his symptoms as they flare up. He denies any issues with the incision or fevers/chills. Overall he notes that he is doing okay and denies any notable issues. He is happy with the progress he hs made. The patient's past medical history; past surgical history; family history; medicines; allergies and social history have been reviewed and are as stated elsewhere in the chart. 14 points review of systems completed and as stated in HPI, all other systems reviewed are negative. Review of Systems 14 points review of systems completed and as stated in HPI, all other systems reviewed are negative. All systems: negative Constitutional: Reports as per HPI Past Medical History Past Medical History: Cancer, COPD, GERD/Reflux, GI Bleed, Hyperlipidemia, Hypertension, Liver Disease, Osteoarthritis (OA), Prostate Disorder, Skin Disorder Additional Past Medical History / Comment(s): RESTLESS LEG. " in 2004 esophagus was bleeding and ulcers in stomach", Prostate cancer, cirrhosis, "hole" posterior neck area [place] some clear fluid, no blood History of Any Multi-Drug Resistant Organisms: None Reported Past Surgical History: Back Surgery, Prostate Surgery Additional Past Surgical History / Comment(s): CATARACT SURGERY-BILATERAL, prostatectomy, COLONOSCOPY/EGD, BACK INJECTIONS, laser eye surgery for glaucoma, multilevel cervical fusion September 2021 Past Anesthesia/Blood Transfusion Reactions: No Reported Reaction Smoking Status: Former smoker - Past Family History Sister(s) Family Medical History: Cancer Brother(s) Family Medical History: Cancer Additional Family Medical History / Comment(s): throat cancer Mother Family Medical History: COPD Additional Family Medical History / Comment(s): of COPD Father Additional Family Medical History / Comment(s): of alcoholism Medications and Allergies Home Medications Medication Instructions Recorded Confirmed Type Omeprazole [PriLOSEC] 20 mg PO BID 10/14/15 12/30/21 History Simvastatin [Zocor] 10 mg PO HS 10/14/15 12/30/21 History Pregabalin [Lyrica] 150 mg PO BID 03/17/19 12/30/21 History Lisinopril [Prinivil] 10 mg PO QAM 04/30/20 12/30/21 History Spironolactone 100 mg PO QAM 06/18/20 12/30/21 History Albuterol Sulfate [Proventil Hfa] 1 puff INHALATION RT-Q4H PRN 03/10/21 12/30/21 History Ipratropium-Albuterol Nebulize 3 ml INHALATION RT-QID PRN 03/10/21 12/30/21 History [Duoneb 0.5 mg-3 mg/3 ml Soln] oxyCODONE-APAP 5-325MG [Percocet 1 tab PO Q6HR PRN 12/28/21 12/30/21 History 5-325 mg] Allergies Allergy/AdvReac Type Severity Reaction Status Date / Time No Known Allergies Allergy Verified 12/30/21 06:26 Physical Examination Osteopathic Statement: *. No significant issues noted on an osteopathic structural exam other than those noted in the History and Physical/Consult. PHYSICAL EXAM: Patient is alert and oriented 3 appears well-nourished well-hydrated is in no acute distress. They does not appear septic. On exam the patient has no tenderness to palpation of her thoracic or lumbar spine. Lower extremities with 5 out of 5 strength in all major muscle groups Upper extremities show 4+/5 strength in all major muscle groups. with improvement noted, no focal deficits. There is drainage coming from a pinhole sized wound on lateral aspect of the incision with drainage. Pt denies any fevers or chills at this time. No TTP about the incisions, gentle ROM testing tolerated without issue. There is FROM that is painless of the b/l UE and LE in all major joints. They are intact to light touch sensation in L2 to S1 nerve distribution as well as the C5-T1 distribution. DTRs 2/4 all upper and lower Patient has palpable dorsalis pedis was posterior tibial pulses. Compartments are soft and compressible. Patient shows a negative Homans, Leroy's, negative Babinski's negative clonus bilaterally. negative straight leg raise bilaterally. No tensioning signs. Cranial nerves II through XII are grossly intact. Overall alignment is well-maintained in the sagittal coronal planes. G[place] removed today and surgical site cleaned. There is a draining sinus that is remote to the incision, this is serous drainage, no purulence. It just appeared according to the pt in the last day. There is evidence of facial dehiscence deep with splaying of the trapezius in this area and palpable hardware. No EEE. No evidnece of infection at this time. Results RADIOGRAPHS: XRay taken on 12/23/21 of Lumbar was reviewed by Dr. Stoddard and indicates: - Hardware in position, no discernable interval changes. No evidence of any dislocation or fracture. No acute findings or processes on imaging, overall good disc height with good sagittal balance and coronal alignment. Evidence of continued bony consolation. XRay taken on 11/01/21 of Lumbar was reviewed by Dr. Stoddard and indicates: - Hardware in position, no discernable interval changes. No evidence of any dislocation or fracture. No acute findings on imaging, overall good disc height with good sagittal balance and coronal alignment. Evidence of bony consolation. XRay taken on 10/01/21 of Lumbar was reviewed by Dr. Stoddard and indicates: - Hardware in position, no discernable interval changes. No evidence of any dislocation or fracture. No acute findings on imaging, overall good disc height with good sagittal balance and coronal alignment. Evidence of continued bony consolation. No acute findings noted. Assessment and Plan Assessment: 1. S/P C3 to C6 ACDF with posterior C2 to T1 decompression fusion 2. Fascial dehiscence with remote sinus drainage Plan: ll options were reviewed today, we decided the best course of action would be: - Continue with supplements and health maintenance programs. I discussed treatment options with the patient, including operative and non- operative options, and they have elected to proceed with the following surgical procedure: revision fascial dehiscence posterior neck The indications, risks, benefits, and alternatives to surgery were discussed with the patient and family at length. Specifically (but not limited to) the risks of infection, stiffness, recurrence of symptoms, need for revision surgery, local numbness, neurovascular injury, and blood clots were discussed. The patient's questions were answered. The decision to proceed was made. Consent will be obtained for the procedure. Spine Surgery Risk Review David Bingham is presenting for evaluation of S/P C3 to C6 ACDF with posterior C2 to T1 decompression fusion. It was my pleasure to have seen and examined David Bingham. In our visit today we have had a chance to go over subjective complaints, physical examination findings and treatments including the natural course history without intervention and various interventional options. The patients imaging demonstrates Xrays: Hardware in position, no discernable interval changes. No evidence of any dislocation or fracture. No acute findings or processes on imaging, overall good disc height with good sagittal balance and coronal alignment. Evidence of continued bony consolation. . On physical exam, David Bingham demonstrates: Upper extremities show 4+/5 strength in all major muscle groups. with improvement noted, no focal deficits. There is drainage coming from a pinhole sized wound on lateral aspect of the incision with drainage. Pt denies any fevers or chills at this time. No TTP about the incisions, gentle ROM testing tolerated without issue.. I have explained to the patient that as their condition progresses it will cause further neurological deficits and eventual paralysis. Based on the patients imaging, physical exam, and the rapid progression and disabling nature of their symptoms, at this time I recommend surgery in the form or a: revision fascial dehiscence of the posterior neck. I discussed the risk and benefits of this procedure at length with David Bingham. The patient and his agreed to considered pursuing the procedure abovementioned. Prior to surgery, she should follow up with her PCP (Cardio, ID, IM etc) for clearance. Questions were invited and answered, and the patient wishes to proceed as outlined below. Currently, I am recommendin.revision fascial dehiscence of the posterior neck with closure 2.Follow up with PCP for surgical clearance 3.Review of surgical risks and benefits as well as an educational packet on the proposed surgical procedure. Risks: All surgical procedures come with inherent risks, including those related to positioning, anesthesia, intraoperative findings, and postoperative complications. It is important to understand that surgery does not come with any guarantee of a successful outcome as complications and adverse events are always possible. The patient was given a handout in office today discussing the surgical procedure and risks associated with the intervention, both of which were discussed with the patient. These risks include but are not limited to the following: * Experiencing same, different or even worse symptoms in back, neck, arms, or legs compared to before surgery. Requiring further surgery or other forms of treatment presently or at some time in the future at same or other levels of the intended spine surgery. On an extreme but fortunately relatively rare basis severe complication such as blindness, stroke, heart attack, temporary and/or permanent nerve injury, paralysis, coma, or may occur, sometimes without known explanation. Surgical complications may include but are not limited to risk of infection, fluid accumulation in the surgical dissection site, including a seroma or hematoma, that requires additional surgery, wound drainage, bleeding, new numbness or weakness, vision changes/loss, spinal fluid leakage, non-healing and/or infected incision, headaches, difficulty or inability to swallow, hoarseness, hemopneumothorax, pneumothorax, impotence, retrograde ejaculation, vaginal dryness; injury to nerves, spinal cord, blood vessels, lymphatics or other vital organs (i.e., bowel injury, injury to the great vessels); heterotopic bone formation; complications related to the hardware such as screws, rods, cages including misplaced hardware, device failure, instrumentation at the wrong spine level, hardware fracture/breakage, or hardware loosening; vertebral failure of the spinal column above or below the newly placed hardware; retained surgical instrumentations or devices and the need for further surgery. * Medical risks of the planned spine surgery include but are not limited to generalized Infections to the whole body or local areas outside of the surgical site (sepsis), heart attack, bleeding, anaphylaxis, meningitis, seizure, epilepsy, hearing loss, burn fleming, laceration of the head or other areas of the body, bruising, hypersensitivity of the skin, bladder over distension; allergic reaction; shoulder injury related to positioning; fat, blood and air clots to other areas of the body like heart, lungs, brain; failure of internal organs such as lungs, kidneys, liver and excessive bleed ing. If blood transfusions are necessary, note that transfusions may cause intolerance reactions such as anaphylaxis or other complex reactions. Despite best efforts, the results of spine surgery might not heal in terms of bone, soft tissues such as skin, fascia, ligaments, and joints. Additionally, in order to achieve best possible results, spine surgery may be carried out beyond the initially planned levels and involve decompression, fusion including insertion of hardware at levels other than the original intended area of surgical interest change some portions of the procedure in order to ensure the best possible outcomes. With spine surgery and spinal fusion, there are different off label uses of instrumentation (devices, implants and hardware) as well as biological substances (bone morphogenic proteins, demineralized bone matrix) as well as using extra bone from allograft sources (i.e. cadaver bone) or autograft (iliac crest bone, ribs, or the spine itself). The patient has been given information about these practices and their inherent risks and benefits. [facility] is an educational center that serves as a training facility for neurosurgical and orthopedic NEURO OPHTHALMOLOGIST and Nursing students. Physician assistants are medically trained surgical providers who function in the outpatient, inpatient, and operating room setting under the direct supervision of the attending surgeon. Charley Gonsalves has multiple operating rooms with single and overlapping rooms running daily. They currently function under the required guidelines as produced by the [facility] Finance Committee with regards to the overlapping rooms and will continue to comply with changes to this policy as they occur. The requirements include and are complied with as follows: (1) the critical portions of the overlapping rooms will not occur at the same time, (2) the attending physician will be physically present during the critical portions of the procedure and immediately available during the entire case, and (3) a back-up attending is designated should the primary attending not be immediately available. The patient has had a chance to review all the listed information, has been given print outs detailing this information, and has had all his/her questions answered to their satisfaction. It was my pleasure to have seen and examined David Bingham. In our visit today we have had a chance to go over my understanding of our patient's current condition, the natural course history without intervention and various interventional options. Questions were invited and answered, and the patient wishes to proceed as outlined above. I have seen and examined the patient for 25 minutes and we have spent more than 50% of the time in repeat and detailed counseling about the patient's condition, its natural course history with out and as much as can be predicted with surgery and re-review of various surgical treatment options. In conclusion, David Bingham and his requested we proceed with the above suggested surgery and are willing to accept risks and limitations of the suggested surgery as nature of the disease process and our best attempts at treatment for the condition. Thank you again for allowing us to be part of your patient's care. Please don't hesitate to contact me if you have any further questions. Signed and authenticated by: [employer] P:\\\\ppart\\\\[id number]\\\\[id number]\\\\[id number]\\\\[id number]\\\\[id number]\\\\ [id number]\\\\[id number]\\\\[id number]\\\\[id number]\\\\[id number]\\\\[id number]\\\\[id number].PNG \\d [facility] [address] [place] [address]
--- NOTE | 2021-12-30 06:54 | P.PN ---
Progress Note - Text Progress Note Date: 12/30/21 History and Physical UPDATE I have seen and examined the patient and reviewed the history and physical. There appear to be no significant changes in the patient's current medical status as outlined in the current History and Physical.
[2021-12-30] MEDS ORDERED: GELATIN SPONGE,ABSORB (LARGE) 1 EACH SPONGE TOPICAL ONE (08:30)
[2021-12-30] MEDS ORDERED: THROMBIN (BOVINE) 5,000 UNIT VIAL TOPICAL ONE (08:31)
[2021-12-30] MEDS ORDERED: ceFAZolin 3,000 MG in SODIUM CHLORIDE 0.9% IRRIGATIO 3,000 ML IRRIGATION ONE (08:51)
[2021-12-30] MEDS ORDERED: LACTATED RINGERS 1,000 ML IV ONE (09:03)
[2021-12-30] MEDS ORDERED: HYDROmorphone 0.5 MG/0.5 ML SYRINGE IVP PRN (09:31)
[2021-12-30] MEDS ORDERED: HYDROcodone/APAP 5-325MG 1 EACH TAB PO PRN (09:31)
[2021-12-30] MEDS: HYDROmorphone 0.5 MG/0.5 ML SYRINGE IVP PRN ×3 (09:34→10:53)
--- NOTE | 2021-12-30 09:34 | P.PN ---
Progress Note - Text Progress Note Date: 12/30/21 Postop: . Patient seen and examined they are doing well. Their pain is under control at this time. They are moving all 4 extremities without any issues. Vital signs are stable.. They are currently recovering and will be transferred to the floor once deemed stable by the PACU team and anesthesiologist. No Other issues at this time they deny fever chills shortness of breath or chest pain. [C collar in place, well fitting] [Medical management pending] [Continue with intravenous fluids, pain medication, muscle relaxers, home medication] [Soft diet to start to advance as tolerated] We will evaluate the patient in the morning.
[2021-12-30] MEDS: 0.9% NACL WITH KCL 20 MEQ/L 1,000 ML IV SCH (12:14)
[2021-12-30] MEDS: HYDROmorphone 1 MG/ML 1 ML SYRINGE IVP PRN ×3 (12:40→21:12)
[2021-12-30] MEDS: ACETAMINOPHEN TAB 325 MG TAB PO SCH ×3 (12:41→23:06)
--- NOTE | 2021-12-30 16:31 | P.CONS ---
History of Present Illness - Reason for Consult Consult date: 12/30/21 Medical Management Requesting physician: Doug Early - History of Present Illness History of Presenting Illness: Patient is a very pleasant 66-year-old male with a past medical history hypertension, hyperlipidemia, COPD, GERD, throat cancer, prostate cancer status post prostatectomy, and recent C3 to C6 ACDF with posterior C2 to T1 decompression fusion surgery completed 3 months ago. Patient had dehiscence of surgical wound along the sinus track and is currently status post revision fascial dehiscence of the posterior neck with closure. Surgical Procedure was completed by Dr. Early earlier this morning. We have been consulted to follow along for continued medical management throughout hospitalization. Patient seen and fully evaluated at bedside. C-collar and DORIS drain in place. Patient reports control of postsurgical pain with current pain medication regimen at this time. Patient tolerating oral intake at this time and denies experiencing any postoperative nausea or vomiting. Patient states he has yet to urinate since surgical procedure and RN aware to monitor output. Patient denies having any headache, lightheadedness, dizziness, changes in his vision or hearing, dysphagia, chest pain or palpitations, shortness of breath, or experiencing any numbness/tingling/weakness in his extremities. Patient denies history of DVTs or PE. Review of systems: Pertinent positives and negatives as discussed in HPI, a complete review of systems was performed and all other systems are negative. Physical exam: Vital signs reviewed and stable. General: Nontoxic, no distress and appears stated age. Derm: Skin warm and dry, normal coloration for ethnicity. Head/neck: Atraumatic, normocephalic and symmetric. C-collar and DORIS drain in place. Eyes: EOMs intact, no lid lag, and anicteric sclera Mouth: no lip lesions, mucus membranes moist Cardiovascular: regular rate and rhythm with normal S1S2, systolic murmur, positive posterior tibial pulses bilaterally, and cap refill < 2 seconds. Lungs: Respirations even, regular, and unlabored on room air. Lungs CTA bilaterally, no rhonchi, no rales, no wheezing, and no accessory muscle usage. Abdominal: soft, nontender to palpation, no guarding, no appreciable organomegaly Ext: ROM intact. No gross muscle atrophy, no edema, no contractures Neuro: Speech clear, face symmetrical and CN II-XII grossly intact with no noted focal neuro deficits Psych: Alert and oriented to person, place, time, and situation. Appropriate and pleasant affect. Assessment and Plan of Care: Status post revision fascial dehiscence of the posterior neck with closure. -Surgical Procedure was completed by Dr. Early 12/30/21 -Management per primary admitting [facility]ospine surgical team including DVT prophylaxis, pain management, and postoperative wound care. -Symptomatic care and pain management. -Continue neuro checks as directed by orthospine surgery team. -Encourage incentive spirometry use 10-15 times hourly while awake. -DVT prophylaxis with SCDs at this time as directed by primary admitting orthospine surgical team. Hypertension -Monitor vital signs and continue daily medication regimen with lisinopril. Hyperlipidemia -Continue daily medication regimen with atorvastatin. GERD -GI prophylaxis with Protonix 40 mg twice daily. Thank you for allowing us to participate in the care of this pleasant patient. Do not hesitate to contact us with questions. Someone can be reached from the [facility] hospitalist group all hours of the day at [phone] or via [employer]. Past Medical History Past Medical History: Cancer, COPD, GERD/Reflux, GI Bleed, Hyperlipidemia, Hypertension, Liver Disease, Osteoarthritis (OA), Prostate Disorder, Skin Disorder Additional Past Medical History / Comment(s): RESTLESS LEG. " in 2004 esophagus was bleeding and ulcers in stomach", Prostate cancer, cirrhosis, "hole" posterior neck area @surgery site from Sep.-[place] draining some clear fluid, no blood History of Any Multi-Drug Resistant Organisms: None Reported Past Surgical History: Back Surgery, Prostate Surgery Additional Past Surgical History / Comment(s): CATARACT SURGERY-BILATERAL, prostatectomy, COLONOSCOPY/EGD, BACK INJECTIONS, laser eye surgery for glaucoma, multilevel cervical fusion September 2021 Past Anesthesia/Blood Transfusion Reactions: No Reported Reaction Past Psychological History: No Psychological Hx Reported Additional Psychological History / Comment(s): denies Smoking Status: Former smoker Past Alcohol Use History: Occasional Additional Past Alcohol Use History / Comment(s): quit smoking cigars 6 months ago, quit smoking cigarettes 5 yrs ago, started smoking age 15, Patient reportedly stopped drinking in 2020, states hx of alcoholism Past Drug Use History: Marijuana Additional Drug Use History / Comment(s): marijuana occasionally - Past Family History Sister(s) Family Medical History: Cancer Brother(s) Family Medical History: Cancer Additional Family Medical History / Comment(s): throat cancer Mother Family Medical History: COPD Additional Family Medical History / Comment(s): of COPD Father Additional Family Medical History / Comment(s): of alcoholism Medications and Allergies Home Medications Medication Instructions Recorded Confirmed Type Omeprazole [PriLOSEC] 20 mg PO BID 10/14/15 12/30/21 History Simvastatin [Zocor] 10 mg PO HS 10/14/15 12/30/21 History Pregabalin [Lyrica] 150 mg PO BID 03/17/19 12/30/21 History Lisinopril [Prinivil] 10 mg PO QAM 04/30/20 12/30/21 History Spironolactone 100 mg PO QAM 06/18/20 12/30/21 History Albuterol Sulfate [Proventil Hfa] 1 puff INHALATION RT-Q4H PRN 03/10/21 12/30/21 History Ipratropium-Albuterol Nebulize 3 ml INHALATION RT-QID PRN 03/10/21 12/30/21 History [Duoneb 0.5 mg-3 mg/3 ml Soln] oxyCODONE-APAP 5-325MG [Percocet 1 tab PO Q6HR PRN 12/28/21 12/30/21 History 5-325 mg] Allergies Allergy/AdvReac Type Severity Reaction Status Date / Time No Known Allergies Allergy Verified 12/30/21 06:26 Physical Exam Vitals: Vital Signs Temp Pulse Resp BP Pulse Ox 12/30/21 14:00 97.8 F 78 136/83 98 12/30/21 12:18 98.0 F 78 134/86 96 12/30/21 11:32 75 18 120/78 97 12/30/21 11:27 79 18 126/77 97 12/30/21 11:01 81 18 114/66 97 12/30/21 10:46 83 18 127/78 97 12/30/21 10:32 85 18 119/72 97 12/30/21 10:16 98.1 F 82 18 129/74 98 12/30/21 10:02 86 18 130/68 98 12/30/21 09:46 89 20 140/66 99 12/30/21 09:39 96 20 148/73 99 12/30/21 09:27 111 H 20 167/88 99 12/30/21 06:24 98.0 F 94 18 124/90 98 Intake and Output 12/30/21 12/30/21 12/30/21 06:59 14:59 22:59 Intake Total 300 1151 50 Output Total 75 270 Balance 300 1076 -220 Intake: IV 300 1151 Intake, IV Titration 50 Amount ceFAZolin 2 gm In Sodium 50 Chloride 0.9% 50 ml @ 100 mls/hr IVPB Q8HR [facility] Rx# :[id number] Output: Drainage 20 Posterior Neck 20 Urine 250 Estimated Blood Loss 75 Other: # Voids 1 Weight 68.356 kg 68.356 kg Results Labs: Microbiology - Last 24 Hours (Table) 12/30/21 08:15 Wound Culture - Preliminary Neck 12/30/21 08:15 Anaerobic Culture - Preliminary Neck 12/30/21 08:15 Wound Culture - Preliminary Neck 12/30/21 08:15 Anaerobic Culture - Preliminary Neck
--- NOTE | 2021-12-30 19:04 | P.OP ---
Date of Procedure: 12/30/21 Preoperative Diagnosis: 1. Facial dehiscence posterior neck 2. Seroma with draining tract 3. s/p 360 cervical fusion Postoperative Diagnosis: 1. Facial dehiscence posterior neck 2. Seroma with draining tract 3. s/p 360 cervical fusion Procedure(s) Performed: 1. Incision and drainage posterior neck 30 x 7 x 5 cm 2. Irrigation and debridement skin, soft tissue, muscle and bone posterior neck -Skin knife used to excise tract, and skin -Curette used to debride soft tissue, bone and muscle 3. Exploration of fusion posterior neck 4. Revision complex closure 3 layers posterior neck due to facial dehiscence 30 x 7 x 5 cm Implants: None Anesthesia: GETA Surgeon: Doug Early ([facility] was present for the entire case) Estimated Blood Loss (ml): 50 IV fluids (ml): 1,500 Urine output (ml): 0 Pathology: other (2 cultures posterior neck) Condition: stable Disposition: PACU Indications for Procedure: David Bingham is presenting for evaluation of S/P C3 to C6 ACDF with posterior C2 to T1 decompression fusion. It was my pleasure to have seen and examined David Bingham. In our visit today we have had a chance to go over subjective complaints, physical examination findings and treatments including the natural course history without intervention and various interventional options. The patients imaging demonstrates Xrays: Hardware in position, no discernable interval changes. No evidence of any dislocation or fracture. No acute findings or processes on imaging, overall good disc height with good sagittal balance and coronal alignment. Evidence of continued bony consolation. . On physical exam, David Bingham demonstrates: Upper extremities show 4+/5 strength in all major muscle groups. with improvement noted, no focal deficits. There is drainage coming from a pinhole sized wound on lateral aspect of the incision with drainage. Pt denies any fevers or chills at this time. No TTP about the incisions, gentle ROM testing tolerated without issue.. I have explained to the patient that as their condition progresses it will cause further neurological deficits and eventual paralysis. Based on the patients imaging, physical exam, and the rapid progression and disabling nature of their symptoms, at this time I recommend surgery in the form or a: revision fascial dehiscence of the posterior neck. I discussed the risk and benefits of this procedure at length with David Otilia. The patient and his agreed to considered pursuing the procedure abovementioned. Prior to surgery, she should follow up with her PCP (Cardio, ID, IM etc) for clearance. Questions were invited and answered, and the patient wishes to proceed as outlined below. Currently, I am recommendin.revision fascial dehiscence of the posterior neck with closure 2.Follow up with PCP for surgical clearance 3.Review of surgical risks and benefits as well as an educational packet on the proposed surgical procedure. Description of Procedure: The patient was seen and examined in the preoperative area. All preoperative protocols were followed. Informed consent was obtained risks and benefits of the procedure were discussed at length. Risks including bleeding infection damage to the surrounding tissue and risk of reoperation were discussed with the patient. Risk of anesthesia up to and including was a discussed with the patient. These are outlined in the risk review. They were willing to accept these risks and all of the risks of surgery. The patient was given a weight- based dose of antibiotics in the form of 2 g ancef. The patient was seen and evaluated by the anesthesia team who deemed them fit for surgery. The site was marked, the patient was willing to proceed with the procedure. The patient was transferred to the operative suite by the Department of anesthesia. They were then drifted off to sleep by the department anesthesia and GETA was performed. The patient tolerated this well. Once confirmation of lines and ventilation the patient was transferred to a prone Valentin table very carefully. All bony prominences including wrists, elbows, axilla, chest, hips, and thighs, and feet were padded very well. Special attention was paid to the genitalia and these were padded accordingly. SCDs were placed on bilateral lower extremities and were connected. Arms were well padded and placed to decide thumbs down and well-padded. Once in position, again we confirmed good ventilation capabilities and that lines were running appropriately. The patient's posterior cervical spine was then exposed. 1010s were placed outlining the incision site. Standard alcohol was used to clean the incision site and allowed to dry. C-arm was used to biomark the patient and confirm level for incision which was marked with a skin marker. Operative briefing was performed with all teams and everyone in agreement to proceed. The patient was then prepped and draped in a normal sterile fashion. Timeout was then performed and all parties were in agreement with the procedure to be performed. Midline skin incision was made over the previously marked area previous incision the skin was extremely friable in this area. Once skin incision was made the fascial dehiscence was visualized. The nuchal ligament had dehisced along with the trapezial fascia and the musculature. There was a seroma in this area. Skin knife was used to remove the sinus tract. 2 up-biting curette was used to explore the area we debrided any tissue off of the posterior cervical cord as well as the bone in this area and the hardware which is inspected. The fusion actually appeared very well with good bone formation posterior lateral as well as good decompression maintained. We mobilized then the trapezial flaps as well as the longissimus flaps and the nuchal ligament in order to allow for closure. We then irrigated the area thoroughly with 3 L of antibiotic saline solution followed by 6 L of normal sterile saline. Prior to this to cultures were taken superficial and deep and were sent. Placed a drain deep to the fascia. Once debridement and irrigation were complete she then proceeded with layered closure first in the deep fascia with #1 PDS in a tension suture-like fashion while holding the shoulders and a optimal position to relieve tension from the area once these were closed we then closed the superficial fascia and trapezial fascia over this area for more robust closure this was done again with #1 PDS once this was completed we gently released the shoulders and the health their position as well as the closure. We then closed the deep subcu tissue with 0 PDS the superficial subcu tissue was closed with 2-0 PDS the skin was then closed with 2-0 nylon in a simple and running fashion the wound edges approximated very well. We then cleaned and dressed the wound sterilely with an operative foam dressing 4 x 4 and Tegaderm the drain was sewn in place with 0 PDS and held good suction. The patient was transferred back to their hospital bed atraumatically. Drain continued to hold suction and were in good position. Patient was then awakened and extubated by the department of anesthesia having tolerated the procedure very well with no complications. They were transferred to the postoperative care unit in stable condition.
[2021-12-30] MEDS: ATORVASTATIN 10 MG TAB PO SCH (21:05)
[2021-12-30] MEDS: PANTOPRAZOLE 40 MG TABLET PO SCH (21:05)
[2021-12-30] MEDS: PREGABALIN 75 MG CAP PO SCH (21:05)
[2021-12-30] MEDS: IPRATROPIUM-ALBUTEROL 3 ML NEB INHALATION PRN (21:52)
[2021-12-30] MEDS: HYDROcodone/APAP 10-325MG 1 EACH TAB PO PRN (23:36)
[2021-12-31] MEDS: 0.9% NACL WITH KCL 20 MEQ/L 1,000 ML IV SCH ×2 (00:22→11:26)
[2021-12-31] MEDS: HYDROmorphone 1 MG/ML 1 ML SYRINGE IVP PRN ×4 (00:27→18:11)
[2021-12-31] MEDS: HYDROcodone/APAP 10-325MG 1 EACH TAB PO PRN ×3 (05:12→20:09)
[2021-12-31] MEDS: ACETAMINOPHEN TAB 325 MG TAB PO SCH ×3 (05:14→09:57)
[2021-12-31] MEDS: LACTATED RINGERS 1,000 ML IV SCH (07:05)
[2021-12-31] MEDS: PREGABALIN 75 MG CAP PO SCH ×2 (08:31→21:20)
[2021-12-31] MEDS: lisinopriL 10 MG TAB PO SCH (08:31)
[2021-12-31] MEDS: PANTOPRAZOLE 40 MG TABLET PO SCH ×2 (08:31→21:20)
[2021-12-31 09:18] LABS: Basophils # (A) 0.01 X 10*3/uL (0.00-0.10); Basophils % (A) 0.1 %; Eosinophils # (A) 0.01 X 10*3/uL (0.04-0.35); Eosinophils % (A) 0.1 %; HGB 11.5 g/dL (13.0-17.0); Immature Grans, Automated 0.2 %; Lymphocytes # (A) 1.16 X 10*3/uL (0.90-5.00); Lymphocytes % (A) 12.7 %; MCH 29.9 pg (27.0-32.0); MCHC 32.9 g/dL (32.0-37.0); MCV 91.1 fL (80.0-97.0); Mean Platelet Volume 12.2 fL (9.5-12.2); Monocytes # (A) 0.98 X 10*3/uL (0.20-1.00); Monocytes % (A) 10.7 %; NRBC Per 100 WBC 0 /100 WBCS (0.0-0.0); Neutrophils # (A) 6.98 X 10*3/uL (1.80-7.70); Neutrophils % (A) 76.2 %; Platelet Count 131 X 10*3/uL (140-440); RBC 3.84 X 10*6/uL (4.40-5.60); RDW 13.3 % (11.5-14.5); WBC 9.16 X 10*3/uL (4.50-10.00)
[2021-12-31 09:26] LABS: African American GFR (CKD) 73.6 (60.0-200.0); Anion Gap 10.7 mmol/L (10.00-18.00); BUN/Creat Ratio 10.83 Ratio (12.00-20.00); Calcium 8.7 mg/dL (8.7-10.3); Carbon Dioxide 21.3 mmol/L (20.0-27.5); Non-African American GFR(CKD) 63.5 (60.0-200.0); Potassium 4.5 mmol/L (3.5-5.5)
--- NOTE | 2021-12-31 14:05 | P.PN ---
Subjective Progress Note Date: 12/31/21 Principal diagnosis: Neck pain Patient still having severe neck pain. He rates the pain as 8 out of 10. In addition he has back pain which is chronic. He states the pain medicine helps but once it wears off he continues to have it. Objective - Vital Signs Vital signs: Vital Signs Temp 98.2 F 12/31/21 02:00 Pulse 70 12/31/21 02:00 Resp 16 12/31/21 02:00 BP 133/83 12/31/21 02:00 Pulse Ox 98 12/31/21 02:00 Intake & Output 12/30/21 12/31/21 12/31/21 18:59 06:59 18:59 Intake Total 1201 Output Total 345 920 400 Balance 856 -920 -400 Weight 68.356 kg Intake: IV 1151 Intake, IV Titration 50 Amount ceFAZolin 2 gm In Sodium 50 Chloride 0.9% 50 ml @ 100 mls/hr IVPB Q8HR [facility] Rx# :[id number] Output: Drainage 20 20 Posterior Neck 20 20 Urine 250 900 400 Estimated Blood Loss 75 Other: Voiding Method Urinal Urinal # Voids 1 1 - Exam General: Nontoxic, no distress and appears stated age. Derm: Skin warm and dry, normal coloration for ethnicity. Head/neck: Atraumatic, normocephalic and symmetric. C-collar and DORIS drain in place. Eyes: EOMs intact, no lid lag, and anicteric sclera Mouth: no lip lesions, mucus membranes moist Cardiovascular: regular rate and rhythm with normal S1S2, systolic murmur, positive posterior tibial pulses bilaterally, and cap refill < 2 seconds. Lungs: Respirations even, regular, and unlabored on room air. Lungs CTA bilaterally, no rhonchi, no rales, no wheezing, and no accessory muscle usage. Abdominal: soft, nontender to palpation, no guarding, no appreciable organomegaly Ext: ROM intact. No gross muscle atrophy, no edema, no contractures Neuro: Speech clear, face symmetrical and CN II-XII grossly intact with no noted focal neuro deficits Psych: Alert and oriented to person, place, time, and situation. Appropriate and pleasant affect. - Labs CBC & Chem 7: 12/31/21 06:44 12/31/21 06:44 Labs: Abnormal Lab Results - Last 24 Hours (Table) 12/31/21 12/31/21 Range/Units 06:44 06:44 RBC 3.84 L (4.40-5.60) X 10*6/uL Hgb 11.5 L (13.0-17.0) g/dL Hct 35.0 L (39.6-50.0) % Plt Count 131 L (140-440) X 10*3/uL Eosinophils # 0.01 L (0.04-0.35) X 10*3/uL BUN/Creatinine Ratio 10.83 L (12.00-20.00) Ratio Glucose 112 H (70-110) mg/dL Microbiology - Last 24 Hours (Table) 12/30/21 08:15 Gram Stain - Preliminary Neck Wound Culture - Preliminary 12/30/21 08:15 Gram Stain - Preliminary Neck Wound Culture - Preliminary 12/30/21 08:15 Anaerobic Culture - Preliminary Neck 12/30/21 08:15 Anaerobic Culture - Preliminary Neck Assessment and Plan Plan: Status post revision fascial dehiscence of the posterior neck with closure. -Surgical Procedure was completed by Dr. Early 12/30/21 -Management per primary admitting orthospine surgical team including DVT prophylaxis, pain management, and postoperative wound care. -Symptomatic care and pain management. -Continue neuro checks as directed by orthospine surgery team. -Encourage incentive spirometry use 10-15 times hourly while awake. -DVT prophylaxis with SCDs at this time as directed by primary admitting orthospine surgical team. Hypertension -Monitor vital signs and continue daily medication regimen with lisinopril. Hyperlipidemia -Continue daily medication regimen with atorvastatin. GERD -GI prophylaxis with Protonix 40 mg twice daily.
--- NOTE | 2021-12-31 14:40 | P.PN ---
Subjective Progress Note Date: 12/31/21 Principal diagnosis: 1. Facial dehiscence posterior neck 2. Seroma with draining tract 3. s/p 360 cervical fusion Patient was seen at bedside this afternoon dressing, placed sitting up in chair with hard cervical collar on. Patient says he was up with physical therapy this morning and did well. Patient says she walked around the room. Patient says he is having some moderate pain right over incision on his posterior cervical spine. Patient denies any new changes/new weakness in the upper/lower extremities. Patient says he has not had a bowel movement since surgery. Patient denies chest pain, fever, shortness of breath, nausea, vomiting, change in vision, loss of bowel/bladder control. Objective - Vital Signs Vital signs: Vital Signs Temp 98.2 F 12/31/21 02:00 Pulse 70 12/31/21 02:00 Resp 16 12/31/21 02:00 BP 133/83 12/31/21 02:00 Pulse Ox 98 12/31/21 02:00 Intake & Output 12/30/21 12/31/21 12/31/21 18:59 06:59 18:59 Intake Total 1201 Output Total 345 920 400 Balance 856 -920 -400 Weight 68.356 kg Intake: IV 1151 Intake, IV Titration 50 Amount ceFAZolin 2 gm In Sodium 50 Chloride 0.9% 50 ml @ 100 mls/hr IVPB Q8HR [facility] Rx# :[id number] Output: Drainage 20 20 Posterior Neck 20 20 Urine 250 900 400 Estimated Blood Loss 75 Other: Voiding Method Urinal Urinal # Voids 1 1 - Exam Patient does have a hard c-collar in place. DORIS drain was removed. Patient had about 20 mL of output over the past 12 hours. 4 x 4 and tape was placed over DORIS drain incision. Incision from surgery is clean, dry, intact. There is minimal serosanguineous drainage. Sutures are well aligned and in good place. Optifoam dressing is in place on posterior cervical spine. Minimal swelling. Negative for any significant ecchymosis/erythema. Negative for any fluctuance/purulence. Sensation is equal, symmetric, bilaterally intact throughout the upper extremities. Patient does have full range of motion of bilateral upper extremities. Strength 4+/5 in bilateral upper extremities. Radial pulses intact, 2+ bilaterally. Negative Homans bilaterally - Labs CBC & Chem 7: 12/31/21 06:44 12/31/21 06:44 Labs: Abnormal Lab Results - Last 24 Hours (Table) 12/31/21 12/31/21 Range/Units 06:44 06:44 RBC 3.84 L (4.40-5.60) X 10*6/uL Hgb 11.5 L (13.0-17.0) g/dL Hct 35.0 L (39.6-50.0) % Plt Count 131 L (140-440) X 10*3/uL Eosinophils # 0.01 L (0.04-0.35) X 10*3/uL BUN/Creatinine Ratio 10.83 L (12.00-20.00) Ratio Glucose 112 H (70-110) mg/dL Microbiology - Last 24 Hours (Table) 12/30/21 08:15 Gram Stain - Preliminary Neck Wound Culture - Preliminary 12/30/21 08:15 Gram Stain - Preliminary Neck Wound Culture - Preliminary 12/30/21 08:15 Anaerobic Culture - Preliminary Neck 12/30/21 08:15 Anaerobic Culture - Preliminary Neck Assessment and Plan Assessment: 1. Facial dehiscence posterior neck 2. Seroma with draining tract 3. s/p 360 cervical fusion Postoperative day #1 status post 1. Incision and drainage posterior neck 30 x 7 x 5 cm 2. Irrigation and debridement skin, soft tissue, muscle and bone posterior neck -Skin knife used to excise tract, and skin -Curette used to debride soft tissue, bone and muscle 3. Exploration of fusion posterior neck 4. Revision complex closure 3 layers posterior neck due to facial dehiscence 30 x 7 x 5 cm Plan: 1. Facial dehiscence posterior neck; Seroma with draining tract; s/p 360 cervical fusion - surgery performed yesterday, , 12/30/2021 - eye in the posterior neck 30 x 7 x 5 cm; irrigation debridement skin, soft tissue, muscle and bone posterior neck; isolation of fusion posterior neck; revision complex closure 3 layers posterior neck due to facial dehiscence. Patient stable bedside this morning with hard c-collar in place. DORIS drain was removed from incision on posterior cervical spine. Patient is debating on whether he is wanting to go home with home care versus to subacute rehab. Patient says he will discuss the options with his sister before proceeding. Soft c-collar may be ordered as well as a figure 8 brace. We'll continue to follow patient while in hospital. We anticipate discharge home with home care tomorrow versus Monday or discharge to rehab within the next few days 2. Appreciate medical management 3. Pain management - Cameron; Flexeril; Lyrica;Dilaudid and only if necessary 4. DVT prophylaxis - mechanical 5. GI prophylaxis - Protonix 6. PT/OT - weightbearing as tolerated; c-collar on while up and about 7. Discharge planning - We anticipate discharge home with home care tomorrow versus Monday or discharge to rehab within the next few days Time with Patient: Less than 30
[2021-12-31] MEDS: CYCLOBENZAPRINE 5 MG TAB PO PRN (20:09)
[2021-12-31] MEDS: ATORVASTATIN 10 MG TAB PO SCH (21:20)
[2022-01-01] MEDS: ACETAMINOPHEN TAB 325 MG TAB PO SCH ×4 (00:35→16:40)
[2022-01-01] MEDS: CYCLOBENZAPRINE 5 MG TAB PO PRN ×3 (03:47→20:42)
[2022-01-01] MEDS: 0.9% NACL WITH KCL 20 MEQ/L 1,000 ML IV SCH ×2 (03:48→18:05)
[2022-01-01] MEDS: HYDROcodone/APAP 10-325MG 1 EACH TAB PO PRN ×3 (03:48→16:43)
[2022-01-01] MEDS: LACTATED RINGERS 1,000 ML IV SCH (04:49)
[2022-01-01] MEDS: PREGABALIN 75 MG CAP PO SCH ×2 (08:10→20:42)
[2022-01-01] MEDS: HYDROmorphone 1 MG/ML 1 ML SYRINGE IVP PRN (08:10)
[2022-01-01] MEDS: PANTOPRAZOLE 40 MG TABLET PO SCH ×2 (08:10→20:42)
[2022-01-01] MEDS: lisinopriL 10 MG TAB PO SCH (08:11)
--- NOTE | 2022-01-01 08:46 | P.PN ---
Subjective Progress Note Date: 01/01/22 Principal diagnosis: 1. Facial dehiscence posterior neck 2. Seroma with draining tract 3. s/p 360 cervical fusion Patient was seen at bedside this morning eating breakfast at side of bed sitting up with hard cervical collar on. Patient says he was up with physical therapy yesterday and did well. Patient says he walked around the room. Patient says he is having some moderate pain right over incision on his posterior cervical spine. Patient says he did have a tough night last night dealing with some of the pain. Patient denies any new changes/new weakness in the upper/lower extremities. Patient says he has not had a bowel movement since surgery. Patient denies chest pain, fever, shortness of breath, nausea, vomiting, change in vision, loss of bowel/bladder control. Objective - Vital Signs Vital signs: Vital Signs Temp 98.3 F 01/01/22 08:00 Pulse 103 H 01/01/22 08:00 Resp 17 01/01/22 02:04 BP 131/82 01/01/22 08:00 Pulse Ox 95 01/01/22 08:00 Intake & Output 12/31/21 01/01/22 01/01/22 18:59 06:59 18:59 Output Total 650 625 Balance -650 -625 Output: Urine 650 625 Other: Voiding Method Urinal Urinal # Voids 1 1 1 - Exam Patient does have a hard c-collar in place. Incision from surgery is clean, dry, intact. Sutures are well aligned and in good place. Optifoam dressing is in place on posterior cervical spine. Minimal swelling. Negative for any significant ecchymosis/erythema. Negative for any fluctuance/purulence. Sensation is equal, symmetric, bilaterally intact throughout the upper extremities. Patient does have full range of motion of bilateral upper extremities. Strength 4+/5 in bilateral upper extremities. Radial pulses intact, 2+ bilaterally. Negative Homans bilaterally - Labs CBC & Chem 7: 12/31/21 06:44 12/31/21 06:44 Labs: Abnormal Lab Results - Last 24 Hours (Table) 12/31/21 12/31/21 Range/Units 06:44 06:44 RBC 3.84 L (4.40-5.60) X 10*6/uL Hgb 11.5 L (13.0-17.0) g/dL Hct 35.0 L (39.6-50.0) % Plt Count 131 L (140-440) X 10*3/uL Eosinophils # 0.01 L (0.04-0.35) X 10*3/uL BUN/Creatinine Ratio 10.83 L (12.00-20.00) Ratio Glucose 112 H (70-110) mg/dL Microbiology - Last 24 Hours (Table) 12/30/21 08:15 Gram Stain - Preliminary Neck Wound Culture - Preliminary 12/30/21 08:15 Gram Stain - Preliminary Neck Wound Culture - Preliminary Assessment and Plan Assessment: 1. Facial dehiscence posterior neck 2. Seroma with draining tract 3. s/p 360 cervical fusion Postoperative day #2 status post 1. Incision and drainage posterior neck 30 x 7 x 5 cm 2. Irrigation and debridement skin, soft tissue, muscle and bone posterior neck -Skin knife used to excise tract, and skin -Curette used to debride soft tissue, bone and muscle 3. Exploration of fusion posterior neck 4. Revision complex closure 3 layers posterior neck due to facial dehiscence 30 x 7 x 5 cm Plan: 1. Facial dehiscence posterior neck; Seroma with draining tract; s/p 360 cervical fusion - surgery performed , 12/30/2021 - Incision and drainage posterior neck 30 x 7 x 5 cm; irrigation debridement skin, soft tissue, muscle and bone posterior neck; isolation of fusion posterior neck; revision complex closure 3 layers posterior neck due to facial dehiscence. Patient stable bedside this morning with hard c-collar in place. Patient thinks he will not be stable enough to take care of himself at home and with the use of home care. Patient is thinking subacute rehab is going to be the best option for him. Soft c-collar and figure 8 brace have been ordered. We anticipate discharge to rehab on 01/03/2022. Social work has been consulted for [facility] placement. We will continue to follow patient while in the hospital. 2. Appreciate medical management 3. Pain management - [place]; Flexeril; Lyrica;Dilaudid and only if necessary 4. DVT prophylaxis - mechanical 5. GI prophylaxis - Protonix 6. PT/OT - weightbearing as tolerated; c-collar on while up and about 7. Discharge planning - We anticipate discharge to rehab on 01/03/2022 Time with Patient: Less than 30
--- NOTE | 2022-01-01 11:21 | P.PN ---
Subjective Progress Note Date: 01/01/22 Principal diagnosis: Neck pain Patient complaining from his generalized aching all over his body this morning. He states that he did not sleep well last night. He is currently sitting up in a chair. Objective - Vital Signs Vital signs: Vital Signs Temp 98.3 F 01/01/22 08:00 Pulse 103 H 01/01/22 08:00 Resp 17 01/01/22 02:04 BP 131/82 01/01/22 08:00 Pulse Ox 95 01/01/22 08:00 Intake & Output 12/31/21 01/01/22 01/01/22 18:59 06:59 18:59 Output Total 650 625 Balance -650 -625 Output: Urine 650 625 Other: Voiding Method Urinal Urinal # Voids 1 1 1 - Exam General: Nontoxic, no distress and appears stated age. Derm: Skin warm and dry, normal coloration for ethnicity. Head/neck: Atraumatic, normocephalic and symmetric. C-collar and DORIS drain in place. Eyes: EOMs intact, no lid lag, and anicteric sclera Mouth: no lip lesions, mucus membranes moist Cardiovascular: regular rate and rhythm with normal S1S2, systolic murmur, positive posterior tibial pulses bilaterally, and cap refill < 2 seconds. Lungs: Respirations even, regular, and unlabored on room air. Lungs CTA bilaterally, no rhonchi, no rales, no wheezing, and no accessory muscle usage. Abdominal: soft, nontender to palpation, no guarding, no appreciable organomegaly Ext: ROM intact. No gross muscle atrophy, no edema, no contractures Neuro: Speech clear, face symmetrical and CN II-XII grossly intact with no noted focal neuro deficits Psych: Alert and oriented to person, place, time, and situation. Appropriate and pleasant affect. - Labs CBC & Chem 7: 12/31/21 06:44 12/31/21 06:44 Labs: Microbiology - Last 24 Hours (Table) 12/30/21 08:15 Gram Stain - Preliminary Neck Wound Culture - Preliminary 12/30/21 08:15 Gram Stain - Preliminary Neck Wound Culture - Preliminary Assessment and Plan Plan: Status post revision fascial dehiscence of the posterior neck with closure. -Surgical Procedure was completed by Dr. Early 12/30/21 -Management per primary admitting orthospine surgical team including DVT prophylaxis, pain management, and postoperative wound care. -Symptomatic care and pain management. -Continue neuro checks as directed by orthospine surgery team. -Encourage incentive spirometry use 10-15 times hourly while awake. -DVT prophylaxis with SCDs at this time as directed by primary admitting orthospine surgical team. Hypertension -Monitor vital signs and continue daily medication regimen with lisinopril. Hyperlipidemia -Continue daily medication regimen with atorvastatin. GERD -GI prophylaxis with Protonix 40 mg twice daily. Insomnia -Start melatonin Disposition: Will need rehab, likely on Monday
[2022-01-01] MEDS: ATORVASTATIN 10 MG TAB PO SCH (20:42)
[2022-01-01] MEDS: MELATONIN 5 MG TABLET PO SCH (20:42)
[2022-01-02] MEDS: ACETAMINOPHEN TAB 325 MG TAB PO SCH ×5 (00:39→23:22)
[2022-01-02] MEDS: HYDROmorphone 1 MG/ML 1 ML SYRINGE IVP PRN (03:17)
[2022-01-02] MEDS: LACTATED RINGERS 1,000 ML IV SCH (04:51)
[2022-01-02] MEDS: 0.9% NACL WITH KCL 20 MEQ/L 1,000 ML IV SCH (05:58)
[2022-01-02] MEDS: HYDROcodone/APAP 10-325MG 1 EACH TAB PO PRN (07:34)
[2022-01-02] MEDS: PREGABALIN 75 MG CAP PO SCH ×2 (07:34→20:04)
[2022-01-02] MEDS: lisinopriL 10 MG TAB PO SCH (07:34)
[2022-01-02] MEDS: PANTOPRAZOLE 40 MG TABLET PO SCH ×2 (07:34→20:04)
[2022-01-02] MEDS: CYCLOBENZAPRINE 5 MG TAB PO PRN ×2 (07:34→21:11)
--- NOTE | 2022-01-02 09:10 | P.PN ---
Subjective Progress Note Date: 01/02/22 Principal diagnosis: 1. Facial dehiscence posterior neck 2. Seroma with draining tract 3. s/p 360 cervical fusion Patient was seen at bedside this morning sitting up in chair with hard cervical collar on. Patient says he was up with physical therapy yesterday and did well. Patient says he walked around the room. Patient says he is having some moderate pain right over incision on his posterior cervical spine. Patient says he did have a tough night last night dealing with some of the pain. Patient denies any new changes/new weakness in the upper/lower extremities. Patient says he has not had a bowel movement since surgery. Patient denies chest pain, fever, shortness of breath, nausea, vomiting, change in vision, loss of bowel/bladder control. Objective - Vital Signs Vital signs: Vital Signs Temp 99.2 F 01/02/22 08:00 Pulse 77 01/02/22 08:00 Resp 16 01/02/22 02:01 BP 121/82 01/02/22 08:00 Pulse Ox 95 01/02/22 02:01 Intake & Output 01/01/22 01/02/22 01/02/22 18:59 06:59 18:59 Other: Voiding Method Urinal Urinal Urinal # Voids 1 2 1 - Exam Patient does have a hard c-collar in place. Incision from surgery is clean, dry, intact. Sutures are well aligned and in good place. Optifoam dressing is in place on posterior cervical spine. Minimal swelling. Negative for any significant ecchymosis/erythema. Negative for any fluctuance/purulence. Sensation is equal, symmetric, bilaterally intact throughout the upper extremities. Patient does have full range of motion of bilateral upper extremities. Strength 4+/5 in bilateral upper extremities. Radial pulses intact, 2+ bilaterally. Negative Homans bilaterally - Labs CBC & Chem 7: 12/31/21 06:44 12/31/21 06:44 Labs: Microbiology - Last 24 Hours (Table) 12/30/21 08:15 Anaerobic Culture - Preliminary Neck 12/30/21 08:15 Anaerobic Culture - Preliminary Neck 12/30/21 08:15 Gram Stain - Final Neck Wound Culture - Final 12/30/21 08:15 Gram Stain - Final Neck Wound Culture - Final Assessment and Plan Assessment: 1. Facial dehiscence posterior neck 2. Seroma with draining tract 3. s/p 360 cervical fusion Postoperative day #3 status post 1. Incision and drainage posterior neck 30 x 7 x 5 cm 2. Irrigation and debridement skin, soft tissue, muscle and bone posterior neck -Skin knife used to excise tract, and skin -Curette used to debride soft tissue, bone and muscle 3. Exploration of fusion posterior neck 4. Revision complex closure 3 layers posterior neck due to facial dehiscence 30 x 7 x 5 cm Plan: 1. Facial dehiscence posterior neck; Seroma with draining tract; s/p 360 cervical fusion - surgery performed , 12/30/2021 - Incision and vincent inage posterior neck 30 x 7 x 5 cm; irrigation debridement skin, soft tissue, muscle and bone posterior neck; isolation of fusion posterior neck; revision complex closure 3 layers posterior neck due to facial dehiscence. Patient stable at bedside this morning with hard c-collar in place. After discussing with patient at length at bedside about [facility] vs home, patient thinks he will be okay to go home with home care. Soft c-collar and figure 8 brace have been ordered. We anticipate discharge home with home care tmrw, Monday01/03/2022. We will continue to follow patient while in the hospital. 2. Appreciate medical management 3. Pain management - [place]; Flexeril; Lyrica;Dilaudid and only if necessary 4. DVT prophylaxis - mechanical 5. GI prophylaxis - Protonix 6. PT/OT - weightbearing as tolerated; c-collar on while up and about 7. Discharge planning - We anticipate discharge to rehab on 01/03/2022 Time with Patient: Less than 30
[2022-01-02] MEDS: oxyCODONE-APAP 7.5-325MG 1 EACH TAB PO PRN ×3 (11:55→21:11)
--- NOTE | 2022-01-02 12:54 | P.PN ---
Subjective Progress Note Date: 01/02/22 Principal diagnosis: Neck pain Patient still complaining from neck pain. He did not sleep well last night due to the pain. No fevers. No n/v. Objective - Vital Signs Vital signs: Vital Signs Temp 99.2 F 01/02/22 08:00 Pulse 77 01/02/22 08:00 Resp 16 01/02/22 02:01 BP 121/82 01/02/22 08:00 Pulse Ox 95 01/02/22 02:01 Intake & Output 01/01/22 01/02/22 01/02/22 18:59 06:59 18:59 Other: Voiding Method Urinal Urinal Urinal # Voids 1 2 1 - Exam General: Nontoxic, no distress and appears stated age. Derm: Skin warm and dry, normal coloration for ethnicity. Head/neck: Atraumatic, normocephalic and symmetric. C-collar and DORIS drain in place. Eyes: EOMs intact, no lid lag, and anicteric sclera Mouth: no lip lesions, mucus membranes moist Cardiovascular: regular rate and rhythm with normal S1S2, systolic murmur, positive posterior tibial pulses bilaterally, and cap refill < 2 seconds. Lungs: Respirations even, regular, and unlabored on room air. Lungs CTA bilaterally, no rhonchi, no rales, no wheezing, and no accessory muscle usage. Abdominal: soft, nontender to palpation, no guarding, no appreciable o rganomegaly Ext: ROM intact. No gross muscle atrophy, no edema, no contractures Neuro: Speech clear, face symmetrical and CN II-XII grossly intact with no noted focal neuro deficits Psych: Alert and oriented to person, place, time, and situation. Appropriate and pleasant affect. - Labs CBC & Chem 7: 12/31/21 06:44 12/31/21 06:44 Labs: Microbiology - Last 24 Hours (Table) 12/30/21 08:15 Anaerobic Culture - Preliminary Neck 12/30/21 08:15 Anaerobic Culture - Preliminary Neck 12/30/21 08:15 Gram Stain - Final Neck Wound Culture - Final 12/30/21 08:15 Gram Stain - Final Neck Wound Culture - Final Assessment and Plan Plan: Status post revision fascial dehiscence of the posterior neck with closure. -Surgical Procedure was completed by Dr. Early 12/30/21 -Management per primary admitting orthospine surgical team including DVT prophylaxis, pain management, and postoperative wound care. -Symptomatic care and pain management. -Continue neuro checks as directed by orthospine surgery team. -Encourage incentive spirometry use 10-15 times hourly while awake. -DVT prophylaxis with SCDs at this time as directed by primary admitting orthospine surgical team. Hypertension -Monitor vital signs and continue daily medication regimen with lisinopril. Hyperlipidemia -Continue daily medication regimen with atorvastatin. GERD -GI prophylaxis with Protonix 40 mg twice daily. Insomnia -melatonin Disposition: Will go home with home care, likely on Monday
[2022-01-02] MEDS: IPRATROPIUM-ALBUTEROL 3 ML NEB INHALATION PRN (13:03)
[2022-01-02] MEDS: MELATONIN 5 MG TABLET PO SCH (20:04)
[2022-01-02] MEDS: ATORVASTATIN 10 MG TAB PO SCH (20:04)
[2022-01-03 03:36] VITALS: BP 138/86; PULSE 70; RESP 15; TEMP 97.9
[2022-01-03] MEDS: lisinopriL 10 MG TAB PO SCH (11:04)
[2022-01-03] MEDS: ACETAMINOPHEN TAB 325 MG TAB PO SCH ×2 (11:04→12:07)
[2022-01-03] MEDS: PREGABALIN 75 MG CAP PO SCH (11:04)
[2022-01-03] MEDS: PANTOPRAZOLE 40 MG TABLET PO SCH (11:04)
[2022-01-03] MEDS: oxyCODONE-APAP 7.5-325MG 1 EACH TAB PO PRN ×2 (12:06→16:06)
--- NOTE | 2022-01-03 12:37 | P.PN ---
Subjective Progress Note Date: 01/03/22 Principal diagnosis: 1. Facial dehiscence posterior neck 2. Seroma with draining tract 3. s/p 360 cervical fusion Patient was seen at bedside this morning sitting up in chair with hard cervical collar on. Patient says he was up with physical therapy yesterday and did well. Patient says he walked around the room. Patient says he is having some moderate pain right over incision on his posterior cervical spine. Patient says he did have a tough night last night dealing with some of the pain. Patient denies any new changes/new weakness in the upper/lower extremities. Patient says he has not had a bowel movement since surgery. Patient denies chest pain, fever, shortness of breath, nausea, vomiting, change in vision, loss of bowel/bladder control. Objective - Vital Signs Vital signs: Vital Signs Temp 97.9 F 01/03/22 02:06 Pulse 70 01/03/22 08:00 Resp 15 01/03/22 08:00 BP 138/86 01/03/22 02:06 Pulse Ox 97 01/03/22 02:06 Intake & Output 01/02/22 01/03/22 01/03/22 18:59 06:59 18:59 Other: Voiding Method Urinal Urinal Toilet Urinal # Voids 4 - Exam Patient does have a hard c-collar in place. Incision from surgery is clean, dry, intact. Sutures are well aligned and in good place. Optifoam dressing is in place on posterior cervical spine. Minimal swelling. Negative for any significant ecchymosis/erythema. Negative for any fluctuance/purulence. Sensation is equal, symmetric, bilaterally intact throughout the upper extremities. Patient does have full range of motion of bilateral upper extremities. Strength 4+/5 in bilateral upper extremities. Radial pulses intact, 2+ bilaterally. Negative Homans bilaterally - Labs CBC & Chem 7: 12/31/21 06:44 12/31/21 06:44 Assessment and Plan Assessment: 1. Facial dehiscence posterior neck 2. Seroma with draining tract 3. s/p 360 cervical fusion Postoperative day #4 status post 1. Incision and drainage posterior neck 30 x 7 x 5 cm 2. Irrigation and debridement skin, soft tissue, muscle and bone posterior neck -Skin knife used to excise tract, and skin -Curette used to debride soft tissue, bone and muscle 3. Exploration of fusion posterior neck 4. Revision complex closure 3 layers posterior neck due to facial dehiscence 30 x 7 x 5 cm Plan: 1. Facial dehiscence posterior neck; Seroma with draining tract; s/p 360 cervical fusion - surgery performed , 12/30/2021 - Incision and drainage posterior neck 30 x 7 x 5 cm; irrigation debridement skin, soft tissue, muscle and bone posterior neck; isolation of fusion posterior neck; revision complex closure 3 layers posterior neck due to facial dehiscence. Patient stable at bedside this morning with hard c-collar in place. Soft c-collar and figure 8 brace have been ordered. Discharge home today with homecare. 2. Appreciate medical management 3. Pain management -Percocet; Flexeril; Lyrica;Dilaudid and only if necessary 4. DVT prophylaxis - mechanical 5. GI prophylaxis - Protonix 6. PT/OT - weightbearing as tolerated; c-collar on while up and about 7. Discharge planning - discharge home today with homecare Time with Patient: Less than 30
--- NOTE | 2022-01-03 12:50 | P.DS ---
Providers Date of admission: 01/01/22 13:51 Expected date of discharge: 01/03/22 Attending physician: Doug Early DO Consults: 12/30/21 09:31 Consult Physician Routine Consulting Provider: Madeleine Hughes Consult Reason/Comments: medical management Do you want consulting provider notified?: Yes Primary care physician: Vincent Nails Hospital Course: Date of admission: 12/30/2021 Date of discharge: 01/03/2022 Admission diagnosis: 1. Facial dehiscence posterior neck 2. Seroma with draining tract 3. s/p 360 cervical fusion Discharge diagnosis: 1. Incision and drainage posterior neck 30 x 7 x 5 cm 2. Irrigation and debridement skin, soft tissue, muscle and bone posterior neck -Skin knife used to excise tract, and skin -Curette used to debride soft tissue, bone and muscle 3. Exploration of fusion posterior neck 4. Revision complex closure 3 layers posterior neck due to facial dehiscence 30 x 7 x 5 cm Attending physician: Dr. Early Surgical procedures: 1. Incision and drainage posterior neck 30 x 7 x 5 cm 2. Irrigation and debridement skin, soft tissue, muscle and bone posterior neck -Skin knife used to excise tract, and skin -Curette used to debride soft tissue, bone and muscle 3. Exploration of fusion posterior neck 4. Revision complex closure 3 layers posterior neck due to facial dehiscence 30 x 7 x 5 cm Brief history: Patient is a 66-year-old male with a history of facial dehiscence posterior neck; seroma with draining tract status post 360 cervical fusion. At this point patient has failed conservative treatment measures and has opted to proceed with a elective I&D posterior neck; irrigation and debridement skin, soft tissue, muscle and bone posterior neck. Hospital course: Details of patient's surgery can be found in operative report. Patient tolerated the procedure well and was subsequently transported to orthopedic floor. Patient's orthopeidc and medical care was provided daily. Patient had daily laboratory tests performed for evaluation of overall blood counts. Patient had daily physical therapy to include strengthening range of motion as well as education with walker ambulation. Patient was noted to have a relatively uneventful postoperative course. Patient reported satisfactory pain control with oral pain medications by postoperative day 4. Patient showed satisfactory progress with physical therapy. Patient moved steadily through the program and had no difficulty meeting the goals by postoperative day 4. Given patient's otherwise satisfactory course and having met physical therapy goals, plan is to discharge patient home with health care on postoperative day 4. Discharge condition/disposition: Patient will be discharged home with health services in stable condition. Discharge medications: Instructions are given on resumption of patient's normal daily medications per primary care recommendation, in addition patient will be prescribed Percocet 5 mg/325 mg; Flexeril; gabapentin; senna; Duricef. Spine Discharge and Recovery Instructions Date of Surgery: 12/30/2021 Diagnosis: Facial dehiscence posterior neck 2. Seroma with draining tract 3. s/p 360 cervical fusion Procedure: 1. Incision and drainage posterior neck 30 x 7 x 5 cm 2. Irrigation and debridement skin, soft tissue, muscle and bone posterior neck -Skin knife used to excise tract, and skin -Curette used to debride soft tissue, bone and muscle 3. Exploration of fusion posterior neck 4. Revision complex closure 3 layers posterior neck due to facial dehiscence 30 x 7 x 5 Medications: See medication list All medication refills should be obtained through your primary care doctor or your clinic spine surgeon. Please discuss prescription refills at your follow up appointment. Do not call the hospital for medication refills. Dressing: Leave your dressing in place for a total of 5 days post operatively. Then you may remove your dressing and leave open to air. Keep the area clean and if not able to keep area clean, then cover with sterile gauze and tape. Showering: You may shower 3 days after your procedure allowing soap and water to run over incision. Do not scrub. Do not soak. Blot dry. Follow up: Please confirm a follow up appointment with your surgeon 3 weeks post operatively. Please make an appointment to follow up with your PCP in 1-2 weeks after surgery for evaluation 3 phase, 3-week plan POST OP WEEKS 1-3 1. Lifting/carrying/pushing/pulling limited to less than 5 pounds. 2. Do not sit for longer than 15 minutes at one time. Get up and walk around. Prolonged sitting is NOT advised. If you lay down, see if you can tolerate laying down on you front (belly side) 3. Walk for periods of 15 minutes = 1 mile but no longer; do it multiple times times each day. 4. Ice your low back after activity. POST OP WEEKS 3-6 1. Lifting limited to less than 20 pounds. 2. Do not sit for longer than 30 minutes at a time. Frequently change positions. Use a sit-to stand workstation or take frequent breaks from sitting if you have returned to work. 3. Walk for 30 minutes each day. If possible, do these three or more times a day POST OP WEEKS 6+ At your 6-week appointment we will give you a physical therapy referral to focus on a core stabilization and strengthening program. You should also work on leg & buttock strengthening, hamstring & quadriceps stretching, and continue a low impact aerobic activity program such as swimming, walking, or riding a stationary bicycle. During the initial 6 weeks after your surgery, you are at the highest risk of re-injuring your spine. You should generally avoid BLTs (bending, lifting and twisting combination motions) and follow the above guidelines to reduce the chance of reinjury. You can anticipate post op appointments in our office at approximately 3 weeks and 6 weeks after your surgery. INCISION CARE: If your incision is not draining you do NOT need to cover it with a dressing. Keep your incision clean, dry and intact. In most cases, we apply skin glue, jairon or sutures to the incision at the time of surgery. This will be like a crust or have the appearance of a scab and will fall off in time on its own. The stitches or jairon need to be removed at 3 weeks post op appointment. You may begin to shower 3 days after surgery (this allows the glue to yates well). However, please avoid scrubbing the incision site or peeling off any of the skin glue. This will ensure optimal healing of your incision. Also, during this time avoid soaking the incision area in water - this includes swimming pools, hot tubs or baths. No ointments, lotions or oils on the incision until your surgeon allows. Leave jairon, sutures or glue in place. Neurological dysfunction that comes on suddenly can also be a sign of a stroke. Below some common symptoms of a stroke are listed: B - balance difficulty such as sudden onset walking or leaning to one side - NEW E - eye problem such as sudden double vision or trouble seeing on one side - NEW F - Facial weakness or numbness on one side - NEW A - Arm or leg weakness or numbness on one side - NEW S - Slurred speech or difficulty with word finding - NEW T - Time is BRAIN! Call 911 as soon as you recognize these symptoms Diet: Consume a regular diet rich in vegetables and lean protein such as chicken or fish. You should consume in a ratio of approximately 20% fats|40% carbohydrates|40%protein. Vegetables, sweet potatoes, brown rice or quinoa are examples of good carbohydrates. Chips, white bread, cookies and sweets/sugar are examples of bad carbohydrates. Limit your bad carbs, go wild with good carbs. "Life's Simple 7" Guidelines as per [employer] These will help you reclaim your life after surgery and house painter helper in your recovery, keeping in mind your restrictions. (1) Get Active. Physical activity can help people lose weight, control high blood pressure and cholesterol, feel emotionally better, and sleep better. (2) Control Cholesterol. Avoid a diet high in saturated fat, trans fat, & cholesterol. Limit whole milk & cream, ice cream, butter, egg yolks, processed meats (like sausage and hot dogs), and fatty meats. Choose healthy foods that are low in saturated fat, trans fat and cholesterol which include: Fruits and vegetables, fiber rich grain products (like whole grain pasta and brown rice), lean meat such as chicken, fish, nuts, seeds, and legumes. (3) Eat Better. Eat small portions. Shop at the grocery with a list and do not stray from it. Tips for a healthy diet include: Limit sodium intake to less than 1500mg daily, avoid prepackaged, processed, and fast foods, choose a diet rich in fruits, vegetables, and whole grain, high fiber foods, and limit saturated & cholesterol in your diet. (4) Manage Blood Pressure. If you have high blood pressure, you should have a cuff at home so that you can check your blood pressure regularly. Be sure you have a good cuff. An arm one is generally better than a wrist one. Bring the cuff to a doctor's appointment to validate that the measurements that your cuff are taking are accurate. Take your blood pressure twice daily when you are sitting down and relaxing. Record the numbers in a log and bring this log with you to your doctors' appointments. (5) Lose Weight if your BMI is above 25. A healthy BMI is between 19-25. To calculate Your BMI, you may use a Standard BMI Calculator on the NIH BMI website: <www.nhlbi.nih.gov/guidelines/obesity/BMI/bmicalc.htm>. Weigh oneself daily. If you are overweight, set a goal to lose weight. A pound a week loss if needed is a good target. (6) Reduce Blood Sugar. Limit foods and liquids with "added sugars." (Added sugars include sucrose, fructose, glucose, maltose, dextrose, high fructose corn syrup, corn syrup, concentrated fruit juice and honey). (7) Stop Smoking. If you smoke, quitting smoking is one of the best things that you can do for your health. Smoking increases your risk of heart attack, stroke, and peripheral vascular disease, which is a build-up of plaque in your arteries. Please discard all the cigarettes and lighters in your house. Have a plan for what you will do when you have the urge to smoke. Direct and second- hand smoke shortens your life as well as the lives of your family, friends and o thers around you. For your health and the health of those around you, please consider quitting! Proper Bending Body Mechanics: Maintain a wide stance with one foot slightly in front of the other. Keep your back straight. Bend utilizing the strength in your hips and knees. Do not bend at the waist. Maintain the lifted object at your waist-level close to your body. Avoid lifting weight that causes immediately pain or pain anywhere in the body afterwards. Smoking/Nicotine If there was ever one thing that you could do to increase your overall health, decrease your risk of cardiovascular problems by about 39% the second you make the choice, it is to STOP SMOKING. Your body's most instant gratification is the second you stop smoking. We have all heard the studies, read the articles but it is true, smoking is extremely bad for your overall health, and moreover it is detrimental to your bone health. Nicotine, IN ANY FORM, kills bone cells, prevents your body from healing fractures, and significantly prolongs healing after surgery. In spine surgery specifically, it increases your risk of not healing your bones to create a fusion and increases your risk of having a revision surgery due to this up to 60%. I know it is hard. I know it feels impossible. But there are ways. Take control of your life. We are here to help you through it. And when you are ready, ask us and we can direct you to help if you desire. Use the START Plan to Quit Smoking (please visit the Helpguide.org website listed below for more information): S = Set a quit date. Choose a date within the next 2 weeks, so you have enough time to prepare without losing your motivation to quit. If you mainly smoke at work, quit on the weekend, so you have a few days to adjust to the change. T = Tell family, friends, and co-workers that you plan to quit. Let your friends and family in on your plan to quit smoking and tell them you need their support and encouragement to stop. Look for a quit warren who wants to stop smoking as well. You can help each other get through the rough times. A = Anticipate and plan for the challenges you'll face while quitting. Most people who begin smoking again do so within the first 3 months. You can help yourself make it through by preparing ahead for common challenges, such as nicotine withdrawal and cigarette cravings. R = Remove cigarettes and other tobacco products from your home, car, and work. Throw away all your cigarettes (no emergency pack!), lighters, ashtrays, and matches. Wash your clothes and freshen up anything that smells like smoke. Shampoo your car, clean your drapes and carpet, and steam your furniture. T = Talk to your doctor about getting help to quit. Your doctor can prescribe medication to help with withdrawal and suggest other alternatives. If you can't see a doctor, you can get many products over the counter at your local pharmacy or grocery store, including the nicotine patch, nicotine lozenges, and nicotine gum. Resources for Quitting Smoking: <https://www.[place].gov/documents/[facility]/Quit_Tobacco_Resources_for_ patients_313480_7.pdf> Supplementation: Take recommended dosages of Vitamin D and Calcium to help fortify your bones and help them to heal. See your health maintenance packet for dosages and recommended levels. DVT/VTE prophylaxis: You will be given compression stockings from the hospital. Wear these daily for the first two weeks after surgery. You may take them off at night. You may be prescribed a medication to help thin your blood. Take this as directed. If you are not prescribed this medication, early and frequent ambulation has been shown to be the best prophylaxis to deep vein thrombosis and sequelae related to this event. Assessment: 1. Facial dehiscence posterior neck 2. Seroma with draining tract 3. s/p 360 cervical fusion Procedures: 1. Incision and drainage posterior neck 30 x 7 x 5 cm 2. Irrigation and debridement skin, soft tissue, muscle and bone posterior neck -Skin knife used to excise tract, and skin -Curette used to debride soft tissue, bone and muscle 3. Exploration of fusion posterior neck 4. Revision complex closure 3 layers posterior neck due to facial dehiscence 30 x 7 x 5 Patient Condition at Discharge: Good Plan - Discharge Summary Discharge Rx Participant: No New Discharge Prescriptions: New Gabapentin [Neurontin] 300 mg PO BID #30 cap oxyCODONE-APAP 5-325MG [Percocet 5-325 mg] 1 tab PO Q6HR PRN #28 tab PRN Reason: Pain cefaDROXiL [Duricef] 500 mg PO Q12HR 5 Days #10 cap Cyclobenzaprine [Flexeril] 5 mg PO TID #30 tablet Sennosides [Senna] 8.6 mg PO DAILY #20 tablet No Action Simvastatin [Zocor] 10 mg PO HS Omeprazole [PriLOSEC] 20 mg PO BID Pregabalin [Lyrica] 150 mg PO BID Lisinopril [Prinivil] 10 mg PO QAM Spironolactone 100 mg PO QAM Ipratropium-Albuterol Nebulize [Duoneb 0.5 mg-3 mg/3 ml Soln] 3 ml INHALATION RT-QID PRN PRN Reason: Shortness Of Breath Albuterol Sulfate [Proventil Hfa] 1 puff INHALATION RT-Q4H PRN PRN Reason: Wheezing oxyCODONE-APAP 5-325MG [Percocet 5-325 mg] 1 tab PO Q6HR PRN PRN Reason: Pain Discharge Medication List Omeprazole [PriLOSEC] 20 mg PO BID 10/14/15 [History] Simvastatin [Zocor] 10 mg PO HS 10/14/15 [History] Pregabalin [Lyrica] 150 mg PO BID 03/17/19 [History] Lisinopril [Prinivil] 10 mg PO QAM 04/30/20 [History] Spironolactone 100 mg PO QAM 06/18/20 [History] Albuterol Sulfate [Proventil Hfa] 1 puff INHALATION RT-Q4H PRN 03/10/21 [History] Ipratropium-Albuterol Nebulize [Duoneb 0.5 mg-3 mg/3 ml Soln] 3 ml INHALATION RT-QID PRN 03/10/21 [History] oxyCODONE-APAP 5-325MG [Percocet 5-325 mg] 1 tab PO Q6HR PRN 12/28/21 [History] Cyclobenzaprine [Flexeril] 5 mg PO TID #30 tablet 01/03/22 [Rx] Gabapentin [Neurontin] 300 mg PO BID #30 cap 01/03/22 [Rx] Sennosides [Senna] 8.6 mg PO DAILY #20 tablet 01/03/22 [Rx] cefaDROXiL [Duricef] 500 mg PO Q12HR 5 Days #10 cap 01/03/22 [Rx] oxyCODONE-APAP 5-325MG [Percocet 5-325 mg] 1 tab PO Q6HR PRN #28 tab 01/03/22 [Rx] Follow up Appointment(s)/Referral(s): [facility], [NON-STAFF] - ([facility] will call you to schedule your in home nursing visits. Please call them if you have any questions regarding home care. ) Doug Early, [Doctor of Osteopathic Medicine] - 2 Weeks Activity/Diet/Wound Care/Special Instructions: Spine Discharge and Recovery Instructions Date of Surgery: 12/30/2021 Diagnosis: Facial dehiscence posterior neck 2. Seroma with draining tract 3. s/p 360 cervical fusion Procedure: 1. Incision and drainage posterior neck 30 x 7 x 5 cm 2. Irrigation and debridement skin, soft tissue, muscle and bone posterior neck -Skin knife used to excise tract, and skin -Curette used to debride soft tissue, bone and muscle 3. Exploration of fusion posterior neck 4. Revision complex closure 3 layers posterior neck due to facial dehiscence 30 x 7 x 5 Medications: See medication list All medication refills should be obtained through your primary care doctor or your clinic spine surgeon. Please discuss prescription refills at your follow up appointment. Do not call the hospital for medication refills. Dressing: Leave your dressing in place for a total of 5 days post operatively. Then you may remove your dressing and leave open to air. Keep the area clean and if not able to keep area clean, then cover with sterile gauze and tape. Showering: You may shower 3 days after your procedure allowing soap and water to run over incision. Do not scrub. Do not soak. Blot dry. Follow up: Please confirm a follow up appointment with your surgeon 3 weeks post operatively. Please make an appointment to follow up with your PCP in 1-2 weeks after surgery for evaluation 3 phase, 3-week plan POST OP WEEKS 1-3 1. Lifting/carrying/pushing/pulling limited to less than 5 pounds. 2. Do not sit for longer than 15 minutes at one time. Get up and walk around. Prolonged sitting is NOT advised. If you lay down, see if you can tolerate laying down on you front (belly side) 3. Walk for periods of 15 minutes = 1 mile but no longer; do it multiple times times each day. 4. Ice your low back after activity. POST OP WEEKS 3-6 1. Lifting limited to less than 20 pounds. 2. Do not sit for longer than 30 minutes at a time. Frequently change positions. Use a sit-to stand workstation or take frequent breaks from sitting if you have returned to work. 3. Walk for 30 minutes each day. If possible, do these three or more times a day POST OP WEEKS 6+ At your 6-week appointment we will give you a physical therapy referral to focus on a core stabilization and strengthening program. You should also work on leg & buttock strengthening, hamstring & quadriceps stretching, and continue a low impact aerobic activity program such as swimming, walking, or riding a stationary bicycle. During the initial 6 weeks after your surgery, you are at the highest risk of re-injuring your spine. You should generally avoid BLTs (bending, lifting and twisting combination motions) and follow the above guidelines to reduce the chance of reinjury. You can anticipate post op appointments in our office at approximately 3 weeks and 6 weeks after your surgery. INCISION CARE: If your incision is not draining you do NOT need to cover it with a dressing. Keep your incision clean, dry and intact. In most cases, we apply skin glue, jairon or sutures to the incision at the time of surgery. This will be like a crust or have the appearance of a scab and will fall off in time on its own. The stitches or jairon need to be removed at 3 weeks post op appointment. You may begin to shower 3 days after surgery (this allows the glue to yates well). However, please avoid scrubbing the incision site or peeling off any of the skin glue. This will ensure optimal healing of your incision. Also, during this time avoid soaking the incision area in water - this includes swimming pools, hot tubs or baths. No ointments, lotions or oils on the incision until your surgeon allows. Leave jairon, sutures or glue in place. Neurological dysfunction that comes on suddenly can also be a sign of a stroke. Below some common symptoms of a stroke are listed: B - balance difficulty such as sudden onset walking or leaning to one side - NEW E - eye problem such as sudden double vision or trouble seeing on one side - NEW F - Facial weakness or numbness on one side - NEW A - Arm or leg weakness or numbness on one side - NEW S - Slurred speech or difficulty with word finding - NEW T - Time is BRAIN! Call 911 as soon as you recognize these symptoms Diet: Consume a regular diet rich in vegetables and lean protein such as chicken or fish. You should consume in a ratio of approximately 20% fats|40% carbohydrates|40%protein. Vegetables, sweet potatoes, brown rice or quinoa are examples of good carbohydrates. Chips, white bread, cookies and sweets/sugar are examples of bad carbohydrates. Limit your bad carbs, go wild with good carbs. "Life's Simple 7" Guidelines as per [employer] These will help you reclaim your life after surgery and house painter helper in your recovery, keeping in mind your restrictions. (1) Get Active. Physical activity can help people lose weight, control high blood pressure and cholesterol, feel emotionally better, and sleep better. (2) Control Cholesterol. Avoid a diet high in saturated fat, trans fat, & cholesterol. Limit whole milk & cream, ice cream, butter, egg yolks, processed meats (like sausage and hot dogs), and fatty meats. Choose healthy foods that are low in saturated fat, trans fat and cholesterol which include: Fruits and vegetables, fiber rich grain products (like whole grain pasta and brown rice), lean meat such as chicken, fish, nuts, seeds, and legumes. (3) Eat Better. Eat small portions. Shop at the grocery with a list and do not stray from it. Tips for a healthy diet include: Limit sodium intake to less than 1500mg daily, avoid prepackaged, processed, and fast foods, choose a diet rich in fruits, vegetables, and whole grain, high fiber foods, and limit saturated & cholesterol in your diet. (4) Manage Blood Pressure. If you have high blood pressure, you should have a cuff at home so that you can check your blood pressure regularly. Be sure you have a good cuff. An arm one is generally better than a wrist one. Bring the cuff to a doctor's appointment to validate that the measurements that your cuff are taking are accurate. Take your blood pressure twice daily when you are sitting down and relaxing. Record the numbers in a log and bring this log with you to your doctors' appointments. (5) Lose Weight if your BMI is above 25. A healthy BMI is between 19-25. To calculate Your BMI, you may use a Standard BMI Calculator on the NIH BMI website: <www.nhlbi.nih.gov/guidelines/obesity/BMI/bmicalc.htm>. Weigh oneself daily. If you are overweight, set a goal to lose weight. A pound a week loss if needed is a good target. (6) Reduce Blood Sugar. Limit foods and liquids with "added sugars." (Added sugars include sucrose, fructose, glucose, maltose, dextrose, high fructose corn syrup, corn syrup, concentrated fruit juice and honey). (7) Stop Smoking. If you smoke, quitting smoking is one of the best things that you can do for your health. Smoking increases your risk of heart attack, stroke, and peripheral vascular disease, which is a build-up of plaque in your arteries. Please discard all the cigarettes and lighters in your house. Have a plan for what you will do when you have the urge to smoke. Direct and second- hand smoke shortens your life as well as the lives of your family, friends and others around you. For your health and the health of those around you, please consider quitting! Proper Bending Body Mechanics: Maintain a wide stance with one foot slightly in front of the other. Keep your back straight. Bend utilizing the strength in your hips and knees. Do not bend at the waist. Maintain the lifted object at your waist-level close to your body. Avoid lifting weight that causes immediately pain or pain anywhere in the body afterwards. Smoking/Nicotine If there was ever one thing that you could do to increase your overall health, decrease your risk of cardiovascular problems by about 39% the second you make the choice, it is to STOP SMOKING. Your body's most instant gratification is the second you stop smoking. We have all heard the studies, read the articles but it is true, smoking is extremely bad for your overall health, and moreover it is detrimental to your bone health. Nicotine, IN ANY FORM, kills bone cells, prevents your body from healing fractures, and significantly prolongs healing after surgery. In spine surgery specifically, it increases your risk of not healing your bones to create a fusion and increases your risk of having a revision surgery due to this up to 60%. I know it is hard. I know it feels impossible. But there are ways. Take control of your life. We are here to help you through it. And when you are ready, ask us and we can direct you to help if you desire. Use the START Plan to Quit Smoking (please visit the Helpguide.org website listed below for more information): S = Set a quit date. Choose a date within the next 2 weeks, so you have enough time to prepare without losing your motivation to quit. If you mainly smoke at work, quit on the weekend, so you have a few days to adjust to the change. T = Tell family, friends, and co-workers that you plan to quit. Let your friends and family in on your plan to quit smoking and tell them you need their support and encouragement to stop. Look for a quit warren who wants to stop smoking as well. You can help each other get through the rough times. A = Anticipate and plan for the challenges you'll face while quitting. Most people who begin smoking again do so within the first 3 months. You can help yourself make it through by preparing ahead for common challenges, such as nicotine withdrawal and cigarette cravings. R = Remove cigarettes and other tobacco products from your home, car, and work. Throw away all your cigarettes (no emergency pack!), lighters, ashtrays, and matches. Wash your clothes and freshen up anything that smells like smoke. Shampoo your car, clean your drapes and carpet, and steam your furniture. T = Talk to your doctor about getting help to quit. Your doctor can prescribe medication to help with withdrawal and suggest other alternatives. If you can't see a doctor, you can get many products over the counter at your local pharmacy or grocery store, including the nicotine patch, nicotine lozenges, and nicotine gum. Resources for Quitting Smoking: <https://www.[place].gov/documents/[facility]/Quit_Tobacco_Resources_for_patients_313 480_7.pdf> Supplementation: Take recommended dosages of Vitamin D and Calcium to help fortify your bones and help them to heal. See your health maintenance packet for dosages and recommended levels. DVT/VTE prophylaxis: You will be given compression stockings from the hospital. Wear these daily for the first two weeks after surgery. You may take them off at night. You may be prescribed a medication to help thin your blood. Take this as directed. If you are not prescribed this medication, early and frequent ambulation has been shown to be the best prophylaxis to deep vein thrombosis and sequelae related to this event. Discharge Disposition: HOME WITH HOME HEALTH SERVICES
--- NOTE | 2022-01-03 14:58 | P.PN ---
Subjective Progress Note Date: 01/03/22 Hospital course: Patient is a very pleasant 66-year-old male with a past medical history hypertension, hyperlipidemia, COPD, GERD, throat cancer, prostate cancer status post prostatectomy, and recent C3 to C6 ACDF with posterior C2 to T1 decompression fusion surgery completed 3 months ago. Patient had dehiscence of surgical wound along the sinus track and is currently status post revision fascial dehiscence of the posterior neck with closure. Surgical Procedure was completed by Dr. Early 12/30/21. We have been consulted to follow along for continued medical management throughout hospitalization. Physical exam: Patient seen and fully evaluated at bedside this morning. He reports overall he is doing better but reports continued pain to posterior neck and states not brace/c-collar is uncomfortable. Patient educated on the importance of leaving c-collar in place and verbalized understanding. Patient denied having any numbness/tingling/weakness in his extremities, lower back pain, or experiencing any involuntary bowel or bladder loss. Patient also denied having any other complaints at this time including headache, lightheadedness, dizziness, changes in vision or hearing, chest pain, palpitations, shortness of breath, or experiencing any nausea or vomiting. Anaerobic culture preliminary results preliminarily positive for gram positive bacilli. Patient currently on cefazolin which should provide adequate coverage, awaiting final culture and sensitivity reports. Vital signs reviewed and stable. General: Nontoxic, no distress and appears stated age. Derm: Skin warm and dry, normal coloration for ethnicity. Head/neck: Atraumatic, normocephalic and symmetric. C-collar in place. Eyes: EOMs intact, no lid lag, and anicteric sclera Mouth: no lip lesions, mucus membranes moist Cardiovascular: regular rate and rhythm with normal S1S2, systolic murmur, positive posterior tibial pulses bilaterally, and cap refill < 2 seconds. Lungs: Respirations even, regular, and unlabored on room air. Lungs CTA bilaterally, no rhonchi, no rales, no wheezing, and no accessory muscle usage. Abdominal: soft, nontender to palpation, no guarding, no appreciable organomegaly Ext: ROM intact. No gross muscle atrophy, no edema, no contractures Neuro: Speech clear, face symmetrical and CN II-XII grossly intact with no noted focal neuro deficits Psych: Alert and oriented to person, place, time, and situation. Appropriate and pleasant affect. Assessment and Plan of Care: Status post revision fascial dehiscence of the posterior neck with closure. -Surgical Procedure was completed by Dr. Early 12/30/21 -Management per primary admitting orthospine surgical team including DVT prophylaxis, pain management, and postoperative wound care. -Continue IV antibiotics cefazolin -Anaerobic preliminary wound culture results positive for gram-positive bacilli awaiting final culture and sensitivity report. -Symptomatic care and pain management. -Continue neuro checks as directed by orthospine surgery team. -Encourage incentive spirometry use 10-15 times hourly while awake. -DVT prophylaxis with SCDs at this time as directed by primary admitting orthospine surgical team. Hypertension -Monitor vital signs and continue daily medication regimen with lisinopril. Hyperlipidemia -Continue daily medication regimen with atorvastatin. GERD -GI prophylaxis with Protonix 40 mg twice daily. Thank you for allowing us to participate in the care of this pleasant patient. Do not hesitate to contact us with questions. Someone can be reached from the [facility] hospitalist group all hours of the day at [phone] or via [employer]. I reviewed the documentation as provided by the ANDREW above, who is the original author of this note. I agree with the documented assessment and plan, with the following changes: None Objective - Vital Signs Vital signs: Vital Signs Temp 97.9 F 01/03/22 02:06 Pulse 70 01/03/22 08:00 Resp 15 01/03/22 08:00 BP 138/86 01/03/22 02:06 Pulse Ox 97 01/03/22 02:06 Intake & Output 01/02/22 01/03/22 01/03/22 18:59 06:59 18:59 Other: Voiding Method Urinal Urinal Toilet Urinal # Voids 4 - Labs CBC & Chem 7: 12/31/21 06:44 12/31/21 06:44 Labs: Microbiology - Last 24 Hours (Table) 12/30/21 08:15 Anaerobic Culture - Preliminary Neck Anaerobic Gm Positive Bacill
== END 2022-01-03 16:33 | disposition home health service (06) | DRG 908 ==
LOC: OR 05:56 → 4SSUR 09:14 → OR 01-01 07:40 → 4SSUR 01-01 08:04 → OBSVTOIN 01-01 13:51
PROVIDERS: ADMIT Orthopaedic Surgery; ATTEND Orthopaedic Surgery
PROC: 0PB30ZZ Excision of Cervical Vertebra, Open Approach (ICD-10-PCS; principal; 2021-12-30 07:30)
DX: T81.32XA Disruption of internal operation (surgical) wound, not elsewhere classified, initial encounter (principal); M96.843 Postprocedural seroma of a musculoskeletal structure following other procedure; G25.81 Restless legs syndrome; I10 Essential (primary) hypertension; J44.9 Chronic obstructive pulmonary disease, unspecified; K74.60 Unspecified cirrhosis of liver; G89.18 Other acute postprocedural pain; G47.00 Insomnia, unspecified; E78.5 Hyperlipidemia, unspecified; G89.29 Other chronic pain; M19.90 Unspecified osteoarthritis, unspecified site; K21.9 Gastro-esophageal reflux disease without esophagitis; L98.9 Disorder of the skin and subcutaneous tissue, unspecified; F10.21 Alcohol dependence, in remission; R01.1 Cardiac murmur, unspecified; M54.9 Dorsalgia, unspecified; B96.89 Other specified bacterial agents as the cause of diseases classified elsewhere; Z91.81 History of falling; Z28.311 Partially vaccinated for COVID-19; Z98.890 Other specified postprocedural states; Z87.19 Personal history of other diseases of the digestive system; Z85.46 Personal history of malignant neoplasm of prostate; Z85.819 Personal history of malignant neoplasm of unspecified site of lip, oral cavity, and pharynx; Z98.42 Cataract extraction status, left eye; Z98.41 Cataract extraction status, right eye; Z86.69 Personal history of other diseases of the nervous system and sense organs; Z79.891 Long term (current) use of opiate analgesic; Z98.1 Arthrodesis status; Z90.79 Acquired absence of other genital organ(s); Z87.891 Personal history of nicotine dependence; Z87.11 Personal history of peptic ulcer disease; Z79.899 Other long term (current) drug therapy; Z80.8 Family history of malignant neoplasm of other organs or systems; Z82.5 Family history of asthma and other chronic lower respiratory diseases; Z81.1 Family history of alcohol abuse and dependence
CPT/HCPCS: 80048; 85025; 86850; 86900; 86901; 87070; 87075; 87205; 94640

== ENCOUNTER → 2022-03-05 | Outpatient (CLI) | payer OTHER ==
[2022-03-05 16:18] LABS: Appearance,Urine Clear (Clear); Bilirubin,Urine Negative (Negative); Blood,Urine Negative (Negative); Color,Urine Yellow (Yellow); Ketones,Urine Negative (Negative); Nitrite,Urine Negative (Negative); PH, Urine 5.5 (5.0-8.0); Specific Gravity,Urine 1.019 (1.001-1.030); Urobilinogen,Urine 0.2 (0.2,1.0)
[2022-03-05 16:23] LABS: ALT 9 U/L (10-49); AST 18 U/L (14-35); African American GFR (CKD) 50.5 (60.0-200.0); Albumin 4.4 g/dL (3.8-4.9); Albumin/Globulin Ratio 1.72 (1.60-3.17); Alkaline Phosphatase 84 U/L (41-126); BUN/Creat Ratio 11.46 Ratio (12.00-20.00); Blood Urea Nitrogen 18.8 mg/dL (9.0-27.0); Calcium 9.4 mg/dL (8.7-10.3); Chloride 103 mmol/L (96-109); Ferritin 45.2 ng/mL (22.0-322.0); Globulin 2.6 g/dL (1.6-3.3); Glucose 92 mg/dL (70-110); Magnesium 1.8 mg/dL (1.5-2.4); Non-African American GFR(CKD) 43.5 (60.0-200.0); Phosphorus 3.8 mg/dL (2.4-5.1); Potassium 4.5 mmol/L (3.5-5.5); Sodium 141 mmol/L (135-145); Total Protein 6.9 g/dL (6.2-8.2); Uric Acid 7.6 mg/dL (3.7-8.7)
[2022-03-05 16:33] LABS: Chol/HDL Ratio 2.47 Ratio; LDL Cholesterol,Calculated 87.9 mg/dL (0.0-131.0); VLDL Calculation 17.92 mg/dL (5.00-40.00)
[2022-03-05 16:53] LABS: Prostate Specific Antigen <0.01 ng/mL (0.00-4.50)
[2022-03-05 17:29] LABS: Basophils # (A) 0.04 X 10*3/uL (0.00-0.10); Basophils % (A) 0.6 %; Eosinophils # (A) 0.16 X 10*3/uL (0.04-0.35); Eosinophils % (A) 2.3 %; HCT 39.8 % (39.6-50.0); HGB 13.2 g/dL (13.0-17.0); Immature Grans, Automated 0.3 %; Lymphocytes # (A) 2.47 X 10*3/uL (0.90-5.00); Lymphocytes % (A) 35.1 %; MCH 30.7 pg (27.0-32.0); MCHC 33.2 g/dL (32.0-37.0); MCV 92.6 fL (80.0-97.0); Mean Platelet Volume 13.2 fL (9.5-12.2); Monocytes # (A) 0.72 X 10*3/uL (0.20-1.00); Monocytes % (A) 10.2 %; NRBC Per 100 WBC 0 /100 WBCS (0.0-0.0); Neutrophils # (A) 3.62 X 10*3/uL (1.80-7.70); Neutrophils % (A) 51.5 %; Platelet Count 121 X 10*3/uL (140-440); RDW 15.9 % (11.5-14.5); WBC 7.03 X 10*3/uL (4.50-10.00)
== END | disposition home or self-care (01) ==
LOC: LABWHC1 10:05
PROVIDERS: ATTEND Internal Medicine
DX: Z00.00 Encounter for general adult medical examination without abnormal findings (principal); Z12.5 Encounter for screening for malignant neoplasm of prostate; E55.9 Vitamin D deficiency, unspecified; D64.9 Anemia, unspecified; N39.0 Urinary tract infection, site not specified; N25.81 Secondary hyperparathyroidism of renal origin; N18.31 Chronic kidney disease, stage 3a; M10.9 Gout, unspecified
CPT/HCPCS: 36415; 80053; 80061; 81003; 82306; 82728; 83735; 83970; 84100; 84153; 84550; 85025

== ENCOUNTER → 2022-06-15 | Outpatient (CLI) | payer OTHER ==
--- NOTE | 2022-06-15 09:01 | US ---
EXAMINATION TYPE: US liver DATE OF EXAM: 06/15/2022 COMPARISON: NONE CLINICAL HISTORY: K70.30 ALCOHOLIC CIRRHOSIS OF LIVER WITHOUT ASCITE. TECHNIQUE: Multiple sonographic images of the right upper quadrant are obtained. FINDINGS: EXAM MEASUREMENTS: Liver Length: 12.0 cm Gallbladder Wall: 0.3 cm CBD: 0.2 cm Right Kidney: 9.6 x 4.7 x 4.0 cm [employer] NOTES: Pancreas: Obscured by bowel gas Liver: heterogeneous, lobular contour Gallbladder: wnl Evidence for sonographic Mckeon's sign: no CBD: wnl Right Kidney: No hydronephrosis or masses seen, inferior pole obscured by overlying bowel gas IMPRESSION: Cirrhosis without evidence of suspicious mass.
[2022-06-15 14:29] LABS: Basophils # (A) 0.06 X 10*3/uL (0.00-0.10); Basophils % (A) 0.7 %; Eosinophils # (A) 0.16 X 10*3/uL (0.04-0.35); HCT 40.8 % (39.6-50.0); HGB 13.6 g/dL (13.0-17.0); Immature Grans, Automated 0.2 %; Lymphocytes % (A) 28.2 %; MCH 30.6 pg (27.0-32.0); MCHC 33.3 g/dL (32.0-37.0); MCV 91.7 fL (80.0-97.0); Mean Platelet Volume 12.9 fL (9.5-12.2); Monocytes # (A) 0.85 X 10*3/uL (0.20-1.00); Monocytes % (A) 10.4 %; NRBC Per 100 WBC 0 /100 WBCS (0.0-0.0); Neutrophils # (A) 4.78 X 10*3/uL (1.80-7.70); Neutrophils % (A) 58.5 %; Platelet Count 151 X 10*3/uL (140-440); RBC 4.45 X 10*6/uL (4.40-5.60); RDW 13.8 % (11.5-14.5); WBC 8.17 X 10*3/uL (4.50-10.00)
[2022-06-15 14:48] LABS: % Iron Saturation 12.58 (15.00-50.00); African American GFR (CKD) 60.6 (60.0-200.0); Albumin 4.2 g/dL (3.8-4.9); Albumin/Globulin Ratio 1.43 (1.60-3.17); Anion Gap 10.1 mmol/L (10.00-18.00); BUN/Creat Ratio 8.72 Ratio (12.00-20.00); Blood Urea Nitrogen 12.3 mg/dL (9.0-27.0); Calcium 10.1 mg/dL (8.7-10.3); Carbon Dioxide 25.1 mmol/L (20.0-27.5); Magnesium 2.1 mg/dL (1.5-2.4); Non-African American GFR(CKD) 52.3 (60.0-200.0); Phosphorus 3.3 mg/dL (2.4-5.1); Potassium 4.8 mmol/L (3.5-5.5); Total Bilirubin 0.5 mg/dL (0.30-1.20); Total Protein 7.2 g/dL (6.2-8.2); Uric Acid 7.8 mg/dL (3.7-8.7)
[2022-06-15 15:16] LABS: Ferritin 43.6 ng/mL (22.0-322.0)
[2022-06-15 15:25] LABS: Appearance,Urine Clear (Clear); Bilirubin,Urine Small (Negative); Blood,Urine Negative (Negative); Color,Urine Dark Yellow (Yellow); Ketones,Urine Trace mg/dL (Negative); Nitrite,Urine Negative (Negative); PH, Urine 5.5 (5.0-8.0); Specific Gravity,Urine 1.021 (1.001-1.030)
[2022-06-15 15:29] LABS: Bacteria,Urine None Seen /HPF (None Seen)
== END | disposition home or self-care (01) ==
LOC: RADUSWWP 08:19
PROVIDERS: ATTEND Internal Medicine Gastroenterology
DX: K70.30 Alcoholic cirrhosis of liver without ascites (principal); N18.31 Chronic kidney disease, stage 3a; I10 Essential (primary) hypertension
CPT/HCPCS: 36415; 76705; 80053; 81001; 82105; 82306; 82728; 83540; 83550; 83735; 83970; 84100; 84550; 85025

== ENCOUNTER → 2022-08-15 | Outpatient (CLI) | payer OTHER ==
--- NOTE | 2022-08-15 10:37 | CT ---
EXAMINATION TYPE: CT lumbar spine wo con CT DLP: 891 mGycm, Automated exposure control for dose reduction was used. DATE OF EXAM: 08/15/2022 9:53 AM COMPARISON: 10/26/2020. CLINICAL INDICATION:Male, 66 years old with history of M54.10 radiculopathy, M43.16 spondylolisthesis ; TECHNIQUE: Multiple axial images were obtained from the midportion of T11 through the sacroiliac sarath nts. Soft tissue and bone windows in coronal and sagittal planes were obtained and reviewed. 3-D ref ormats of the bones were created on a separate workstation and submitted for review. Contrast used: none. Oral contrast used: none. FINDINGS: Alignment: There are 5 lumbar type vertebral bodies. There is borderline grade 3 spondylolisthesis of L5 on S1 with bilateral spondylolysis. Bone: Multilevel facet joint arthropathy is present and mild. There is disc degeneration with osteoph yte formation present disc spaces are relatively maintained other than at L5-S1. Discs: T12-L1: No significant spinal canal or neural foraminal stenosis is identified. L1-L2: No significant spinal canal or neural foraminal stenosis is identified. L2-L3: No significant spinal canal or neural foraminal stenosis is identified. L3-L4: No significant spinal canal or neural foraminal stenosis is identified. L4-L5: No significant spinal canal or neural foraminal stenosis is identified. L5-S1: Anterolisthesis at this level with severe bilateral neural foraminal stenosis. Disc uncovering at this level with at least mild to moderate spinal canal stenosis. Other: Atherosclerosis of the arterial vasculature. Scattered calcified granulomas within the liver. IMPRESSION: Borderline grade 3 spondylolisthesis of L5 on S1 with bilateral spondylolysis. This results in severe bilateral neural foraminal stenosis at this level. Findings overall similar to 10/26/2020
== END | disposition home or self-care (01) ==
LOC: RADCTMAIN 09:33
PROVIDERS: ATTEND Orthopaedic Surgery
DX: Z01.812 Encounter for preprocedural laboratory examination (principal); Z22.322 Carrier or suspected carrier of Methicillin resistant Staphylococcus aureus; M54.10 Radiculopathy, site unspecified; M43.16 Spondylolisthesis, lumbar region; M47.812 Spondylosis without myelopathy or radiculopathy, cervical region
CPT/HCPCS: 72131; 87070

== ENCOUNTER 2022-08-25 10:23 | Inpatient (IN) | payer OTHER ==
--- NOTE | 2022-08-25 09:33 | P.HPOR ---
History of Present Illness H&P Date: 08/17/22 .D:Date: 08/17/22 : 11:52am .T:Title: [facility] Date of :[birth year] Age: 66 year Height: 5'7" Weight: 160 lbs BP:130/85 BMI: 25.06 kg/m2 Occupation: Disabled VAS: 7 CHIEF COMPLAINT: Low back pain DOI: Chronic DOS: None regarding the lumbar spine Duration of current treatment regiment: >3 months HISTORY: Xrays No new xrays taken in office Trauma or injury No Work-Related No Pain description aching, sharp. Location diffuse Patient notes that their pain radiates to bilateral lower extremities Activity Modification yes Hand Dominance right TREATMENTS COMPLETED: 6 weeks of PT completed? Month and Year of last PT date? None recent No Physician directed home exercise completed? yes Patient has trialed the physician directed home exercise program for several months without relief of their symptoms. Medications yes List: Tylenol without relief Alternative interventions Chiropractic: No Massage therapy: No R.I.C.E: yes heat/ice without relief Brace: No Injections No RFA: No SUBJECTIVE: Mr. Bingham returns to the office for a pre-operative recheck of their planned L4- S1 decompression and fusion. Patient reports no changes to his symptoms since the time of the last appointment. The patient continues to complain of severe pain radiating into the bilateral lower extremities with numbness/tingling and significant weakness. Overall the patient has seen a progressive increase in symptoms since their onset. Mr. Bingham symptoms are exacerbated with standing and ambulation, due to this they notes that it is increasingly difficult for Mr. Bingham to complete many of their daily tasks. Patient is having severe sleep disturbances as well due to their ongoing pain and associated symptoms. Regarding treatments, the patient has previously trialed all abovementioned treatment modalities without relief of his symptoms. Patient denies trialing any other modalities at this time. For their symptoms, the patient has been taking Tylenol without any relief of his symptoms. Otherwise the patient denies any f/c/sob/cp, no incision concerns, no bladder or bowel retention/incontinence, no perineal numbness/tingling, and ambulates independently. HPI: Mr. Bingham last returned to the office on 06/20/2022 for a recheck of their low back pain. Patient reports a increasing lumbar pain ongoing for several years with no known injury or trauma to indicate an exact onset of their symptoms. In addition to their lumbar pain, they do report that it radiates into the bilateral lower extremities, associated with numbness and tingling through L4- S1 dermatomal distribution. Overall the patient has seen a progressive increase in symptoms since their onset. Mr. Bingham symptoms are exacerbated with prolonged standing and ambulation, due to this they notes that it is increasingly difficult for Mr. Bingham to complete many of their daily tasks. Patient is having severe sleep disturbances as well due to their ongoing pain and associated symptoms. Regarding treatments, the patient has previously trialed home exercises for greater than 3 months and RICE both without any relief of his symptoms. Patient denies trialing any other modalities at this time. For their symptoms, the patient has been taking Tylenol OTC PRN wihtout relief. Otherwise the patient denies any f/c/sob/cp, no incision concerns, no bladder or bowel retention/incontinence, no perineal numbness/tingling, and ambulates independently. The patients' past social, medical, family, surgical history, as well as review of systems, have been reviewed. Please refer to the Neurosurgery History and Physical form that has been scanned in to our electronic medical record system. 14 points review of systems completed and as stated in HPI, all other systems reviewed are negative. Social History: Reviewed, see appropriate section of the chart for details. P3 Social History: Smoking: current smoker(cigars) P3 Alcohol: none P3 Alcohol Quit Date: 07/2020 Family History: Reviewed, see appropriate section of the chart for details. P2 Past Medical History: Reviewed, see appropriate section of the chart for details. [id number] Medications: Rx: ipratropium 0.5 mg-albuteroL 3 mg (2.5 mg base)/3 mL nebulization soln Ref: 0 Rx: lisinopriL 10 mg tablet Ref: 0 Rx: multivitamin tablet Ref: 0 Rx: omeprazole 20 mg capsule,delayed release Ref: 0 Rx: simvastatin 10 mg tablet Ref: 0 Rx: spironolactone 100 mg tablet Ref: 0 Rx: TylenoL 325 mg capsule Ref: 0 P1 PHYSICAL EXAMINATION: General: Awake, alert, appropriate for age, in no acute distress. HEENT: No unusual neck masses around region of lateral neck triangle, thyroid, supraclavicular groove Heart: Regular rate and rhythm, normal S1, S2 and no murmur/gallop. Lungs: Clear to auscultation bilaterally with no use of accessory muscles. Extremities: Skin warm and dry without acute lesions, coloration, temperature, skin intact, no tenderness or erythema Integument: Hairy patches: ABSENT Dorsal skin dimples: ABSENT Cafe au lait spots: ABSENT Surgical incisions: NONE Palpation: Please see Pain drawing on Intake sheet for further detail. Midline spinal tenderness: No E6 Cervical Tenderness: No E6 Paralumbar tenderness: No E6 Parathoracic tenderness: No E6 Buttocks tenderness: No E6 Sacroiliac Tenderness: No Palpable stepoff at L5-S1 POSTURAL and MUSCULO-SKELETAL EVALUATION: Coronal Balance: NEUTRAL Recumbent testing: Patient is able to lay flat on back Sagittal Balance: NEUTRAL Shoulder Profile: LEVEL Pelvic Girdle: LEVEL Neck ROM: RESTRICTED Lumbar ROM: RESTRICTED Shoulder ROM: Symmetrical Hip ROM: Symmetrical Knee ROM: Symmetrical Hands: Normal appearance, symmetrical Feet: Normal appearance, Symmetrical VASCULAR STATUS : LEFT RIGHT Wrist Pulses INTACT INTACT Pedal Pulses (Dors. pedis & post.tibialis) INTACT INTACT Color NORMAL NORMAL Edema Absent Absent NEUROLOGIC EXAMINATION: Mental Status:Awake and alert, fully oriented, with normal attention, concentration and memory, and fluent, appropriate speech. Cranial Nerves: I: Olfactory not tested. II: Visual acuity normal, no visual field deficit noted with confrontation. III,IV: Normal pupillary reflexes & intact extraocular movements without nystagmus. V,: Intact symmetrical facial sensation. VII: Intact symmetrical facial motor movement VIII: Hearing intact. IX,X: Intact gag, swallow, & normal voice. XI: Sternocleidomastoid, trapezius function intact. XII: Tongue midline with normal movements. L'hermitte's Sign: Negative / absent Spurling'Sign: Absent bilaterally. Cubital percussion test: Absent bilaterally. Leroy-Tinel sign - Carpal region: Absent bilaterally. Straight Leg Raising: Absent bilaterally. Crossed straight leg raise: negative MOTOR EXAM (0-5/5, N/T) Bilateral UE show much improvement from previous after surgery. There is 4+-5/5 strength in all major muscle groups of UE w/o focal deficit with better fine motor control. LOWER EXTREMITY Hip Flexion Knee Extension Knee Flexion DF PF EHL FHL Right 4/5 4/5 4/5 4-/5 4/5 4/5 4/5 Left 4/5 4/5 4/5 4/5 4/5 4/5 4/5 REFLEXES(0-4/2, NT)Upper ExtremityLower Extremity Right 2 2 Left 2 2 Pathological Reflexes RIG HT LEFT Leroy's Present, improving Absent Clonus Absent Absent Babinski Absent Absent # Indicates mechanical impairment Muscle appearance: Symmetrical, without signs of atrophy or dystrophy. Sensory system (0-4, N/T) Test type RU CLAUDIA RL LL Joint-Position 2 2 2 2 Vibration 2 2 2 2 Pain & LT sense 2 2 2 2 Dermatomal Deficit: None None L4-S1 L4-S1 Gait and Functional Evaluation: Ambulatory aids: Independent Romberg's test: Intact bilaterally Toe heel walk / heel-toe walk intact while maintaining satisfactory balance? No Squatting/straightening w/o assistance to a min of 60 degree knee flexion? No Single leg stance: intact Trendelenburg sign negative bilaterally Hand and finger dexterity intact bilaterally? yes Disdiadochokinesis examination negative bilaterally? yes RADIOGRAPHIC STUDIES: CT scan without contrast from 08/15/22 at [facility]: grade 2 spondylolisthesis L5-S1 with L4 5 spondylosis facet arthropathy severe degeneration vacuum disc phenomena. No acute fracture dislocation otherwise noted widespread spondylotic changes throughout the lumbar spine worse at L4 5 and L5-S1 as detailed CT scan without contrast from 10/26/2020 at [facility]: Images reviewed. Grade II-III spondylolisthesis with spondylolysis of L5_S1 noted/ B/L pars defects, facet elongation with hypertrophy and osteophyte formation. There is vacuum phenom. in L5-S1. There is pedicular atrophy at L5 along with endplate erosion posteiorly. There is disc herniation noted L4-5 with spondylosis and facet hypertrophy. No acute fractures. No lesions. MRI scan from09/17/2020 at [facility]: Images reviewed demonstrate similar findings to CT with Grade II-III spondylolisthesis with spondylolysis of L5-S1. B/L pars defects. Disc dessication at L4-S1 with severe stenosis L4-S1 due to broad based disc hernation L4-5 and L5-S1 due to collapse and listhesis. b/l foraminal stenoiss related. Facet hypertrophy, ligamental hypertrophy and arthrosis contribute to stenosis. This is an unstable lesion as it is partially reduced on supine films. IMPRESSION: It was my pleasure to have seen and examined David. I reviewed the patient's clinical syndrome, physical findings, and imaging studies during the appointment today. It is my impression that the patient has a diagnosis of. 1. L5-S1 grade 2 spondylolisthesis with spondylolysis L5 b/l 2. L4-S1 spondylosis with radiculopathy 3. bilateral lower extremity weakness 4. bilateral lower extremity radiculopathy 5. mechanical low back pain I outlined the natural course history without intervention and various interventional options. PLAN: Based on my findings I suggest the following course of action: -I discussed treatment options with the patient, including operative and non- operative options, and they have elected to proceed with the following surgical procedure: Lumbar(L4-S1) Posterior Open Decompression and Fusion The indications, risks, benefits, and alternatives to surgery were discussed with the patient and family at length. Specifically (but not limited to) the risks of infection, stiffness, recurrence of symptoms, need for revision surgery, local numbness, neurovascular injury, and blood clots were discussed. The patient's questions were answered. The decision to proceed was made. Consent will be obtained for the procedure. Spine Surgery Risk Review Mr. Bingham is presenting for evaluation of low back pain. It was my pleasure to have seen and examined Mr. Bingham. In our visit today we have had a chance to go over subjective complaints, physical examination findings and treatments including the natural course history without intervention and various interventional options. The patients imaging demonstrates: CT scan without contrast from 08/15/22 at [facility]: grade 2 spondylolisthesis L5-S1 with L4 5 spondylosis facet arthropathy severe degeneration vacuum disc phenomena. No acute fracture dislocation otherwise noted widespread spondylotic changes throughout the lumbar spine worse at L4 5 and L5-S1 as detailed CT scan without contrast from 10/26/2020 at [facility]: Images reviewed. Grade II-III spondylolisthesis with spondylolysis of L5_S1 noted/ B/L pars defects, facet elongation with hypertrophy and osteophyte formation. There is vacuum phenom. in L5-S1. There is pedicular atrophy at L5 along with endplate erosion posteriorly. There is disc herniation noted L4-5 with spondylosis and facet hypertrophy. No acute fractures. No lesions. MRI scan from09/17/2020 at [facility]: Images reviewed demonstrate similar findings to CT with Grade II-III spondylolisthesis with spondylolysis of L5-S1. B/L pars defects. Disc dessication at L4-S1 with severe stenosis L4-S1 due to broad based disc herniation L4-5 and L5-S1 due to collapse and listhesis. b/l foraminal stenosis related. Facet hypertrophy, ligamental hypertrophy and arthrosis contribute to stenosis. This is an unstable lesion as it is partially reduced on supine films. On physical exam, Mr. Bingham [id number] severely restricted lumbar ROM with an inability to flex and extend due to severe pain. Patient also demonstrates global lower extremity weakness with the right side being worse than the left. Furthermore the patient does also demonstrate bilateral L4-S1 dermatomal deficits. Overall functional testing is very limited due to pain. Patient ambulating independently but unsteady on feet. I have explained to the patient that as their condition progresses it will cause further neurological deficits and eventual paralysis. Based on the patients imaging, physical exam, and the rapid progression and disabling nature of their symptoms, at this time I recommend surgery in the form or a: Lumbar(L4-S1) Posterior Open Decompression and Fusion. I discussed the risk and benefits of this procedure at length with Mr. Bingham. The patient and his agreed to considered pursuing the procedure abovementioned. Prior to surgery, she should follow up with her PCP (Cardio, ID, IM etc) for clearance. Questions were invited and answered, and the patient wishes to proceed as outlined below. Currently, I am recommendin.Lumbar(L4-S1) Posterior Open Decompression and Fusion 2.Follow up with PCP for surgical clearance 3.Review of surgical risks and benefits as well as an educational packet on the proposed surgical procedure. Risks: All surgical procedures come with inherent risks, including those related to positioning, anesthesia, intraoperative findings, and postoperative complications. It is important to understand that surgery does not come with any guarantee of a successful outcome as complications and adverse events are always possible. The patient was given a handout in office today discussing the surgical procedure and risks associated with the intervention, both of which were discussed with the patient. These risks include but are not limited to the following: * Experiencing same, different or even worse symptoms in back, neck, arms, or legs compared to before surgery. Requiring further surgery or other forms of treatment presently or at some time in the future at same or other levels of the intended spine surgery. On an extreme but fortunately relatively rare basis severe complication such as blindness, stroke, heart attack, temporary and/or permanent nerve injury, paralysis, coma, or may occur, sometimes without known explanation. Surgical complications may include but are not limited to risk of infection, fluid accumulation in the surgical dissection site, including a seroma or hematoma, that requires additional surgery, wound drainage, bleeding, new numbness or weakness, vision changes/loss, spinal fluid leakage, non-healing and/or infected incision, headaches, difficulty or inability to swallow, hoarseness, hemopneumothorax, pneumothorax, impotence, retrograde ejaculation, vaginal dryness; injury to nerves, spinal cord, blood vessels, lymphatics or other vital organs (i.e., bowel injury, injury to the great vessels); heterotopic bone formation; complications related to the hardware such as screws, rods, cages including misplaced hardware, device failure, instrumentation at the wrong spine level, hardware fracture/breakage, or hardware loosening; vertebral failure of the spinal column above or below the newly placed hardware; retained surgical instrumentations or devices and the need for further surgery. * Medical risks of the planned spine surgery include but are not limited to generalized Infections to the whole body or local areas outside of the surgical site (sepsis), heart attack, bleeding, anaphylaxis, meningitis, seizure, epilepsy, hearing loss, burn fleming, laceration of the head or other areas of the body, bruising, hypersensitivity of the skin, bladder over distension; allergic reaction; shoulder injury related to positioning; fat, blood and air clots to other areas of the body like heart, lungs, brain; failure of internal organs such as lungs, kidneys, liver and excessive bleeding. If blood transfusions are necessary, note that transfusions may cause intolerance reactions such as anaphylaxis or other complex reactions. Despite best efforts, the results of spine surgery might not heal in terms of bone, soft tissues such as skin, fascia, ligaments, and joints. Additionally, in order to achieve best possible results, spine surgery may be carried out beyond the initially planned levels and involve decompression, fusion including insertion of hardware at levels other than the original intended area of surgical interest change some portions of the procedure in order to ensure the best possible outcomes. With spine surgery and spinal fusion, there are different off label uses of instrumentation (devices, implants and hardware) as well as biological substances (bone morphogenic proteins, demineralized bone matrix) as well as using extra bone from allograft sources (i.e. cadaver bone) or autograft (iliac crest bone, ribs, or the spine itself). The patient has been given information about these practices and their inherent risks and benefits. [facility] is an educational center that serves as a training facility for neurosurgical and orthopedic DATA INPUT CLERK and Nursing students. Physician assistants are medically trained surgical providers who function in the outpatient, inpatient, and operating room setting under the direct supervision of the attending surgeon. [facility] has multiple operating rooms with single and overlapping rooms running daily. They currently function under the required guidelines as produced by the [facility] Finance Committee with regards to the overlapping rooms and will continue to comply with changes to this policy as they occur. The requirements include and are complied with as follows: (1) the critical portions of the overlapping rooms will not occur at the same time, (2) the attending physician will be physically present during the critical portions of the procedure and immediately available during the entire case, and (3) a back-up attending is designated should the primary attending not be immediately available. The patient has had a chance to review all the listed information, has been given print outs detailing this information, and has had all his/her questions answered to their satisfaction. It was my pleasure to have seen and examined Mr. Bingham. In our visit today we have had a chance to go over my understanding of our patient's current condition, the natural course history without intervention and various interventional options. Questions were invited and answered, and the patient wishes to proceed as outlined above. I have seen and examined the patient for 25 minutes and we have spent more than 50% of the time in repeat and detailed counseling about the patient's condition, its natural course history with out and as much as can be predicted with surgery and re-review of various surgical treatment options. In conclusion, Mr. Bingham and his requested we proceed with the above suggested surgery and are willing to accept risks and limitations of the suggested surgery as nature of the disease process and our best attempts at treatment for the condition. Thank you again for allowing us to be part of your patient's care. Please don't hesitate to contact me if you have any further questions. Signed and authenticated by: graphic Follow- up: 2 weeks post-op Patient Education: (Informational booklet, instructions, etc) given at today's appointment: Yes .ED:Patient Education: Y Plan at next visit: pre-operative review Medications Reviewed: YES In our visit today Mr. Bingham and I have had a chance to go over my understanding of the patient's current condition, the natural course history without intervention and various interventional options. Questions were invited and answered, and the patient wishes to proceed as outlined above. I will be sure to keep you updated afterMrShelley Bingham returns here for further follow-up. Thank you again for your referral. Please do not hesitate to contact me if you have any further questions. Signed and authenticated by: Doug Mack [facility] [address] [place] [address] This message is confidential, intended only for the named recipient(s) and may contain information that is privileged or exempt from disclosure under applicable law. If you are not the intended recipient(s), you are notified that the dissemination, distribution or copying of this information is strictly prohibited. If you received this message in error, please notify the sender then delete this message. Patient verbalizes understanding of the information discussed. # SIGNED BY Doug Early ([facility])08/22/2022 08:33AM Past Medical History Past Medical History: Cancer, COPD, GERD/Reflux, GI Bleed, Hyperlipidemia, Hypertension, Liver Disease, Osteoarthritis (OA), Prostate Disorder Additional Past Medical History / Comment(s): RESTLESS LEG. " in 2004 esophagus was bleeding and ulcers in stomach", hx. Prostate cancer, cirrhosis, History of Any Multi-Drug Resistant Organisms: None Reported Past Surgical History: Back Surgery, Prostate Surgery Additional Past Surgical History / Comment(s): CATARACT SURGERY-BILATERAL, prostatectomy, COLONOSCOPY/EGD, BACK INJECTIONS, laser eye surgery for glaucoma, cervical fusion with pins Past Anesthesia/Blood Transfusion Reactions: No Reported Reaction Smoking Status: Current some day smoker - Past Family History Sister(s) Family Medical History: Cancer Brother(s) Family Medical History: Cancer Additional Family Medical History / Comment(s): throat cancer Mother Family Medical History: COPD Additional Family Medical History / Comment(s): of COPD Father Additional Family Medical History / Comment(s): of alcoholism Medications and Allergies Home Medications Medication Instructions Recorded Confirmed Type Omeprazole [PriLOSEC] 20 mg PO BID 10/14/15 08/22/22 History Simvastatin [Zocor] 10 mg PO HS 10/14/15 08/22/22 History Pregabalin [Lyrica] 150 mg PO BID 03/17/19 08/22/22 History lisinopriL [Prinivil] 10 mg PO QAM 04/30/20 08/22/22 History Spironolactone 100 mg PO QAM 06/18/20 08/22/22 History Acetaminophen [Tylenol Extra 500 mg PO Q6H PRN 08/22/22 08/22/22 History Strength] Albuterol Inhaler [Ventolin Hfa 1 - 2 puff INHALATION Q6H PRN 08/22/22 08/22/22 History Inhaler] Multivit-Min/FA/Lycopen/Lutein 1 each PO DAILY 08/22/22 08/22/22 History [Centrum Silver Tablet] Allergies Allergy/AdvReac Type Severity Reaction Status Date / Time No Known Allergies Allergy Verified 08/22/22 15:06 Physical Examination Osteopathic Statement: *. No significant issues noted on an osteopathic stru ctural exam other than those noted in the History and Physical/Consult.
[~2022-08-25 10:23] MED LIST changes: +DEXAMETHASONE SOD PHOSPHATE 4 MG/ML 1 ML VIAL IV ONE; +HYDROmorphone 0.5 MG/0.5 ML SYRINGE IVP PRN; +ONDANSETRON 4 MG/2 ML VIAL IVP ONE
[2022-08-25] MEDS: LACTATED RINGERS 1,000 ML IV SCH ×2 (11:12→11:17)
[2022-08-25] MEDS ORDERED: TRANEXAMIC ACID IN NACL,ISO-OS 1,000 MG/100 ML BAG ONE (12:16)
[2022-08-25] MEDS ORDERED: ROCURONIUM 10 MG/ML (5 ML VIAL) IV ONE (12:16)
[2022-08-25] MEDS ORDERED: MIDAZOLAM 2 MG/2 ML VIAL ONE (12:16)
[2022-08-25] MEDS ORDERED: SUCCINYLCHOLINE CHLORIDE 200 MG/10 ML VIAL IV ONE (12:16)
[2022-08-25] MEDS ORDERED: LIDOCAINE 2% INJ 20 MG/ML (2 ML VIAL) ONE (12:16)
[2022-08-25] MEDS ORDERED: LIDOCAINE 4% LTA KIT (4 ML) TOPICAL ONE (12:16)
[2022-08-25] MEDS ORDERED: ACETYLCYSTEINE 800 MG/4 ML VIAL ONE (12:16)
[2022-08-25] MEDS ORDERED: PROPOFOL 10 MG/ML 20 ML VIAL IV ONE (12:16)
[2022-08-25] MEDS ORDERED: fentaNYL (PF) 50 MCG/ML 2 ML AMP ONE (12:16)
[2022-08-25] MEDS ORDERED: BUPIVACAIN-EPI 0.25%-1:200,000 30 ML VIAL SQ ONE (12:22)
[2022-08-25] MEDS ORDERED: GENTAMICIN 40 MG/ML 2 ML VIAL IRRIGATION ONE (12:22)
[2022-08-25] MEDS ORDERED: ceFAZolin 3,000 MG in SODIUM CHLORIDE 0.9% IRRIGATIO 3,000 ML IRRIGATION ONE (13:20)
[2022-08-25] MEDS ORDERED: LACTATED RINGERS 1,000 ML IV ONE ×4 (13:55→17:40)
[2022-08-25] MEDS ORDERED: VANCOMYCIN 1,000 MG VIAL MISCELLANE ONE ×2 (15:24→17:29)
[2022-08-25] MEDS ORDERED: ONDANSETRON 4 MG/2 ML VIAL IVP PRN (18:19)
[2022-08-25] MEDS ORDERED: diazePAM 5 MG TAB PO PRN (18:19)
[2022-08-25] MEDS ORDERED: HYDROcodone/APAP 10-325MG 1 EACH TAB PO PRN (18:19)
[2022-08-25] MEDS ORDERED: MAGNESIUM HYDROXIDE 2,400 MG/10 ML CUP PO PRN (18:19)
[2022-08-25] MEDS ORDERED: SENNOSIDES-DOCUSATE SODIUM 1 EACH TAB PO PRN (18:19)
[2022-08-25] MEDS: HYDROmorphone 1 MG/ML 1 ML SYRINGE IVP PRN (19:54)
--- NOTE | 2022-08-25 19:57 | XR ---
Fluoroscopy INDICATION: Pain FINDINGS: Fluoroscopy time: 2 minutes 33 seconds. Images obtained: 7. IMPRESSIONS: 1. Documentation of fluoroscopy.
[2022-08-25] MEDS: GABAPENTIN 300 MG CAP PO SCH (20:00)
--- NOTE | 2022-08-25 20:23 | FL ---
Fluoroscopy INDICATION: Pain FINDINGS: Fluoroscopy time: 2 minutes 33 seconds. Images obtained: 0. IMPRESSIONS: 1. Documentation of fluoroscopy.
[2022-08-25] MEDS ORDERED: ARTIFICIAL TEARS-HYPROMELLOSE DROPS 15 ML BTL BOTH EYES PRN (22:17)
--- NOTE | 2022-08-25 23:04 | CT ---
EXAMINATION TYPE: CT lumbar spine wo con DATE OF EXAM: 08/25/2022 COMPARISON: 08/15/2022 HISTORY: post op lumbar fusion CT DLP: 903.20 mGycm Automated exposure control for dose reduction was used. Images obtained from T12 through S5 vertebra without contrast. There are rods and screws fusing posteriorly the lumbar spine from L4 to S1. There is a second-degree L5-S1 spondylolisthesis. There is disc prosthesis at L4-5 and L5-S1. There are posterior skin staple s. Sacroiliac joints are intact. Exam limited somewhat by metal artifact. There is apparent laminecto my defect in the lower lumbar spine. There are small air bubbles consistent with postsurgical changes in the posterior soft tissues at the surgery site. No focal bone destruction. There is moderate vascular calcification. IMPRESSION: Posterior multilevel fusion surgery. No complicating process seen. Second-degree L5-S1 spondylolisthe sis without change.
[2022-08-26] MEDS: 0.9% NACL WITH KCL 20 MEQ/L 1,000 ML IV SCH ×4 (00:16→19:54)
[2022-08-26] MEDS: ACETAMINOPHEN TAB 325 MG TAB PO SCH ×5 (00:17→23:08)
[2022-08-26] MEDS: DEXAMETHASONE SOD PHOSPHATE 4 MG/ML 1 ML VIAL IV SCH ×5 (00:21→23:09)
[2022-08-26] MEDS: HYDROmorphone 1 MG/ML 1 ML SYRINGE IVP PRN ×6 (03:52→19:49)
[2022-08-26] MEDS ORDERED: ALBUTEROL NEBULIZED 2.5 MG/3 ML INHALATION PRN (04:14)
--- NOTE | 2022-08-26 04:21 | P.CONS ---
History of Present Illness - Reason for Consult Consult date: 08/25/22 post op medical management - Chief Complaint lumbar spine surgery - History of Present Illness 66 year old male with hypertension and chronic low back pain patient is seen post scheduled lumbar decompression . due to chronic low back. patient tolerated procedure well, denies any chest pain or trouble breathing, denies nay numbness or tingling in his lower extremities. he is currently having ramos cath, and did not eat yet. patient denies any cough, SOB, fever, chills. nausea or vomiting, he reports that pain is well tolerated. he is complaining of irritation in his left eye, with scratchy feeling when he blinks. ,denies ophthalmoplegia or changes in his vision Review of Systems Pertinent positives as noted in HPI. All other systems were reviewed and are negative Past Medical History Past Medical History: Cancer, COPD, GERD/Reflux, GI Bleed, Hyperlipidemia, Hypertension, Liver Disease, Osteoarthritis (OA), Prostate Disorder Additional Past Medical History / Comment(s): RESTLESS LEG. " in 2004 esophagus was bleeding and ulcers in stomach", hx. Prostate cancer, cirrhosis, History of Any Multi-Drug Resistant Organisms: None Reported Past Surgical History: Back Surgery, Prostate Surgery Additional Past Surgical History / Comment(s): CATARACT SURGERY-BILATERAL, prostatectomy, COLONOSCOPY/EGD, BACK INJECTIONS, laser eye surgery for glaucoma, cervical fusion with pins Past Anesthesia/Blood Transfusion Reactions: No Reported Reaction Smoking Status: Current some day smoker - Past Family History Sister(s) Family Medical History: Cancer Brother(s) Family Medical History: Cancer Additional Family Medical History / Comment(s): throat cancer Mother Family Medical History: COPD Additional Family Medical History / Comment(s): of COPD Father Additional Family Medical History / Comment(s): of alcoholism Medications and Allergies Home Medications Medication Instructions Recorded Confirmed Type Omeprazole [PriLOSEC] 20 mg PO BID 10/14/15 08/25/22 History Simvastatin [Zocor] 10 mg PO HS 10/14/15 08/25/22 History Pregabalin [Lyrica] 150 mg PO BID 03/17/19 08/25/22 History lisinopriL [Prinivil] 10 mg PO QAM 04/30/20 08/25/22 History Spironolactone 100 mg PO QAM 06/18/20 08/25/22 History Acetaminophen [Tylenol Extra 500 mg PO Q6H PRN 08/22/22 08/25/22 History Strength] Albuterol Inhaler [Ventolin Hfa 1 - 2 puff INHALATION Q6H PRN 08/22/22 08/25/22 History Inhaler] Multivit-Min/FA/Lycopen/Lutein 1 each PO DAILY 08/22/22 08/25/22 History [Centrum Silver Tablet] Allergies Allergy/AdvReac Type Severity Reaction Status Date / Time No Known Allergies Allergy Verified 08/25/22 11:01 Physical Exam Vitals: Vital Signs Temp Pulse Pulse Resp BP Pulse Ox 08/25/22 22:39 99.1 F 83 18 122/81 96 08/25/22 21:36 83 121/78 96 08/25/22 20:51 87 119/69 93 L 08/25/22 20:22 86 18 143/58 89 L 08/25/22 20:07 93 18 130/76 96 08/25/22 20:00 18 08/25/22 19:51 89 18 127/75 96 08/25/22 19:37 87 18 121/83 96 08/25/22 19:22 92 20 138/71 97 08/25/22 19:03 84 16 125/80 100 08/25/22 18:47 88 16 138/82 100 08/25/22 18:32 92 16 148/88 100 08/25/22 18:17 96.9 F L 78 14 132/73 98 08/25/22 11:00 97.9 F 84 18 108/63 96 Intake and Output 08/25/22 08/25/22 08/26/22 14:59 22:59 06:59 Intake Total 3051 700 Output Total 650 700 Balance 3051 50 -700 Intake: IV 3051 700 Output: Urine 200 700 Estimated Blood Loss 450 Other: Voiding Method Indwelling Catheter Weight 72.3 kg Constitutional: No acute distress, conversant, pleasant Eyes: Anicteric sclerae, moist conjunctiva, Pupils equal round reactive to light ENMT: NC/AT Oropharynx clear, no erythema, or exudates Neck: Supple, no masses, or JVD No carotid bruits No thyromegaly Lungs: Clear to auscultation Clear to percussion Normal respiratory effort, no accessory muscle use Cardiovascular: Heart regular in rate and rhythm, No murmurs, gallops, or rubs No peripheral edema Abdominal: Soft Nontender, no guarding, rebound or rigidity Abdomen moving with respiration Normoactive bowel sounds No hepatomegaly, No splenomegaly No palpable mass No abdominal wall hernia noted Skin: Normal temperature, tone, texture, turgor Extremities: No digital cyanosis No clubbing Pedal pulses intact and symmetrical Radial pulses intact and symmetrical No calf tenderness Psychiatric: Alert and oriented to person, place and time Appropriate affect fair judgement Neuro Muscles Strength 5/5 in all 4 extremities Sensation to light touch grossly present throughout Cranial nerves II-XII grossly intact Lymphatics: no palpable cervical or supraclavicular lymph nodes Assessment and Plan Assessment: irritation of the left eye possibly secondary to perioperative eye taping artificial tear drops as needed supportive care with pain control warm or cold compress to comfort lumbar spine surgery POD zero management per primary team ortho ramos cath care hypertension , controlled resume spironolactone and lisinopril full code DVT PPX mechanical secondary to spine surgery patient stable from medical stand point follow up CBC and BMP post op in AM thank you for your consultation
--- NOTE | 2022-08-26 07:50 | P.OP ---
Date of Procedure: 08/25/22 Preoperative Diagnosis: 1. L5-S1 Grade III spondylolisthesis with severe stenosis 2. L4-5 Grade I spondylolisthesis 3. Neurogenic claudication 4. LE weakness with radiculopathy Postoperative Diagnosis: 1. L5-S1 Grade III spondylolisthesis with severe stenosis 2. L4-5 Grade I spondylolisthesis 3. Neurogenic claudication 4. LE weakness with radiculopathy Procedure(s) Performed: 1. L5-S1 intradiscal osteotomy, 3 column, for deformity correction (37247) 2. L4-5 and L5-S1 posteriolateral and interbody fusion (74048,76524) 3. Insertion of biomechanical device L4-5 and L5-S1 (27913s2) 4. Segmental instrumentation L4-S1 (52241) 5. Posterior extradural laminectomy complete facetectomy and foraminotomies for decompression of neural elements L4 to S1 beyond that needed for cage placement and for deformity correction (05876, 27400) Use of IONM Implants: -Globus Creo open screws -Zivation expandable cage x1 -Elana Newington cage x1 -MagnatOs, iFactor, Arthrex allocel, autograft, allograft Anesthesia: GETA Surgeon: Doug Early Pt Skilled #1: Mariaa Diane Estimated Blood Loss (ml): 500 IV fluids (ml): 2,500 Urine output (ml): 450 Pathology: none sent Condition: stable Disposition: PACU Indications for Procedure: Mr. Bingham is presenting for evaluation of low back pain. It was my pleasure to have seen and examined Mr. Bingham. In our visit today we have had a chance to go over subjective complaints, physical examination findings and treatments including the natural course history without intervention and various interventional options. The patients imaging demonstrates: CT scan without contrast from 08/15/22 at [facility] of Lumbar Spine: grade 2 spondylolisthesis L5-S1 with L4 5 spondylosis facet arthropathy severe degeneration vacuum disc phenomena. No acute fracture dislocation otherwise noted widespread spondylotic changes throughout the lumbar spine worse at L4 5 and L5-S1 as detailed CT scan without contrast from 10/26/2020 at [facility] of Lumbar Spine: Images reviewed. Grade II-III spondylolisthesis with spondylolysis of L5_S1 noted/ B/L pars defects, facet elongation with hypertrophy and osteophyte formation. There is vacuum phenom. in L5-S1. There is pedicular atrophy at L5 along with endplate erosion posteriorly. There is disc herniation noted L4-5 with spondylosis and facet hypertrophy. No acute fractures. No lesions. MRI scan from09/17/2020 at [facility] of Lumbar Spine: Images reviewed demonstrate similar findings to CT with Grade II-III spondylolisthesis with spondylolysis of L5-S1. B/L pars defects. Disc dessication at L4-S1 with severe stenosis L4-S1 due to broad based disc herniation L4-5 and L5-S1 due to collapse and listhesis. b/l foraminal stenosis related. Facet hypertrophy, ligamental hypertrophy and arthrosis contribute to stenosis. This is an unstable lesion as it is partially reduced on supine films. On physical exam, Mr. Bingham [id number] severely restricted lumbar ROM with an inability to flex and extend due to severe pain. Patient also demonstrates global lower extremity weakness with the right side being worse than the left. Furthermore the patient does also demonstrate bilateral L4-S1 dermatomal deficits. Overall functional testing is very limited due to pain. Patient ambulating independently but unsteady on feet. I have explained to the patient that as their condition progresses it will cause further neurological deficits and eventual paralysis. Based on the patients imaging, physical exam, and the rapid progression and disabling nature of their symptoms, at this time I recommend surgery in the form or a: Lumbar(L4-S1) Posterior Open Decompression and Fusion. I discussed the risk and benefits of this procedure at length with Mr. Bingham. The patient and his agreed to considered pursuing the procedure abovementioned. Prior to surgery, she should follow up with her PCP (Cardio, ID, IM etc) for clearance. Questions were invited and answered, and the patient wishes to proceed as outlined below. Currently, I am recommendin.Lumbar(L4-S1) Posterior Open Decompression and Fusion Description of Procedure: The patient was seen and examined in the preoperative area. All preoperative protocols were followed. Informed consent was obtained risks and benefits of the procedure were discussed at length. Risks including bleeding infection damage to the surrounding tissue and risk of reoperation were discussed with the patient. Risk of anesthesia up to and including was a discussed with the patient. These are outlined in the risk review. They were willing to accept these risks and all of the risks of surgery. The patient was given a weight- based dose of antibiotics in the form of 2 g Ancef 1 g TXA at opening 1 g TXA closure. The patient was seen and evaluated by the anesthesia team who deemed them fit for surgery. The site was marked, the patient was willing to proceed with the procedure. The patient was transferred to the operative suite by the Department of anesthesia. They were then drifted off to sleep by the department anesthesia and GETA was performed. The patient tolerated this well. [Hanna catheter was placed by nursing staff, atraumatically]. Once confirmation of lines and ventilation the patient was transferred to a [prone Valentin table very carefully]. All bony prominences including wrists, elbows, axilla, chest, hips, and thighs, and feet were padded very well. Special attention was paid to the genitalia and these were padded accordingly. SCDs were placed on bilateral lower extremities and were connected. Arms were well padded and placed [on arm boards up and out in the 90/90 position]. Once in position, again we confirmed good ventilation capabilities and that lines were running appropriately. The p atient's lumbosacralspine was then exposed. 1010s were placed outlining the incision site. Standard alcohol was used to clean the incision site and allowed to dry. C-arm was used to biomark the patient and confirm level for incision which was marked with a skin marker. Operative briefing was performed with all teams and everyone in agreement to proceed. The patient was then prepped and draped in a normal sterile fashion. Timeout was then performed and all parties were in agreement with the procedure to be performed. Midline skin incision was made and dissection taken down to the deep fascia which was identified and cleaned with a Banks and then fasciotomy was then performed and subperiosteal dissection taken down over the L3 lamina L4 lamina L5 and S1. This was taken out over the facet joints and to the transverse processes which were identified and decorticated with a high-speed bur. This is done at L4-L5 and S1. The deformity was significant and L5 was buried deep due to the slip. S1 was very prominent. We then proceeded with identification of levels and placement of screws. Screws were placed in a freehand technique under lateral fluoroscopy first with a high-speed bur to create a [place] pilot hole followed by a pedicle finder and feeler and then a screw placement. Screws were placed at L4-L5 and S1 bilaterally. Bicortical screws were placed at L4 and S1. We then confirm these on AP and screws were in good position. We then proceeded with decompression and mobilization first of L5-S1. The lamina was essentially floating at this region region but was extremely scarred in and so we meticulously cleaning this off the dura and removed it was removed it on a revealed further the deformity. We performed a complete facetectomy bilaterally of L5 as well and foraminotomy. The L5 nerve roots were identified and were followed out completely along her passes until they dove deep and anterior to allow for slack if a reduction was possible. We then performed intradiscal 3 column osteotomy of L5-S1 using a osteotome and a Raptor osteotome. Under lateral fluoroscopy this was passed anteriorly into the anterior two thirds of the vertebral body of L5 as well as S1 to create a path as well as loose in the area. In this attempt however the mobility of the vertebral body became evident that it was only minimally mobile. We placed a temporary jennifer on the right-hand side with reduction of the L5 to 1 grade 2 from a grade 3 but this did not want to move much further than this. Once we accomplished this a sequential shaving was performed bilaterally at L5-S1 for further mobilization we then selected a static cage and impacted it into place protecting neural elements at L5-S1. Meticulous hemostasis was performed graft was placed anterior to the cage prior to impaction and once impacted in good position under AP and lateral. Then turned our attention to L4-L5 bilateral laminectomy, complete facetectomy and foraminotomy was performed of L4-L5. Then identified disc space protected neural elements and performed discectomy at L4-L5. Complete discectomy was performed using sequential ashley down biting curette and pituitary. Once good bleeding, cartilage was removed graft was placed anterior to the cage then selected cage and impacted into place under lateral fluoroscopy. Once in good position of the cage was then expanded and had good fit and fill. There is good maintenance of height and lordosis. We then removed the organizational consultant perform meticulous hemostasis and irrigated the area. We then selected rods placed rods on the left-hand side to match the reduction jennifer and secured it into position with set screws were then performed sequential reduction again on the right-hand side with a new jennifer this was reduced into place and secured with set screws were then final tightened setscrews. Cross-link was selected and placed and final tightened. We then copiously irrigated the wound with 3 L of antibiotic solution Ancef followed by 3 L of gentamicin irrigation followed by 3 L of normal sterile saline. Final fluoroscopic images were taken which confirmed good hardware placement reasonable reduction increased height and maintain lordosis. After irrigation Surgicel was placed over the dura meticulous hemostasis and performed then placed in the posterior lateral gutters MagnetOs allograft and autograft. this was impacted in place in good position. We then inspected the area there were no other issues. I placed 2 g of vancomycin powder deep within the wound deep drain was placed to proceed with layer closure. We closed the deep fascia with #1 PDS. The deep subcu was closed with 0 Vicryl superficial subcu closed 2-0 Vicryl and the skin was closed with skin jairon. The wound edges approximated very well. Clean the wound with alcohol and dressed it sterilely with an operative foam dressing 4 x 4 and Tegaderm. The drain was hooked to suction and had good suction. The patient was transferred back to their hospital bed atraumatically. [Drain continued to hold suction and were in good position]. Patient was then awakened and extubated by the department of anesthesia having tolerated the procedure very well with no complications. They were transferred to the postoperative care unit in stable condition.
--- NOTE | 2022-08-26 08:16 | P.PN ---
Subjective Progress Note Date: 08/26/22 Principal diagnosis: L5-S1 grade 2 spondylolisthesis with L4-5 bilateral spondylolysis L4-S1 spondylosis Bilateral lower extremity weakness bilateral lower extremity radiculopathy Patient seen and examined this morning. Patient is resting in bed. He states that his pain is controlled on current regimen. Surgical dressing is clean dry and intact, Hemovac patent. Patient denies any numbness or tingling to bilateral lower extremities, he does report slight tingling in his right foot. Informed patient that he should be up out of bed for all meals and to work with physical therapy today. He currently denies any fevers/chills, nausea/vomiting, or chest pain. Objective - Vital Signs Vital signs: Vital Signs Temp 98.2 F 08/26/22 04:56 Pulse 82 08/26/22 04:56 Resp 16 08/26/22 04:56 BP 110/61 08/26/22 04:56 Pulse Ox 94 L 08/26/22 04:56 FiO2 Intake & Output 08/25/22 08/26/22 08/26/22 18:59 06:59 18:59 Intake Total 3551 700 Output Total 650 1315 Balance 2901 -615 Weight 72.3 kg Intake: IV 3551 200 Intake, IV Titration 500 Amount 0.9% NaCl with KCl 20 Meq 400 /l 1,000 ml @ 100 mls/hr IV .Q10H MALINDA Rx#: [id number] ceFAZolin 2 gm In Sodium 100 Chloride 0.9% 50 ml @ 100 mls/hr IVPB Q8H MALINDA Rx#: [id number] Output: Drainage 15 Back 15 Urine 200 1300 Estimated Blood Loss 450 Other: Voiding Method Indwelling Catheter - Exam Physical Examination General: The patient is awake and alert, in no acute distress Skin: Skin is warm and dry with no obvious rashes or lesions. Hairy patches absent, no dorsal skin dimples, no cafe au lait spot. Surgical incision to lumbar region with hemovac present. Eye: Pupils are equal, round and reactive to light, extra-ocular movements are intact; there is normal conjunctiva bilaterally. Neck: The neck is supple, there is no tenderness and ROM intact. Cardiovascular: There is a regular rate and rhythm. No murmur, rub or gallop is appreciated. Respiratory: Lungs are clear to auscultation, respirations are non-labored, breath sounds are equal. Gastrointestinal: Soft, non-distended, non-tender abdomen. Back: There is no tenderness to palpation in the midline, paralumbar, parathoracic or buttocks region. There is no obvious deformity . Musculoskeletal: ROM limited secondary to pain and stiffness from surgical procedure. Muscle strength in all major muscle groups of bilateral upper extremities 5/5, right lower extremity 4/5, left lower extremity 4-/5. Neurological: CN 2-12 intact. There are no obvious motor or sensory deficits. Movement and coordination equal and intact. Sensory exam to light touch intact C5-T1 and intact from L2-S1. Reflexes 2/4 in bilateral upper and lower extremities. Negative Hoffmans, babinski, and clonus signs. Psychiatric: Cooperative, appropriate mood & affect, normal judgment. Assessment and Plan Assessment: L5-S1 grade 2 spondylolisthesis with L4-5 bilateral spondylolysis L4-S1 spondylosis Bilateral lower extremity weakness Bilateral lower extremity radiculopathy Post-Op Day 1: L4-S1 decompression and fusion Plan: -Appreciate business sales consultant and team management. -Activity: Ambulate QID, OOB all meals, up and about, limit lifting bending twisting to less than 5 lbs. Use walker or cane if needed for stability. -Daily PT/OT, increase ambulation strength and balance. -Brace when up and about, not needed in bed or chair -Pain control: Adequate at this time -Meds: reviewed -GI ppx: senna, Miralax -DC ramos when up and about, bedside commode if needed -DVT PPX: OK to restart Heparin tonight -Hygiene: Shower today. Maintain dressing clean and dry. Meticulous cleaning after BMs away from the incision site -Drains: Maintain for now. DC later today pending out put and PT -Encourage IS 10x/hr -Dispo: Anticipate discharge home tomorrow vs Monday with homecare *I reviewed and discussed this case with my attending Dr. Early, whom has reviewed this chart and films and is in agreement with assessment and plan of care as outlined above. I have personally seen and examined the patient, performed the documentation and the assessment and plan as written. Number of minutes spent on the visit: 20m.
[2022-08-26] MEDS: SPIRONOLACTONE 25 MG TAB PO SCH (09:16)
[2022-08-26] MEDS: PANTOPRAZOLE 40 MG TABLET PO SCH (09:16)
[2022-08-26] MEDS: lisinopriL 10 MG TAB PO SCH (09:16)
[2022-08-26] MEDS: PREGABALIN 75 MG CAP PO SCH ×2 (09:16→19:53)
[2022-08-26] MEDS: GABAPENTIN 300 MG CAP PO SCH ×3 (09:16→19:53)
[2022-08-26 09:50] LABS: African American GFR (CKD) 61.1 (60.0-200.0); Anion Gap 10.5 mmol/L (10.00-18.00); BUN/Creat Ratio 12.29 Ratio (12.00-20.00); Blood Urea Nitrogen 17.2 mg/dL (9.0-27.0); Calcium 8.7 mg/dL (8.7-10.3); Carbon Dioxide 19.5 mmol/L (20.0-27.5); Non-African American GFR(CKD) 52.7 (60.0-200.0); Potassium 4.9 mmol/L (3.5-5.5)
[2022-08-26 10:10] LABS: Basophils # (A) 0.01 X 10*3/uL (0.00-0.10); Basophils % (A) 0.1 %; Eosinophils # (A) 0 X 10*3/uL (0.04-0.35); Eosinophils % (A) 0 %; HCT 31.3 % (39.6-50.0); HGB 10.3 g/dL (13.0-17.0); Immature Grans, Automated 0.4 %; Lymphocytes # (A) 1.01 X 10*3/uL (0.90-5.00); Lymphocytes % (A) 8.2 %; MCH 31.5 pg (27.0-32.0); MCHC 32.9 g/dL (32.0-37.0); MCV 95.7 fL (80.0-97.0); Mean Platelet Volume 13.1 fL (9.5-12.2); Monocytes # (A) 0.95 X 10*3/uL (0.20-1.00); Monocytes % (A) 7.7 %; NRBC Per 100 WBC 0 /100 WBCS (0.0-0.0); Neutrophils # (A) 10.28 X 10*3/uL (1.80-7.70); Neutrophils % (A) 83.6 %; Platelet Count 129 X 10*3/uL (140-440); RBC 3.27 X 10*6/uL (4.40-5.60); RDW 13.8 % (11.5-14.5)
--- NOTE | 2022-08-26 15:03 | P.PN ---
Subjective Progress Note Date: 08/26/22 Hospital course: Patient is a very pleasant 66-year-old male with a past medical history of hypertension, hyperlipidemia, COPD, prostate cancer status post prostatectomy, chronic lower back pain with peripheral neuropathy and GERD. Patient is currently status post elective L4 through S1 posterior open decompression and fusion completed by Dr. Early on 08/25/22. We have been consulted for medical management throughout patient's hospitalization. Physical exam: The patient was seen and fully evaluated at the bedside. He was sitting up in chair and appeared to be doing well. He reports post-operative pain is approximately 6/10 at this time and that he continues to have mild numbness in his left foot and toe in which he reports was present prior to surgical procedure. Hanna catheter was just removed this morning and pt has yet to urinate and pt to remain on bladder management to monitor for post-void residuals. Morning labs reviewed showing WBC count of 12.30, Hgb 10.3, and platelet count of 129. Pt has had 15 mL of output documented from hemovac drain over the past 24 hours. Pt denies any other complaints or needs at this time. Vital signs reviewed and stable. General: Nontoxic, no distress and appears stated age. Derm: Skin warm and dry, normal coloration for ethnicity. Dressing clean, dry, and intact to lower lumbar spine no signs of bleeding or drainage. Hemovac drain is in place. Head: Atraumatic, normocephalic and symmetric. Eyes: EOMs intact, no lid lag, and anicteric sclera Mouth: no lip lesions, mucus membranes moist Cardiovascular: regular rate and rhythm with normal S1S2, no murmur, positive posterior tibial pulses bilaterally, and cap refill < 2 seconds. Lungs: Respirations even, regular, and unlabored on room air. Lungs CTA jas aterally, no rhonchi, no rales, no wheezing, and no accessory muscle usage. Abdominal: soft, nontender to palpation, no guarding, no appreciable organomegaly Ext: ROM intact. No gross muscle atrophy, no edema, no contractures. Neuro: Speech clear, face symmetrical and CN II-XII grossly intact with no noted focal neuro deficits Psych: Alert and oriented to person, place, time, and situation. Appropriate and pleasant affect. Assessment and Plan of Care: Status post L4 through S1 posterior open decompression and fusion -Management per primary admitting orthospine surgery team including DVT p rophylaxis, pain management, wound/drain/dressing care, activity, and PT/OT. -Patient currently on DVT prophylaxis with heparin. Post operative blood loss anemia, expected finding. -Hgb stable at 10.3 Leukocytosis -WBCs 12.30, believed to be reactive. Hypertension -Continue daily medication regimen with lisinopril and spironolactone. Hyperlipidemia -Continue daily medication regimen with simvastatin. COPD, not in acute exacerbation -Ventolin inhaler as needed for wheezing or shortness of breath. -Recommend smoking cessation. Peripheral neuropathy -Continue daily medication regimen with Lyrica GERD -Continue daily medication regimen with omeprazole. Thrombocytopenia, chronic and stable. Thank you for allowing us to participate in the care of this pleasant patient. Do not hesitate to contact us with questions. Someone can be reached from the [facility] hospitalist group all hours of the day at [phone] or via [employer]. Objective - Vital Signs Vital signs: Vital Signs Temp 98.2 F 08/26/22 04:56 Pulse 82 08/26/22 04:56 Resp 16 08/26/22 04:56 BP 110/61 08/26/22 04:56 Pulse Ox 94 L 08/26/22 04:56 FiO2 Intake & Output 08/25/22 08/26/22 08/26/22 18:59 06:59 18:59 Intake Total 3551 700 Output Total 650 1315 Balance 2901 -615 Weight 72.3 kg Intake: IV 3551 200 Intake, IV Titration 500 Amount 0.9% NaCl with KCl 20 Meq 400 /l 1,000 ml @ 100 mls/hr IV .Q10H MALINDA Rx#: [id number] ceFAZolin 2 gm In Sodium 100 Chloride 0.9% 50 ml @ 100 mls/hr IVPB Q8H MALINDA Rx#: [id number] Output: Drainage 15 Back 15 Urine 200 1300 Estimated Blood Loss 450 Other: Voiding Method Indwelling Catheter - Labs CBC & Chem 7: 08/26/22 04:50 08/26/22 04:50 Assessment and Plan Assessment: Attending physician Geoff Russell NP rendered care for this patient independently, reviewed the findings and plan as documented in the note above. I did not physically speak with our examined the patient on this date.
[2022-08-26] MEDS: ATORVASTATIN 10 MG TAB PO SCH (19:54)
[2022-08-26] MEDS: HEPARIN SODIUM,PORCINE/PF 5,000 UNIT/0.5 ML SYRINGE SQ SCH (19:54)
[2022-08-27] MEDS: HYDROmorphone 1 MG/ML 1 ML SYRINGE IVP PRN ×4 (00:52→20:46)
[2022-08-27] MEDS: HYDROcodone/APAP 10-325MG 1 EACH TAB PO PRN ×2 (03:44→09:29)
[2022-08-27] MEDS: DEXAMETHASONE SOD PHOSPHATE 4 MG/ML 1 ML VIAL IV SCH ×3 (06:02→17:26)
[2022-08-27] MEDS: ACETAMINOPHEN TAB 325 MG TAB PO SCH ×3 (06:02→17:26)
[2022-08-27] MEDS: LACTATED RINGERS 1,000 ML IV SCH (06:07)
[2022-08-27 09:15] LABS: African American GFR (CKD) 66.8 (60.0-200.0); Anion Gap 6.6 mmol/L (10.00-18.00); BUN/Creat Ratio 16.46 Ratio (12.00-20.00); Blood Urea Nitrogen 21.4 mg/dL (9.0-27.0); Calcium 8.7 mg/dL (8.7-10.3); Carbon Dioxide 22.4 mmol/L (20.0-27.5); Non-African American GFR(CKD) 57.7 (60.0-200.0); Potassium 5.3 mmol/L (3.5-5.5)
[2022-08-27] MEDS: HEPARIN SODIUM,PORCINE/PF 5,000 UNIT/0.5 ML SYRINGE SQ SCH ×2 (09:29→20:35)
[2022-08-27] MEDS: lisinopriL 10 MG TAB PO SCH (09:30)
[2022-08-27] MEDS: PREGABALIN 75 MG CAP PO SCH ×2 (09:30→20:35)
[2022-08-27] MEDS: PANTOPRAZOLE 40 MG TABLET PO SCH (09:30)
[2022-08-27] MEDS: GABAPENTIN 300 MG CAP PO SCH ×3 (09:32→20:39)
[2022-08-27] MEDS: 0.9% NACL WITH KCL 20 MEQ/L 1,000 ML IV SCH ×2 (09:41→20:39)
[2022-08-27 09:42] LABS: HCT 27.9 % (39.6-50.0); HGB 9.3 g/dL (13.0-17.0); MCH 31.7 pg (27.0-32.0); MCHC 33.3 g/dL (32.0-37.0); MCV 95.2 fL (80.0-97.0); Mean Platelet Volume 13.6 fL (9.5-12.2); NRBC Per 100 WBC 0 /100 WBCS (0.0-0.0); Platelet Count 113 X 10*3/uL (140-440); RBC 2.93 X 10*6/uL (4.40-5.60); RDW 13.9 % (11.5-14.5); WBC 14.45 X 10*3/uL (4.50-10.00)
[2022-08-27] MEDS: SPIRONOLACTONE 25 MG TAB PO SCH (09:42)
--- NOTE | 2022-08-27 09:48 | P.PN ---
Subjective Progress Note Date: 08/27/22 Principal diagnosis: 1. L5-S1 Grade III spondylolisthesis with severe stenosis 2. L4-5 Grade I spondylolisthesis 3. Neurogenic claudication 4. LE weakness with radiculopathy Patient was seen at bedside this morning sitting up in chair eating breakfast. Patient says he is in a moderate amount of pain currently same most of his pain is located in the low back. Patient says he has needed assistance during ambulation. Patient says he has urinated since/catheter was removed yesterday. She says he has not had bowel movement yet, however, patient says he has been passing gas. Patient denies any chest pain, fever, shortness of breath, nausea, vomiting, change in vision, loss of bowel/bladder control. Objective - Vital Signs Vital signs: Vital Signs Temp 98.6 F 08/27/22 05:00 Pulse 78 08/27/22 05:00 Resp 16 08/27/22 05:00 BP 128/83 08/27/22 05:00 Pulse Ox 96 08/27/22 05:00 FiO2 Intake & Output 08/26/22 08/27/22 08/27/22 18:59 06:59 18:59 Output Total 1115 1453 Balance -1115 -1453 Output: Drainage 15 150 Back 15 150 Urine 1100 1300 Uretheral (Hanna) 400 Stool 3 Other: Voiding Method Toilet Toilet Urinal Urinal - Exam Surgical drainage dressings are in place currently. There is moderate output in the drain that is serosanguineous. Surgical dressings are intact at this time. We'll plan to change his dressings tomorrow. Sensation is equal, symmetric, bilaterally intact at the upper and lower extremity. There is some tenderness to patient over the incisions. Nontender to palpation throughout rest exam. Patient does have good range of motion in bilateral upper extremities on exam. There is some early range of motion in bilateral lower extremities in hip f lexion/extension and knee flexion/extension. 4/5 in all major motor groups in bilateral upper and lower extremities on his Negative Homans bilaterally. Neurovascular status is intact. Radial pulse intact, 2+ bilaterally. Cap refill under 3 seconds in digits of the upper extremities. - Labs CBC & Chem 7: 08/27/22 05:25 08/27/22 05:25 Labs: Abnormal Lab Results - Last 24 Hours (Table) 08/26/22 08/26/22 Range/Units 04:50 04:50 WBC 12.30 H (4.50-10.00) X 10*3/uL RBC 3.27 L (4.40-5.60) X 10*6/uL Hgb 10.3 L (13.0-17.0) g/dL Hct 31.3 L (39.6-50.0) % Plt Count 129 L (140-440) X 10*3/uL MPV 13.1 H (9.5-12.2) fL Immature Gran # 0.05 H (0.00-0.04) X 10*3/uL Neutrophils # 10.28 H (1.80-7.70) X 10*3/uL Eosinophils # 0 L (0.04-0.35) X 10*3/uL Carbon Dioxide 19.5 L (20.0-27.5) mmol/L Est GFR (CKD-EPI)NonAf 52.7 L (60.0-200.0) Assessment and Plan Assessment: 1. L5-S1 Grade III spondylolisthesis with severe stenosis 2. L4-5 Grade I spondylolisthesis 3. Neurogenic claudication 4. LE weakness with radiculopathy Postoperative day #2 status post L4-S1 decompression and fusion Plan: 1. L5-S1 Grade III spondylolisthesis with severe stenosis; L4-5 Grade I spondylolisthesis; Neurogenic claudication; LE weakness with radiculopathy - surgery performed , 08/25/2022L4-S1 decompression and fusion. Patient stable at bedside this morning. At this time we will maintain drain and dressing. Plan for dressing change tomorrow with potential for drain to be pulled tomorrow. 2. Appreciate medical management 3. Pain management - [place]; gabapentin; Tylenol; Flexeril 4. GI prophylaxis - senna 5. DVT prophylaxis - heparin 6. PT/OT - weightbearing as tolerated with walker and assistance 7. Encourage incentive spirometer use 8. Discharge planning - pending Time with Patient: Less than 30
--- NOTE | 2022-08-27 16:55 | P.PN ---
Subjective Progress Note Date: 08/27/22 Hospital course: Patient is a very pleasant 66-year-old male with a past medical history of hypertension, hyperlipidemia, COPD, prostate cancer status post prostatectomy, chronic lower back pain with peripheral neuropathy and GERD. Patient is currently status post elective L4 through S1 posterior open decompression and fusion completed by Dr. Early on 08/25/22. We have been consulted for medical management throughout patient's hospitalization. Physical exam: Reason seen and fully evaluated. Patient reports pain currently 5 out of 10 and remains uncomfortable but improving. Patient reports he has been urinating without difficulty and denies any other complaints including headache, lightheadedness, dizziness, chest pain, palpitations, shortness of breath, or experiencing any new numbness/tingling/weakness in his extremities. Patient did report feeling a little dizzy/lightheaded when he ambulated with physical therapy but states he believes that was from the pain medication and resolved shortly after sitting. Patient had moderate output from Hemovac drain with a documented 165 mL over the past 24 hours. Morning hemoglobin decreasing to 9.3. We will continue to monitor with repeat a.m. labs. Vital signs reviewed and stable. General: Nontoxic, no distress and appears stated age. Derm: Skin warm and dry, normal coloration for ethnicity. Dressing clean, dry, and intact to lower lumbar spine no signs of bleeding or drainage. Hemovac drain is in place. Head: Atraumatic, normocephalic and symmetric. Eyes: EOMs intact, no lid lag, and anicteric sclera Mouth: no lip lesions, mucus membranes moist Cardiovascular: regular rate and rhythm with normal S1S2, no murmur, positive posterior tibial pulses bilaterally, and cap refill < 2 seconds. Lungs: Respirations even, regular, and unlabored on room air. Lungs CTA bilaterally, no rhonchi, no rales, no wheezing, and no accessory muscle usage. Abdominal: soft, nontender to palpation, no guarding, no appreciable organomegaly Ext: ROM intact. No gross muscle atrophy, no edema, no contractures. Neuro: Speech clear, face symmetrical and CN II-XII grossly intact with no noted focal neuro deficits Psych: Alert and oriented to person, place, time, and situation. Appropriate and pleasant affect. Assessment and Plan of Care: Status post L4 through S1 posterior open decompression and fusion -Management per primary admitting orthospine surgery team including DVT prophylaxis, pain management, wound/drain/dressing care, activity, and PT/OT. -Patient currently on DVT prophylaxis with heparin. Post operative blood loss anemia, greater than expected -Hgb decreasing to 9.3, preoperative hemoglobin 13.6. -Patient had documented 165 mL from drain, no other signs of active bleeding or drainage at this time. -We will continue to monitor with repeat a.m. labs. Leukocytosis -WBCs 12.30, believed to be reactive. Hypertension -Continue daily medication regimen with lisinopril and spironolactone. Hyperlipidemia -Continue daily medication regimen with simvastatin. COPD, not in acute exacerbation -Ventolin inhaler as needed for wheezing or shortness of breath. -Recommend smoking cessation. Peripheral neuropathy -Continue daily medication regimen with Lyrica GERD -Continue daily medication regimen with omeprazole. Thrombocytopenia, chronic and stable. Thank you for allowing us to participate in the care of this pleasant patient. Do not hesitate to contact us with questions. Someone can be reached from the [facility] hospitalist group all hours of the day at [phone] or via [employer]. Objective - Vital Signs Vital signs: Vital Signs Temp 98.6 F 08/27/22 05:00 Pulse 78 08/27/22 05:00 Resp 16 08/27/22 05:00 BP 128/83 08/27/22 05:00 Pulse Ox 96 08/27/22 05:00 FiO2 Intake & Output 08/26/22 08/27/22 08/27/22 18:59 06:59 18:59 Output Total 1115 1453 Balance -1115 -1453 Output: Drainage 15 150 Back 15 150 Urine 1100 1300 Uretheral (Hanna) 400 Stool 3 Other: Voiding Method Toilet Toilet Urinal Urinal - Labs CBC & Chem 7: 08/27/22 05:25 08/27/22 05:25 Labs: Abnormal Lab Results - Last 24 Hours (Table) 08/26/22 08/26/22 08/27/22 Range/Units 04:50 04:50 05:25 WBC 12.30 H (4.50-10.00) X 10*3/uL RBC 3.27 L (4.40-5.60) X 10*6/uL Hgb 10.3 L (13.0-17.0) g/dL Hct 31.3 L (39.6-50.0) % Plt Count 129 L (140-440) X 10*3/uL MPV 13.1 H (9.5-12.2) fL Immature Gran # 0.05 H (0.00-0.04) X 10*3/uL Neutrophils # 10.28 H (1.80-7.70) X 10*3/uL Eosinophils # 0 L (0.04-0.35) X 10*3/uL Carbon Dioxide 19.5 L (20.0-27.5) mmol/L Anion Gap 6.60 L (10.00-18.00) mmol/L Est GFR (CKD-EPI)NonAf 52.7 L 57.7 L (60.0-200.0) Glucose 133 H (70-110) mg/dL Assessment and Plan Assessment: Geoff Russell [employer] rendered care for this patient independently, reviewed the findings and plan as documented in the note above. I did not physically speak with our examined the patient on this date.
[2022-08-27] MEDS: ATORVASTATIN 10 MG TAB PO SCH (20:35)
[2022-08-28] MEDS: ACETAMINOPHEN TAB 325 MG TAB PO SCH ×5 (00:44→23:12)
[2022-08-28] MEDS: DEXAMETHASONE SOD PHOSPHATE 4 MG/ML 1 ML VIAL IV SCH ×5 (00:44→23:12)
[2022-08-28] MEDS: HYDROmorphone 1 MG/ML 1 ML SYRINGE IVP PRN (06:40)
[2022-08-28] MEDS: GABAPENTIN 300 MG CAP PO SCH ×3 (08:30→21:41)
[2022-08-28] MEDS: PANTOPRAZOLE 40 MG TABLET PO SCH (08:30)
[2022-08-28] MEDS: lisinopriL 10 MG TAB PO SCH (08:30)
[2022-08-28] MEDS: PREGABALIN 75 MG CAP PO SCH ×2 (08:30→20:25)
[2022-08-28] MEDS: HEPARIN SODIUM,PORCINE/PF 5,000 UNIT/0.5 ML SYRINGE SQ SCH ×2 (08:30→20:25)
[2022-08-28] MEDS: SPIRONOLACTONE 25 MG TAB PO SCH (08:30)
[2022-08-28] MEDS: HYDROcodone/APAP 10-325MG 1 EACH TAB PO PRN ×2 (08:31→20:25)
[2022-08-28 09:41] LABS: African American GFR (CKD) 77.8 (60.0-200.0); Anion Gap 10.7 mmol/L (10.00-18.00); BUN/Creat Ratio 18.42 Ratio (12.00-20.00); Calcium 8.5 mg/dL (8.7-10.3); Non-African American GFR(CKD) 67.1 (60.0-200.0); Potassium 4.3 mmol/L (3.5-5.5)
[2022-08-28] MEDS: HYDROmorphone 0.5 MG/0.5 ML SYRINGE IVP PRN ×4 (09:49→21:43)
[2022-08-28] MEDS: LACTATED RINGERS 1,000 ML IV SCH (10:17)
--- NOTE | 2022-08-28 10:40 | P.PN ---
Subjective Progress Note Date: 08/28/22 Hospital course: Patient is a very pleasant 66-year-old male with a past medical history of hypertension, hyperlipidemia, COPD, prostate cancer status post prostatectomy, chronic lower back pain with peripheral neuropathy and GERD. Patient is currently status post elective L4 through S1 posterior open decompression and fusion completed by Dr. Early on 08/25/22. We have been consulted for medical management throughout patient's hospitalization. Physical exam: Patient seen and fully evaluated at bedside. He is sitting in chair and reports pain currently 4-5 out of 10 stating he received his pain medications approximately 45 minutes ago. Patient reports he still has not ambulated very far since surgery only from the bed to the chair. He continues to have moderate output out of Hemovac with 290 mL over the past 24 hours documented. Dressing to lower lumbar spine with mild shadowing bleed through/drainage. No surrounding swelling, active bleeding, or hematomas noted. Patient continues to deny having any new onset numbness/tingling/weakness or experiencing any other complaints including chest pain, palpitations, shortness of breath, nausea, or vomiting. He continues to report urinating without any difficulty. Morning hemoglobin stable at 9.4 and platelets stable at 120. Vital signs reviewed and stable. General: Nontoxic, no distress and appears stated age. Derm: Skin warm and dry, normal coloration for ethnicity. Dressing clean, dry, and intact to lower lumbar spine no signs of bleeding or drainage. Hemovac drain is in place. Head: Atraumatic, normocephalic and symmetric. Eyes: EOMs intact, no lid lag, and anicteric sclera Mouth: no lip lesions, mucus membranes moist Cardiovascular: regular rate and rhythm with normal S1S2, no murmur, positive posterior tibial pulses bilaterally, and cap refill < 2 seconds. Lungs: Respirations even, regular, and unlabored on room air. Lungs CTA bilaterally, no rhonchi, no rales, no wheezing, and no accessory muscle usage. Abdominal: soft, nontender to palpation, no guarding, no appreciable orga nomegaly Ext: ROM intact. No gross muscle atrophy, no edema, no contractures. Neuro: Speech clear, face symmetrical and CN II-XII grossly intact with no noted focal neuro deficits Psych: Alert and oriented to person, place, time, and situation. Appropriate and pleasant affect. Assessment and Plan of Care: Status post L4 through S1 posterior open decompression and fusion completed 08/25/22 -Management per primary admitting orthospine surgery team including DVT prophylaxis, pain management, wound/drain/dressing care, activity, and PT/OT. -Patient currently on DVT prophylaxis with heparin. -Encourage incentive spirometry 10-15 times hourly while awake Post operative blood loss anemia, greater than expected. Stable. -Hgb stable at 9.4 -We will continue to monitor with repeat a.m. labs. Leukocytosis, improving -Reactive, no signs of infection. -Will continue to monitor Hypertension -Continue daily medication regimen with lisinopril and spironolactone. Hyperlipidemia -Continue daily medication regimen with simvastatin. COPD, not in acute exacerbation -Ventolin inhaler as needed for wheezing or shortness of breath. -Recommend smoking cessation. -Encourage use of incentive spirometry 10-15 times hourly while awake Peripheral neuropathy -Continue daily medication regimen with Lyrica GERD -Continue daily medication regimen with omeprazole. Thrombocytopenia, chronic and stable. Thank you for allowing us to participate in the care of this pleasant patient. Do not hesitate to contact us with questions. Someone can be reached from the [facility] hospitalist group all hours of the day at [phone] or via [employer]. Geoff Russell NP rendered care for this patient independently, reviewed the findings and plan as documented in the note above. I did not physically speak with or examine the patient on this date. Objective - Vital Signs Vital signs: Vital Signs Temp 97.5 F L 08/28/22 05:00 Pulse 66 08/28/22 05:00 Resp 16 08/28/22 05:00 BP 123/82 08/28/22 05:00 Pulse Ox 99 08/28/22 05:00 FiO2 Intake & Output 08/27/22 08/28/22 08/28/22 18:59 06:59 18:59 Intake Total 1490 Output Total 400 890 Balance 1090 -890 Intake: Intake, IV Titration 1250 Amount 0.9% NaCl with KCl 20 Meq 1200 /l 1,000 ml @ 100 mls/hr IV .Q10H MALINDA Rx#: [id number] ceFAZolin 2 gm In Sodium 50 Chloride 0.9% 50 ml @ 100 mls/hr IVPB Q8H MALINDA Rx#: [id number] Oral 240 Output: Drainage 100 190 Back 100 190 Urine 300 700 Other: Voiding Method Toilet Urinal - Labs CBC & Chem 7: 08/28/22 05:25 08/28/22 05:25 Labs: Abnormal Lab Results - Last 24 Hours (Table) 08/27/22 08/27/22 Range/Units 05:25 05:25 WBC 14.45 H (4.50-10.00) X 10*3/uL RBC 2.93 L (4.40-5.60) X 10*6/uL Hgb 9.3 L (13.0-17.0) g/dL Hct 27.9 L (39.6-50.0) % Plt Count 113 L (140-440) X 10*3/uL MPV 13.6 H (9.5-12.2) fL Anion Gap 6.60 L (10.00-18.00) mmol/L Est GFR (CKD-EPI)NonAf 57.7 L (60.0-200.0) Glucose 133 H (70-110) mg/dL
[2022-08-28 11:52] LABS: HCT 28.8 % (39.6-50.0); HGB 9.4 g/dL (13.0-17.0); MCH 31.5 pg (27.0-32.0); MCHC 32.6 g/dL (32.0-37.0); MCV 96.6 fL (80.0-97.0); Mean Platelet Volume 13.8 fL (9.5-12.2); NRBC Per 100 WBC 0 /100 WBCS (0.0-0.0); Platelet Count 120 X 10*3/uL (140-440); RBC 2.98 X 10*6/uL (4.40-5.60); RDW 14.3 % (11.5-14.5); WBC 10.48 X 10*3/uL (4.50-10.00)
[2022-08-28] MEDS: 0.9% NACL WITH KCL 20 MEQ/L 1,000 ML IV SCH ×3 (13:15→23:12)
--- NOTE | 2022-08-28 13:42 | P.PN ---
Subjective Progress Note Date: 08/28/22 Principal diagnosis: 1. L5-S1 Grade III spondylolisthesis with severe stenosis 2. L4-5 Grade I spondylolisthesis 3. Neurogenic claudication 4. LE weakness with radiculopathy Patient was seen at bedside this morning sitting up in chair. Patient says he is in a moderate amount of pain currently saying most of his pain is located in the low back. Patient says he has needed assistance during ambulation. Patient does feel like she is progressing daily. Patient says he has urinated daily since surgery. She says he has not had bowel movement yet, however, patient says he has been passing gas. Patient denies any chest pain, fever, shortness of breath, nausea, vomiting, change in vision, loss of bowel/bladder control. Objective - Vital Signs Vital signs: Vital Signs Temp 97.5 F L 08/28/22 05:00 Pulse 66 08/28/22 05:00 Resp 16 08/28/22 05:00 BP 123/82 08/28/22 05:00 Pulse Ox 99 08/28/22 05:00 FiO2 Intake & Output 08/27/22 08/28/22 08/28/22 18:59 06:59 18:59 Intake Total 1490 Output Total 400 890 Balance 1090 -890 Intake: Intake, IV Titration 1250 Amount 0.9% NaCl with KCl 20 Meq 1200 /l 1,000 ml @ 100 mls/hr IV .Q10H MALINDA Rx#: [id number] ceFAZolin 2 gm In Sodium 50 Chloride 0.9% 50 ml @ 100 mls/hr IVPB Q8H MALINDA Rx#: [id number] Oral 240 Output: Drainage 100 190 Back 100 190 Urine 300 700 Other: Voiding Method Toilet Urinal - Exam Surgical drain removed at bedside this afternoon. Surgical dressing removed. New surgical dressing placed over incision. Incision appears to be healing well at this time. Negative for any active drainage. Sensation is equal, symmetric, bilaterally intact at the upper and lower extremity. There is some tenderness to patient over the incisions. Nontender to palpation throughout rest exam. Patient does have good range of motion in bilateral upper extremities on exam. There is some decreased range of motion in bilateral lower extremities in hip flexion/extension and knee flexion/extension. 4/5 in all major motor groups in bilateral upper and lower extremities on his Negative Homans bilaterally. Neurovascular status is intact. Radial pulse intact, 2+ bilaterally. Cap refill under 3 seconds in digits of the upper extremities. - Labs CBC & Chem 7: 08/28/22 05:25 08/28/22 05:25 Labs: Abnormal Lab Results - Last 24 Hours (Table) 08/27/22 08/27/22 Range/Units 05:25 05:25 WBC 14.45 H (4.50-10.00) X 10*3/uL RBC 2.93 L (4.40-5.60) X 10*6/uL Hgb 9.3 L (13.0-17.0) g/dL Hct 27.9 L (39.6-50.0) % Plt Count 113 L (140-440) X 10*3/uL MPV 13.6 H (9.5-12.2) fL Anion Gap 6.60 L (10.00-18.00) mmol/L Est GFR (CKD-EPI)NonAf 57.7 L (60.0-200.0) Glucose 133 H (70-110) mg/dL Assessment and Plan Assessment: 1. L5-S1 Grade III spondylolisthesis with severe stenosis 2. L4-5 Grade I spondylolisthesis 3. Neurogenic claudication 4. LE weakness with radiculopathy Postoperative day #3 status post L4-S1 decompression and fusion Plan: 1. L5-S1 Grade III spondylolisthesis with severe stenosis; L4-5 Grade I spondylolisthesis; Neurogenic claudication; LE weakness with radiculopathy - surgery performed , 08/25/2022L4-S1 decompression and fusion. Patient stable at bedside this morning. Drain removed at the bedside and dressing changed. 2. Appreciate medical management 3. Pain management - [place]; gabapentin; Tylenol; Flexeril 4. GI prophylaxis - senna 5. DVT prophylaxis - heparin 6. PT/OT - weightbearing as tolerated with walker and assistance 7. Encourage incentive spirometer use 8. Discharge planning - plan for home with health services versus rehab within the next few days Time with Patient: Less than 30
[2022-08-28] MEDS: ATORVASTATIN 10 MG TAB PO SCH (20:25)
[2022-08-28] MEDS: CYCLOBENZAPRINE 10 MG TAB PO PRN (21:43)
[2022-08-29] MEDS: LACTATED RINGERS 1,000 ML IV SCH (05:36)
[2022-08-29] MEDS: DEXAMETHASONE SOD PHOSPHATE 4 MG/ML 1 ML VIAL IV SCH ×4 (05:38→23:33)
[2022-08-29] MEDS: ACETAMINOPHEN TAB 325 MG TAB PO SCH ×4 (05:38→23:33)
[2022-08-29] MEDS: HYDROmorphone 0.5 MG/0.5 ML SYRINGE IVP PRN ×2 (06:06→21:45)
[2022-08-29] MEDS: SPIRONOLACTONE 25 MG TAB PO SCH (07:53)
[2022-08-29] MEDS: HEPARIN SODIUM,PORCINE/PF 5,000 UNIT/0.5 ML SYRINGE SQ SCH ×2 (07:53→20:19)
[2022-08-29] MEDS: GABAPENTIN 300 MG CAP PO SCH ×3 (07:54→21:39)
[2022-08-29] MEDS: PANTOPRAZOLE 40 MG TABLET PO SCH (07:54)
[2022-08-29] MEDS: PREGABALIN 75 MG CAP PO SCH ×2 (07:54→20:19)
[2022-08-29] MEDS: lisinopriL 10 MG TAB PO SCH (07:54)
--- NOTE | 2022-08-29 08:41 | P.PN ---
Subjective Progress Note Date: 08/29/22 patient seen and examined is doing well today. Sitting up in bed is about the breakfast. He states he has been up and walking to only the other side of the room and was not able to make an Kelly the bathroom. He states it feels like he needs to have a bowel movement. Denies any fevers chills shortness of breath or chest pain at this time. He denies any numbness or tingling. No other issues. Objective - Vital Signs Vital signs: Vital Signs Temp 97.9 F 08/29/22 04:53 Pulse 71 08/29/22 04:53 Resp 16 08/29/22 04:53 BP 111/66 08/29/22 04:53 Pulse Ox 90 L 08/29/22 04:53 FiO2 Intake & Output 08/28/22 08/29/22 08/29/22 18:59 06:59 18:59 Intake Total 1800 300 Output Total 450 370 Balance 1350 -70 Intake: Intake, IV Titration 1200 300 Amount 0.9% NaCl with KCl 20 Meq 1200 300 /l 1,000 ml @ 100 mls/hr IV .Q10H [facility] Rx#: [id number] Oral 600 Output: Urine 450 370 Other: Voiding Method Toilet Toilet Urinal Urinal - Exam Physical Exam: -Patient is alert and oriented 3 appears well-nourished well-hydrated is in no acute distress. They do not appear septic. -There is TTP around the incision [-Incision is CDI, no EEE, no drainage] -Upper extremities show [5] out of 5 strength in all major muscle groups. generalized weakness -Lower extremities with [5] out of 5 strength in all major muscle groupsgeneralized weakness -There is [FROM] that is [painless] of the b/l UE and LE in all major joints. negative log roll or straight leg raise note tensioning signs -They are intact to light touch sensation in C5 to T1 and L2 to S1 nerve distribution. -DTR [2]/4 all upper and lower extremities -Patient has palpable distal pulses all 4 ext -Compartments are soft and compressible. -Patient shows a negative Rosie's [-Neg Hoffmans b/l] [-Neg Clonus b/l] [-Neg babinski b/l] Cranial nerves II through XII are grossly intact. - Labs CBC & Chem 7: 08/28/22 05:25 12 05:25 Labs: Abnormal Lab Results - Last 24 Hours (Table) 08/28/22 08/28/22 Range/Units 05:25 05:25 WBC 10.48 H (4.50-10.00) X 10*3/uL RBC 2.98 L (4.40-5.60) X 10*6/uL Hgb 9.4 L (13.0-17.0) g/dL Hct 28.8 L (39.6-50.0) % Plt Count 120 L (140-440) X 10*3/uL MPV 13.8 H (9.5-12.2) fL Glucose 121 H (70-110) mg/dL Calcium 8.5 L (8.7-10.3) mg/dL Assessment and Plan Assessment: 67 yo male Postop day 4 L4 to S1 decompression fusion Plan: -Appreciate treasury consultant and team management. -Activity: Ambulate QID, OOB all meals, up and about, limit lifting bending twisting to less than 5 lbs. Use walker or cane if needed for stability. -Daily PT/OT, increase ambulation strength and balance. -LSO when up and about -Pain control: [Adequate at this time] -Meds: [reviewed] -GI ppx: senna, Miralax -and magnesium citrate MiraLAX due to lax -DVT PPX: mechanical, heparin -Hygiene: Shower today. Maintain dressing clean and dry. Meticulous cleaning after BMs away from incision site -Encourage IS 10x/hr -Dispo: [facility] versus home with home health care
--- NOTE | 2022-08-29 11:41 | P.PN ---
Subjective Progress Note Date: 08/29/22 Hospital course: Patient is a very pleasant 66-year-old male with a past medical history of hypertension, hyperlipidemia, COPD, prostate cancer status post prostatectomy, chronic lower back pain with peripheral neuropathy and GERD. Patient is currently status post elective L4 through S1 posterior open decompression and fusion completed by Dr. Early on 08/25/22. We have been consulted for medical management throughout patient's hospitalization. Physical exam: Patient seen and fully evaluated at bedside. He was sitting up in the chair with at bedside. Patient reports he did increase his ambulation as e ncouraged yesterday and reports that he was able to walk in room back and forth to the door several times. Patient reports continued mild lower back discomfort but reports pain is controlled and continues to deny having any difficulties with urination, numbness, tingling, or weakness. Patient reports he was able to have a bowel movement this morning. Hemovac drain was removed by surgery team yesterday evening. Patient and his are discussing possible detention facility placement, medically patient is stable for discharge once cleared by primary admitting orthospine surgery team. Vital signs reviewed and stable. General: Nontoxic, no distress and appears stated age. Derm: Skin warm and dry, normal coloration for ethnicity. Dressing clean, dry, and intact to lower lumbar spine no signs of bleeding or drainage. Head: Atraumatic, normocephalic and symmetric. Eyes: EOMs intact, no lid lag, and anicteric sclera Mouth: no lip lesions, mucus membranes moist Cardiovascular: regular rate and rhythm with normal S1S2, no murmur, positive posterior tibial pulses bilaterally, and cap refill < 2 seconds. Lungs: Respirations even, regular, and unlabored on room air. Lungs CTA bilaterally, no rhonchi, no rales, no wheezing, and no accessory muscle usage. Abdominal: soft, nontender to palpation, no guarding, no appreciable organomegaly Ext: ROM intact. No gross muscle atrophy, no edema, no contractures. Neuro: Speech clear, face symmetrical and CN II-XII grossly intact with no noted focal neuro deficits Psych: Alert and oriented to person, place, time, and situation. Appropriate and pleasant affect. Assessment and Plan of Care: Status post L4 through S1 posterior open decompression and fusion completed 08/25/22 -Management per primary admitting orthospine surgery team including DVT prophylaxis, pain management, wound/drain/dressing care, activity, and PT/OT. -Patient currently on DVT prophylaxis with heparin. -Encourage incentive spirometry 10-15 times hourly while awake Post operative blood loss anemia, greater than expected. Stable. -Hgb stable at 9.4. Leukocytosis, improving -Reactive, no signs of infection. -Will continue to monitor Hypertension -Continue daily medication regimen with lisinopril and spironolactone. Hyperlipidemia -Continue daily medication regimen with simvastatin. COPD, not in acute exacerbation -Ventolin inhaler as needed for wheezing or shortness of breath. -Recommend smoking cessation. -Encourage use of incentive spirometry 10-15 times hourly while awake Peripheral neuropathy -Continue daily medication regimen with Lyrica GERD -Continue daily medication regimen with omeprazole. Thrombocytopenia, chronic and stable. Thank you for allowing us to participate in the care of this pleasant patient. Do not hesitate to contact us with questions. Someone can be reached from the [facility] hospitalist group all hours of the day at [phone] or via [employer]. Geoff Russell NP rendered care for this patient independently, reviewed the findings and plan as documented in the note above. I did not physically speak with or examine the patient on this date. Objective - Vital Signs Vital signs: Vital Signs Temp 97.9 F 08/29/22 04:53 Pulse 71 08/29/22 04:53 Resp 16 08/29/22 04:53 BP 111/66 08/29/22 04:53 Pulse Ox 90 L 08/29/22 04:53 FiO2 Intake & Output 08/28/22 08/29/22 08/29/22 18:59 06:59 18:59 Intake Total 1800 300 Output Total 450 370 Balance 1350 -70 Intake: Intake, IV Titration 1200 300 Amount 0.9% NaCl with KCl 20 Meq 1200 300 /l 1,000 ml @ 100 mls/hr IV .Q10H [facility] Rx#: [id number] Oral 600 Output: Urine 450 370 Other: Voiding Method Toilet Toilet Urinal Urinal - Labs CBC & Chem 7: 08/28/22 05:25 08/28/22 05:25 Labs: Abnormal Lab Results - Last 24 Hours (Table) 08/28/22 08/28/22 Range/Units 05:25 05:25 WBC 10.48 H (4.50-10.00) X 10*3/uL RBC 2.98 L (4.40-5.60) X 10*6/uL Hgb 9.4 L (13.0-17.0) g/dL Hct 28.8 L (39.6-50.0) % Plt Count 120 L (140-440) X 10*3/uL MPV 13.8 H (9.5-12.2) fL Glucose 121 H (70-110) mg/dL Calcium 8.5 L (8.7-10.3) mg/dL
--- NOTE | 2022-08-29 12:23 | P.PN ---
Progress Note - Text Progress Note Date: 08/29/22 Patient seen this afternoon. Patient reports working with PT and tolerating activity really well. He states he has had a BM and is feeling much better. Patient reports he does not want to be in rehab for [place]. Encouragement provided for him to continue to increase his activity as tolerated and we will reassess tomorrow. Surgical dressing changed, initial dressing had moderate serosanguineous drainage. Surgical incision is well approximated. Please change dressing as needed, gauze and foam tape to keep incision clean and dry.
[2022-08-29] MEDS: HYDROcodone/APAP 10-325MG 1 EACH TAB PO PRN ×2 (13:36→18:15)
[2022-08-29] MEDS: 0.9% NACL WITH KCL 20 MEQ/L 1,000 ML IV SCH ×2 (13:37→21:48)
[2022-08-29] MEDS: CYCLOBENZAPRINE 10 MG TAB PO PRN (18:15)
[2022-08-29] MEDS: ATORVASTATIN 10 MG TAB PO SCH (20:19)
[2022-08-30] MEDS: DEXAMETHASONE SOD PHOSPHATE 4 MG/ML 1 ML VIAL IV SCH ×2 (05:08→10:52)
[2022-08-30] MEDS: ACETAMINOPHEN TAB 325 MG TAB PO SCH ×2 (05:09→10:44)
[2022-08-30] MEDS: HYDROcodone/APAP 10-325MG 1 EACH TAB PO PRN ×2 (05:13→10:53)
[2022-08-30] MEDS: LACTATED RINGERS 1,000 ML IV SCH (06:23)
[2022-08-30] MEDS: HEPARIN SODIUM,PORCINE/PF 5,000 UNIT/0.5 ML SYRINGE SQ SCH (07:55)
[2022-08-30] MEDS: SPIRONOLACTONE 25 MG TAB PO SCH (07:56)
[2022-08-30] MEDS: PREGABALIN 75 MG CAP PO SCH (07:56)
[2022-08-30] MEDS: GABAPENTIN 300 MG CAP PO SCH (07:56)
[2022-08-30] MEDS: PANTOPRAZOLE 40 MG TABLET PO SCH (07:56)
[2022-08-30] MEDS: lisinopriL 10 MG TAB PO SCH (07:56)
[2022-08-30] MEDS: CYCLOBENZAPRINE 10 MG TAB PO PRN (07:56)
[2022-08-30] MEDS: 0.9% NACL WITH KCL 20 MEQ/L 1,000 ML IV SCH (07:57)
--- NOTE | 2022-08-30 09:33 | P.PN ---
Subjective Progress Note Date: 08/30/22 Principal diagnosis: L5-S1 grade 2 spondylolisthesis with L4-5 bilateral spondylolysis L4-S1 spondylosis Bilateral lower extremity weakness bilateral lower extremity radiculopathy Patient seen and examined this morning. When entering room, patient was getting up to chair; standby assist with walker. He states that his pain is controlled on current regimen. Surgical dressing had moderate serosanguineous drainage. New dressings ordered, write will change this afternoon. Patient denies any numbness or tingling to bilateral lower extremities. He is wanting to go home with homecare vs rehab, informed him that we will reassess this afternoon after he works with PT. He currently denies any fevers/chills, nausea/vomiting, or chest pain. Objective - Vital Signs Vital signs: Vital Signs Temp 97.8 F 08/30/22 05:00 Pulse 68 08/30/22 05:00 Resp 16 08/30/22 05:00 BP 152/84 08/30/22 05:00 Pulse Ox 99 08/30/22 05:00 FiO2 Intake & Output 08/29/22 08/30/22 08/30/22 18:59 06:59 18:59 Intake Total 1100 Output Total 525 Balance -525 1100 Intake: Intake, IV Titration 1100 Amount 0.9% NaCl with KCl 20 Meq 1100 /l 1,000 ml @ 100 mls/hr IV .Q10H [facility] Rx#: [id number] Output: Urine 525 Other: Voiding Method Toilet Urinal # Voids 1 - Exam Physical Examination General: The patient is awake and alert, in no acute distress Skin: Skin is warm and dry with no obvious rashes or lesions. Hairy patches absent, no dorsal skin dimples, no cafe au lait spot. Surgical incision to lumbar region. Eye: Pupils are equal, round and reactive to light, extra-ocular movements are intact; there is normal conjunctiva bilaterally. Neck: The neck is supple, there is no tenderness and ROM intact. Cardiovascular: There is a regular rate and rhythm. No murmur, rub or gallop is appreciated. Respiratory: Lungs are clear to auscultation, respirations are non-labored, breath sounds are equal. Gastrointestinal: Soft, non-distended, non-tender abdomen. Back: There is no tenderness to palpation in the midline, paralumbar, parathoracic or buttocks region. There is no obvious deformity . Musculoskeletal: ROM limited secondary to pain and stiffness from surgical procedure. Muscle strength in all major muscle groups of bilateral upper extremities 5/5, right lower extremity 4/5, left lower extremity 4-/5. Neurological: CN 2-12 intact. There are no obvious motor or sensory deficits. Movement and coordination equal and intact. Sensory exam to light touch intact C5-T1 and intact from L2-S1. Reflexes 2/4 in bilateral upper and lower extremities. Negative Hoffmans, babinski, and clonus signs. Psychiatric: Cooperative, appropriate mood & affect, normal judgment. - Labs CBC & Chem 7: 08/28/22 05:25 08/28/22 05:25 Assessment and Plan Assessment: L5-S1 grade 2 spondylolisthesis with L4-5 bilateral spondylolysis L4-S1 spondylosis Bilateral lower extremity weakness Bilateral lower extremity radiculopathy Post-Op Day 5: L4-S1 decompression and fusion Plan: -Appreciate sap plant maintenance consultant and team management. -Activity: Ambulate QID, OOB all meals, up and about, limit lifting bending twisting to less than 5 lbs. Use walker or cane if needed for stability. -Daily PT/OT, increase ambulation strength and balance. -Brace when up and about, not needed in bed or chair -Pain control: Adequate at this time -Meds: reviewed -GI ppx: senna, Miralax -DVT PPX: Heparin -Hygiene: Shower today. Maintain dressing clean and dry. Meticulous cleaning after BMs away from the incision site -Encourage IS 10x/hr -Dispo: Anticipate discharge home with homecare vs [facility] today. *I reviewed and discussed this case with my attending Dr. Early, whom has reviewed this chart and films and is in agreement with assessment and plan of care as outlined above. I have personally seen and examined the patient, performed the documentation and the assessment and plan as written. Number of minutes spent on the visit: 20m.
--- NOTE | 2022-08-30 11:47 | P.PN ---
Subjective Progress Note Date: 08/30/22 Principal diagnosis: med management Hospital Course: Patient is a very pleasant 66-year-old male with a past medical history of hypertension, hyperlipidemia, COPD, prostate cancer status post prostatectomy, chronic lower back pain with peripheral neuropathy and GERD. Patient is currently status post elective L4 through S1 posterior open decompression and fusion completed by Dr. Early on 08/25/22. We have been consulted for medical management throughout patient's hospitalization. Subjective: Patient seen and examined at bedside. No acute events overnight. He has minimal back pain. He denies any numbness or paresthesias in his bilateral legs. He denies any urinary or bowel complaints. He claims that he is doing well with physical therapy and mobility. He denies any chest pain, shortness of breath, or abdominal pain. Pertinent positives and negatives as discussed above, a complete review of systems was performed and all other systems are negative. Vitals Signs Reviewed. General: nontoxic, no distress, appears at stated age Derm: warm, dry, lumbar dressing clean dry and intact. Head: atraumatic, normocephalic, symmetric Eyes: EOMI, no lid lag, anicteric sclera Mouth: no lip lesion, mucus membranes moist Cardiovascular: S1S2 reg, no murmur Lungs: CTA bilateral, no rhonchi, no rales , no accessory muscle use Abdominal: soft, nontender to palpation, no guarding, no appreciable organomegaly Ext: no gross muscle atrophy, no edema, no contractures Neuro: CN II-XI grossly intact, no focal neuro deficits Psych: Alert, oriented, appropriate affect Assessment and Plan: Status post L4 through S1 posterior open decompression and fusion completed 08/25/22 Postoperative blood loss anemia, stable Leukocytosis, reactive -Management per primary admitting orthospine surgery team including DVT prophylaxis, pain management, wound/drain/dressing care, activity, and PT/OT Hypertension Dyslipidemia COPD not in exacerbation Peripheral neuropathy GERD Thrombocytopenia, chronic - Continue home medications Patient is medically optimized for discharge. Thank you for allowing us to participate in the care of this pleasant patient. Do not hesitate to contact us with questions. Someone can be reached from the [facility] hospitalist group all hours of the day at [phone] or via [employer]. ] Objective - Vital Signs Vital signs: Vital Signs Temp 97.8 F 08/30/22 05:00 Pulse 68 08/30/22 05:00 Resp 16 08/30/22 05:00 BP 152/84 08/30/22 05:00 Pulse Ox 99 08/30/22 05:00 FiO2 Intake & Output 08/29/22 08/30/22 08/30/22 18:59 06:59 18:59 Intake Total 1100 Output Total 525 Balance -525 1100 Intake: Intake, IV Titration 1100 Amount 0.9% NaCl with KCl 20 Meq 1100 /l 1,000 ml @ 100 mls/hr IV .Q10H [facility] Rx#: [id number] Output: Urine 525 Other: Voiding Method Toilet Urinal # Voids 1 - Labs CBC & Chem 7: 08/28/22 05:25 08/28/22 05:25
[2022-08-30 11:51] VITALS: BP 165/87; PULSE 87; RESP 18; TEMP 97.6
--- NOTE | 2022-08-30 12:34 | P.DS ---
Providers Date of admission: 08/25/22 10:23 Expected date of discharge: 08/30/22 Attending physician: Doug Early DO Consults: 08/25/22 18:19 Consult Physician Routine Consulting Provider: Madeleine Hughes Consult Reason/Comments: Medical management Do you want consulting provider notified?: Yes Primary care physician: [facility] Course: Hospital Course: The patient was evaluated preoperatively and found to have the diagnosis of lumbar spondylolisthesis, lumbar spondylosis. They underwent appropriate preoperative care and were willing to undergo the intended procedure. They underwent a successful L4-S1 decompression and fusion, were recovered appropriately and sent to the floor. While on the floor they worked with physical therapy, occupational therapy and nursing to enhance their recovery experience. Their pain was well controlled through their stay and they were started on appropriate medications, DVT ppx modalities, activity and dietary needs. Daily labs were monitored closely, and transfusions were only used when necessary. Medicine as well as other consulting services have made their input and have helped with our team approach and multidisciplinary care. PT milestones have been met and passed and they have made the recommendation of home with home care for this patient and treating providers agree with this care path. The patient will be discharged home with appropriate medications, instructions and follow-up information and in stable condition. Patient Condition at Discharge: Good Plan - Discharge Summary Discharge Rx Participant: Yes New Discharge Prescriptions: New Gabapentin 300 mg PO TID #90 cap cefaDROXiL [Duricef] 500 mg PO Q12HR 5 Days #10 cap Cyclobenzaprine [Flexeril] 10 mg PO TID #90 tab HYDROcodone/APAP 10-325MG [Campbell 10-325] 1 tab PO Q4-6H PRN #56 tab PRN Reason: Pain Sennosides/Docusate Sodium [Senna Plus 8.6-50 mg Tablet] 1 each PO DAILY PRN #20 tablet PRN Reason: Constipation Continue Simvastatin [Zocor] 10 mg PO HS Omeprazole [PriLOSEC] 20 mg PO BID Pregabalin [Lyrica] 150 mg PO BID lisinopriL [Prinivil] 10 mg PO QAM Spironolactone 100 mg PO QAM Multivit-Min/FA/Lycopen/Lutein [Centrum Silver Tablet] 1 each PO DAILY Albuterol Inhaler [Ventolin Hfa Inhaler] 1 - 2 puff INHALATION Q6H PRN PRN Reason: Shortness Of Breath No Action Acetaminophen [Tylenol Extra Strength] 500 mg PO Q6H PRN PRN Reason: Pain Discharge Medication List Omeprazole [PriLOSEC] 20 mg PO BID 10/14/15 [History] Simvastatin [Zocor] 10 mg PO HS 10/14/15 [History] Pregabalin [Lyrica] 150 mg PO BID 03/17/19 [History] lisinopriL [Prinivil] 10 mg PO QAM 04/30/20 [History] Spironolactone 100 mg PO QAM 06/18/20 [History] Acetaminophen [Tylenol Extra Strength] 500 mg PO Q6H PRN 08/22/22 [History] Albuterol Inhaler [Ventolin Hfa Inhaler] 1 - 2 puff INHALATION Q6H PRN 08/22/22 [History] Multivit-Min/FA/Lycopen/Lutein [Centrum Silver Tablet] 1 each PO DAILY 08/22/22 [History] Cyclobenzaprine [Flexeril] 10 mg PO TID #90 tab 08/30/22 [Rx] Gabapentin 300 mg PO TID #90 cap 08/30/22 [Rx] HYDROcodone/APAP 10-325MG [Campbell 10-325] 1 tab PO Q4-6H PRN #56 tab 08/30/22 [Rx] Sennosides/Docusate Sodium [Senna Plus 8.6-50 mg Tablet] 1 each PO DAILY PRN #20 tablet 08/30/22 [Rx] cefaDROXiL [Duricef] 500 mg PO Q12HR 5 Days #10 cap 08/30/22 [Rx] Follow up Appointment(s)/Referral(s): Vincent Nails MD [Primary Care Provider] - 1 Week Doug Early DO [Doctor of Osteopathic Medicine] - 10 Days Activity/Diet/Wound Care/Special Instructions: Spine Discharge and Recovery Instructions Date of Surgery: 08/25/2022 Diagnosis: Lumbar spondylolisthesis, lumbar spondylosis Procedure: L4-S1 decompression and fusion Medications: See medication list All medication refills should be obtained through your primary care doctor or your clinic spine surgeon. Please discuss prescription refills at your follow up appointment. Do not call the hospital for medication refills. Dressing: Change dressing daily until there is no longer drainage. Then you may remove your dressing and leave open to air. Keep the area clean and if not able to keep area clean, then cover with sterile gauze and tape. Showering: You may shower 3 days after your procedure allowing soap and water to run over incision. Do not scrub. Do not soak. Blot dry. Follow up: Please confirm a follow up appointment with your surgeon 3 weeks post operatively. Please make an appointment to follow up with your PCP in 1-2 weeks after surgery for evaluation 3 phase, 3-week plan POST OP WEEKS 1-3 1. Lifting/carrying/pushing/pulling limited to less than 5 pounds. 2. Do not sit for longer than 15 minutes at one time. Get up and walk around. Prolonged sitting is NOT advised. If you lay down, see if you can tolerate laying down on you front (belly side) 3. Walk for periods of 15 minutes = 1 mile but no longer; do it multiple times times each day. 4. Ice your low back after activity. POST OP WEEKS 3-6 1. Lifting limited to less than 20 pounds. 2. Do not sit for longer than 30 minutes at a time. Frequently change positions. Use a sit-to stand workstation or take frequent breaks from sitting if you have returned to work. 3. Walk for 30 minutes each day. If possible, do these three or more times a day POST OP WEEKS 6+ At your 6-week appointment we will give you a physical therapy referral to focus on a core stabilization and strengthening program. You should also work on leg & buttock strengthening, hamstring & quadriceps stretching, and continue a low impact aerobic activity program such as swimming, walking, or riding a stationary bicycle. During the initial 6 weeks after your surgery, you are at the highest risk of re-injuring your spine. You should generally avoid BLTs (bending, lifting and twisting combination motions) and follow the above guidelines to reduce the chance of reinjury. You can anticipate post op appointments in our office at approximately 3 weeks and 6 weeks after your surgery. INCISION CARE: If your incision is not draining you do NOT need to cover it with a dressing. Keep your incision clean, dry and intact. In most cases, we apply skin glue, jairon or sutures to the incision at the time of surgery. This will be like a crust or have the appearance of a scab and will fall off in time on its own. The stitches or jairon need to be removed at 3 weeks post op appointment. You may begin to shower 3 days after surgery (this allows the glue to yates well). However, please avoid scrubbing the incision site or peeling off any of the skin glue. This will ensure optimal healing of your incision. Also, during this time avoid soaking the incision area in water - this includes swimming pools, hot tubs or baths. No ointments, lotions or oils on the incision until your surgeon allows. Leave jairon, sutures or glue in place. Neurological dysfunction that comes on suddenly can also be a sign of a stroke. Below some common symptoms of a stroke are listed: B - balance difficulty such as sudden onset walking or leaning to one side - NEW E - eye problem such as sudden double vision or trouble seeing on one side - NEW F - Facial weakness or numbness on one side - NEW A - Arm or leg weakness or numbness on one side - NEW S - Slurred speech or difficulty with word finding - NEW T - Time is BRAIN! Call 911 as soon as you recognize these symptoms Diet: Consume a regular diet rich in vegetables and lean protein such as chicken or fish. You should consume in a ratio of approximately 20% fats|40% carbohydrates|40%protein. Vegetables, sweet potatoes, brown rice or quinoa are examples of good carbohydrates. Chips, white bread, cookies and sweets/sugar are examples of bad carbohydrates. Limit your bad carbs, go wild with good carbs. "Life's Simple 7" Guidelines as per [place] [employer] These will help you reclaim your life after surgery and it help desk analyst in your recovery, keeping in mind your restrictions. (1) Get Active. Physical activity can help people lose weight, control high blood pressure and cholesterol, feel emotionally better, and sleep better. (2) Control Cholesterol. Avoid a diet high in saturated fat, trans fat, & cholesterol. Limit whole milk & cream, ice cream, butter, egg yolks, processed meats (like sausage and hot dogs), and fatty meats. Choose healthy foods that are low in saturated fat, trans fat and cholesterol which include: Fruits and vegetables, fiber rich grain products (like whole grain pasta and brown rice), lean meat such as chicken, fish, nuts, seeds, and legumes. (3) Eat Better. Eat small portions. Shop at the grocery with a list and do not stray from it. Tips for a healthy diet include: Limit sodium intake to less than 1500mg daily, avoid prepackaged, processed, and fast foods, choose a diet rich in fruits, vegetables, and whole grain, high fiber foods, and limit saturated & cholesterol in your diet. (4) Manage Blood Pressure. If you have high blood pressure, you should have a cuff at home so that you can check your blood pressure regularly. Be sure you have a good cuff. An arm one is generally better than a wrist one. Bring the cuff to a doctor's appointment to validate that the measurements that your cuff are taking are accurate. Take your blood pressure twice daily when you are sitting down and relaxing. Record the numbers in a log and bring this log with you to your doctors' appointments. (5) Lose Weight if your BMI is above 25. A healthy BMI is between 19-25. To calculate Your BMI, you may use a Standard BMI Calculator on the NIH BMI website: <www.nhlbi.nih.gov/guidelines/obesity/BMI/bmicalc.htm>. Weigh oneself daily. If you are overweight, set a goal to lose weight. A pound a week loss if needed is a good target. (6) Reduce Blood Sugar. Limit foods and liquids with "added sugars." (Added sugars include sucrose, fructose, glucose, maltose, dextrose, high fructose corn syrup, corn syrup, concentrated fruit juice and honey). (7) Stop Smoking. If you smoke, quitting smoking is one of the best things that you can do for your health. Smoking increases your risk of heart attack, stroke, and peripheral vascular disease, which is a build-up of plaque in your arteries. Please discard all the cigarettes and lighters in your house. Have a plan for what you will do when you have the urge to smoke. Direct and second- hand smoke shortens your life as well as the lives of your family, friends and others around you. For your health and the health of those around you, please consider quitting! Proper Bending Body Mechanics: Maintain a wide stance with one foot slightly in front of the other. Keep your back straight. Bend utilizing the strength in your hips and knees. Do not bend at the waist. Maintain the lifted object at your waist-level close to your body. Avoid lifting weight that causes immediately pain or pain anywhere in the body afterwards. Smoking/Nicotine If there was ever one thing that you could do to increase your overall health, decrease your risk of cardiovascular problems by about 39% the second you make the choice, it is to STOP SMOKING. Your body's most instant gratification is the second you stop smoking. We have all heard the studies, read the articles but it is true, smoking is extremely bad for your overall health, and moreover it is detrimental to your bone health. Nicotine, IN ANY FORM, kills bone cells, prevents your body from healing fractures, and significantly prolongs healing after surgery. In spine surgery specifically, it increases your risk of not healing your bones to create a fusion and increases your risk of having a revision surgery due to this up to 60%. I know it is hard. I know it feels impossible. But there are ways. Take control of your life. We are here to help you through it. And when you are ready, ask us and we can direct you to help if you desire. Use the START Plan to Quit Smoking (please visit the Helpguide.org website listed below for more information): S = Set a quit date. Choose a date within the next 2 weeks, so you have enough time to prepare without losing your motivation to quit. If you mainly smoke at work, quit on the weekend, so you have a few days to adjust to the change. T = Tell family, friends, and co-workers that you plan to quit. Let your friends and family in on your plan to quit smoking and tell them you need their support and encouragement to stop. Look for a quit warren who wants to stop smoking as well. You can help each other get through the rough times. A = Anticipate and plan for the challenges you'll face while quitting. Most people who begin smoking again do so within the first 3 months. You can help yourself make it through by preparing ahead for common challenges, such as nicotine withdrawal and cigarette cravings. R = Remove cigarettes and other tobacco products from your home, car, and work. Throw away all your cigarettes (no emergency pack!), lighters, ashtrays, and matches. Wash your clothes and freshen up anything that smells like smoke. Shampoo your car, clean your drapes and carpet, and steam your furniture. T = Talk to your doctor about getting help to quit. Your doctor can prescribe medication to help with withdrawal and suggest other alternatives. If you can't see a doctor, you can get many products over the counter at your local pharmacy or grocery store, including the nicotine patch, nicotine lozenges, and nicotine gum. Resources for Quitting Smoking: <https://www.[place].gov/documents/[facility]/Quit_Tobacco_Resources_for_patients_313 480_7.pdf> Supplementation: Take recommended dosages of Vitamin D and Calcium to help fortify your bones and help them to heal. See your health maintenance packet for dosages and recommended levels. DVT/VTE prophylaxis: You will be given compression stockings from the hospital. Wear these daily for the first two weeks after surgery. You may take them off at night. You may be prescribed a medication to help thin your blood. Take this as directed. If you are not prescribed this medication, early and frequent ambulation has been shown to be the best prophylaxis to deep vein thrombosis and sequelae related to this event. Discharge Disposition: HOME WITH HOME HEALTH SERVICES
== END 2022-08-30 15:57 | disposition home health service (06) | DRG 454 ==
LOC: 2ORMAIN 10:23 → 5NMEDONC 18:12
PROVIDERS: ADMIT Orthopaedic Surgery; ATTEND Orthopaedic Surgery
PROC: 0SG00AJ Fusion of Lumbar Vertebral Joint with Interbody Fusion Device, Posterior Approach, Anterior Column, Open Approach (ICD-10-PCS; 2022-08-25)
PROC: 01NB0ZZ Release Lumbar Nerve, Open Approach (ICD-10-PCS; 2022-08-25)
PROC: 0SG30AJ Fusion of Lumbosacral Joint with Interbody Fusion Device, Posterior Approach, Anterior Column, Open Approach (ICD-10-PCS; 2022-08-25)
PROC: 01NR0ZZ Release Sacral Nerve, Open Approach (ICD-10-PCS; 2022-08-25)
PROC: 0SG0071 Fusion of Lumbar Vertebral Joint with Autologous Tissue Substitute, Posterior Approach, Posterior Column, Open Approach (ICD-10-PCS; 2022-08-25)
PROC: 0SG3071 Fusion of Lumbosacral Joint with Autologous Tissue Substitute, Posterior Approach, Posterior Column, Open Approach (ICD-10-PCS; principal; 2022-08-25 12:10)
DX: M43.17 Spondylolisthesis, lumbosacral region (principal); D62 Acute posthemorrhagic anemia; I10 Essential (primary) hypertension; J44.9 Chronic obstructive pulmonary disease, unspecified; G25.81 Restless legs syndrome; D69.6 Thrombocytopenia, unspecified; M48.062 Spinal stenosis, lumbar region with neurogenic claudication; M25.78 Osteophyte, vertebrae; H57.89 Other specified disorders of eye and adnexa; F17.210 Nicotine dependence, cigarettes, uncomplicated; E78.5 Hyperlipidemia, unspecified; M47.26 Other spondylosis with radiculopathy, lumbar region; G89.29 Other chronic pain; G62.9 Polyneuropathy, unspecified; K21.9 Gastro-esophageal reflux disease without esophagitis; G47.9 Sleep disorder, unspecified; D72.828 Other elevated white blood cell count; Z90.79 Acquired absence of other genital organ(s); Z87.11 Personal history of peptic ulcer disease; Z85.46 Personal history of malignant neoplasm of prostate; Z98.1 Arthrodesis status; Z87.19 Personal history of other diseases of the digestive system; Z79.899 Other long term (current) drug therapy
CPT/HCPCS: 72100; 72131; 80048; 85025; 85027; 86850; 86900; 86901

== ENCOUNTER 2022-09-07 12:55 | Observation (INO) | payer MEDICARE, OTHER ==
--- NOTE | 2022-09-07 13:19 | ED ---
General Adult HPI - General Chief complaint: Neck Pain/Injury Stated complaint: fall - leg pain - post op Time Seen by Provider: 09/07/22 13:05 Source: patient, family, RN notes reviewed, old records reviewed Mode of arrival: EMS Limitations: no limitations - History of Present Illness Initial comments: Saw the patient in triage is a 67-year-old male who recently had a laminectomy. Patient states he was walking with a walker stay and doing pretty well. Patient states he fell backwards today and since then his unable to walk because his legs are too weak to hold him. Patient states she's also pain down the right leg. Patient denies any head or neck per patient denies any other problems at this time. Patient denies any focal weakness or numbness. Patient states his had swelling bilateral legs for the last 3 weeks since his surgery. Patient denies hitting his head or neck on the fall. Patient denies any other injury. Patient states he just is too weak to follow unstable he lives alone so doesn't feel safe at home. - Related Data Home Medications Medication Instructions Recorded Confirmed Omeprazole [PriLOSEC] 20 mg PO BID 10/14/15 08/25/22 Simvastatin [Zocor] 10 mg PO HS 10/14/15 08/25/22 Pregabalin [Lyrica] 150 mg PO BID 03/17/19 08/25/22 lisinopriL [Prinivil] 10 mg PO QAM 04/30/20 08/25/22 Spironolactone 100 mg PO QAM 06/18/20 08/25/22 Acetaminophen [Tylenol Extra 500 mg PO Q6H PRN 08/22/22 08/25/22 Strength] Albuterol Inhaler [Ventolin Hfa 1 - 2 puff INHALATION Q6H PRN 08/22/22 08/25/22 Inhaler] Multivit-Min/FA/Lycopen/Lutein 1 each PO DAILY 08/22/22 08/25/22 [Centrum Silver Tablet] Previous Rx's Medication Instructions Recorded Cyclobenzaprine [Flexeril] 10 mg PO TID #90 tab 08/30/22 Gabapentin 300 mg PO TID #90 cap 08/30/22 HYDROcodone/APAP 10-325MG [Transfer 1 tab PO Q4-6H PRN #56 tab 08/30/22 10-325] Sennosides/Docusate Sodium [Senna 1 each PO DAILY PRN #20 tablet 08/30/22 Plus 8.6-50 mg Tablet] cefaDROXiL [Duricef] 500 mg PO Q12HR 5 Days #10 cap 08/30/22 Allergies Allergy/AdvReac Type Severity Reaction Status Date / Time No Known Allergies Allergy Verified 08/25/22 11:01 Review of Systems ROS Statement: Those systems with pertinent positive or pertinent negative responses have been documented in the HPI. ROS Other: All systems not noted in ROS Statement are negative. Past Medical History Past Medical History: Cancer, COPD, GERD/Reflux, GI Bleed, Hyperlipidemia, Hypertension, Liver Disease, Osteoarthritis (OA), Prostate Disorder Additional Past Medical History / Comment(s): RESTLESS LEG. " in 2004 esophagus was bleeding and ulcers in stomach", hx. Prostate cancer, cirrhosis, History of Any Multi-Drug Resistant Organisms: None Reported Past Surgical History: Back Surgery, Orthopedic Surgery, Prostate Surgery Additional Past Surgical History / Comment(s): CATARACT SURGERY-BILATERAL, prostatectomy, COLONOSCOPY/EGD, BACK INJECTIONS, laser eye surgery for glaucoma, cervical fusion with pins Past Anesthesia/Blood Transfusion Reactions: No Reported Reaction Past Psychological History: No Psychological Hx Reported Smoking Status: Current some day smoker - Past Family History Sister(s) Family Medical History: Cancer Brother(s) Family Medical History: Cancer Additional Family Medical History / Comment(s): throat cancer Mother Family Medical History: COPD Additional Family Medical History / Comment(s): of COPD Father Additional Family Medical History / Comment(s): of alcoholism General Exam - General Exam Comments Initial Comments: GENERAL: Patient is well-developed and well-nourished. Patient is nontoxic and well- hydrated and is in mild distress. ENT: Neck is soft and supple. No significant lymphadenopathy is noted. Oropharynx is clear. Moist mucous membranes. Neck has full range of motion without eliciting any pain. EYES: The sclera were anicteric and conjunctiva were pink and moist. Extraocular movements were intact and pupils were equal round and reactive to light. Eyelids were unremarkable. PULMONARY: Unlabored respirations. Good breath sounds bilaterally. No audible rales rhonchi or wheezing was noted. CARDIOVASCULAR: There is a regular rate and rhythm without any murmurs gallops or rubs. ABDOMEN: Soft and nontender with normal bowel sounds. SKIN: Skin is clear with no lesions or rashes and otherwise unremarkable. NEUROLOGIC Patient is alert and oriented x3. Cranial nerves II through XII are grossly intact. Patient is able to move both feet. Patient has no focal deficits. Normal speech, volume and content. Symmetrical smile. Perineum sensation is normal. I assisted the patient to a stand he was extremely unstable and fearing that he might fall MUSCULOSKELETAL: Normal extremities with adequate strength and full range of motion. 2+ edema LYMPHATICS: No significant lymphadenopathy is noted PSYCHIATRIC: Normal psychiatric evaluation. Limitations: no limitations Course Vital Signs 09/07/22 13:10 Temperature 97.7 F Pulse Rate 114 H Respiratory 20 Rate Blood Pressure 113/65 O2 Sat by Pulse 95 Oximetry Medical Decision Making - Medical Decision Making Was pt. sent in by a medical professional or institution? @ -No Did you speak to anyone other than the patient for history? @ - Did you review nursing and triage notes? @ -I agree with triage notes and nursing notes Were old charts reviewed? @ -I reviewed the admission chart when the patient had the back surgery Differential Diagnosis? @ -Lumbar fracture, lumbar strain, sciatica, EKG interpreted by me (3pts min.)? @ -None X-rays interpreted by me (1pt min.)? @ -X-ray was interpreted by myself the lumbosacral spine showed no acute normalities. CT interpreted by me (1pt min.)? @ -None U/S interpreted by me (1pt. min.)? @ -Known What testing was considered but not performed? (CT, X-rays, U/S, labs)? Why? @ -No What meds were considered but not given? Why? @ -No Did you discuss the management of the patient with other professionals? @ -I spoke with Dr. Early he agreed the patient should be admitted if he is unable to stand it doesn't feel comfortable going home. Did you reconcile home meds? @ -No Was smoking cessation discussed for >3mins.? @ -No Was critical care preformed (if so, how long)? @ -No Were there social determinants of health that impacted care today? How? (Homelessness, low income, unemployed, alcoholism, drug addiction, transportation, low edu. Level, literacy, decrease access to med. care, fdc, rehab)? @ -No Was there de-escalation of care discussed even if they declined? (Discuss DNR or withdrawal of care, Hospice)? @ -No What co-morbidities impacted this encounter? (DM, HTN, Smoking, COPD, CAD, Cancer, CVA, Hep., AIDS, mental health diagnosis, sleep apnea, morbid obesity)? @ -No Was patient admitted / discharged? @ -Patient was admitted. Undiagnosed new problem with uncertain prognosis? @ -No Drug Therapy requiring intensive monitoring for toxicity (Heparin, Nitro, Insulin, Cardizem)? @ -No Were any procedures done? @ -No Diagnosis/symptom? @ -Sciatica Acute, or Chronic, or Acute on Chronic? @ -Acute Uncomplicated (without systemic symptoms) or Complicated (systemic symptoms)? @ -Uncomplicated Side effects of treatment? @ -No Exacerbation, Progression, or Severe Exacerbation] @ -No Poses a threat to life or bodily function? @ -No Diagnosis/symptom? @ -Intractable back pain Acute, or Chronic, or Acute on Chronic? @ -Acute Uncomplicated (without systemic symptoms) or Complicated (systemic symptoms)? @ -Uncomplicated Side effects of treatment? @ -None Exacerbation, Progression, or Severe Exacerbation] @ -None Poses a threat to life or bodily function? @ -no - Lab Data Result diagrams: 09/07/22 17:28 09/07/22 17:28 Lab Results 09/07/22 09/07/22 09/07/22 Range/Units 17:28 17:28 17:28 WBC 6.5 (3.8-10.6) k/uL RBC 3.18 L (4.30-5.90) m/uL Hgb 10.1 L (13.0-17.5) gm/dL Hct 29.0 L (39.0-53.0) % MCV 91.0 (80.0-100.0) fL MCH 31.7 (25.0-35.0) pg MCHC 34.8 (31.0-37.0) g/dL RDW 13.8 (11.5-15.5) % Plt Count 193 (150-450) k/uL MPV 9.1 Neutrophils % 58 % Lymphocytes % 23 % Monocytes % 13 % Eosinophils % 2 % Basophils % 0 % Neutrophils # 3.8 (1.3-7.7) k/uL Lymphocytes # 1.5 (1.0-4.8) k/uL Monocytes # 0.9 (0-1.0) k/uL Eosinophils # 0.1 (0-0.7) k/uL Basophils # 0.0 (0-0.2) k/uL Hypochromasia Slight Sodium 136 L (137-145) mmol/L Potassium 4.8 (3.5-5.1) mmol/L Chloride 104 (98-107) mmol/L Carbon Dioxide 25 (22-30) mmol/L Anion Gap 7 mmol/L BUN 20 (9-20) mg/dL Creatinine 1.34 H (0.66-1.25) mg/dL Est GFR (CKD-EPI)AfAm 64 (>60 ml/min/1.73 sqM) Est GFR (CKD-EPI)NonAf 56 (>60 ml/min/1.73 sqM) Glucose 87 (74-99) mg/dL Calcium 8.8 (8.4-10.2) mg/dL Total Bilirubin 0.5 (0.2-1.3) mg/dL AST 42 (17-59) U/L ALT 16 (4-49) U/L Alkaline Phosphatase 79 (38-126) U/L NT-Pro-B Natriuret Pep 125 pg/mL Total Protein 5.8 L (6.3-8.2) g/dL Albumin 3.2 L (3.5-5.0) g/dL Disposition Clinical Impression: Sciatica, Intractable back pain Disposition: ADMITTED IP TO THIS [facility] Referrals: Vincent Nails MD [Primary Care Provider] - 1-2 days Time of Disposition: 18:32
--- NOTE | 2022-09-07 13:55 | XR ---
EXAMINATION TYPE: XR lumbosacral spine min 4V DATE OF EXAM: 09/07/2022 COMPARISON: CT lumbar spine 08/25/2022 HISTORY: Pain post surgery, fall TECHNIQUE: 5 view lumbar spine FINDINGS: There are 5 lumbar type vertebral bodies. Pedicle screws appear to be present at the lumbos acral junction, L4-S1. Disc spacers are present L4-5 and L5-S1. Facet degenerative changes are presen t. Postsurgical skin jairon are present through the lumbar level. Vertebral body heights are preserv ed. Grade 2 spondylolisthesis of L5 anterior to S1 may be present. Multiple calcified granuloma within the spleen are evident. IMPRESSION: 1. No acute changes lumbar spine, postsurgical changes appear stable.
[2022-09-07] MEDS ORDERED: methylPREDNISolone SOD SUCCI 125 MG/2 ML VIAL IV STA (14:48)
--- NOTE | 2022-09-07 15:50 | XR ---
EXAMINATION TYPE: XR chest 2V DATE OF EXAM: 09/07/2022 COMPARISON: 06/21/2020 INDICATION: Difficulty breathing, fall TECHNIQUE: Frontal and lateral views of the chest are obtained. FINDINGS: The heart size is normal. The pulmonary vasculature is normal. The lungs are clear. No pneumothorax is evident. No displaced rib fractures are evident. IMPRESSION: 1. No acute pulmonary process.
[2022-09-07 17:55] LABS: Albumin 3.2 g/dL (3.5-5.0); Calcium 8.8 mg/dL (8.4-10.2); Potassium 4.8 mmol/L (3.5-5.1); Total Bilirubin 0.5 mg/dL (0.2-1.3); Total Protein 5.8 g/dL (6.3-8.2)
[2022-09-07 17:58] LABS: Basophils % (A) 0 %; Eosinophils # (A) 0.1 k/uL (0-0.7); Eosinophils % (A) 2 %; HGB 10.1 gm/dL (13.0-17.5); Hypochromasia Slight; Lymphocytes # (A) 1.5 k/uL (1.0-4.8); Lymphocytes % (A) 23 %; MCH 31.7 pg (25.0-35.0); MCHC 34.8 g/dL (31.0-37.0); Mean Platelet Volume 9.1; Monocytes # (A) 0.9 k/uL (0-1.0); Monocytes % (A) 13 %; Neutrophils # (A) 3.8 k/uL (1.3-7.7); Neutrophils % (A) 58 %; Platelet Count 193 k/uL (150-450); RBC 3.18 m/uL (4.30-5.90); RDW 13.8 % (11.5-15.5); WBC 6.5 k/uL (3.8-10.6)
[2022-09-07] MEDS ORDERED: SODIUM CHLORIDE 0.9% 1,000 ML IV ONE (18:34)
[2022-09-07] MEDS ORDERED: ALBUTEROL NEBULIZED 2.5 MG/3 ML INHALATION PRN (19:59)
[2022-09-07] MEDS ORDERED: SENNOSIDES-DOCUSATE SODIUM 1 EACH TAB PO PRN (19:59)
[2022-09-07] MEDS ORDERED: ACETAMINOPHEN TAB 500 MG TAB PO PRN (19:59)
[2022-09-07] MEDS: HYDROcodone/APAP 10-325MG 1 EACH TAB PO PRN (21:41)
[2022-09-07] MEDS: GABAPENTIN 300 MG CAP PO SCH (21:41)
[2022-09-07] MEDS: ATORVASTATIN 10 MG TAB PO SCH (21:41)
[2022-09-07] MEDS: PREGABALIN 75 MG CAP PO SCH (21:41)
[2022-09-08] MEDS: PANTOPRAZOLE 40 MG TABLET PO SCH (06:50)
[2022-09-08] MEDS: HYDROcodone/APAP 10-325MG 1 EACH TAB PO PRN ×4 (08:01→20:35)
--- NOTE | 2022-09-08 08:08 | P.HPOR ---
History of Present Illness H&P Date: 09/08/22 67 yo male s/p L4-S1 decompression and fusion fell at home and c/o inability to ambulate after and was brought to ED. Images taken. Pt states he feels weak in his legs but feels better this AM. Moving his legs. States no perineal numbness/tingling. States no bowel or bladder issues. C/o swelling in legs. Denies any f/c/sob/cp at this time. no BHT or LOC with the fall. Right leg just gave out. Review of Systems 14 points review of systems completed and as stated in HPI, all other systems reviewed are negative. Past Medical History Past Medical History: Cancer, COPD, GERD/Reflux, GI Bleed, Hyperlipidemia, Hypertension, Liver Disease, Osteoarthritis (OA), Prostate Disorder Additional Past Medical History / Comment(s): RESTLESS LEG. " in 2004 esophagus was bleeding and ulcers in stomach", hx. Prostate cancer, cirrhosis History of Any Multi-Drug Resistant Organisms: None Reported Past Surgical History: Back Surgery, Orthopedic Surgery, Prostate Surgery Additional Past Surgical History / Comment(s): CATARACT SURGERY-BILATERAL, prostatectomy, COLONOSCOPY/EGD, BACK INJECTIONS, laser eye surgery for glaucoma, cervical fusion with pins Past Anesthesia/Blood Transfusion Reactions: No Reported Reaction Past Psychological History: No Psychological Hx Reported Smoking Status: Current some day smoker Past Alcohol Use History: Abuse, Occasional Additional Past Alcohol Use History / Comment(s): occasional cigar still, quit smoking cigarettes 5 yrs ago, started smoking age 15, states hx of alcoholism, although barely drinks anymore, occasionally will have a beer Past Drug Use History: Marijuana Additional Drug Use History / Comment(s): marijuana-occasional only - Past Family History Sister(s) Family Medical History: Cancer Brother(s) Family Medical History: Cancer Additional Family Medical History / Comment(s): throat cancer Mother Family Medical History: COPD Additional Family Medical History / Comment(s): of COPD Father Additional Family Medical History / Comment(s): of alcoholism Medications and Allergies Home Medications Medication Instructions Recorded Confirmed Type Omeprazole [PriLOSEC] 20 mg PO BID 10/14/15 09/07/22 History Simvastatin [Zocor] 10 mg PO HS 10/14/15 09/07/22 History Pregabalin [Lyrica] 150 mg PO BID 03/17/19 09/07/22 History lisinopriL [Prinivil] 10 mg PO DAILY 04/30/20 09/07/22 History Spironolactone 100 mg PO DAILY 06/18/20 09/07/22 History Acetaminophen [Tylenol Extra 500 mg PO Q6H PRN 08/22/22 09/07/22 History Strength] Albuterol Inhaler [Ventolin Hfa 1 - 2 puff INHALATION RT-QID PRN 08/22/22 09/07/22 History Inhaler] Multivit-Min/FA/Lycopen/Lutein 1 tab PO DAILY 08/22/22 09/07/22 History [Centrum Silver Tablet] Cyclobenzaprine [Flexeril] 10 mg PO TID #90 tab 08/30/22 09/07/22 Rx Gabapentin 300 mg PO TID #90 cap 08/30/22 09/07/22 Rx HYDROcodone/APAP 10-325MG [[place] 1 tab PO Q4-6H PRN #56 tab 08/30/22 09/07/22 Rx 10-325] Sennosides/Docusate Sodium [Senna 1 tab PO DAILY PRN 09/07/22 09/07/22 History Plus 8.6-50 mg Tablet] cefaDROXiL [Duricef] 500 mg PO Q12H 09/07/22 09/07/22 History Allergies Allergy/AdvReac Type Severity Reaction Status Date / Time No Known Allergies Allergy Verified 09/07/22 18:59 Physical Examination Osteopathic Statement: *. No significant issues noted on an osteopathic structural exam other than those noted in the History and Physical/Consult. Physical Exam: -Patient is alert and oriented 3 appears well-nourished well-hydrated is in no acute distress. They do not appear septic. -There is nno tenderness to palpation around the incision [-Incision is CDI, no EEE, no drainage] -Upper extremities show 4+ out of 5 strength in all major muscle groups. generalized weakness -Lower extremities with 4+ out of 5 strength in all major muscle groups generalized weakness no focal deficits -There is [FROM] that is [painless] of the b/l UE and LE in all major joints. negative straight leg raise negative logroll bilaterally -They are intact to light touch sensation in C5 to T1 and L2 to S1 nerve distribution. -DTR [2]/4 all upper and lower extremities -Patient has palpable distal pulses all 4 ext -Compartments are soft and compressible. -Patient shows a negative Rosie's [-Neg Hoffmans b/l] [-Neg Clonus b/l] [-Neg babinski b/l] Cranial nerves II through XII are grossly intact. edema in bilateral lower extremities 2+ Results x-rays of the lumbar spine demonstrate hardware in good position L4 to S1 decompression fusion in this area with no interval changes. - Labs Labs: Abnormal Lab Results - Last 24 Hours (Table) 09/07/22 09/07/22 Range/Units 17:28 17: RBC 3.18 L (4.30-5.90) m/uL Hgb 10.1 L (13.0-17.5) gm/dL Hct 29.0 L (39.0-53.0) % Sodium 136 L (137-145) mmol/L Creatinine 1.34 H (0.66-1.25) mg/dL Total Protein 5.8 L (6.3-8.2) g/dL Albumin 3.2 L (3.5-5.0) g/dL H & H 09/07/22 Range/Units 17:28 Hgb 10.1 L (13.0-17.5) gm/dL Hct 29.0 L (39.0-53.0) % Result Diagrams: 09/07/22 17:28 09/07/22 17:28 Assessment and Plan Assessment: 67-year-old male status post L4-S1 decompression fusion with weakness in lower extremities status post fall from standing Plan: -Appreciate market consultant and team management. -Activity: Ambulate QID, OOB all meals, up and about, limit lifting bending twisting to less than 5 lbs. Use walker or cane if needed for stability. -Daily PT/OT, increase ambulation strength and balance. -[Brace when up and about, not needed in bed or chair] -Pain control: [Adequate at this time] -Meds: [reviewed] -GI ppx: senna, Miralax -DC ramos when up and about, bedside commode if needed -DVT PPX: mechanical -Hygiene: Shower today. Maintain dressing clean and dry. Meticulous cleaning after BMs away from incision site -Encourage IS 10x/hr - SAMMIE matthews SCDs lower extremities -Dispo: rehab when stable
[2022-09-08] MEDS: MULTIVITAMINS, THERA 1 EACH TAB PO SCH (08:51)
[2022-09-08] MEDS: SPIRONOLACTONE 25 MG TAB PO SCH (08:51)
[2022-09-08] MEDS: GABAPENTIN 300 MG CAP PO SCH ×3 (08:52→20:35)
[2022-09-08] MEDS: PREGABALIN 75 MG CAP PO SCH ×2 (08:52→20:35)
[2022-09-08] MEDS: CYCLOBENZAPRINE 10 MG TAB PO PRN ×2 (11:51→20:36)
[2022-09-08] MEDS: ATORVASTATIN 10 MG TAB PO SCH (20:35)
[2022-09-08] MEDS ORDERED: SODIUM CHLORIDE 0.9% 1,000 ML IV SCH (22:30)
--- NOTE | 2022-09-08 22:33 | P.CONS ---
History of Present Illness - Reason for Consult Consult date: 09/08/22 Medical management - Chief Complaint Fall - History of Present Illness Patient is a 67 old male with a known history of hypertension, hyperlipidemia, osteoarthritis, history of prostate cancer status post prostatectomy, currently some day smoker and occasional alcohol use and occasional marijuana use, GERD, COPD and prior history of GI bleed with gastric ulcers presents to ER status post fall and unable to ambulate and right lower extremity pain. Patient recently had L4 S1 decompression fusion surgery on 08/25/2022. Patient was discharged home on 08/30/2022. Patient otherwise denies any chest pain or shortness of breath. No bladder or bowel incontinence. No nausea vomiting abdominal pain or diarrhea. Patient states that his right leg gave away. X-ray of the lumbar spine showed no acute changes lumbar spine. Postsurgical changes appear stable. Chest x-ray showed no acute cardiopulmonary process. On admission blood pressure 113/65 pulse is 114 respiration 20 pulse ox 95% on room air. Laboratory data showed WBC 6.5 hemoglobin 10.1 and platelets 193 Sodium 136 potassium 4.8 chloride 104 bicarb is 25 BUN 21 creatinine 1.34 and proBNP 125 and albumin 3.2. Review of Systems Constitutional: Patient denies any fever or chills . Patient does have gene ralized weakness. Abdomen: Patient denied any nausea or vomiting or abd. pain Cardiovascular: Patient denies any chest pain or short of breath no palpitations. Respiratory: patient denied any cough . no sputum production. No shortness of breath Neurologic: Patient denied any numbness or tingling headache. Musculoskeletal: Patient denies any complaints of joint swelling or deformity. Complains of right leg gave way. Skin: Negative Psychiatric: Negative Endocrine: No heat or cold intolerance. No recent weight gain. Genitourinary: No dysuria or hematuria. All other 14 point ROS negative except the above Past Medical History Past Medical History: Cancer, COPD, GERD/Reflux, GI Bleed, Hyperlipidemia, Hypertension, Liver Disease, Osteoarthritis (OA), Prostate Disorder Additional Past Medical History / Comment(s): RESTLESS LEG. " in 2004 esophagus was bleeding and ulcers in stomach", hx. Prostate cancer, cirrhosis History of Any Multi-Drug Resistant Organisms: None Reported Past Surgical History: Back Surgery, Orthopedic Surgery, Prostate Surgery Additional Past Surgical History / Comment(s): CATARACT SURGERY-BILATERAL, prostatectomy, COLONOSCOPY/EGD, BACK INJECTIONS, laser eye surgery for glaucoma, cervical fusion with pins Past Anesthesia/Blood Transfusion Reactions: No Reported Reaction Past Psychological History: No Psychological Hx Reported Smoking Status: Current some day smoker Past Alcohol Use History: Abuse, Occasional Additional Past Alcohol Use History / Comment(s): occasional cigar still, quit smoking cigarettes 5 yrs ago, started smoking age 15, states hx of alcoholism, although barely drinks anymore, occasionally will have a beer Past Drug Use History: Marijuana Additional Drug Use History / Comment(s): marijuana-occasional only - Past Family History Sister(s) Family Medical History: Cancer Brother(s) Family Medical History: Cancer Additional Family Medical History / Comment(s): throat cancer Mother Family Medical History: COPD Additional Family Medical History / Comment(s): of COPD Father Additional Family Medical History / Comment(s): of alcoholism Medications and Allergies Home Medications Medication Instructions Recorded Confirmed Type Omeprazole [PriLOSEC] 20 mg PO BID 10/14/15 09/07/22 History Simvastatin [Zocor] 10 mg PO HS 10/14/15 09/07/22 History Pregabalin [Lyrica] 150 mg PO BID 03/17/19 09/07/22 History lisinopriL [Prinivil] 10 mg PO DAILY 04/30/20 09/07/22 History Spironolactone 100 mg PO DAILY 06/18/20 09/07/22 History Acetaminophen [Tylenol Extra 500 mg PO Q6H PRN 08/22/22 09/07/22 History Strength] Albuterol Inhaler [Ventolin Hfa 1 - 2 puff INHALATION RT-QID PRN 08/22/22 09/07/22 History Inhaler] Multivit-Min/FA/Lycopen/Lutein 1 tab PO DAILY 08/22/22 09/07/22 History [Centrum Silver Tablet] Cyclobenzaprine [Flexeril] 10 mg PO TID #90 tab 08/30/22 09/07/22 Rx Gabapentin 300 mg PO TID #90 cap 08/30/22 09/07/22 Rx HYDROcodone/APAP 10-325MG [[place] 1 tab PO Q4-6H PRN #56 tab 08/30/22 09/07/22 Rx 10-325] Sennosides/Docusate Sodium [Senna 1 tab PO DAILY PRN 09/07/22 09/07/22 History Plus 8.6-50 mg Tablet] cefaDROXiL [Duricef] 500 mg PO Q12H 09/07/22 09/07/22 History Allergies Allergy/AdvReac Type Severity Reaction Status Date / Time No Known Allergies Allergy Verified 09/07/22 18:59 Physical Exam Vitals: Vital Signs Temp Pulse Pulse Resp BP BP Pulse Ox 09/08/22 07:03 97.6 F 64 18 120/73 96 09/08/22 02:00 98.4 F 101 H 16 139/76 96 09/07/22 21:52 18 09/07/22 20:00 98.1 F 76 18 118/75 96 09/07/22 19:00 97 18 121/65 95 09/07/22 13:10 97.7 F 114 H 20 113/65 95 Intake and Output 09/07/22 09/08/22 09/08/22 22:59 06:59 14:59 Intake Total 200 180 Output Total 250 Balance 200 -70 Intake: Oral 200 180 Output: Urine 250 Other: Voiding Method Urinal Urinal Urinal # Voids 4 1 # Bowel Movements 1 Weight 72.575 kg PHYSICAL EXAMINATION: Patient is lying in the bed comfortably, no acute distress, awake alert and oriented.. HEENT: Normocephalic. Neck is supple. Pupils reactive. Nostrils clear. Oral cavity is moist. Neck reveals no JVD, carotid bruits, or thyromegaly. CHEST EXAMINATION: Trachea is central. Symmetrical expansion. Lung blackman clear to auscultation and percussion. CARDIAC: Normal S1, S2 with no gallops. No murmurs ABDOMEN: Soft. Bowel sounds present. Nontender. No organomegaly. No abdominal bruits. Extremities: reveal no edema. No clubbing or cyanosis Neurologically awake, alert, oriented x3 with well-coordinated movements. No f ocal deficits noted Skin: No rash or skin lesions. Psychiatric: Coperative. Nonsuicidal, Musculoskeletal: No joint swelling or deformity. Normal range of motion. Lower back surgery surgical jairon in place. No evidence of infection or discharge noted. Results CBC & Chem 7: 09/07/22 17:28 09/07/22 17:28 Labs: Abnormal Lab Results - Last 24 Hours (Table) 09/07/22 09/07/22 Range/Units 17:28 17:28 RBC 3.18 L (4.30-5.90) m/uL Hgb 10.1 L (13.0-17.5) gm/dL Hct 29.0 L (39.0-53.0) % Sodium 136 L (137-145) mmol/L Creatinine 1.34 H (0.66-1.25) mg/dL Total Protein 5.8 L (6.3-8.2) g/dL Albumin 3.2 L (3.5-5.0) g/dL Assessment and Plan Assessment: S/p fall likely due to generalized weakness. Patient states that his right leg gave away. Rule out orthostatic hypotension. X-ray of the lumbar spine seems to be stable surgical changes. Acute kidney injury likely prerenal History of alcohol abuse and intoxication and patient previously and Chronic alcoholic liver disease COPD Prostate cancer status post previous prostatectomy Hypertension Hyperlipidemia Occasional marijuana use Iron deficiency anemia DVT prophylaxis Plan: Patient will be continued on gentle IV hydration and continue with pain medications, limit narcotic pain medications. Orthostatic vitals will be ordered. Continue with blood pressure medications as needed. Patient is on spironolactone and lisinopril at home. AM labs with CBC and BMP. We will continue to follow and further recommendations based on the clinical course. PT OT will be consulted Thank you for your consult. Time with Patient: Greater than 30
[2022-09-08] MEDS ORDERED: HYDROcodone/APAP 10-325MG 1 EACH TAB PO PRN (22:36)
[2022-09-09 05:10] LABS: Basophils % (A) 0 %; Eosinophils % (A) 0 %; HCT 28.9 % (39.0-53.0); HGB 9.7 gm/dL (13.0-17.5); Hypochromasia Slight; Lymphocytes # (A) 0.8 k/uL (1.0-4.8); Lymphocytes % (A) 8 %; MCH 30.9 pg (25.0-35.0); MCHC 33.5 g/dL (31.0-37.0); MCV 92.1 fL (80.0-100.0); Mean Platelet Volume 9.8; Monocytes # (A) 0.7 k/uL (0-1.0); Monocytes % (A) 7 %; Neutrophils # (A) 8.5 k/uL (1.3-7.7); Neutrophils % (A) 82 %; Platelet Count 187 k/uL (150-450); Poikilocytosis Slight; RBC 3.14 m/uL (4.30-5.90); RDW 13.5 % (11.5-15.5); WBC 10.4 k/uL (3.8-10.6)
[2022-09-09] MEDS: PANTOPRAZOLE 40 MG TABLET PO SCH (06:00)
[2022-09-09 08:06] VITALS: RESP 18
--- NOTE | 2022-09-09 08:54 | US ---
EXAMINATION TYPE: US venous doppler duplex LE DATE OF EXAM: 09/09/2022 8:15 AM COMPARISON: Left lower extremity venous ultrasound 03/18/2019. CLINICAL HISTORY: swelling. No redness. Patient states he can't stand on his legs. SIDE PERFORMED: Bilateral TECHNIQUE: The lower extremity deep venous system is examined utilizing real time linear array sonog shona with graded compression, doppler sonography and color-flow sonography. VESSELS IMAGED: Common Femoral Vein Deep Femoral Vein Greater Saphenous Vein * Femoral Vein Popliteal Vein Small Saphenous Vein * Proximal Calf Veins (* superficial vessels) Grayscale, color doppler, spectral doppler imaging performed of the deep veins of the lower extremiti es. There is normal flow, compressibility, vascular waveforms. Right Leg: Negative for DVT Left Leg: Negative for DVT IMPRESSION: No ultrasound evidence for deep venous thrombosis of the bilateral lower extremities.
[2022-09-09] MEDS: MULTIVITAMINS, THERA 1 EACH TAB PO SCH (09:10)
[2022-09-09] MEDS: PREGABALIN 75 MG CAP PO SCH (09:10)
[2022-09-09] MEDS: GABAPENTIN 300 MG CAP PO SCH (09:10)
[2022-09-09] MEDS: SPIRONOLACTONE 25 MG TAB PO SCH (09:11)
--- NOTE | 2022-09-09 11:08 | P.PN ---
Subjective Progress Note Date: 09/09/22 Principal diagnosis: Low back pain; bilateral lower extremity weakness Patient was seen at bedside this morning sitting up in chair eating breakfast. Patient says she did work with physical therapy a little bit ago this morning and was able to walk down the hallway. Patient says he feels that he is doing much better today than he was yesterday. Patient says he is willing to go to rehab to recover and do therapy. Patient denies chest pain, fever, shortness of breath, nausea, vomiting, change in vision, loss of bowel/bladder control. Objective - Vital Signs Vital signs: Vital Signs Temp 98.2 F 09/09/22 07:55 Pulse 99 09/09/22 07:55 Resp 18 09/09/22 07:55 BP 146/80 09/09/22 07:55 Pulse Ox 97 09/09/22 07:55 FiO2 Intake & Output 09/08/22 09/09/22 09/09/22 18:59 06:59 18:59 Intake Total 540 Output Total 725 1100 Balance -185 -1100 Intake: Oral 540 Output: Urine 725 1100 Other: Voiding Method Urinal Urinal # Voids 1 # Bowel Movements 1 - Exam Wade are well aligned and in good place. Incision appears to be healing well at this time. Negative for any drainage. Negative for any fluctuance/purulence. Negative for erythema. Sensation is equal, symmetric, bilaterally intact throughout the upper and lower extremities. There is some mild tenderness to patient around the incision on the lower back. Nontender to palpation throughout the rest of exam. Patient does have good range of motion bilateral upper and lower extremity is on exam. 4-/5 in bilateral lower extr emities and hip flexion/extension, knee flexion/extension and ankle dorsi/plantar flexion. 5/5 in all major motor groups in bilateral upper extremities. Neurovascular status is intact. Radial pulses intact 2+ bilaterally. Cap refill under 3 seconds in digits upper extremities. - Labs CBC & Chem 7: 09/09/22 04:48 09/07/22 17:28 Labs: Abnormal Lab Results - Last 24 Hours (Table) 09/09/22 09/09/22 Range/Units 04:48 04:48 RBC 3.14 L (4.30-5.90) m/uL Hgb 9.7 L (13.0-17.5) gm/dL Hct 28.9 L (39.0-53.0) % Neutrophils # 8.5 H (1.3-7.7) k/uL Lymphocytes # 0.8 L (1.0-4.8) k/uL Vitamin B12 1525.0 H (200.0-944.0) pg/mL Assessment and Plan Assessment: 1. Bilateral lower extremity weakness; low back pain - Status post fall at home 2. History of L4-S1 posterolateral interbody fusion on 08/25/2022 Plan: 1. Low back pain; bilateral lower extremity weakness - patient stable at bedside this morning and did work well with physical therapy. Patient did have surgery on 08/25/2022 - L4-S1 posterolateral interbody fusion. Patient is stable from an orthopedic standpoint for discharge to rehab. We'll continue to follow patient during his stay in hospital. Plan for discharge to rehab today/tomorrow. 2. Appreciate medical management 3. Pain management - [place]; gabapentin; Lyrica; Flexeril 4. DVT prophylaxis - mechanical 5. GI prophylaxis - senna; Protonix 6. PT/OT - weightbearing as tolerated with walker 7. Discharge planning - discharge to rehab today/tomorrow. Time with Patient: Less than 30
--- NOTE | 2022-09-09 11:31 | P.DS ---
Providers Date of admission: 09/07/22 18:40 Expected date of discharge: 09/09/22 Attending physician: Doug Early DO Consults: 09/07/22 18:34 Consult Physician Urgent Consulting Provider: Paco Goodrich Consult Reason/Comments: Medical management Do you want consulting provider notified?: Yes Primary care physician: Vincent Nails Hospital Course: Date of admission: 09/08/2022 Date of discharge: 09/09/2022 Admission diagnosis: Bilateral lower extremity weakness Discharge diagnosis: Same Attending physician: Dr. Early Surgical procedures: None Brief history: Patient is a 67-year-old male with a history of bilateral lower extremity weakness status post L4-S1 posterolateral interbody fusion. Hospital course: Details of patient's surgery can be found in operative report. Patient tolerated the procedure well and was subsequently transported to orthopedic floor. Patient's orthopeidc and medical care was provided daily. Patient had daily laboratory tests performed for evaluation of overall blood counts. Patient had daily physical therapy to include strengthening range of motion as well as education with walker ambulation. Patient reported satisfactory pain control with oral pain medications. Patient showed satisfactory progress with physical therapy. Given patient's otherwise satisfactory course and having met physical therapy goals, plan is to discharge patient to rehab. Discharge condition/disposition: Patient will be discharged to rehab in stable condition. Discharge medications: Instructions are given on resumption of patient's normal daily medications per primary care recommendation, in addition patient will be prescribed Leicester; Flexeril; gabapentin; senna. Spine Discharge and Recovery Instructions Date of Surgery: 08/25/2022 Diagnosis: Bilateral lower extremity weakness; low back pain Procedure: L4-S1 posterior lateral interbody fusion Medications: See medication list All medication refills should be obtained through your primary care doctor or your clinic spine surgeon. Please discuss prescription refills at your follow up appointment. Do not call the hospital for medication refills. Dressing: Leave your dressing in place for a total of 5 days post operatively. Then you may remove your dressing and leave open to air. Keep the area clean and if not able to keep area clean, then cover with sterile gauze and tape. Showering: You may shower 3 days after your procedure allowing soap and water to run over incision. Do not scrub. Do not soak. Blot dry. Follow up: Please confirm a follow up appointment with your surgeon 3 weeks post operatively. Please make an appointment to follow up with your PCP in 1-2 weeks after surgery for evaluation 3 phase, 3-week plan POST OP WEEKS 1-3 1. Lifting/carrying/pushing/pulling limited to less than 5 pounds. 2. Do not sit for longer than 15 minutes at one time. Get up and walk around. Prolonged sitting is NOT advised. If you lay down, see if you can tolerate laying down on you front (belly side) 3. Walk for periods of 15 minutes = 1 mile but no longer; do it multiple times times each day. 4. Ice your low back after activity. POST OP WEEKS 3-6 1. Lifting limited to less than 20 pounds. 2. Do not sit for longer than 30 minutes at a time. Frequently change positions. Use a sit-to stand workstation or take frequent breaks from sitting if you have returned to work. 3. Walk for 30 minutes each day. If possible, do these three or more times a day POST OP WEEKS 6+ At your 6-week appointment we will give you a physical therapy referral to focus on a core stabilization and strengthening program. You should also work on leg & buttock strengthening, hamstring & quadriceps stretching, and continue a low impact aerobic activity program such as swimming, walking, or riding a [employer] bicycle. During the initial 6 weeks after your surgery, you are at the highest risk of re-injuring your spine. You should generally avoid BLTs (bending, lifting and twisting combination motions) and follow the above guidelines to reduce the chance of reinjury. You can anticipate post op appointments in our office at approximately 3 weeks and 6 weeks after your surgery. INCISION CARE: If your incision is not draining you do NOT need to cover it with a dressing. Keep your incision clean, dry and intact. In most cases, we apply skin glue, jairon or sutures to the incision at the time of surgery. This will be like a crust or have the appearance of a scab and will fall off in time on its own. The stitches or jairon need to be removed at 3 weeks post op appointment. You may begin to shower 3 days after surgery (this allows the glue to yates well). However, please avoid scrubbing the incision site or peeling off any of the skin glue. This will ensure optimal healing of your incision. Also, during this time avoid soaking the incision area in water - this includes swimming pools, hot tubs or baths. No ointments, lotions or oils on the incision until your surgeon allows. Leave jairon, sutures or glue in place. Neurological dysfunction that comes on suddenly can also be a sign of a stroke. Below some common symptoms of a stroke are listed: B - balance difficulty such as sudden onset walking or leaning to one side - NEW E - eye problem such as sudden double vision or trouble seeing on one side - NEW F - Facial weakness or numbness on one side - NEW A - Arm or leg weakness or numbness on one side - NEW S - Slurred speech or difficulty with word finding - NEW T - Time is BRAIN! Call 911 as soon as you recognize these symptoms Diet: Consume a regular diet rich in vegetables and lean protein such as chicken or fish. You should consume in a ratio of approximately 20% fats|40% carbo hydrates|40%protein. Vegetables, sweet potatoes, brown rice or quinoa are examples of good carbohydrates. Chips, white bread, cookies and sweets/sugar are examples of bad carbohydrates. Limit your bad carbs, go wild with good carbs. "Life's Simple 7" Guidelines as per [place] [employer] These will help you reclaim your life after surgery and cook helper juice in your recovery, keeping in mind your restrictions. (1) Get Active. Physical activity can help people lose weight, control high blood pressure and cholesterol, feel emotionally better, and sleep better. (2) Control Cholesterol. Avoid a diet high in saturated fat, trans fat, & cholesterol. Limit whole milk & cream, ice cream, butter, egg yolks, processed meats (like sausage and hot dogs), and fatty meats. Choose healthy foods that are low in saturated fat, trans fat and cholesterol which include: Fruits and vegetables, fiber rich grain products (like whole grain pasta and brown rice), lean meat such as chicken, fish, nuts, seeds, and legumes. (3) Eat Better. Eat small portions. Shop at the grocery with a list and do not stray from it. Tips for a healthy diet include: Limit sodium intake to less than 1500mg daily, avoid prepackaged, processed, and fast foods, choose a diet rich in fruits, vegetables, and whole grain, high fiber foods, and limit saturated & cholesterol in your diet. (4) Manage Blood Pressure. If you have high blood pressure, you should have a cuff at home so that you can check your blood pressure regularly. Be sure you have a good cuff. An arm one is generally better than a wrist one. Bring the cuff to a doctor's appointment to validate that the measurements that your cuff are taking are accurate. Take your blood pressure twice daily when you are sitting down and relaxing. Record the numbers in a log and bring this log with you to your doctors' appointments. (5) Lose Weight if your BMI is above 25. A healthy BMI is between 19-25. To calculate Your BMI, you may use a Standard BMI Calculator on the NIH BMI website: <www.nhlbi.nih.gov/guidelines/obesity/BMI/bmicalc.htm>. Weigh oneself daily. If you are overweight, set a goal to lose weight. A pound a week loss if needed is a good target. (6) Reduce Blood Sugar. Limit foods and liquids with "added sugars." (Added sugars include sucrose, fructose, glucose, maltose, dextrose, high fructose corn syrup, corn syrup, concentrated fruit juice and honey). (7) Stop Smoking. If you smoke, quitting smoking is one of the best things that you can do for your health. Smoking increases your risk of heart attack, stroke, and peripheral vascular disease, which is a build-up of plaque in your arteries. Please discard all the cigarettes and lighters in your house. Have a plan for what you will do when you have the urge to smoke. Direct and second- hand smoke shortens your life as well as the lives of your family, friends and others around you. For your health and the health of those around you, please consider quitting! Proper Bending Body Mechanics: Maintain a wide stance with one foot slightly in front of the other. Keep your back straight. Bend utilizing the strength in your hips and knees. Do not bend at the waist. Maintain the lifted object at your waist-level close to your body. Avoid lifting weight that causes immediately pain or pain anywhere in the body afterwards. Smoking/Nicotine If there was ever one thing that you could do to increase your overall health, decrease your risk of cardiovascular problems by about 39% the second you make the choice, it is to STOP SMOKING. Your body's most instant gratification is the second you stop smoking. We have all heard the studies, read the articles but it is true, smoking is extremely bad for your overall health, and moreover it is detrimental to your bone health. Nicotine, IN ANY FORM, kills bone cells, prevents your body from healing frac tures, and significantly prolongs healing after surgery. In spine surgery specifically, it increases your risk of not healing your bones to create a fusion and increases your risk of having a revision surgery due to this up to 60%. I know it is hard. I know it feels impossible. But there are ways. Take control of your life. We are here to help you through it. And when you are ready, ask us and we can direct you to help if you desire. Use the START Plan to Quit Smoking (please visit the Helpguide.org website listed below for more information): S = Set a quit date. Choose a date within the next 2 weeks, so you have enough time to prepare without losing your motivation to quit. If you mainly smoke at work, quit on the weekend, so you have a few days to adjust to the change. T = Tell family, friends, and co-workers that you plan to quit. Let your friends and family in on your plan to quit smoking and tell them you need their support and encouragement to stop. Look for a quit warren who wants to stop smoking as well. You can help each other get through the rough times. A = Anticipate and plan for the challenges you'll face while quitting. Most people who begin smoking again do so within the first 3 months. You can help yourself make it through by preparing ahead for common challenges, such as nicotine withdrawal and cigarette cravings. R = Remove cigarettes and other tobacco products from your home, car, and work. Throw away all your cigarettes (no emergency pack!), lighters, ashtrays, and matches. Wash your clothes and freshen up anything that smells like smoke. Shampoo your car, clean your drapes and carpet, and steam your furniture. T = Talk to your doctor about getting help to quit. Your doctor can prescribe medication to help with withdrawal and suggest other alternatives. If you can't see a doctor, you can get many products over the counter at your local pharmacy or grocery store, including the nicotine patch, nicotine lozenges, and nicotine gum. Resources for Quitting Smoking: <https://www.[place].gov/documents/[facility]/Quit_Tobacco_Resources_for_patients_313 480_7.pdf> Supplementation: Take recommended dosages of Vitamin D and Calcium to help fortify your bones and help them to heal. See your health maintenance packet for dosages and recommended levels. DVT/VTE prophylaxis: You will be given compression stockings from the hospital. Wear these daily for the first two weeks after surgery. You may take them off at night. You may be prescribed a medication to help thin your blood. Take this as directed. If you are not prescribed this medication, early and frequent ambulation has been shown to be the best prophylaxis to deep vein thrombosis and sequelae related to this event. Assessment: Low-back pain; bilateral lower extremity weakness Procedures: none Patient Condition at Discharge: Good Plan - Discharge Summary New Discharge Prescriptions: New HYDROcodone/APAP 10-325MG [Leicester 10-325] 1 tab PO Q6HR PRN #28 tab PRN Reason: Pain Gabapentin 300 mg PO TID #27 cap Cyclobenzaprine [Flexeril] 5 mg PO TID #21 tablet Sennosides/Docusate Sodium [Senna Plus 8.6-50 mg Softgel] 1 each PO DAILY #20 capsule No Action Simvastatin [Zocor] 10 mg PO HS Omeprazole [PriLOSEC] 20 mg PO BID Pregabalin [Lyrica] 150 mg PO BID lisinopriL [Prinivil] 10 mg PO DAILY Spironolactone 100 mg PO DAILY Multivit-Min/FA/Lycopen/Lutein [Centrum Silver Tablet] 1 tab PO DAILY Gabapentin 300 mg PO TID #90 cap Albuterol Inhaler [Ventolin Hfa Inhaler] 1 - 2 puff INHALATION RT-QID PRN PRN Reason: Shortness Of Breath Acetaminophen [Tylenol Extra Strength] 500 mg PO Q6H PRN PRN Reason: Pain Cyclobenzaprine [Flexeril] 10 mg PO TID #90 tab HYDROcodone/APAP 10-325MG [Leicester 10-325] 1 tab PO Q4-6H PRN #56 tab PRN Reason: Pain Sennosides/Docusate Sodium [Senna Plus 8.6-50 mg Tablet] 1 tab PO DAILY PRN PRN Reason: Constipation cefaDROXiL [Duricef] 500 mg PO Q12H Discharge Medication List Omeprazole [PriLOSEC] 20 mg PO BID 10/14/15 [History] Simvastatin [Zocor] 10 mg PO HS 10/14/15 [History] Pregabalin [Lyrica] 150 mg PO BID 03/17/19 [History] lisinopriL [Prinivil] 10 mg PO DAILY 04/30/20 [History] Spironolactone 100 mg PO DAILY 06/18/20 [History] Acetaminophen [Tylenol Extra Strength] 500 mg PO Q6H PRN 08/22/22 [History] Albuterol Inhaler [Ventolin Hfa Inhaler] 1 - 2 puff INHALATION RT-QID PRN 08/22/22 [History] Multivit-Min/FA/Lycopen/Lutein [Centrum Silver Tablet] 1 tab PO DAILY 08/22/22 [History] Cyclobenzaprine [Flexeril] 10 mg PO TID #90 tab 08/30/22 [Rx] Gabapentin 300 mg PO TID #90 cap 08/30/22 [Rx] HYDROcodone/APAP 10-325MG [Leicester 10-325] 1 tab PO Q4-6H PRN #56 tab 08/30/22 [Rx] Sennosides/Docusate Sodium [Senna Plus 8.6-50 mg Tablet] 1 tab PO DAILY PRN 09/07/22 [History] cefaDROXiL [Duricef] 500 mg PO Q12H 09/07/22 [History] Cyclobenzaprine [Flexeril] 5 mg PO TID #21 tablet 09/09/22 [Rx] Gabapentin 300 mg PO TID #27 cap 09/09/22 [Rx] HYDROcodone/APAP 10-325MG [Leicester 10-325] 1 tab PO Q6HR PRN #28 tab 09/09/22 [Rx] Sennosides/Docusate Sodium [Senna Plus 8.6-50 mg Softgel] 1 each PO DAILY #20 capsule 09/09/22 [Rx] Follow up Appointment(s)/Referral(s): Vincent Nails MD [Primary Care Provider] - 1-2 days Doug Early DO [Doctor of Osteopathic Medicine] - 1 Week Activity/Diet/Wound Care/Special Instructions: Spine Discharge and Recovery Instructions Date of Surgery: 08/25/2022 Diagnosis: Low back pain; bilateral lower extremity weakness Procedure: L4-S1 posterior lateral interbody fusion Medications: See medication list All medication refills should be obtained through your primary care doctor or your clinic spine surgeon. Please discuss prescription refills at your follow up appointment. Do not call the hospital for medication refills. Dressing: Leave your dressing in place for a total of 5 days post operatively. Then you may remove your dressing and leave open to air. Keep the area clean and if not able to keep area clean, then cover with sterile gauze and tape. Showering: You may shower 3 days after your procedure allowing soap and water to run over incision. Do not scrub. Do not soak. Blot dry. Follow up: Please confirm a follow up appointment with your surgeon 3 weeks post operatively. Please make an appointment to follow up with your PCP in 1-2 weeks after surgery for evaluation 3 phase, 3-week plan POST OP WEEKS 1-3 1. Lifting/carrying/pushing/pulling limited to less than 5 pounds. 2. Do not sit for longer than 15 minutes at one time. Get up and walk around. Prolonged sitting is NOT advised. If you lay down, see if you can tolerate laying down on you front (belly side) 3. Walk for periods of 15 minutes = 1 mile but no longer; do it multiple times times each day. 4. Ice your low back after activity. POST OP WEEKS 3-6 1. Lifting limited to less than 20 pounds. 2. Do not sit for longer than 30 minutes at a time. Frequently change positions. Use a sit-to stand workstation or take frequent breaks from sitting if you have returned to work. 3. Walk for 30 minutes each day. If possible, do these three or more times a day POST OP WEEKS 6+ At your 6-week appointment we will give you a physical therapy referral to focus on a core stabilization and strengthening program. You should also work on leg & buttock strengthening, hamstring & quadriceps stretching, and continue a low impact aerobic activity program such as swimming, walking, or riding a stationary bicycle. During the initial 6 weeks after your surgery, you are at the highest risk of re-injuring your spine. You should generally avoid BLTs (bending, lifting and twisting combination motions) and follow the above guidelines to reduce the chance of reinjury. You can anticipate post op appointments in our office at approximately 3 weeks and 6 weeks after your surgery. INCISION CARE: If your incision is not draining you do NOT need to cover it with a dressing. Keep your incision clean, dry and intact. In most cases, we apply skin glue, jairon or sutures to the incision at the time of surgery. This will be like a crust or have the appearance of a scab and will fall off in time on its own. The stitches or jairon need to be removed at 3 weeks post op appointment. You may begin to shower 3 days after surgery (this allows the glue to yates well). However, please avoid scrubbing the incision site or peeling off any of the skin glue. This will ensure optimal healing of your incision. Also, during this time avoid soaking the incision area in water - this includes swimming pools, hot tubs or baths. No ointments, lotions or oils on the incision until your surgeon allows. Leave jairon, sutures or glue in place. Neurological dysfunction that comes on suddenly can also be a sign of a stroke. Below some common symptoms of a stroke are listed: B - balance difficulty such as sudden onset walking or leaning to one side - NEW E - eye problem such as sudden double vision or trouble seeing on one side - NEW F - Facial weakness or numbness on one side - NEW A - Arm or leg weakness or numbness on one side - NEW S - Slurred speech or difficulty with word finding - NEW T - Time is BRAIN! Call 911 as soon as you recognize these symptoms Diet: Consume a regular diet rich in vegetables and lean protein such as chicken or fish. You should consume in a ratio of approximately 20% fats|40% carbohydrates|40%protein. Vegetables, sweet potatoes, brown rice or quinoa are examples of good carbohydrates. Chips, white bread, cookies and sweets/sugar are examples of bad carbohydrates. Limit your bad carbs, go wild with good carbs. "Life's Simple 7" Guidelines as per [place] [employer] These will help you reclaim your life after surgery and cook helper juice in your recovery, keeping in mind your restrictions. (1) Get Active. Physical activity can help people lose weight, control high blood pressure and cholesterol, feel emotionally better, and sleep better. (2) Control Cholesterol. Avoid a diet high in saturated fat, trans fat, & cholesterol. Limit whole milk & cream, ice cream, butter, egg yolks, processed meats (like sausage and hot dogs), and fatty meats. Choose healthy foods that are low in saturated fat, trans fat and cholesterol which include: Fruits and vegetables, fiber rich grain products (like whole grain pasta and brown rice), lean meat such as chicken, fish, nuts, seeds, and legumes. (3) Eat Better. Eat small portions. Shop at the grocery with a list and do not stray from it. Tips for a healthy diet include: Limit sodium intake to less than 1500mg daily, avoid prepackaged, processed, and fast foods, choose a diet rich in fruits, vegetables, and whole grain, high fiber foods, and limit saturated & cholesterol in your diet. (4) Manage Blood Pressure. If you have high blood pressure, you should have a cuff at home so that you can check your blood pressure regularly. Be sure you have a good cuff. An arm one is generally better than a wrist one. Bring the cuff to a doctor's appointment to validate that the measurements that your cuff are taking are accurate. Take your blood pressure twice daily when you are sitting down and relaxing. Record the numbers in a log and bring this log with you to your doctors' appointments. (5) Lose Weight if your BMI is above 25. A healthy BMI is between 19-25. To calculate Your BMI, you may use a Standard BMI Calculator on the NIH BMI website: <www.nhlbi.nih.gov/guidelines/obesity/BMI/bmicalc.htm>. Weigh oneself daily. If you are overweight, set a goal to lose weight. A pound a week loss if needed is a good target. (6) Reduce Blood Sugar. Limit foods and liquids with "added sugars." (Added sugars include sucrose, fructose, glucose, maltose, dextrose, high fructose corn syrup, corn syrup, concentrated fruit juice and honey). (7) Stop Smoking. If you smoke, quitting smoking is one of the best things that you can do for your health. Smoking increases your risk of heart attack, stroke, and peripheral vascular disease, which is a build-up of plaque in your arteries. Please discard all the cigarettes and lighters in your house. Have a plan for what you will do when you have the urge to smoke. Direct and second- hand smoke shortens your life as well as the lives of your family, friends and others around you. For your health and the health of those around you, please consider quitting! Proper Bending Body Mechanics: Maintain a wide stance with one foot slightly in front of the other. Keep your back straight. Bend utilizing the strength in your hips and knees. Do not bend at the waist. Maintain the lifted object at your waist-level close to your body. Avoid lifting weight that causes immediately pain or pain anywhere in the body afterwards. Smoking/Nicotine If there was ever one thing that you could do to increase your overall health, decrease your risk of cardiovascular problems by about 39% the second you make the choice, it is to STOP SMOKING. Your body's most instant gratification is the second you stop smoking. We have all heard the studies, read the articles but it is true, smoking is extremely bad for your overall health, and moreover it is detrimental to your bone health. Nicotine, IN ANY FORM, kills bone cells, prevents your body from healing fractures, and significantly prolongs healing after surgery. In spine surgery specifically, it increases your risk of not healing your bones to create a fusion and increases your risk of having a revision surgery due to this up to 60%. I know it is hard. I know it feels impossible. But there are ways. Take control of your life. We are here to help you through it. And when you are ready, ask us and we can direct you to help if you desire. Use the START Plan to Quit Smoking (please visit the [employer]org website listed below for more information): S = Set a quit date. Choose a date within the next 2 weeks, so you have enough time to prepare without losing your motivation to quit. If you mainly smoke at work, quit on the weekend, so you have a few days to adjust to the change. T = Tell family, friends, and co-workers that you plan to quit. Let your friends and family in on your plan to quit smoking and tell them you need their support and encouragement to stop. Look for a quit warren who wants to stop smoking as well. You can help each other get through the rough times. A = Anticipate and plan for the challenges you'll face while quitting. Most people who begin smoking again do so within the first 3 months. You can help yourself make it through by preparing ahead for common challenges, such as nicotine withdrawal and cigarette cravings. R = Remove cigarettes and other tobacco products from your home, car, and work. Throw away all your cigarettes (no emergency pack!), lighters, ashtrays, and matches. Wash your clothes and freshen up anything that smells like smoke. Shampoo your car, clean your drapes and carpet, and steam your furniture. T = Talk to your doctor about getting help to quit. Your doctor can prescribe medication to help with withdrawal and suggest other alternatives. If you can't see a doctor, you can get many products over the counter at your local pharmacy or grocery store, including the nicotine patch, nicotine lozenges, and nicotine gum. Resources for Quitting Smoking: <https://www.[facility].gov/documents/[facility]/Quit_Tobacco_Resources_for_patients_313480_7.pdf> Supplementation: Take recommended dosages of Vitamin D and Calcium to help fortify your bones and help them to heal. See your health maintenance packet for dosages and recommended levels. DVT/VTE prophylaxis: You will be given compression stockings from the hospital. Wear these daily for the first two weeks after surgery. You may take them off at night. You may be prescribed a medication to help thin your blood. Take this as directed. If you are not prescribed this medication, early and frequent ambulation has been shown to be the best prophylaxis to deep vein thrombosis and sequelae related to this event. Discharge Disposition: TRANSFER TO SNF/ECF
[2022-09-09 12:26] LABS: African American GFR (CKD) 51.6 (60.0-200.0); Blood Urea Nitrogen 27.2 mg/dL (9.0-27.0); Calcium 9.5 mg/dL (8.7-10.3); Carbon Dioxide 23.7 mmol/L (20.0-27.5); Chloride 103 mmol/L (96-109); Glucose 129 mg/dL (70-110); Non-African American GFR(CKD) 44.6 (60.0-200.0); Potassium 5.4 mmol/L (3.5-5.5); Sodium 139 mmol/L (135-145)
[2022-09-09 14:42] VITALS: BP 128/81; PULSE 80; TEMP 98.5
--- NOTE | 2022-09-10 04:10 | P.PN ---
Subjective Progress Note Date: 09/09/22 - Reason for Consult Consult date: 09/08/22 Medical management - Chief Complaint Fall - History of Present Illness Patient is a 67 old male with a known history of hypertension, hyperlipidemia, osteoarthritis, history of prostate cancer status post prostatectomy, currently some day smoker and occasional alcohol use and occasional marijuana use, GERD, COPD and prior history of GI bleed with gastric ulcers presents to ER status post fall and unable to ambulate and right lower extremity pain. Patient recently had L4 S1 decompression fusion surgery on 08/25/2022. Patient was discharged home on 08/30/2022. Patient otherwise denies any chest pain or shortness of breath. No bladder or bowel incontinence. No nausea vomiting abdominal pain or diarrhea. Patient states that his right leg gave away. X-ray of the lumbar spine showed no acute changes lumbar spine. Postsurgical changes appear stable. Chest x-ray showed no acute cardiopulmonary process. On admission blood pressure 113/65 pulse is 114 respiration 20 pulse ox 95% on room air. Laboratory data showed WBC 6.5 hemoglobin 10.1 and platelets 193 Sodium 136 potassium 4.8 chloride 104 bicarb is 25 BUN 21 creatinine 1.34 and proBNP 125 and albumin 3.2. 09/09/2022 Patient is seen in follow-up with orthopedics following planning on ECF. Patient is currently sitting up in the chair with family at bedside. Patient having some continued lower extremity edema and recommend Yaya wrapping to bilateral lower extremities and elevating well at rest. We'll give a few days of oral Lasix and recommend close monitoring of kidney functions his creatinine is slightly elevated. Patient evaluated by physical therapy recommending rehab and plan is for discharge to [facility] today. He denies chest pain, dizziness, lightheadedness or palpitations. Patient is afebrile denies shortness of breath. Patient denies nausea or vomiting and tolerating diet. Review of systems: Constitutional: No reports of fatigue, fever, or chills Cardiovascular: No reports of chest pain or palpitations Respiratory: No reports of shortness of breath or cough GI: No reports of nausea, vomiting, or diarrhea : No reports of dysuria or retention Neurovascular: reports of generalized weakness and lower extremity swelling All medications have been reviewed Physical Exam: Patient is sitting up in the chair, no acute distress, awake alert and oriented.. HEENT: Normocephalic. Neck is supple. Pupils reactive. Nostrils clear. Oral cavity is moist. Neck reveals no JVD, carotid bruits, or thyromegaly. CHEST EXAMINATION: Trachea is central. Symmetrical expansion. Lung blackman clear to auscultation and percussion. CARDIAC: Normal S1, S2 with no gallops. No murmurs ABDOMEN: Soft. Bowel sounds present. Nontender. No organomegaly. No abdominal bruits. Extremities: Bilateral lower extremity edema and 1-2+ pitting edema noted of the feet. No clubbing or cyanosis Neurologically awake, alert, oriented x3 with well-coordinated movements. No focal deficits noted, diffusely weak Skin: No rash or skin lesions. Psychiatric: Cooperative. Non-suicidal, Musculoskeletal: No joint swelling or deformity. Normal range of motion. Lower back surgery surgical jairon in place. No evidence of infection or discharge noted. Assessment: S/p fall likely due to generalized weakness. Patient states that his right leg gave away. Ruled out orthostatic hypotension. X-ray of the lumbar spine seems to be stable surgical changes. Acute kidney injury likely prerenal History of alcohol abuse and intoxication Chronic alcoholic liver disease COPD, not in exacerbation Prostate cancer status post previous prostatectomy Hypertension Hyperlipidemia Occasional marijuana use Iron deficiency anemia DVT prophylaxis Plan: Patient will be continued on gentle IV hydration and continue with pain medications, limit narcotic pain medications. PT/OT following recommending rehab case management can discharge planning to [facility] and patient is agreeable Continue with blood pressure medications as needed. Patient is on spironolactone and lisinopril at home and recommend to hold for now and monitor kidney functions closely Patient with some lower extremity edema 1-2+ pitting bilaterally pedal and recommend Yaya wraps from the toes up to the knees elevated while at rest and will give a few days of Lasix. Recommend follow-up labs in the outpatient setting of [facility] in 2-3 days We will continue to follow with orthopedics during hospitalization. Thank you kindly for this consultation. Plan is for discharge to [facility] this afternoon. Guarded prognosis. The impression and plan of care has been dictated by Jessica Kunz, Nurse Practitioner as directed. Dr. Mauricio MD I have performed a history and examination and MDM of this patient, discussed the same with the dictator, and agree with the dictator's assessment and plan as written ,documented as a scribe. Based on total visit time, I have performed more than 50% of the visit. Objective - Vital Signs Vital signs: Vital Signs Temp 98.2 F 09/09/22 07:55 Pulse 99 09/09/22 07:55 Resp 18 09/09/22 07:55 BP 146/80 09/09/22 07:55 Pulse Ox 97 09/09/22 07:55 FiO2 Intake & Output 09/08/22 09/09/22 09/09/22 18:59 06:59 18:59 Intake Total 540 Output Total 725 1100 Balance -185 -1100 Intake: Oral 540 Output: Urine 725 1100 Other: Voiding Method Urinal Urinal # Voids 1 2 # Bowel Movements 1 - Labs CBC & Chem 7: 09/09/22 04:48 09/09/22 04:48 Labs: Abnormal Lab Results - Last 24 Hours (Table) 09/09/22 09/09/22 Range/Units 04:48 04:48 RBC 3.14 L (4.30-5.90) m/uL Hgb 9.7 L (13.0-17.5) gm/dL Hct 28.9 L (39.0-53.0) % Neutrophils # 8.5 H (1.3-7.7) k/uL Lymphocytes # 0.8 L (1.0-4.8) k/uL BUN 27.2 H (9.0-27.0) mg/dL Creatinine 1.6 H (0.6-1.5) mg/dL Est GFR (CKD-EPI)AfAm 51.6 L (60.0-200.0) Est GFR (CKD-EPI)NonAf 44.6 L (60.0-200.0) Glucose 129 H (70-110) mg/dL Vitamin B12 1525.0 H (200.0-944.0) pg/mL
== END 2022-09-09 14:45 ==
LOC: EC 12:55 → 6NMEDSUR 18:40
PROVIDERS: ADMIT Orthopaedic Surgery; ATTEND Orthopaedic Surgery
DX: M54.50 Low back pain, unspecified (principal); R53.1 Weakness; N17.9 Acute kidney failure, unspecified; Z98.1 Arthrodesis status; M79.604 Pain in right leg; D50.9 Iron deficiency anemia, unspecified; K21.9 Gastro-esophageal reflux disease without esophagitis; E78.5 Hyperlipidemia, unspecified; J44.9 Chronic obstructive pulmonary disease, unspecified; I10 Essential (primary) hypertension; R60.0 Localized edema; M19.90 Unspecified osteoarthritis, unspecified site; K70.30 Alcoholic cirrhosis of liver without ascites; F10.21 Alcohol dependence, in remission; G25.81 Restless legs syndrome; H40.9 Unspecified glaucoma; F17.200 Nicotine dependence, unspecified, uncomplicated; W18.30XA Fall on same level, unspecified, initial encounter; Y92.009 Unspecified place in unspecified non-institutional (private) residence as the place of occurrence of the external cause; Z79.899 Other long term (current) drug therapy; Z85.46 Personal history of malignant neoplasm of prostate; Z87.11 Personal history of peptic ulcer disease; Z98.42 Cataract extraction status, left eye; Z98.41 Cataract extraction status, right eye; Z90.79 Acquired absence of other genital organ(s); Z98.890 Other specified postprocedural states; Z80.8 Family history of malignant neoplasm of other organs or systems; Z82.5 Family history of asthma and other chronic lower respiratory diseases; Z81.1 Family history of alcohol abuse and dependence
CPT/HCPCS: 96374; 99285; 36415; 97116; 97162; 97530; 97166; 82747; 83880; 80053; 80048; 84443; 82607; 85025 ×2; 87635; 72110; 71046; 93970; G0378 ×3; J2930

== ENCOUNTER 2022-09-27 10:40 | Day surgery (SDC) | payer MEDICARE, OTHER ==
[2022-09-22 10:16] VITALS: BMI 25.9
[~2022-09-27 10:40] MED LIST changes: -ACETAMINOPHEN TAB 500 MG TAB PO PRN; -DEXAMETHASONE SOD PHOSPHATE 4 MG/ML 1 ML VIAL IV ONE; -GABAPENTIN 300 MG CAP PO PRN; -HYDROmorphone 0.5 MG/0.5 ML SYRINGE IVP PRN; +LACTATED RINGERS 1,000 ML IV SCH; +LIDOCAINE 1% (10MG/ML) FOR IV START INTRADERMA PRN; -ONDANSETRON 4 MG/2 ML VIAL IVP ONE; -ONDANSETRON 4 MG/2 ML VIAL IVP PRN; -TRANEXAMIC ACID IN NACL,ISO-OS 1,000 MG in SALINE 1 100ML.BAG IVPB PRN
[2022-09-27 11:16] VITALS: RESP 16; TEMP 98.2
[2022-09-27] MEDS ORDERED: LIDOCAINE 2% INJ 20 MG/ML (2 ML VIAL) ONE (11:28)
[2022-09-27] MEDS ORDERED: PROPOFOL 10 MG/ML 20 ML VIAL IV ONE (11:28)
--- NOTE | 2022-09-27 11:45 | P.PCN ---
Date of Procedure: 09/27/22 Procedure(s) Performed: BRIEF HISTORY: Patient is a 67-year-old, pleasant, white male scheduled for an upper endoscopy as a part of screening for esophageal varices. He has history of alcoholic cirrhosis of the liver diagnosis 3 years ago.. PROCEDURE PERFORMED: Esophagogastroduodenoscopy. PREOPERATIVE DIAGNOSIS: Cirrhosis of the liver/screening for esophageal varices. IV sedation per anesthesia. PROCEDURE: After informed consent was obtained, the patient was brought into the endoscopy unit. IV sedation was administered by Anesthesia under continuous monitoring. Initially the Olympus GIF-140 video endoscope was inserted into the mouth. Esophagus intubated without any difficulty. It was gradually advanced into the stomach and duodenum and carefully examined. The bulb and the second part of the duodenum appeared normal. The scope at this time was withdrawn to the stomach, adequately insufflated with air, and upon careful examination, mucosa of the antrum, had mild gastritis. The body, cardia and the fundus appeared normal. The scope was then withdrawn into the esophagus. The GE juncti on was located at 39 cm from the incisors. The esophagus appeared normal. There were no erosions or ulcerations seen. Small distal esophageal varices seen and the patient tolerated the procedure well. IMPRESSION: 1. Small distal esophageal varices. 2. Mild antral gastritis. 3. No evidence of gastric varices RECOMMENDATIONS: The findings of this examination were discussed with the patient as well as his family. He was advised to have a repeat upper endoscopy for screening for esophageal varices in 3 years.
[2022-09-27 11:50] VITALS: PULSE 81
[2022-09-27 12:06] VITALS: BP 121/79
== END 2022-09-27 12:38 | disposition home or self-care (01) ==
LOC: ORWHC2ENDO 10:40
PROVIDERS: ATTEND Internal Medicine Gastroenterology
DX: I85.00 Esophageal varices without bleeding (principal); K29.50 Unspecified chronic gastritis without bleeding; K74.60 Unspecified cirrhosis of liver; I10 Essential (primary) hypertension; J44.9 Chronic obstructive pulmonary disease, unspecified; F17.200 Nicotine dependence, unspecified, uncomplicated; M54.9 Dorsalgia, unspecified; Z79.51 Long term (current) use of inhaled steroids; Z79.899 Other long term (current) drug therapy
CPT/HCPCS: 43235; J2704; J2001; 86850; 86900; 86901

== ENCOUNTER → 2022-12-30 | Outpatient (CLI) | payer MEDICARE, OTHER ==
[2022-12-30 20:44] LABS: African American GFR (CKD) 44.5 (60.0-200.0); Albumin/Globulin Ratio 1.45 (1.60-3.17); Anion Gap 10.8 mmol/L (10.00-18.00); BUN/Creat Ratio 12.15 Ratio (12.00-20.00); Carbon Dioxide 22.4 mmol/L (20.0-27.5); Globulin 2.8 g/dL (1.6-3.3); Non-African American GFR(CKD) 38.4 (60.0-200.0); Potassium 4.8 mmol/L (3.5-5.5); Total Bilirubin 0.4 mg/dL (0.30-1.20); Total Protein 6.8 g/dL (6.2-8.2)
[2022-12-30 22:25] LABS: HCT 37.6 % (39.6-50.0); HGB 11.8 g/dL (13.0-17.0); MCH 24.5 pg (27.0-32.0); MCHC 31.4 g/dL (32.0-37.0); NRBC Per 100 WBC 0 /100 WBCS (0.0-0.0); Platelet Count 176 X 10*3/uL (140-440); RBC 4.82 X 10*6/uL (4.40-5.60); RDW 18.9 % (11.5-14.5); WBC 7.63 X 10*3/uL (4.50-10.00)
[2022-12-30 22:26] LABS: Anisocytosis (M) 2+; Elliptocytes 2+; Microcytosis (M) 2+
== END | disposition home or self-care (01) ==
LOC: LABWHC1 13:25
PROVIDERS: ATTEND Family Medicine
DX: K74.60 Unspecified cirrhosis of liver (principal)
CPT/HCPCS: 36415; 80053; 85027

== ENCOUNTER → 2023-02-14 | Outpatient (CLI) | payer MEDICARE, OTHER ==
--- NOTE | 2023-02-14 16:02 | US ---
EXAMINATION TYPE: US liver DATE OF EXAM: 02/14/2023 COMPARISON: US dated 06/15/2022 CLINICAL INDICATION: Male, 67 years old with history of K70.30 ALCOHOLIC CIRRHOSIS OF LIVER WITHOUT A SCITE; TECHNIQUE: Multiple sonographic images of the right upper quadrant are obtained. FINDINGS: EXAM MEASUREMENTS: Liver Length: 11.3 cm Gallbladder Wall: 0.3 cm CBD: 0.3 cm Right Kidney: 9.1 x 4.4 x 5.0 cm Pancreas: mostly obscured by bowel gas Liver: nodular contour, heterogeneous echotexture. No focal lesion seen. Gallbladder: No stones seen Evidence for sonographic Mckeon's sign: No CBD: wnl Right Kidney: No hydronephrosis or masses seen IMPRESSION: 1. Cirrhotic morphology of the liver. No sonographic evidence for hepatoma. 2. No gallstones or biliary ductal dilatation.
== END | disposition home or self-care (01) ==
LOC: RADUSWWP 08:55
PROVIDERS: ATTEND Internal Medicine Gastroenterology
DX: K70.30 Alcoholic cirrhosis of liver without ascites (principal)
CPT/HCPCS: 76705

== ENCOUNTER 2023-02-28 09:49 | Day surgery (SDC) | payer MEDICARE, OTHER ==
[2023-02-23 13:42] VITALS: BMI 24.4
[~2023-02-28 09:49] MED LIST changes: -LIDOCAINE 1% (10MG/ML) FOR IV START INTRADERMA PRN
[2023-02-28 10:29] VITALS: TEMP 97
[2023-02-28] MEDS ORDERED: FAMOTIDINE 20 MG/2 ML VIAL IVP ONE (10:35)
[2023-02-28] MEDS ORDERED: PROPOFOL 10 MG/ML 20 ML VIAL IV ONE (11:39)
[2023-02-28] MEDS ORDERED: LIDOCAINE 2% INJ 20 MG/ML (2 ML VIAL) ONE (11:39)
--- NOTE | 2023-02-28 11:45 | P.PCN ---
Date of Procedure: 02/28/23 Procedure(s) Performed: BRIEF HISTORY: Patient is a 67-year-old, pleasant, female scheduled for an upper endoscopy as a part of evaluation of liver cirrhosis and screening for esophageal varices. As EGD was done 3 years ago and patient did not have any esophageal varices at that time. PROCEDURE PERFORMED: Esophagogastroduodenoscopy. PREOPERATIVE DIAGNOSIS: History of liver cirrhosis/screening for esophageal varices. IV sedation per anesthesia. PROCEDURE: After informed consent was obtained, the patient was brought into the endoscopy unit. IV sedation was administered by Anesthesia under continuous monitoring. Initially the Olympus GIF-140 video endoscope was inserted into the mouth. Esophagus intubated without any difficulty. It was gradually advanced into the stomach and duodenum and carefully examined. The bulb and the second part of the duodenum appeared normal. The scope at this time was withdrawn to the stomach, adequately insufflated with air, and upon careful examination, mucosa of the antrum had minimal gastritis. Mucosa of the, body, cardia and the fundus appeared normal. No gastric varices identified. The scope was then withdrawn into the esophagus. The GE junction was located at 39 cm from the incisors. The esophagus appeared normal. There were no erosions or ulcerations seen. There were very small distal esophageal varices noted. the patient tolerated the procedure well. IMPRESSION: 1. Very small distal esophageal varices. 2. Mild antral gastritis. RECOMMENDATIONS: The findings of this examination were discussed with the patient as well as his family. He was advised to have a repeat upper endoscopy in 2-3 years to monitor esophageal varices..
[2023-02-28 12:08] VITALS: BP 101/65; PULSE 56; RESP 14
== END 2023-02-28 12:38 | disposition home or self-care (01) ==
LOC: ORWHC2ENDO 09:49
PROVIDERS: ATTEND Internal Medicine Gastroenterology
DX: K29.70 Gastritis, unspecified, without bleeding (principal); I85.10 Secondary esophageal varices without bleeding; K74.60 Unspecified cirrhosis of liver; I10 Essential (primary) hypertension; E78.5 Hyperlipidemia, unspecified; J44.9 Chronic obstructive pulmonary disease, unspecified; F17.210 Nicotine dependence, cigarettes, uncomplicated; M19.90 Unspecified osteoarthritis, unspecified site; G25.81 Restless legs syndrome; K21.9 Gastro-esophageal reflux disease without esophagitis; Z79.51 Long term (current) use of inhaled steroids; Z79.899 Other long term (current) drug therapy
CPT/HCPCS: 43235; J2704; J2001

== ENCOUNTER 2023-04-17 18:59 | Emergency (ER) | payer MEDICARE, OTHER ==
[2023-04-17 19:11] VITALS: TEMP 98.4
[2023-04-17] MEDS ORDERED: LIDOCAINE 1% INJ 10MG/ML (20 ML MDV) SQ ONE (19:23)
[2023-04-17] MEDS ORDERED: DIPH,PERTUS(ACELL)TETVAC-LF 0.5 ML VIAL IM ONE (19:23)
--- NOTE | 2023-04-17 19:34 | ED ---
Fall HPI - General Chief Complaint: Fall Stated Complaint: Fall, head injury Time Seen by Provider: 04/17/23 19:17 Source: patient Mode of arrival: EMS - History of Present Illness Initial Comments: 67-year-old male presenting with chief complaint of head injury. Patient states that he was on his way back from the store when "the wind caught my walker". The patient then fell down backward hitting the back of his head on the pavement. He does have a laceration to the back of his head. Does not believe he takes any blood thinners. EMS was called by 2 bystanders. Patient regularly drinks 2 pints of liquor per day, he has had a half pint today so far. He denies any other injuries. He denies chest pain, shortness of breath, abdominal pain, nausea, vomiting, dizziness, numbness, tingling, weakness, vision or hearing changes. - Related Data Home Medications Medication Instructions Recorded Confirmed Omeprazole [PriLOSEC] 20 mg PO BID 10/14/15 02/23/23 Albuterol Inhaler [Ventolin Hfa 1 - 2 puff INHALATION RT-QID PRN 08/22/22 02/23/23 Inhaler] Multivit-Min/FA/Lycopen/Lutein 1 tab PO DAILY 08/22/22 02/23/23 [Centrum Silver Tablet] Albuterol Nebulizer 1 dose INHALATION DIRECTED PRN 09/22/22 02/23/23 Spironolactone 100 mg PO DAILY 02/23/23 02/23/23 lisinopriL [Zestril] 10 mg PO DAILY 02/23/23 02/28/23 Previous Rx's Medication Instructions Recorded Pregabalin [Lyrica] 150 mg PO BID #4 cap 09/09/22 Allergies Allergy/AdvReac Type Severity Reaction Status Date / Time No Known Allergies Allergy Verified 04/17/23 19:11 Review of Systems ROS Statement: Those systems with pertinent positive or pertinent negative responses have been documented in the HPI. ROS Other: All systems not noted in ROS Statement are negative. Past Medical History Past Medical History: Cancer, COPD, GERD/Reflux, GI Bleed, Hyperlipidemia, Hypertension, Liver Disease, Osteoarthritis (OA), Prostate Disorder Additional Past Medical History / Comment(s): RLS., 2005 esophageal bleeding & stomach ulcers.,hx. Prostate cancer . cirrhosis., Hx hepatitis., pt states swelling in legs., pt currently at [facility]- recent back surgery and fall. History of Any Multi-Drug Resistant Organisms: None Reported Past Surgical History: Back Surgery, Orthopedic Surgery, Prostate Surgery Additional Past Surgical History / Comment(s): cataracts, prostatectomy, COLONOSCOPY/EGD, BACK INJECTIONS, laser eye surgery for glaucoma, cervical fusio n with pins Past Anesthesia/Blood Transfusion Reactions: No Reported Reaction Past Psychological History: No Psychological Hx Reported Smoking Status: Current every day smoker Past Alcohol Use History: Daily Past Drug Use History: Marijuana - Past Family History Sister(s) Family Medical History: Cancer Brother(s) Family Medical History: Cancer Additional Family Medical History / Comment(s): throat cancer Mother Family Medical History: COPD Additional Family Medical History / Comment(s): of COPD Father Additional Family Medical History / Comment(s): of alcoholism General Exam Limitations: altered mental status General appearance: alert, in no apparent distress Head exam: Present: normocephalic Expanded Head exam: Present: laceration (Occipital region) Eye exam: Present: normal appearance, PERRL, EOMI. Absent: scleral icterus, conjunctival injection, periorbital swelling Neck exam: Present: normal inspection, full ROM. Absent: tenderness Respiratory exam: Present: normal lung sounds bilaterally. Absent: respiratory distress, wheezes, rales, rhonchi, stridor Cardiovascular Exam: Present: regular rate, normal rhythm, normal heart sounds. Absent: systolic murmur, diastolic murmur, rubs, gallop, clicks Neurological exam: Present: alert, oriented X3 Expanded Speech: Present: fluid speech Cranial nerves: EOM's Intact: Normal Motor strength exam: RUE: 5, LUE: 5, RLE: 5, LLE: 5 Eye Response: (4) open spontaneously Motor Response: (6) obeys commands Verbal Response: (5) oriented Jin Total: 15 Psychiatric exam: Present: normal affect, normal mood Skin exam: Present: warm, dry, normal color. Absent: rash Expanded Type of lesion: Present: laceration Course Vital Signs 04/17/23 04/17/23 19:02 21:13 Temperature 98.4 F Pulse Rate 81 73 Respiratory 18 17 Rate Blood Pressure 119/65 108/55 O2 Sat by Pulse 97 98 Oximetry Procedures - Laceration Laceration #1 Consent Obtained: verbal consent Indication: laceration Site: scalp Size (cm): 7 Description: linear Depth: simple, single layer Anesthetic Used: lidocaine 1%, without epi Anesthesia Technique: local infiltration Pre-repair: wound explored Type of Sutures: other (wade) Number of Sutures: 6 Patient Tolerated Procedure: well Medical Decision Making - Medical Decision Making Was pt. sent in by a medical professional or institution (, GERHARD, ASSEMBLY LINE MACHINE OPERATOR, urgent care, hospital, or correction...) When possible be specific @ -No Did you speak to anyone other than the patient for history (EMS, parent, family, police, friend...)? What history was obtained from this source @ -History supplemented by the patient's sister at bedside Did you review nursing and triage notes (agree or disagree)? Why? @ -I reviewed and agree with nursing and triage notes Were old charts reviewed (outside hosp., previous admission, EMS record, old EKG, old radiological studies, urgent care reports/EKG's, correction records)? Report findings @ -No old charts were reviewed Differential Diagnosis (chest pain, altered mental status, abdominal pain women, abdominal pain men, vaginal bleeding, weakness, fever, dyspnea, syncope, headache, dizziness, GI bleed, back pain, seizure, CVA, palpatations, mental health, musculoskeletal)? @ -Differential includes skull fracture, intracranial hemorrhage, scalp laceration, hematoma, this is not an all inclusive list EKG interpreted by me (3pts min.). @ -As above X-rays interpreted by me (1pt min.). @ -None done CT interpreted by me (1pt min.). @ -No acute intracranial process. Right posterior scalp edema/hematoma. Nonspecific white matter changes, likely secondary to chronic small vessel ischemic disease. No evidence of cervical spine fracture. Extensive surgical changes to the spine with hardware intact. Superimposed mild to moderate degeneration changes are also present U/S interpreted by me (1pt. min.). @ -None done What testing was considered but not performed or refused? (CT, X-rays, U/S, labs)? Why? @ -None What meds were considered but not given or refused? Why? @ -None Did you discuss the management of the patient with other professionals (professionals i.e. , PA, ASSEMBLY LINE MACHINE OPERATOR, lab, RT, psych nurse, social worker assistant, insole cementer, teacher, press officer, case finisher)? Give summary @ -No Was smoking cessation discussed for >3mins.? @ -No Was critical care preformed (if so, how long)? @ -No Were there social determinants of health that impacted care today? How? (Homelessness, low income, unemployed, alcoholism, drug addiction, transportation, low edu. Level, literacy, decrease access to med. care, intermediate, rehab)? @ -No Was there de-escalation of care discussed even if they declined (Discuss DNR or withdrawal of care, Hospice)? DNR status @ -No What co-morbidities impacted this encounter? (DM, HTN, Smoking, COPD, CAD, Cancer, CVA, ARF, Chemo, Hep., AIDS, mental health diagnosis, sleep apnea, morbid obesity)? @ -None Was patient admitted / discharged? Hospital course, mention meds given and route, prescriptions, significant lab abnormalities, going to OR and other pertinent info. @ -67-year-old male presenting with chief complaint of head injury. Patient fell backwards causing a laceration to the scalp. He denies loss of consciousness or blood thinners. He is drinking half a pint of liquor today, normally consumes 2 pints of liquor per day. On physical examination there are no focal neurological deficits, GCS 15. CT shows no acute intracranial process or cervical spine fracture. Laceration is repaired using wade. Follow-up with PCP. Report back to ER with any new or worsening symptoms. Discussed return parameters and answered all questions. Patient conveyed verbal understanding and agreed to the plan. I discussed this case in detail with my attending Dr. Ambriz Undiagnosed new problem with uncertain prognosis? @ -No Drug Therapy requiring intensive monitoring for toxicity (Heparin, Nitro, Insulin, Cardizem)? @ -No Were any procedures done? @ -Laceration repair Diagnosis/symptom? @ -Head injury, scalp laceration Acute, or Chronic, or Acute on Chronic? @ -Acute Uncomplicated (without systemic symptoms) or Complicated (systemic symptoms)? @ -Uncomplicated Side effects of treatment? @ -No Exacerbation, Progression, or Severe Exacerbation? @ -No Poses a threat to life or bodily function? How? (Chest pain, [place], [place], pneumonia, PE, COPD, DKA, ARF, appy, cholecystitis, CVA, Diverticulitis, Homicidal, Suicidal, threat to staff... and all critical care pts) @ -Low likelihood Disposition Clinical Impression: Head injury, Scalp laceration, Alcohol intoxication Disposition: HOME SELF-CARE Condition: Fair Instructions (If sedation given, give patient instructions): Head Injury (ED), Staple Care (ED) Additional Instructions: Follow-up with PCP. Report back to ER with any new or worsening symptoms. Wade may be removed in 7-10 days. Do not get the wound wet for 24 hours. Is patient prescribed a controlled substance at d/c from ED?: No Referrals: Vincent Nails MD [Primary Care Provider] - 1-2 days Time of Disposition: 21:05
--- NOTE | 2023-04-17 20:33 | CT ---
EXAMINATION TYPE: CT brain cspine wo con CT DLP: 1396.4 mGycm, Automated exposure control for dose reduction was used. DATE OF EXAM: 04/17/2023 8:10 PM COMPARISON: 06/06/2017 CLINICAL INDICATION:Male, 67 years old with history of fall, head injury; Fall, Head injury. TECHNIQUE: Brain: Multiple axial CT images of the brain were obtained without IV contrast. Cspine: Axial CT images from the skull base to the inferior aspect of T2 we obtained without intraven ous contrast. Coronal and sagittal reformatted images were also reviewed. FINDINGS: Brain: Extra-axial spaces: No abnormal extra-axial fluid collections. Ventricular system: Dilatation in proportion to cerebral atrophy. Cerebral parenchyma: Cerebral atrophy. No acute intraparenchymal hemorrhage or mass effect. The murillo -white junction is well differentiated. Scattered hypoattenuating areas are seen within the white mat ter. Cerebellum: Unremarkable. Mass effect: No evidence of midline shift. Intracranial vasculature: Atherosclerotic calcifications of the intracranial vessels. Soft tissues: Right posterior scalp edema/hematoma measuring 4.9 x 1.3 cm. Calvarium/osseous structures: No depressed skull fracture. Paranasal sinuses and mastoid air cells: Clear. Visualized orbits: Orbital contents are intact. Cervical spine: Fracture: None. Osseous structures: Extensive postsurgical changes to the spine with hardware in place. Visualized patterson rdware appears intact. Multilevel degeneration changes are present with osteophyte formation disc spa ce narrowing. No evidence for acute fracture. Vertebral alignment: Within normal limits. Spinal canal/Neural Foramina: No evidence of significant spinal canal narrowing. No evidence for sign ificant neural foraminal stenosis. Neck soft tissues: Prevertebral soft tissues are within normal limits. Other: The airway is patent. The lung apices are clear. IMPRESSION: 1. No acute intracranial process. 2. Right posterior scalp edema/hematoma. 3. Nonspecific white matter changes, likely secondary to chronic small vessel ischemic disease. 4. No evidence of cervical spine fracture. 5. Extensive surgical changes to the spine with hardware intact. Superimposed mild to moderate degen eration changes are also present.
[2023-04-17 21:15] VITALS: BP 108/55; PULSE 73; RESP 17
== END 2023-04-17 21:23 | disposition home or self-care (01) ==
LOC: EC 18:59
DX: S01.01XA Laceration without foreign body of scalp, initial encounter (principal); F10.129 Alcohol abuse with intoxication, unspecified; J44.9 Chronic obstructive pulmonary disease, unspecified; K21.9 Gastro-esophageal reflux disease without esophagitis; I10 Essential (primary) hypertension; M19.90 Unspecified osteoarthritis, unspecified site; F17.200 Nicotine dependence, unspecified, uncomplicated; F12.90 Cannabis use, unspecified, uncomplicated; Z79.1 Long term (current) use of non-steroidal anti-inflammatories (NSAID); Z79.899 Other long term (current) drug therapy; Z23 Encounter for immunization
CPT/HCPCS: 72125; 70450; 90715; 99284; 90471; 12002; J2001

== ENCOUNTER → 2023-07-05 | Outpatient (CLI) | payer MEDICARE, OTHER ==
[2023-07-05 19:22] LABS: ALT 14 U/L (10-49); AST 19 U/L (14-35); Albumin/Globulin Ratio 1.67 Ratio (1.60-3.17); Alkaline Phosphatase 67 U/L (41-126); Blood Urea Nitrogen 22.8 mg/dL (9.0-27.0); Calcium 10.1 mg/dL (8.7-10.3); Carbon Dioxide 23.6 mmol/L (21.6-31.8); Chloride 103 mmol/L (96-109); Globulin 2.4 d/dL (1.6-3.3); Glucose 96 mg/dL (70-110); Potassium 4.3 mmol/L (3.5-5.5); Sodium 139 mmol/L (135-145); Total Bilirubin 0.4 mg/dL (0.3-1.2); Total Protein 6.4 d/dL (6.2-8.2)
[2023-07-05 21:18] LABS: HCT 34.5 % (39.6-50.0); HGB 11.3 d/dL (13.0-17.0); MCH 27.3 pg (27.0-32.0); MCHC 32.8 d/dL (32.0-37.0); MCV 83.3 FL (80.0-97.0); Mean Platelet Volume 14.8 FL (9.5-12.2); NRBC Per 100 WBC 0 X 10*3/uL (0.00-0.01); Platelet Count 122 X 10*3/uL (140-440); RBC 4.14 X 10*6/uL (4.40-5.60); RDW 16.5 % (11.5-14.5); WBC 7.23 X 10*3/uL (4.50-10.00)
[2023-07-06 11:07] LABS: Alpha Lactalbumin IgE Class CLASS 0
== END | disposition home or self-care (01) ==
LOC: LABWHC1 11:08
PROVIDERS: ATTEND Internal Medicine Gastroenterology
DX: K70.30 Alcoholic cirrhosis of liver without ascites (principal)
CPT/HCPCS: 36415; 80053; 82105; 85027; 86003

== ENCOUNTER → 2023-08-14 | Outpatient (CLI) | payer MEDICARE, OTHER ==
--- NOTE | 2023-08-14 12:45 | US ---
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 FINDINGS: EXAM MEASUREMENTS: Liver Length: 10.7 cm Gallbladder Wall: 0.2 cm CBD: 0.4 cm Right Kidney: 9.1 x 4.8 x 4.4 cm Pancreas: Tail obscured by overlying bowel gas Liver: heterogeneous in coarsened echotexture with nodular contour. No suspicious observations. Gallbladder: no evidence of stones Evidence for sonographic Mckeon's sign: no CBD: wnl Right Kidney: no evidence of hydronephrosis No free fluid visualized. IMPRESSION: Cirrhosis without suspicious observation.
== END | disposition home or self-care (01) ==
LOC: RADUSWWP 11:56
PROVIDERS: ATTEND Internal Medicine Gastroenterology
DX: K70.30 Alcoholic cirrhosis of liver without ascites (principal)
CPT/HCPCS: 76705

== ENCOUNTER → 2023-10-04 | Outpatient (CLI) | payer MEDICARE, OTHER ==
[2023-10-04 18:08] LABS: HGB 12.3 g/dL (13.0-17.0); MCH 25.6 pg (27.0-32.0); MCHC 31.5 g/dL (32.0-37.0); MCV 81.3 FL (80.0-97.0); Mean Platelet Volume 12.3 FL (9.5-12.2); NRBC Per 100 WBC 0 X 10*3/uL (0.00-0.01); Platelet Count 169 X 10*3/uL (140-440); RDW 15.9 % (11.5-14.5); WBC 6.93 X 10*3/uL (4.50-10.00)
[2023-10-04 18:45] LABS: Appearance,Urine Clear (Clear); Bilirubin,Urine Negative (Negative); Blood,Urine Negative (Negative); Color,Urine Dark Yellow (Yellow); Ketones,Urine Trace (Negative); Nitrite,Urine Negative (Negative); PH, Urine 7.5; Specific Gravity,Urine 1.019 (1.001-1.030)
[2023-10-04 18:51] LABS: Bacteria,Urine None Seen (None Seen)
[2023-10-04 19:52] LABS: Microalbumin Creatinine Ratio <6 mg/g Cr (0-30)
[2023-10-04 21:04] LABS: % Iron Saturation 5.71 (15.00-50.00); ALT 12 U/L (10-49); AST 23 U/L (14-35); Albumin 4.2 g/dL (3.8-4.9); Albumin/Globulin Ratio 1.62 Ratio (1.60-3.17); Alkaline Phosphatase 71 U/L (41-126); BUN/Creat Ratio 13.46 Ratio (12.00-20.00); Blood Urea Nitrogen 17.5 mg/dL (9.0-27.0); Calcium 10.1 mg/dL (8.7-10.3); Carbon Dioxide 24.7 mmol/L (21.6-31.8); Chloride 101 mmol/L (96-109); Ferritin 30.6 ng/mL (22.0-322.0); Globulin 2.6 g/dL (1.6-3.3); Glucose 117 mg/dL (70-110); Iron 26 UG/DL (65-175); Magnesium 1.7 mg/dL (1.5-2.4); Phosphorus 2.1 mg/dL (2.4-5.1); Potassium 4.6 mmol/L (3.5-5.5); Sodium 139 mmol/L (135-145); Total Bilirubin 0.5 mg/dL (0.3-1.2); Total Iron Binding Capacity 455 UG/DL (228-460); Total Protein 6.8 g/dL (6.2-8.2); Uric Acid 6.5 mg/dL (3.7-8.7)
[2023-10-05 10:53] LABS: Free Kappa Lt Chain Qnt, Serum 2.72 mg/dL (0.33-1.94); Free Lambda Lt Chain Qnt, Seru 2.23 mg/dL (0.57-2.63)
== END | disposition home or self-care (01) ==
LOC: LABWHC1 14:55
PROVIDERS: ATTEND Internal Medicine
DX: N25.81 Secondary hyperparathyroidism of renal origin (principal); N18.31 Chronic kidney disease, stage 3a; D63.1 Anemia in chronic kidney disease; N39.0 Urinary tract infection, site not specified; E55.9 Vitamin D deficiency, unspecified; M10.9 Gout, unspecified
CPT/HCPCS: 36415; 80053; 81001; 82043; 82306; 82570; 82728; 83540; 83550; 83735; 83883; 83970; 84100; 84166; 84550; 85027; 86334

== ENCOUNTER → 2023-10-13 | Outpatient (CLI) | payer MEDICARE, OTHER ==
--- NOTE | 2023-10-13 11:07 | US ---
EXAMINATION TYPE: US kidneys/renal and bladder DATE OF EXAM: 10/13/2023 COMPARISON: 08/30/2021 CLINICAL INDICATION: Male, 68 years old with history of N18.31 CHRONIC KIDNEY DISEASE, STAGE 3A; CKD. No other pain or symptoms. EXAM MEASUREMENTS: Right Kidney: 9.3 x 4.4 x 4.5 cm Left Kidney: 9.7 x 5.0 x 4.4 cm Limited due to overlying bowel gas Right Kidney: No hydronephrosis or masses seen as best visualized Left Kidney: There is a 0.3cm echogenic foci seen in the inferior pole. No hydronephrosis or other ma sses seen. Bladder: wnl Bilateral Jets seen: Yes There are multiple calcifications within the spleen, seen on prior US. There is no evidence for hydronephrosis at this point in time. No masses are identified. The urinar y bladder is anechoic. Bilateral ureteral jets are seen. IMPRESSION: Nonobstructing nephrolithiasis.
[2023-10-13 12:12] LABS: Appearance,Urine Clear (Clear); Bilirubin,Urine Negative (Negative); Blood,Urine Negative (Negative); Color,Urine Colorless; Glucose,Urine (UA) Negative (Negative); Ketones,Urine Negative (Negative); Leukocyte Esterase,Urine Negative (Negative); Nitrite,Urine Negative (Negative); Protein,Urine Negative (Negative); Specific Gravity,Urine 1.002 (1.001-1.035); Urobilinogen,Urine <2.0 mg/dL (<2.0)
[2023-10-13 16:01] LABS: Basophils # (A) 0.05 X 10*3/uL (0.00-0.10); Basophils % (A) 0.6 %; Eosinophils # (A) 0.21 X 10*3/uL (0.04-0.35); Eosinophils % (A) 2.5 %; HCT 39.6 % (39.6-50.0); HGB 12.6 g/dL (13.0-17.0); Lymphocytes % (A) 18.1 %; MCH 26.1 pg (27.0-32.0); MCHC 31.8 g/dL (32.0-37.0); Mean Platelet Volume 13.2 FL (9.5-12.2); Monocytes # (A) 0.82 X 10*3/uL (0.20-1.00); Monocytes % (A) 9.9 %; NRBC Per 100 WBC 0 X 10*3/uL (0.00-0.01); Neutrophils # (A) 5.69 X 10*3/uL (1.80-7.70); Neutrophils % (A) 68.7 %; Platelet Count 146 X 10*3/uL (140-440); RBC 4.83 X 10*6/uL (4.40-5.60); RDW 17.2 % (11.5-14.5); WBC 8.29 X 10*3/uL (4.50-10.00)
[2023-10-13 16:59] LABS: % Iron Saturation 6.31 (15.00-50.00); ALT 11 U/L (10-49); AST 21 U/L (14-35); Albumin/Globulin Ratio 1.67 Ratio (1.60-3.17); Alkaline Phosphatase 73 U/L (41-126); BUN/Creat Ratio 18.33 Ratio (12.00-20.00); Calcium 9.8 mg/dL (8.7-10.3); Carbon Dioxide 24.7 mmol/L (21.6-31.8); Chloride 102 mmol/L (96-109); Ferritin 28.4 ng/mL (22.0-322.0); Globulin 2.4 g/dL (1.6-3.3); Glucose 100 mg/dL (70-110); Iron 27 UG/DL (65-175); Magnesium 1.7 mg/dL (1.5-2.4); Phosphorus 2.4 mg/dL (2.4-5.1); Potassium 3.9 mmol/L (3.5-5.5); Sodium 138 mmol/L (135-145); Total Bilirubin 0.5 mg/dL (0.3-1.2); Total Iron Binding Capacity 428 UG/DL (228-460); Total Protein 6.4 g/dL (6.2-8.2); Uric Acid 6.2 mg/dL (3.7-8.7)
[2023-10-13 18:55] LABS: Microalbumin Creatinine Ratio <44 mg/g Cr (0-30)
== END | disposition home or self-care (01) ==
LOC: RADUSWWP 10:15
PROVIDERS: ATTEND Internal Medicine Nephrology
DX: N20.0 Calculus of kidney (principal); N18.31 Chronic kidney disease, stage 3a; D64.9 Anemia, unspecified; N39.0 Urinary tract infection, site not specified; E55.9 Vitamin D deficiency, unspecified; M10.9 Gout, unspecified; N25.81 Secondary hyperparathyroidism of renal origin; R80.9 Proteinuria, unspecified
CPT/HCPCS: 36415; 76770; 80053; 81003; 82043; 82306; 82570; 82728; 83540; 83550; 83735; 83883; 83970; 84100; 84550; 85025; 86334

== ENCOUNTER → 2023-11-29 | Outpatient (CLI) | payer MEDICARE, OTHER ==
[2023-11-29 22:04] LABS: ALT 10 U/L (10-49); AST 19 U/L (14-35); Albumin 4.3 g/dL (3.8-4.9); Albumin/Globulin Ratio 1.72 Ratio (1.60-3.17); Alkaline Phosphatase 98 U/L (41-126); BUN/Creat Ratio 25.75 Ratio (12.00-20.00); Blood Urea Nitrogen 30.9 mg/dL (9.0-27.0); Calcium 9.8 mg/dL (8.7-10.3); Carbon Dioxide 25.7 mmol/L (21.6-31.8); Chloride 105 mmol/L (96-109); Globulin 2.5 g/dL (1.6-3.3); Glucose 102 mg/dL (70-110); Phosphorus 3.2 mg/dL (2.4-5.1); Potassium 4.5 mmol/L (3.5-5.5); Sodium 142 mmol/L (135-145); Total Bilirubin 0.4 mg/dL (0.3-1.2); Total Protein 6.8 g/dL (6.2-8.2)
== END | disposition home or self-care (01) ==
LOC: LABWHC1 14:00
PROVIDERS: ATTEND Internal Medicine
DX: N18.31 Chronic kidney disease, stage 3a (principal)
CPT/HCPCS: 36415; 80053; 83735; 84100

== ENCOUNTER → 2023-12-06 | Outpatient (CLI) | payer MEDICARE, OTHER ==
[2023-12-06 16:30] LABS: Basophils # (A) 0.06 X 10*3/uL (0.00-0.10); Basophils % (A) 0.8 %; Eosinophils # (A) 0.14 X 10*3/uL (0.04-0.35); Eosinophils % (A) 1.8 %; HCT 43.9 % (39.6-50.0); HGB 14.7 g/dL (13.0-17.0); Lymphocytes # (A) 1.77 X 10*3/uL (0.90-5.00); Lymphocytes % (A) 22.9 %; MCH 29.4 pg (27.0-32.0); MCHC 33.5 g/dL (32.0-37.0); MCV 87.8 FL (80.0-97.0); Mean Platelet Volume 12.1 FL (9.5-12.2); Monocytes # (A) 0.77 X 10*3/uL (0.20-1.00); NRBC Per 100 WBC 0 X 10*3/uL (0.00-0.01); Neutrophils # (A) 4.95 X 10*3/uL (1.80-7.70); Neutrophils % (A) 64.1 %; Platelet Count 123 X 10*3/uL (140-440); RDW 19.3 % (11.5-14.5); WBC 7.72 X 10*3/uL (4.50-10.00)
[2023-12-06 17:33] LABS: ALT 11 U/L (10-49); AST 23 U/L (14-35); Albumin 4.4 g/dL (3.8-4.9); Albumin/Globulin Ratio 1.76 Ratio (1.60-3.17); Alkaline Phosphatase 89 U/L (41-126); BUN/Creat Ratio 22.54 Ratio (12.00-20.00); Blood Urea Nitrogen 29.3 mg/dL (9.0-27.0); Calcium 10.2 mg/dL (8.7-10.3); Carbon Dioxide 23.2 mmol/L (21.6-31.8); Chloride 107 mmol/L (96-109); Globulin 2.5 g/dL (1.6-3.3); Glucose 98 mg/dL (70-110); Potassium 4.6 mmol/L (3.5-5.5); Sodium 143 mmol/L (135-145); Total Bilirubin 0.5 mg/dL (0.3-1.2); Total Protein 6.9 g/dL (6.2-8.2)
== END | disposition home or self-care (01) ==
LOC: LABWHC1 11:28
PROVIDERS: ATTEND Family Medicine
DX: I10 Essential (primary) hypertension (principal)
CPT/HCPCS: 36415; 80053; 85025

== ENCOUNTER → 2024-01-24 | Outpatient (CLI) | payer MEDICARE, OTHER ==
--- NOTE | 2024-01-24 15:54 | CTL ---
EXAMINATION TYPE: CT Low Dose Lung DATE OF EXAM ORDERED: 01/24/2024 HISTORY: . Low Dose CT Lung Screening CT DLP: 113.[address] CTDI: 3.0 mGy IV CONTRAST USED: None. SCREENING VISIT: First visit COMPARISON: None. TECHNIQUE: Low dose computed tomography scan was performed through the chest at 1 millimeter thick se ctions and reconstructed images in the coronal plane at [address] DIAGNOSTIC QUALITY: Satisfactory FINDINGS: LUNG NODULES: Not presentLeft lung: no nodules identified.Right lung: no nodules identified. LUNGS: COPD: Severity: Mild Fibrosis: Severity:None Lymph nodes: None Other findings: Vague ground glass density right upper lobe or segment right lower lobe likely postin flammatory in nature. RIGHT PLEURAL SPACE: Effusion: None Calcification: None Thickening: None Pneumothorax: None LEFT PLEURAL SPACE: Effusion: None Calcification: None Thickening: None Pneumothorax: None HEART: Heart Size: Mildly enlarged Coronary calcification: Mild Pericardial effusion: None OTHER FINDINGS: Upper abdomen: No significant abnormality Bony thorax: Degenerative changes Supraclavicular region: No significant abnormalityOther: No significant abnormalityI IMPRESSION: No pulmonary nodularity. 5 mm seen. FOLLOW UP CT CHEST RECOMMENDATION: Follow-up screening in one year CT LUNG RAD: LUNG RAD CATEGORY 1 negative
== END | disposition home or self-care (01) ==
LOC: RADCTMAIN 12:49
PROVIDERS: ATTEND Internal Medicine
DX: Z12.2 Encounter for screening for malignant neoplasm of respiratory organs (principal); Z87.891 Personal history of nicotine dependence
CPT/HCPCS: 71271

== ENCOUNTER → 2024-01-24 | Outpatient (CLI) | payer MEDICARE, OTHER ==
[2024-01-24 14:11] LABS: African American GFR (CKD) 84 (>60 ml/min/1.73 sqM); Blood Urea Nitrogen 23 mg/dL (9-20); Non-African American GFR(CKD) 73 (>60 ml/min/1.73 sqM)
--- NOTE | 2024-01-24 15:51 | CT ---
EXAMINATION TYPE: CT abdomen pelvis w con DATE OF EXAM: 01/24/2024 COMPARISON: None HISTORY: WEIGHTLOSS, CIRRHOSIS OF LIVER HX OF PROSTATE CA CT DLP: 653.50 mGycm CONTRAST: CT scan of the abdomen and pelvis is performed with Oral Contrast and with IV Contrast, patient injec rosalio with 100ml mL of Isovue 300. FINDINGS: LUNG BASES-: No visible nodule. No infiltrate. LIVER/GB: No calcified gallstones. Micronodular hepatic contour suggestive of cirrhotic liver dise ase. Splenic granuloma seen within the hepatic dome. No space occupying hepatic lesion. Biliary tree is of normal caliber. PANCREAS: No inflammation. No distinct mass. SPLEEN: No splenic enlargement. No lesion seen. Innumerable splenic granulomas seen. ADRENALS: No nodule. No thickening. KIDNEYS/BLADDER: No hydronephrosis. No nephrolithiasis. No distinct renal mass. Urinary bladder g rossly unremarkable. BOWEL: Normal appendix. Normal bowel caliber. No inflammation. GENITAL ORGANS: Diminutive prostate gland. LYMPH NODES: No greater than 1cm abdominal or pelvic lymp h nodes are appreciated. AORTA: No significant abnormality. OSSEOUS STRUCTURES: Postoperative changes of lumbar fusion L4-5 and L5-S1. There is grade 2 anterolis thesis measuring 1.8 cm L5 on S1. OTHER: No significant additional abnormality is seen. IMPRESSION: 1. Findings suggestive of cirrhotic liver disease. 2. Remote granulomatous disease. 3. Grade 2 anterolisthesis L5 on S1.
== END | disposition home or self-care (01) ==
LOC: RADCTMAIN 12:47
PROVIDERS: ATTEND Internal Medicine
DX: M43.17 Spondylolisthesis, lumbosacral region (principal); R63.4 Abnormal weight loss; K74.60 Unspecified cirrhosis of liver
CPT/HCPCS: 82565; 84520; 74177; 36415; Q9967

== ENCOUNTER → 2024-02-14 | Outpatient (CLI) | payer MEDICARE, OTHER ==
[2024-02-14 16:46] LABS: Basophils # (A) 0.04 X 10*3/uL (0.00-0.10); Basophils % (A) 0.7 %; Eosinophils # (A) 0.09 X 10*3/uL (0.04-0.35); Eosinophils % (A) 1.6 %; HCT 43.8 % (39.6-50.0); HGB 15.3 g/dL (13.0-17.0); Lymphocytes # (A) 1.41 X 10*3/uL (0.90-5.00); Lymphocytes % (A) 25.7 %; MCHC 34.9 g/dL (32.0-37.0); MCV 91.6 FL (80.0-97.0); Mean Platelet Volume 12.6 FL (9.5-12.2); Monocytes # (A) 0.61 X 10*3/uL (0.20-1.00); Monocytes % (A) 11.1 %; NRBC Per 100 WBC 0 X 10*3/uL (0.00-0.01); Neutrophils # (A) 3.31 X 10*3/uL (1.80-7.70); Neutrophils % (A) 60.5 %; Platelet Count 131 X 10*3/uL (140-440); RBC 4.78 X 10*6/uL (4.40-5.60); RDW 13.3 % (11.5-14.5); WBC 5.48 X 10*3/uL (4.50-10.00)
[2024-02-14 17:24] LABS: ALT 12 U/L (10-49); AST 22 U/L (14-35); Albumin 4.2 g/dL (3.8-4.9); Albumin/Globulin Ratio 1.75 Ratio (1.60-3.17); Alkaline Phosphatase 101 U/L (41-126); BUN/Creat Ratio 21.64 Ratio (12.00-20.00); Bilirubin, Conjugated 0.29 mg/dL (0.20-0.40); Bilirubin,Unconjugated 0.41 mg/dL (0.20-1.00); Blood Urea Nitrogen 23.8 mg/dL (9.0-27.0); Chloride 103 mmol/L (96-109); Globulin 2.4 g/dL (1.6-3.3); Glucose 120 mg/dL (70-110); Potassium 4.3 mmol/L (3.5-5.5); Sodium 140 mmol/L (135-145); Total Bilirubin 0.7 mg/dL (0.3-1.2); Total Protein 6.6 g/dL (6.2-8.2)
[2024-02-14 17:34] LABS: Alpha Fetoprotein, Tumor Mkr <3.00 ng/mL (0.00-7.90); Hepatitis B Core IgM Nonreactive (Nonreactive); Hepatitis B Surface Antigen Nonreactive (Nonreactive); Hepatitis C IgG Antibody Reactive (Nonreactive)
[2024-02-14 17:47] LABS: Hepatitis B Surface AB- Quant 3.5 mIU/mL
[2024-02-14 19:49] LABS: INR 1.11 sec (0.93-1.11); Prothrombin Time 11.9 sec (9.9-11.9)
== END | disposition home or self-care (01) ==
LOC: LABWHC1 12:01
PROVIDERS: ATTEND Internal Medicine
DX: K70.30 Alcoholic cirrhosis of liver without ascites (principal)
CPT/HCPCS: 36415; 80053; 82105; 82248; 82728; 83516; 85025; 85610; 86038; 86705; 86706; 86803; 87340

== ENCOUNTER → 2024-02-28 | Outpatient (CLI) | payer MEDICARE, OTHER ==
--- NOTE | 2024-02-28 21:41 | US ---
EXAMINATION TYPE: US liver DATE OF EXAM: 02/28/2024 COMPARISON: CT scan of pelvis 01/24/2024, liver ultrasound 08/14/2023 CLINICAL INDICATION: Male, 68 years old with history of K70.30 CIRRHOSIS ALCOHOLIC; Abnormal CT. TECHNIQUE: Multiple sonographic images of the right upper quadrant are obtained. FINDINGS: EXAM MEASUREMENTS: Liver Length: 12.8 cm Gallbladder Wall: 0.1 cm Right Kidney: 10.0 x 4.5 x 5.6 cm Pancreas: Tail obscured by overlying bowel gas, echogenic in appearance Liver: Appears coarse and nodular in appearance. Gallbladder: No stones or wall thickening. Evidence for sonographic Mckeon's sign: neg CBD: Obscured by overlying bowel gas Right Kidney: No hydronephrosis or masses seen The visualized portions of pancreas unremarkable. The liver demonstrates a coarse nodular appearance. This appears limits evaluation for small intrahepatic masses. No gross evidence of mass. No intrahep atic biliary ductal dilatation. No cholelithiasis or wall thickening. Negative sonographic Mckeon sig n. Common bile duct is obscured by overlying bowel gas. Right kidney demonstrates no hydronephrosis, solid mass or nephrolithiasis. No visualized ascites in the right upper quadrant. IMPRESSION: 1. Hepatic cirrhosis without ultrasound evidence of focal lesion. 2. Nonvisualization of the common bile duct due to overlying bowel gas.
== END | disposition home or self-care (01) ==
LOC: RADUSWWP 10:28
PROVIDERS: ATTEND Internal Medicine
DX: K70.30 Alcoholic cirrhosis of liver without ascites (principal)
CPT/HCPCS: 76705

== ENCOUNTER → 2024-03-11 | Outpatient (CLI) | payer MEDICARE, OTHER ==
[2024-03-11 18:23] LABS: HCT 43.5 % (39.6-50.0); HGB 14.8 g/dL (13.0-17.0); MCH 32.3 pg (27.0-32.0); Mean Platelet Volume 12.1 FL (9.5-12.2); NRBC Per 100 WBC 0 X 10*3/uL (0.00-0.01); Platelet Count 136 X 10*3/uL (140-440); RBC 4.58 X 10*6/uL (4.40-5.60); RDW 13.2 % (11.5-14.5); WBC 7.13 X 10*3/uL (4.50-10.00)
[2024-03-11 20:08] LABS: % Iron Saturation 33.89 (15.00-50.00); ALT 12 U/L (10-49); AST 20 U/L (14-35); Albumin 4.1 g/dL (3.8-4.9); Albumin/Globulin Ratio 1.52 Ratio (1.60-3.17); Alkaline Phosphatase 109 U/L (41-126); BUN/Creat Ratio 23.73 Ratio (12.00-20.00); Blood Urea Nitrogen 26.1 mg/dL (9.0-27.0); Calcium 9.6 mg/dL (8.7-10.3); Carbon Dioxide 23.9 mmol/L (21.6-31.8); Chloride 106 mmol/L (96-109); Globulin 2.7 g/dL (1.6-3.3); Glucose 108 mg/dL (70-110); Iron 121 UG/DL (65-175); Magnesium 1.9 mg/dL (1.5-2.4); Phosphorus 2.3 mg/dL (2.4-5.1); Potassium 4.2 mmol/L (3.5-5.5); Sodium 141 mmol/L (135-145); Total Bilirubin 0.4 mg/dL (0.3-1.2); Total Iron Binding Capacity 357 UG/DL (228-460); Total Protein 6.8 g/dL (6.2-8.2); Uric Acid 6.5 mg/dL (3.7-8.7)
[2024-03-11 20:15] LABS: Appearance,Urine Turbid (Clear); Bilirubin,Urine Negative (Negative); Blood,Urine Negative (Negative); Color,Urine Dark Yellow (Yellow); Ketones,Urine Trace (Negative); Nitrite,Urine Negative (Negative); Specific Gravity,Urine >1.035 (1.001-1.030)
[2024-03-11 20:16] LABS: Bacteria,Urine None Seen (None Seen); Calcium Oxalate Crystals,Urine Present (None Seen)
== END | disposition home or self-care (01) ==
LOC: LABWHC1 12:59
PROVIDERS: ATTEND Internal Medicine
DX: E55.9 Vitamin D deficiency, unspecified (principal); N39.0 Urinary tract infection, site not specified; M10.9 Gout, unspecified; N25.81 Secondary hyperparathyroidism of renal origin; N18.31 Chronic kidney disease, stage 3a; D63.1 Anemia in chronic kidney disease; R80.9 Proteinuria, unspecified
CPT/HCPCS: 36415; 80053; 81001; 82043; 82306; 82570; 82728; 83540; 83550; 83735; 83970; 84100; 84550; 85027

== ENCOUNTER → 2024-04-03 | Outpatient (CLI) | payer MEDICARE, OTHER ==
[2024-04-03 19:25] LABS: BUN/Creat Ratio 17.18 Ratio (12.00-20.00); Blood Urea Nitrogen 18.9 mg/dL (9.0-27.0); Calcium 9.9 mg/dL (8.7-10.3); Carbon Dioxide 26.7 mmol/L (21.6-31.8); Chloride 104 mmol/L (96-109); Glucose 101 mg/dL (70-110); Phosphorus 2.8 mg/dL (2.4-5.1); Potassium 4.6 mmol/L (3.5-5.5); Sodium 142 mmol/L (135-145)
== END | disposition home or self-care (01) ==
LOC: LABWHC1 13:52
PROVIDERS: ATTEND Internal Medicine
DX: E83.89 Other disorders of mineral metabolism (principal); N18.31 Chronic kidney disease, stage 3a
CPT/HCPCS: 36415; 80048; 84100

== ENCOUNTER → 2024-04-24 | Outpatient (CLI) | payer MEDICARE, OTHER | END | disposition home or self-care (01) | LOC: LABWHC1 11:23 | PROVIDERS: ATTEND Internal Medicine | DX: B18.2 Chronic viral hepatitis C (principal); K70.30 Alcoholic cirrhosis of liver without ascites | CPT/HCPCS: 36415; 87522 ==

== ENCOUNTER → 2024-07-15 | Outpatient (CLI) | payer MEDICARE, OTHER ==
[2024-07-15 19:29] LABS: Appearance,Urine Clear (Clear); Bilirubin,Urine Negative (Negative); Blood,Urine Negative (Negative); Color,Urine Dark Yellow (Yellow); Ketones,Urine Trace (Negative); Nitrite,Urine Negative (Negative); Specific Gravity,Urine 1.027 (1.001-1.030)
[2024-07-15 19:33] LABS: Bacteria,Urine None Seen (None Seen)
[2024-07-15 20:09] LABS: HGB 15.1 g/dL (13.0-17.0); MCH 32.3 pg (27.0-32.0); MCHC 34.3 g/dL (32.0-37.0); MCV 94.2 FL (80.0-97.0); Mean Platelet Volume 12.9 FL (9.5-12.2); NRBC Per 100 WBC 0 X 10*3/uL (0.00-0.01); Platelet Count 126 X 10*3/uL (140-440); RBC 4.67 X 10*6/uL (4.40-5.60); WBC 6.37 X 10*3/uL (4.50-10.00)
[2024-07-15 20:41] LABS: % Iron Saturation 45.91 (15.00-50.00); ALT 10 U/L (10-49); AST 23 U/L (14-35); Albumin 4.1 g/dL (3.8-4.9); Albumin/Globulin Ratio 1.64 Ratio (1.60-3.17); Alkaline Phosphatase 80 U/L (41-126); Blood Urea Nitrogen 22.2 mg/dL (9.0-27.0); Calcium 9.7 mg/dL (8.7-10.3); Carbon Dioxide 22.1 mmol/L (21.6-31.8); Chloride 105 mmol/L (96-109); Globulin 2.5 g/dL (1.6-3.3); Glucose 91 mg/dL (70-110); Iron 157 UG/DL (65-175); Magnesium 1.8 mg/dL (1.5-2.4); Phosphorus 3.3 mg/dL (2.4-5.1); Potassium 4.4 mmol/L (3.5-5.5); Sodium 141 mmol/L (135-145); Total Bilirubin 0.7 mg/dL (0.3-1.2); Total Iron Binding Capacity 342 UG/DL (228-460); Total Protein 6.6 g/dL (6.2-8.2)
[2024-07-15 22:40] LABS: Microalbumin Creatinine Ratio <5 mg/g Cr (0-30)
== END | disposition home or self-care (01) ==
LOC: LABWHC1 13:20
PROVIDERS: ATTEND Internal Medicine
DX: N18.31 Chronic kidney disease, stage 3a (principal); D64.9 Anemia, unspecified; N39.0 Urinary tract infection, site not specified; R80.9 Proteinuria, unspecified; E55.9 Vitamin D deficiency, unspecified; N25.81 Secondary hyperparathyroidism of renal origin; M10.9 Gout, unspecified
CPT/HCPCS: 36415; 80053; 81001; 82043; 82306; 82570; 82728; 83540; 83550; 83735; 83970; 84100; 84550; 85027

== ENCOUNTER → 2024-09-18 | Outpatient (CLI) | payer MEDICARE, OTHER | END | disposition home or self-care (01) | LOC: LABWHC1 13:46 | PROVIDERS: ATTEND Urology | DX: C61 Malignant neoplasm of prostate (principal) | CPT/HCPCS: 36415; 84153 ==